=== PATIENT | female | born 1990 | race Caucasian/White ===

== ENCOUNTER 2017-01-05 11:04 | Inpatient (IN) | payer MEDICAID ==
[2017-01-05] VITALS (40 sets, daily range): BP systolic 100–134; BP diastolic 63–98
[~2017-01-05] VITALS: Ht 160 cm; Wt 86.4 kg
[~2017-01-05 11:04] MED LIST: CEPH500C PO; FOLI0.4T2 PO; METR500T; NITR-65 PO; PENI250T4 PO; PREN1TAB25 PO; PRM25T PO; SULF1TAB38 PO
[2017-01-05 11:36] LABS: BILIRUBIN,URINE NEGATIVE (NEGATIVE); KETONES,URINE NEGATIVE (NEGATIVE); LEUKOCYTE ESTERASE ,URINE NEGATIVE (NEGATIVE); NITRITE,URINE NEGATIVE (NEGATIVE); PH,URINE 5 (5-9); PROTEIN,URINE NEGATIVE (NEGATIVE); UROBILINOGEN,URINE NORMAL (NORMAL)
[2017-01-05 11:45] LABS: SQUAMOUS EPITHELIAL CELL,UR 0-2 /HPF
[2017-01-05 12:04] LABS: BASOPHILS # (AUTO) 0.1 10^3/uL (0.0-0.1); BASOPHILS % (AUTO) 0 % (0-10); EOSINOPHILS # (AUTO) 0.1 10^3/uL (0.0-0.3); EOSINOPHILS % (AUTO) 0 % (0-10); LYMPHOCYTES # (AUTO) 2.9 X 10^3 (1.0-4.0); LYMPHOCYTES % (AUTO) 21 % (12-44); MEAN CORPUSCULAR HEMOGLOBIN 27 PG (25-34); MEAN CORPUSCULAR HGB CONC 32 G/DL (32-36); MEAN CORPUSCULAR VOLUME 84 FL (80-99); MEAN PLATELET VOLUME 11.4 FL (7.4-10.4); MONOCYTES % (AUTO) 7 % (0-12); NEUTROPHILS # (AUTO) 10.2 X 10^3 (1.8-7.8); NEUTROPHILS % (AUTO) 72 % (42-75); PLATELET COUNT 290 10^3/uL (130-400); RED CELL DISTRIBUTION WIDTH 14.7 % (10.0-14.5); WHITE BLOOD COUNT 14.2 10^3/uL (4.3-11.0)
[2017-01-05] MEDS ORDERED: D5 LR IV SOLUTION 1,000 ML IV SCH (12:07)
[2017-01-05] MEDS ORDERED: AMPICILLIN INJECTION 2,000 MG in NS (IVPB) 50 ML IV SCH (12:07)
[2017-01-05] MEDS ORDERED: AMPICILLIN 2000 MG INJECTION (IM/IV) ONE (12:10)
[2017-01-05] MEDS ORDERED: NS (IVPB) 50 ML ONE (12:10)
[2017-01-05] MEDS ORDERED: MINERAL OIL CONCENTRATE 99.9% 15 ML UDC TOP PRN (12:15)
[2017-01-05 12:22] LABS: BAND NEUTROPHILS 0 %; BASOPHILS % (MANUAL) 0 %; EOSINOPHILS % (MANUAL) 1 %; LYMPHOCYTES % (MANUAL) 16 %; NEUTROPHILS % (MANUAL) 76 %; REACTIVE LYMPHOCYTES 3 %
[2017-01-05 12:29] LABS: ALANINE AMINOTRANSFERASE 126 U/L (0-55); ANION GAP 8 MMOL/L (5-14); ASPARTATE AMINO TRANSFERASE 100 U/L (5-34); BILIRUBIN,TOTAL 0.3 MG/DL (0.1-1.0); BLOOD UREA NITROGEN 10 MG/DL (7-18); BUN/CREATININE RATIO 15; CALCIUM 8.6 MG/DL (8.5-10.1); CARBON DIOXIDE 18 MMOL/L (21-32); CHLORIDE 106 MMOL/L (98-107); CREATININE SERUM 0.65 MG/DL (0.60-1.30); GFR ESTIMATED > 60; GLUCOSE 79 MG/DL (70-105); POTASSIUM 4.8 MMOL/L (3.6-5.0); SODIUM 132 MMOL/L (135-145); TOTAL PROTEIN 6.3 G/DL (6.4-8.2)
[2017-01-05] MEDS ORDERED: CATHETER FLUSH 10 ML SYR IV PRN (12:30)
--- NOTE | 2017-01-05 12:32 | Diagnostic Imaging Report ---
OB ultrasound. INDICATION: Vaginal bleeding. No prior comparison OB ultrasounds are available during this . FINDINGS: There is a single live intrauterine . The heart rate is 139 beats per minutes. The placenta is anterior. No placenta previa. Amniotic fluid index is 29 CM. The growth parameters are: Biparietal diameter: 39 weeks 5 days Head circumference: 40 weeks and 5 days Abdominal circumference: 41 weeks and 2 days Femur length: 38 weeks and one day These average at: 40 weeks and zero day. Estimated weight is 4.0 kg . No ventriculomegaly. The spine appear unremarkable. Three-vessel cord is seen. The stomach, urinary bladder, kidneys are unremarkable. The four-chamber view is not well evaluated with no gross abnormality evident. No ventriculomegaly. The position is cephalic. The cervix is obscured by the head. IMPRESSION: Polyhydramnios. The preliminary results were given to Dr. Stephens by the electronics engineering technologist performing the exam. Dictated by: Dictated on workstation # [id number]
--- NOTE | 2017-01-05 13:34 | History & Physical-OB/GYN ---
History of Present Illness History of Present Illness Reason for visit/HPI The patient is a 26 /Para 5 / 4,Gestational Age estimated at 40 weeks ( based on US done today) with no care, spontaneous labor, polyhydramnios , suspected macrosomia, GBS unknown, Presents with complaint of "it's my due date". Dating us was done and revealed EDC of approx 40 weeks with copious fluid (see report). She is marciano and has made cervical change, so admitted for labor. PN labs pending. History of "preeclampsia" with last delivery, though when I reviewed records, there was no elevated BP just elevated LFTs. These are pending today. GBS done and pending. Previous PNC with [facility] but none this . When asked, patient states "I didn't know I was ", Though she had a 3D sono a few weeks ago. Also states "I had my period every month". Date of Admission 01/05/17 I consulted on this patient on 01/05/17 13:34 Attending Physician Ashley Lawson DO Admitting Physician Elgin Mc MD Consult Allergies and Home Medications Allergies Coded Allergies: No Known Drug Allergies (Verified , 03/19/08) Home Medications Docusate Sodium 100 Mg Capsule, 100 MG PO BID, #60 Prescribed by: ASHLEY LAWSON on 01/07/17 0722 Ferrous Sulfate 325 Mg Tablet, 325 MG PO DAILY, #120 Prescribed by: ASHLEY LAWSON on 01/07/17 0722 Ibuprofen 600 Mg Tablet, 600 MG PO Q6H, #40 Prescribed by: ASHLEY LAWSON on 01/07/17 0722 Past Dygaucu-Cgryuc-Hdvxko Hx Patient Social History Marrital Status: single Number of Children: 4 Number of living children: 4 Employed/Student: unemployed Smoking Status: Current Everyday Smoker Type Used: Cigarettes Physical Abuse Screen: No Sexual Abuse: No Recent Foreign Travel: No Contact w/other who traveled: No Recent Infectious Disease Expo: No Immunizations Up To Date Tetanus Booster (TDap): Unknown Date of Influenza Vaccine: Aug 20, 2014 Surgeries HX Surgeries: Yes Surgeries: Gallbladder Respiratory Hx Respiratory Disorders: No Cardiovascular Hx Cardiovascular Disorders: No Neurological Hx Neurological Disorders: No Reproductive System : Yes Hx : 5 Hx Para: 4 Hx Reproductive Disorders: No Genitourinary Hx Genitourinary Disorders: No Gastrointestinal Hx Gastrointestinal Disorders: Yes Musculoskeletal Hx Musculoskeletal Disorders: No Endocrine Hx Endocrine Disorders: No HEENT HX ENT Disorders: No Psychosocial Hx Psychiatric Problems: No Blood Transfusions Hx Blood Disorders: No Constitutional: no symptoms reported Respiratory: no symptoms reported Cardiovascular: no symptoms reported Physical Exam Physical Exam Vital Signs Capillary Refill : Labs General Appearance: WD/WN Respiratory: Chest Non Tender, Lungs Clear Cardiovascular: Regular Rate, Rhythm, No Edema Abdominal: normal bowel sounds, non tender Cervix OS: open, other (4 cm) Assessment/Plan Assessment and Plan 1. Multigravid in labor - third trimester, but EDC unknown 2. No care 3. Polyhydramnios- ALIS of 29. Have to rule out undiagnosed diabetes, Also have to rule out anomaly 4. GBS unknown 5. Elevated lfts of unknown etiology Admit for labor, PNLabs drawn, GBS done and pending. Anticipate . Social work consult. UDS pending. Problems: ASHLEY LAWSON DO Jan 05, 2017 13:34
[2017-01-05] MEDS ORDERED: SUFENTA 0.6MCG/ML BUPIVA 0.125 100 ML ONE (14:22)
[2017-01-05] MEDS ORDERED: fentaNYL INJECTION 100 MCG/2 ML AMP ONE (14:40)
[2017-01-05] MEDS ORDERED: BUPIVACAINE 0.25% 30 ML (SENSORCAINE) VIAL ONE (14:40)
[2017-01-05] MEDS ORDERED: LACTATED RINGERS 1,000 ML IV ONE ×2 (15:01)
[2017-01-05] MEDS ORDERED: BUPIVACAINE 0.25% 30 ML (SENSORCAINE) VIAL INJ ONE (15:15)
[2017-01-05] MEDS ORDERED: fentaNYL INJECTION 100 MCG/2 ML AMP INJ ONE (15:15)
[2017-01-05] MEDS ORDERED: ONDANSETRON 4 MG/2 ML (SDV) Z0FRAN IV PRN (15:15)
[2017-01-05] MEDS ORDERED: NALOXONE 0.4 MG/ML 1 ML (NARCAN) VIAL IV PRN (15:15)
[2017-01-05] MEDS ORDERED: EPIDURAL (SUFENTA 0.6MCG/ML BUPIVA 0.125%) 100 ML BAG EPI PRN (15:15)
[2017-01-05] MEDS ORDERED: AMPICILLIN INJECTION 1,000 MG in NS (IVPB) 50 ML IV SCH (16:15)
[2017-01-05] MEDS ORDERED: OXYTOCIN/NORMAL SALINE 500 ML IV SCH ×2 (17:03→20:18)
[2017-01-05] MEDS ORDERED: LIDOCAINE/EPI 1%-1:200,000 (XYLOCAINE) 30 ML VIAL ONE (19:22)
[2017-01-05] MEDS ORDERED: MISOPROSTOL 200 MCG (CYTOTEC) TABLET ONE (20:12)
--- NOTE | 2017-01-05 20:23 | OB Labor & Delivery Record ---
Vag Delivery Note Vag Delivery Note Date of Delivery: 01/05/17 Preoperative Diagnosis: Vicki Delaney is a 26 /Para 5 / 4, Gestational Age estimated at 40 weeks with no care, spontaneous labor, polyhydramnios, suspected macrosomia, GBS unknown elevated LFTs, unknown reason Postoperative Diagnosis: Same Surgeon: PRAMOD LAWSON Help Desk Operator: Siri Montaño MS IV Anesthesia: Epidural Delivery Type: vaginal Findings: Viable male , apgars , weight 8#7oz Lacerations: Intact placenta with 3 vessel cord. No nuchal cord, body cord or shoulder dystocia Cytotec 800 mcg placed for hemorrhage prophylaxis Estimated Blood Loss: 250 ml Complications: None Condition: Stable Description of Procedure: The patient is a 26 /Para 5 / 4,Gestational Age estimated at 40 weeks ( based on US done today) with no care, spontaneous labor, polyhydramnios , suspected macrosomia, GBS unknown elevated LFTs, unknown reason. She was admitted and informed consent was obtained. She was noted to be 4 cm on admission and 5 cm dilated with irregular contractions. Her labor course was remarkable for Ampicillin for GBS prophylaxis ( unknown status), AROM at 7+ cm with copious fluid (2400 grams weighed on the chux), epidrual, then aumentation with pitocin. She progressed to complete dilatation and began to push. She was then set up for delivery. She was at 7 cm for quite awhile and then went quickly to complete and +3. The bed was left intact and she was allowed to deliver in the bed. The infant's head was delivered atraumatically in the OA position. The shoulders and remainder of the infant's body were then delivered without difficulty. Upon delivery, the head was held below the level of the perineum and the mouth and nares were bulb suctioned. The cord was doubly clamped and cut and the infant was handed off to the pediatric staff. An intact placenta with 3-vessel cord delivered via Carter and there was found to be minimal bleeding.~ Vigorous fundal massage was performed and the fundus was found to be firm. IV oxytocin was given. Examination of the vagina and perineum revealed no laceration. Following the delivery, sponge, instrument and needle counts were correct. Mom and baby were both in stable condition in the labor suite. Vitals - Labs Vital Signs - I&O Vital Signs Date Time Temp Pulse Resp B/P (MAP) Pulse Ox O2 Delivery O2 Flow Rate FiO2 01/05/17 18:45 1817 18:40 80 18 122/84 18/17 18:30 18/17 18:24 60 18 119/77 18/17 18:15 1817 18:10 57 18 118/75 18/17 18:00 18/17 17:55 62 18 127/69 97 18/17 17:45 18/17 17:40 59 18 114/67 97 18/17 17:30 18/17 17:25 97.6 67 18 112/69 97 18/17 17:15 1817 17:10 56 18 116/70 97 18/17 17:00 61 18 97 18/17 16:55 56 18 124/65 97 18/17 16:45 70 18 99 18/17 16:40 66 18 122/80 99 18/17 16:30 70 18 99 18/17 16:25 97.4 61 18 122/74 98 18/17 16:15 67 18 97 18/17 16:10 60 18 114/67 98 18/17 16:00 64 18 98 18/17 15:50 67 18 115/73 97 18/17 15:45 62 18 117/76 98 18/17 15:40 68 18 112/73 97 18/17 15:35 73 18 117/77 97 18/17 15:30 75 18 114/70 98 18/17 15:25 72 18 120/76 97 18/17 15:20 82 18 118/76 98 18/17 15:15 66 18 121/73 98 18/17 15:12 77 18 117/73 18/17 15:09 78 18 109/65 98 18/17 15:06 66 18 110/63 18/17 15:03 69 18 115/73 18/17 15:00 81 18 116/79 98 18/17 14:55 82 123/91 18/17 14:50 68 18 122/92 18/17 14:45 133/98 01/05/17 13:53 60 18 128/83 01/05/17 11:05 97.4 85 128/80 Labs Laboratory Tests 01/05/17 11:05: Urine Color YELLOW, Urine Clarity CLEAR, Urine pH 5, Urine Specific [place] 1.015L, Urine Protein NEGATIVE, Urine Glucose (UA) NEGATIVE, Urine Ketones NEGATIVE, Urine Nitrite NEGATIVE, Urine Bilirubin NEGATIVE, Urine Urobilinogen NORMAL, Urine Leukocyte Esterase NEGATIVE, Urine RBC (Auto) 3+H, Urine RBC NONE , Urine WBC NONE, Urine Squamous Epithelial Cells 0-2, Urine Crystals NONE, Urine Bacteria NEGATIVE, Urine Casts NONE, Urine Mucus NEGATIVE, Urine Culture Indicated NO, Urine Opiates Screen NEGATIVE, Urine Oxycodone Screen NEGATIVE, Urine Methadone Screen NEGATIVE, Urine Propoxyphene Screen NEGATIVE, Urine Barbiturates Screen NEGATIVE, Ur Tricyclic Antidepressants Screen NEGATIVE, Urine Phencyclidine Screen NEGATIVE, Urine Amphetamines Screen NEGATIVE, Urine Methamphetamines Screen NEGATIVE, Urine Benzodiazepines Screen NEGATIVE, Urine Cocaine Screen NEGATIVE, Urine Cannabinoids Screen NEGATIVE 01/05/17 11:48: White Blood Count 14.2H, Red Blood Count 3.90L, Hemoglobin 10.6L, Hematocrit 33L , Mean Corpuscular Volume 84, Mean Corpuscular Hemoglobin 27, Mean Corpuscular Hemoglobin Concent 32, Red Cell Distribution Width 14.7H, Platelet Count 290, Mean Platelet Volume 11.4H, Neutrophils (%) (Auto) 72, Lymphocytes (%) (Auto) 21 , Monocytes (%) (Auto) 7, Eosinophils (%) (Auto) 0, Basophils (%) (Auto) 0, Neutrophils # (Auto) 10.2H, Lymphocytes # (Auto) 2.9, Monocytes # (Auto) 1.0, Eosinophils # (Auto) 0.1, Basophils # (Auto) 0.1, Neutrophils % (Manual) 76, Lymphocytes % (Manual) 16, Monocytes % (Manual) 4, Eosinophils % (Manual) 1, Basophils % (Manual) 0, Band Neutrophils 0, Reactive Lymphocytes 3, Blood Morphology Comment NORMAL, Sodium Level 132L, Potassium Level 4.8, Chloride Level 106, Carbon Dioxide Level 18L, Anion Gap 8, Blood Urea Nitrogen 10, Creatinine 0.65, Estimat Glomerular Filtration Rate > 60, BUN/Creatinine Ratio 15, Glucose Level 79, Calcium Level 8.6, Total Bilirubin 0.3, Aspartate Amino Transf (AST/SGOT) 100H, Alanine Aminotransferase (ALT/SGPT) 126H, Alkaline Phosphatase 234H, Total Protein 6.3L, Albumin 3.0L PRAMOD LAWSON DO Jan 05, 2017 20:23
[2017-01-05] MEDS ORDERED: MEASLES,MUMPS,RUBELLA 1 EA INJ SQ ONE (20:30)
[2017-01-05] MEDS ORDERED: WITCH HAZEL(TUCKS) 40 EA JAR TOP PRN (20:30)
[2017-01-05] MEDS ORDERED: TETANUS,DIPTH,PERTUSS P/F (BOOSTRIX) 0.5 ML VIAL IM ONE (20:30)
[2017-01-05] MEDS ORDERED: MISOPROSTOL 200 MCG (CYTOTEC) TABLET PR ONE (20:30)
[2017-01-05] MEDS ORDERED: BENZOCAINE/MENTHOL (DERMOPLAST) 56 ML CAN TP PRN (20:30)
[2017-01-05] MEDS: IBUPROFEN 600 MG (MOTRIN) TAB PO SCH (21:54)
[2017-01-05] MEDS ORDERED: CATHETER FLUSH 10 ML SYR IV SCH (22:00)
[2017-01-06 03:00] VITALS: BP 107/63
[2017-01-06] MEDS: IBUPROFEN 600 MG (MOTRIN) TAB PO SCH ×3 (03:01→17:36)
[2017-01-06 06:15] LABS: BASOPHILS % (AUTO) 0 % (0-10); EOSINOPHILS # (AUTO) 0.2 10^3/uL (0.0-0.3); EOSINOPHILS % (AUTO) 1 % (0-10); LYMPHOCYTES # (AUTO) 3.2 X 10^3 (1.0-4.0); LYMPHOCYTES % (AUTO) 19 % (12-44); MEAN CORPUSCULAR HEMOGLOBIN 26 PG (25-34); MEAN CORPUSCULAR HGB CONC 31 G/DL (32-36); MEAN CORPUSCULAR VOLUME 84 FL (80-99); MEAN PLATELET VOLUME 11.8 FL (7.4-10.4); MONOCYTES # (AUTO) 1.1 X 10^3 (0.0-1.0); MONOCYTES % (AUTO) 6 % (0-12); NEUTROPHILS # (AUTO) 12.5 X 10^3 (1.8-7.8); NEUTROPHILS % (AUTO) 74 % (42-75); PLATELET COUNT 290 10^3/uL (130-400); RED BLOOD COUNT 3.68 10^6/uL (4.35-5.85); RED CELL DISTRIBUTION WIDTH 14.5 % (10.0-14.5)
[2017-01-06 07:50] LABS: HIV 1/2 INTERP See Footnote; HIV AG AB SCREEN Non-Reactive (Non-Reactive)
[2017-01-06 08:00] LABS: ALANINE AMINOTRANSFERASE 126 U/L (0-55); ALBUMIN 2.5 G/DL (3.2-4.5); ANION GAP 7 MMOL/L (5-14); ASPARTATE AMINO TRANSFERASE 113 U/L (5-34); BILIRUBIN,TOTAL 0.3 MG/DL (0.1-1.0); BLOOD UREA NITROGEN 7 MG/DL (7-18); BUN/CREATININE RATIO 12; CALCIUM 8.2 MG/DL (8.5-10.1); CARBON DIOXIDE 21 MMOL/L (21-32); CHLORIDE 105 MMOL/L (98-107); GFR ESTIMATED > 60; GLUCOSE 78 MG/DL (70-105); POTASSIUM 4.3 MMOL/L (3.6-5.0); SODIUM 133 MMOL/L (135-145); TOTAL PROTEIN 5.3 G/DL (6.4-8.2)
--- NOTE | 2017-01-06 08:27 | Postpartum Progress Note ---
Note Note Day # 1 Subjective: Unable to assess as pt has not been in her room the three times I attempted to see her this AM. Per RN, no complaints. Objective: VS - Last 72 Hours, by Label 01/05/17 01/05/17 01/05/17 17 11:05 13:53 14:45 14:50 Temp 97.4 Pulse 85 60 68 Resp 18 18 B/P (MAP) 128/80 128/83 133/98 122/92 18/17 18/17 4/18/17 418/17 14:55 15:00 15:03 15:06 Pulse 82 81 69 66 Resp 18 18 18 B/P (MAP) 123/91 116/79 115/73 110/63 Pulse Ox 98 01/05/17 18/17 /18/17 01/05/17 15:09 15:12 15:15 15:20 Pulse 78 77 66 82 Resp 18 18 18 18 B/P (MAP) 109/65 117/73 121/73 118/76 Pulse Ox 98 98 98 01/05/17 18/17 4/18/17 /18/17 15:25 15:30 15:35 15:40 Pulse 72 75 73 68 Resp 18 18 18 18 B/P (MAP) 120/76 114/70 117/77 112/73 Pulse Ox 97 98 97 97 18/17 /18/17 4/18/17 18/17 15:45 15:50 16:00 16:10 Pulse 62 67 64 60 Resp 18 18 18 18 B/P (MAP) 117/76 115/73 114/67 Pulse Ox 98 97 98 98 18/17 18/17 4/18/17 /18/17 16:15 16:25 16:30 16:40 Temp 97.4 Pulse 67 61 70 66 Resp 18 18 18 18 B/P (MAP) 122/74 122/80 Pulse Ox 97 98 99 99 18/17 /18/17 4/18/17 4/18/17 16:45 16:55 17:00 17:10 Pulse 70 56 61 56 Resp 18 18 18 18 B/P (MAP) 124/65 116/70 Pulse Ox 99 97 97 97 18/17 4/18/17 4/18/17 4/18/17 17:15 17:25 17:30 17:40 Temp 97.6 Pulse 67 59 Resp 18 18 B/P (MAP) 112/69 114/67 Pulse Ox 97 97 01/05/17 01/05/17 01/05/17 01/05/17 17:45 17:55 18:00 18:10 Pulse 62 57 Resp 18 18 B/P (MAP) 127/69 118/75 Pulse Ox 97 01/05/17 01/05/17 01/05/17 01/05/17 18:15 18:24 18:30 18:40 Pulse 60 80 Resp 18 18 B/P (MAP) 119/77 122/84 01/05/17 01/05/17 01/05/17 01/05/17 18:45 18:55 19:15 19:30 Temp 97.2 Pulse 72 68 78 Resp 18 18 B/P (MAP) 124/72 134/81 132/84 O2 Delivery Room Air Non Rebreather 01/05/17 01/05/17 01/05/17 01/05/17 19:43 19:55 20:10 20:25 Temp 97.8 98.0 97.3 Pulse 84 84 70 Resp 18 18 18 18 B/P (MAP) 125/70 132/83 119/74 O2 Delivery Non Rebreather Room Air Room Air Room Air 01/05/17 01/05/17 01/05/17 01/05/17 20:40 20:55 21:05 21:10 Temp 97.9 98.1 Pulse 75 60 77 72 Resp 18 18 18 18 B/P (MAP) 122/77 118/71 125/74 123/73 O2 Delivery Room Air Room Air Room Air Room Air 01/05/17 01/06/17 21:25 03:00 Temp 97.2 Pulse 77 53 Resp 18 18 B/P (MAP) 100/80 107/63 Pulse Ox 97 O2 Delivery Room Air Room Air Physical Exam: Unable to perform. Laboratory Tests Test 01/05/17 11:05 01/05/17 11:48 01/06/17 05:54 Range/Units Urine Color YELLOW Urine Clarity CLEAR Urine pH 5 5-9 Urine Specific [place] 1.015 L 1.016-1.022 Urine Protein NEGATIVE NEGATIVE Urine Glucose (UA) NEGATIVE NEGATIVE Urine Ketones NEGATIVE NEGATIVE Urine Nitrite NEGATIVE NEGATIVE Urine Bilirubin NEGATIVE NEGATIVE Urine Urobilinogen NORMAL NORMAL MG/DL Urine Leukocyte Esterase NEGATIVE NEGATIVE Urine RBC (Auto) 3+ H NEGATIVE Urine RBC NONE /HPF Urine WBC NONE /HPF Urine Squamous Epithelial Cells 0-2 /HPF Urine Crystals NONE /LPF Urine Bacteria NEGATIVE /HPF Urine Casts NONE /LPF Urine Mucus NEGATIVE /LPF Urine Culture Indicated NO Urine Opiates Screen NEGATIVE NEGATIVE Urine Oxycodone Screen NEGATIVE NEGATIVE Urine Methadone Screen NEGATIVE NEGATIVE Urine Propoxyphene Screen NEGATIVE NEGATIVE Urine Barbiturates Screen NEGATIVE NEGATIVE Ur Tricyclic Antidepressants Screen NEGATIVE NEGATIVE Urine Phencyclidine Screen NEGATIVE NEGATIVE Urine Amphetamines Screen NEGATIVE NEGATIVE Urine Methamphetamines Screen NEGATIVE NEGATIVE Urine Benzodiazepines Screen NEGATIVE NEGATIVE Urine Cocaine Screen NEGATIVE NEGATIVE Urine Cannabinoids Screen NEGATIVE NEGATIVE White Blood Count 14.2 H 17.0 H 4.3-11.0 10^3/uL Red Blood Count 3.90 L 3.68 L 4.35-5.85 10^6/uL Hemoglobin 10.6 L 9.7 L 11.5-16.0 G/DL Hematocrit 33 L 31 L 35-52 % Mean Corpuscular Volume 84 84 80-99 FL Mean Corpuscular Hemoglobin 27 26 25-34 PG Mean Corpuscular Hemoglobin Concent 32 31 L 32-36 G/DL Red Cell Distribution Width 14.7 H 14.5 10.0-14.5 % Platelet Count 290 290 130-400 10^3/uL Mean Platelet Volume 11.4 H 11.8 H 7.4-10.4 FL Neutrophils (%) (Auto) 72 74 42-75 % Lymphocytes (%) (Auto) 21 19 12-44 % Monocytes (%) (Auto) 7 6 0-12 % Eosinophils (%) (Auto) 0 1 0-10 % Basophils (%) (Auto) 0 0 0-10 % Neutrophils # (Auto) 10.2 H 12.5 H 1.8-7.8 X 10^3 Lymphocytes # (Auto) 2.9 3.2 1.0-4.0 X 10^3 Monocytes # (Auto) 1.0 1.1 H 0.0-1.0 X 10^3 Eosinophils # (Auto) 0.1 0.2 0.0-0.3 10^3/uL Basophils # (Auto) 0.1 0.0 0.0-0.1 10^3/uL Neutrophils % (Manual) 76 % Lymphocytes % (Manual) 16 % Monocytes % (Manual) 4 % Eosinophils % (Manual) 1 % Basophils % (Manual) 0 % Band Neutrophils 0 % Reactive Lymphocytes 3 % Blood Morphology Comment NORMAL Sodium Level 132 L 133 L 135-145 MMOL/L Potassium Level 4.8 4.3 3.6-5.0 MMOL/L Chloride Level 106 105 98-107 MMOL/L Carbon Dioxide Level 18 L 21 21-32 MMOL/L Anion Gap 8 7 5-14 MMOL/L Blood Urea Nitrogen 10 7 7-18 MG/DL Creatinine 0.65 0.60 0.60-1.30 MG/DL Estimat Glomerular Filtration Rate > 60 > 60 BUN/Creatinine Ratio 15 12 Glucose Level 79 78 70-105 MG/DL Calcium Level 8.6 8.2 L 8.5-10.1 MG/DL Total Bilirubin 0.3 0.3 0.1-1.0 MG/DL Aspartate Amino Transf (AST/SGOT) 100 H 113 H 5-34 U/L Alanine Aminotransferase (ALT/SGPT) 126 H 126 H 0-55 U/L Alkaline Phosphatase 234 H 187 H 40-136 U/L Total Protein 6.3 L 5.3 L 6.4-8.2 G/DL Albumin 3.0 L 2.5 L 3.2-4.5 G/DL Hepatitis A IgM Antibody Non-Reactive Non-Reactive Hepatitis B Surface Antigen Non-Reactive Non-Reactive Hepatitis B Core IgM Antibody Non-Reactive Non-Reactive Hepatitis C Antibody Non-Reactive Non-Reactive HIV (1&2) Antibody Non-Reactive Non-Reactive HIV (1&2) Antibody Interpretation See Footnote Assessment: 26 y/o post- day # 1, status post spontaneous vaginal delivery. Recovering well, hemodynamically stable Acute blood loss anemia Hgb 9.7 Transaminitis, stable, no elevated BPs or other si/sx pre-eclampsia Plan: Routine care. Encourage breast feeding. Encourage ambulation. Ferrous sulfate supplementation. Plan for discharge tomorrow. Hepatitis panel negative, will need f/u with PCP regarding transaminitis (chronic after reviewing last delivery admission). SS consult - no care Vitals - Labs Vital Signs - I&O Vital Signs Date Time Temp Pulse Resp B/P (MAP) Pulse Ox O2 Delivery O2 Flow Rate FiO2 01/06/17 03:00 97.2 53 18 107/63 97 Room Air 01/05/17 21:25 77 18 100/80 Room Air 01/05/17 21:10 72 18 123/73 Room Air 01/05/17 21:05 77 18 125/74 Room Air 01/05/17 20:55 98.1 60 18 118/71 Room Air 01/05/17 20:40 97.9 75 18 122/77 Room Air 01/05/17 20:25 97.3 70 18 119/74 Room Air 01/05/17 20:10 98.0 84 18 132/83 Room Air 01/05/17 19:55 97.8 84 18 125/70 Room Air 01/05/17 19:43 18 Non Rebreather 01/05/17 19:30 78 18 132/84 Non Rebreather 01/05/17 19:15 97.2 68 18 134/81 Room Air 01/05/17 18:55 72 124/72 17 18:45 1817 18:40 80 18 122/84 1817 18:30 1817 18:24 60 18 119/77 1817 18:15 1817 18:10 57 18 118/75 1817 18:00 18/17 17:55 62 18 127/69 97 18/17 17:45 18/17 17:40 59 18 114/67 97 18/17 17:30 18/17 17:25 97.6 67 18 112/69 97 1817 17:15 1817 17:10 56 18 116/70 97 18/17 17:00 61 18 97 18/17 16:55 56 18 124/65 97 18/17 16:45 70 18 99 18/17 16:40 66 18 122/80 99 18/17 16:30 70 18 99 18/17 16:25 97.4 61 18 122/74 98 18/17 16:15 67 18 97 18/17 16:10 60 18 114/67 98 18/17 16:00 64 18 98 18/17 15:50 67 18 115/73 97 18/17 15:45 62 18 117/76 98 4/18/17 15:40 68 18 112/73 97 01/05/17 15:35 73 18 117/77 97 01/05/17 15:30 75 18 114/70 98 01/05/17 15:25 72 18 120/76 97 01/05/17 15:20 82 18 118/76 98 01/05/17 15:15 66 18 121/73 98 01/05/17 15:12 77 18 117/73 01/05/17 15:09 78 18 109/65 98 01/05/17 15:06 66 18 110/63 01/05/17 15:03 69 18 115/73 01/05/17 15:00 81 18 116/79 98 01/05/17 14:55 82 123/91 01/05/17 14:50 68 18 122/92 01/05/17 14:45 133/98 01/05/17 13:53 60 18 128/83 01/05/17 11:05 97.4 85 128/80 I & O 01/06/17 07:00 Intake Total 1550 ml Balance 1550 ml Labs Laboratory Tests 01/05/17 11:05: Urine Color YELLOW, Urine Clarity CLEAR, Urine pH 5, Urine Specific [place] 1.015L, Urine Protein NEGATIVE, Urine Glucose (UA) NEGATIVE, Urine Ketones NEGATIVE, Urine Nitrite NEGATIVE, Urine Bilirubin NEGATIVE, Urine Urobilinogen NORMAL, Urine Leukocyte Esterase NEGATIVE, Urine RBC (Auto) 3+H, Urine RBC NONE , Urine WBC NONE, Urine Squamous Epithelial Cells 0-2, Urine Crystals NONE, Urine Bacteria NEGATIVE, Urine Casts NONE, Urine Mucus NEGATIVE, Urine Culture Indicated NO, Urine Opiates Screen NEGATIVE, Urine Oxycodone Screen NEGATIVE, Urine Methadone Screen NEGATIVE, Urine Propoxyphene Screen NEGATIVE, Urine Barbiturates Screen NEGATIVE, Ur Tricyclic Antidepressants Screen NEGATIVE, Urine Phencyclidine Screen NEGATIVE, Urine Amphetamines Screen NEGATIVE, Urine Methamphetamines Screen NEGATIVE, Urine Benzodiazepines Screen NEGATIVE, Urine Cocaine Screen NEGATIVE, Urine Cannabinoids Screen NEGATIVE 01/05/17 11:48: White Blood Count 14.2H, Red Blood Count 3.90L, Hemoglobin 10.6L, Hematocrit 33L , Mean Corpuscular Volume 84, Mean Corpuscular Hemoglobin 27, Mean Corpuscular Hemoglobin Concent 32, Red Cell Distribution Width 14.7H, Platelet Count 290, Mean Platelet Volume 11.4H, Neutrophils (%) (Auto) 72, Lymphocytes (%) (Auto) 21 , Monocytes (%) (Auto) 7, Eosinophils (%) (Auto) 0, Basophils (%) (Auto) 0, Neutrophils # (Auto) 10.2H, Lymphocytes # (Auto) 2.9, Monocytes # (Auto) 1.0, Eosinophils # (Auto) 0.1, Basophils # (Auto) 0.1, Neutrophils % (Manual) 76, Lymphocytes % (Manual) 16, Monocytes % (Manual) 4, Eosinophils % (Manual) 1, Basophils % (Manual) 0, Band Neutrophils 0, Reactive Lymphocytes 3, Blood Morphology Comment NORMAL, Sodium Level 132L, Potassium Level 4.8, Chloride Level 106, Carbon Dioxide Level 18L, Anion Gap 8, Blood Urea Nitrogen 10, Creatinine 0.65, Estimat Glomerular Filtration Rate > 60, BUN/Creatinine Ratio 15, Glucose Level 79, Calcium Level 8.6, Total Bilirubin 0.3, Aspartate Amino Transf (AST/SGOT) 100H, Alanine Aminotransferase (ALT/SGPT) 126H, Alkaline Phosphatase 234H, Total Protein 6.3L, Albumin 3.0L, Hepatitis A IgM Antibody Non -Reactive, Hepatitis B Surface Antigen Non-Reactive, Hepatitis B Core IgM Antibody Non-Reactive, Hepatitis C Antibody Non-Reactive, HIV (1&2) Antibody Non -Reactive, HIV (1&2) Antibody Interpretation See Footnote 01/06/17 05:54: White Blood Count 17.0H, Red Blood Count 3.68L, Hemoglobin 9.7L, Hematocrit 31L , Mean Corpuscular Volume 84, Mean Corpuscular Hemoglobin 26, Mean Corpuscular Hemoglobin Concent 31L, Red Cell Distribution Width 14.5, Platelet Count 290, Mean Platelet Volume 11.8H, Neutrophils (%) (Auto) 74, Lymphocytes (%) (Auto) 19 , Monocytes (%) (Auto) 6, Eosinophils (%) (Auto) 1, Basophils (%) (Auto) 0, Neutrophils # (Auto) 12.5H, Lymphocytes # (Auto) 3.2, Monocytes # (Auto) 1.1H, Eosinophils # (Auto) 0.2, Basophils # (Auto) 0.0, Sodium Level 133L, Potassium Level 4.3, Chloride Level 105, Carbon Dioxide Level 21, Anion Gap 7, Blood Urea Nitrogen 7, Creatinine 0.60, Estimat Glomerular Filtration Rate > 60, BUN/ Creatinine Ratio 12, Glucose Level 78, Calcium Level 8.2L, Total Bilirubin 0.3, Aspartate Amino Transf (AST/SGOT) 113H, Alanine Aminotransferase (ALT/SGPT) 126H , Alkaline Phosphatase 187H, Total Protein 5.3L, Albumin 2.5L HAROLDO CHANG MD Jan 06, 2017 08:27
[2017-01-06 09:20] VITALS: BP 117/72
--- NOTE | 2017-01-06 09:45 | Anesthesia-Regional Post-Op ---
Regional Patient Condition Mental Status: Alert, Oriented x3 Circulation: Same as Pre-Op Headache: Absent Sensation: Full Recovery Motor Block: Absent Post Op Complications Complications None Follow Up Care/Instructions Patient Instructions None needed. Anesthesia/Patient Condition Patient is doing well, no complaints, stable vital signs, no apparent adverse anesthesia problems. No complications reported per nursing. MIKE NOBLE CRNA Jan 06, 2017 09:45
[2017-01-06] MEDS: DOCUSATE SODIUM 100 MG (COLACE) CAP PO SCH ×2 (11:00→20:49)
[2017-01-06] MEDS: FERROUS SULF 325 MG (IRON) TAB PO SCH (11:00)
[2017-01-06] MEDS: PRENATAL VITAMIN 1 EA TAB PO SCH (11:02)
[2017-01-06 13:00] VITALS: BP 113/72
[2017-01-06 17:15] VITALS: BP 105/74
[2017-01-07] MEDS: IBUPROFEN 600 MG (MOTRIN) TAB PO SCH ×2 (00:07→07:06)
[2017-01-07] MEDS: PRENATAL VITAMIN 1 EA TAB PO SCH (07:06)
[2017-01-07] MEDS ORDERED: FERR-74 PO (07:22)
[2017-01-07] MEDS ORDERED: IBUP-1773 PO (07:22)
[2017-01-07] MEDS ORDERED: DOCU100C37 PO (07:22)
--- NOTE | 2017-01-07 07:23 | Discharge Inst-Women's Service ---
Discharge Inst-Women's Serv Depart Medication/Instructions New, Converted or Re-Newed RX: Transmitted to Pharmacy Final Diagnosis no care elevated LFTs vaginal delivery epidural Consults/Follow Up Additional Follow Up: Yes (2 weeks in [facility]'s office and 6 weeks) Activity Activity: Activity as Tolerated Driving Instructions: You May Drive NO SMOKING: NO SMOKING Nothing Inside Vagina: No Douching, No [place], No Tampons Diet Discharge Diet: No Restrictions Symptoms to Report to : Swelling Increased, Bleeding Excessive, Fever Over 101 Degrees F, Vaginal Bleeding Increase, Vaginal Discharge Foul For Any Problems or Questions: Contact Your Physician PRAMOD LAWSON DO Jan 07, 2017 07:23
[2017-01-07] MEDS: DOCUSATE SODIUM 100 MG (COLACE) CAP PO SCH (08:08)
[2017-01-07] MEDS: FERROUS SULF 325 MG (IRON) TAB PO SCH (08:08)
[2017-01-07 08:39] VITALS: BP 103/73
[2017-01-07] MEDS ORDERED: TETANUS,DIPTH,PERTUSS P/F (BOOSTRIX) 0.5 ML VIAL IM ONE (09:46)
--- NOTE | 2017-01-07 10:05 | Progress Note-Standard ---
Standard Progress Note Progress Notes/Assess & Plan Progress/Assessment & Plan Patient doing well. No concerns voiced. Ambulating and voiding freely. Plans on rooming in due to baby staying for a week. Vital Sign - Last 24 Hours 01/06/17 01/06/17 01/07/17 13:00 17:15 08:39 Temp 97.4 97.6 97.6 Pulse 69 72 56 Resp 14 18 14 B/P (MAP) 113/72 105/74 103/73 Pulse Ox 97 98 99 O2 Delivery Room Air Room Air Room Air Assessment: 26 y/o post- day # 2, status post spontaneous vaginal delivery. Recovering well, hemodynamically stable Acute blood loss anemia Hgb 9.7 Transaminitis, stable, no elevated BPs or other si/sx pre-eclampsia Plan: Routine care. Encourage breast feeding. Encourage ambulation. Ferrous sulfate supplementation. Plan for discharge today. Hepatitis panel negative, will need f/u with PCP regarding transaminitis (chronic after reviewing last delivery admission). SS consult - no care LEISA GARCIA DO Jan 07, 2017 10:05 am
[2017-01-07 15:54] LABS: RUBELLA ANTIBODY INTERP Negative (Negative)
== END 2017-01-07 11:05 | disposition home or self-care (01) | DRG 775 ==
LOC: WSo 11:04 → LDRP 11:05 → WSo 12:00 → LDRP 21:35
PROVIDERS: ADMIT Obstetrics & Gynecology; ATTEND Obstetrics & Gynecology
PROC: 10E0XZZ Delivery of Products of Conception, External Approach (ICD-10-PCS; principal; 2017-01-05)
DX: O40.3XX0 Polyhydramnios, third trimester, not applicable or unspecified (principal); O99.03 Anemia complicating the puerperium; D64.9 Anemia, unspecified; O99.333 Smoking (tobacco) complicating pregnancy, third trimester; F17.210 Nicotine dependence, cigarettes, uncomplicated; O28.0 Abnormal hematological finding on antenatal screening of mother; R79.89 Other specified abnormal findings of blood chemistry; O09.33 Supervision of pregnancy with insufficient antenatal care, third trimester; Z3A.40 40 weeks gestation of pregnancy; Z37.0 Single live birth; Z23 Encounter for immunization
CPT/HCPCS: 36415; 76805; 80053; 80074; 80306; 81000; 85007; 85025; 85027; 86703; 86762; 86850; 86900; 86901; 90715; 99212

== ENCOUNTER 2017-05-04 21:00 | Emergency (ER) | payer MEDICAID ==
[~2017-05-04] VITALS: Ht 160 cm; Wt 81.6 kg
[~2017-05-04 21:00] MED LIST changes: +DOCU100C37 PO; +FERR-74 PO; +IBUP-1773 PO
[2017-05-04] MEDS ORDERED: ORPHENADRINE 60 MG/2 ML (NORFLEX) AMP ONE (21:06)
[2017-05-04] MEDS ORDERED: methylPREDNISolone 125 MG (Solu-MEDROL) VIAL ONE (21:06)
[2017-05-04] MEDS ORDERED: diphenhydrAMINE 25 MG TAB (BENADRYL) PO ONE (21:06)
[2017-05-04] MEDS ORDERED: KETOROLAC 60 MG/2 ML VIAL IM ONE (21:30)
[2017-05-04] MEDS ORDERED: cefTRIAXone 1 GM (ROCEPHIN) VIAL IM ONE (21:30)
[2017-05-04] MEDS ORDERED: RX-NAPROXEN (NAPROSYN) 250 MG TAB PPK#4 PO STA (21:30)
[2017-05-04] MEDS ORDERED: RX-CLINDAMYCIN 150 MG (CLEOCIN) CAP PPK#4 PO STA (21:30)
[2017-05-04] MEDS ORDERED: LIDOCAINE 1% INJ 20 ML (XYLOCAINE) VIAL INJ ONE (21:30)
[2017-05-04] MEDS ORDERED: LIDOCAINE 2% VISCOUS 15 ML UDC MM ONE (21:30)
[2017-05-04] MEDS ORDERED: LIDO15SO2 MM (21:34)
[2017-05-04] MEDS ORDERED: NAPR500T3 PO (21:34)
[2017-05-04] MEDS ORDERED: CLIN300C11 PO (21:34)
--- NOTE | 2017-05-04 21:34 | ED EENT ---
History of Present Illness General Chief Complaint: Dental Problems/Pain Stated Complaint: DENTAL PAIN Nursing Triage Note: PT TO ED 5 W/ C/O LT UPPER JAW PAIN ONSET "AWHILE". STATES HER "NERVE IS SHOWING". NO OTHER C/O VOICED Source: patient History of Present Illness Time seen by provider: 21:25 Initial Comments C/O LEFT UPPER DENTAL/JAW PAIN OFF AND ON FOR 3-4 WEEKS, BAD FOR THE LAST 2-3 DAYS WAS SEEN AT [facility] 3 WEEKS AGO FOR THIS AND WAS REFERRED TO AN ORAL SURGEON, BUT PT DID NOT GO--STATES SHE CANNOT AFFORD IT. STATES SHE WAS GIVEN RX FOR PENICILLIN AND UNKNOWN PAIN MEDICATION. NO RELIEF HAS FOLLOW UP APPOINTMENT AT [facility] 05/26/17 FOR THIS PROBLEM. NO FEVER NO FACIAL SWELLING HISTORY OF CHRONIC DENTAL PROBLEMS--HX OF METH USE/SMOKED IT. CLAIMS SHE HAS NOT USED ANY DRUGS FOR 8 MONTHS. LMP 2 WEEKS AGO. NORMAL. NO CONTROL PCP: [facility] [place] D[place]IST: [facility] Allergies and Home Medications Allergies Coded Allergies: No Known Drug Allergies (Verified , 03/19/08) Home Medications Clindamycin HCl 300 Mg Capsule, 300 MG PO QID, #40 Prescribed by: AURY SANTANA on 05/04/174 Lidocaine HCl 15 Ml Solution, 1-2 ML MM Q 1-2 HOURS, #100 Prescribed by: AURY SANTANA on 05/04/174 Naproxen 500 Mg Tablet, 500 MG PO BID, #20 Prescribed by: AURY SANTANA on 05/04/174 Review of Systems Constitutional: no symptoms reported Eyes: No Symptoms Reported Ears: No Symptoms Reported Nose: no symptoms reported Mouth: see HPI Throat: no symptoms reported Respiratory: no symptoms reported Cardiovascular: no symptoms reported Skin: no symptoms reported Neurological: No Symptoms Reported Past Zwroulp-Ikxfxa-Dknnzt Hx Patient Social History Alcohol Use: Denies Use Recreational Drug Use: Yes (+ METH, THC--DENIES IV DRUG USE, STATES SHE SMOKED METH. ) Smoking Status: Current Everyday Smoker (1 PPD) Type Used: Cigarettes Recent Foreign Travel: No Contact w/Someone Who Travel: No Recent Infectious Disease Expo: No Recent Hopitalizations: Yes (06/25/07 biliary colic ) Immunizations Up To Date Tetanus Booster (TDap): Unknown PED Vaccines UTD: Yes Date of Influenza Vaccine: Aug 20, 2014 Seasonal Allergies Seasonal Allergies: No Surgeries HX Surgeries: Yes Surgeries: Gallbladder Respiratory Hx Respiratory Disorders: No Cardiovascular Hx Cardiac Disorders: No Neurological Hx Neurological Disorders: No Reproductive System : No Hx : 5 Hx Para: 5 (DELIVERED 12/2016 WITH NO CARE, POLYHYDRAMNIOS) Hx Total # of Abortions (Spona: 0 Hx Reproductive Disorders: No Female Reproductive Disorders: Denies Genitourinary Hx Genitourinary Disorders: No Gastrointestinal Hx Gastrointestinal Disorders: Yes (ELEVATED LFT'S ) Musculoskeletal Hx Musculoskeletal Disorders: No Endocrine Hx Endocrine Disorders: No HEENT HX ENT Disorders: Yes (EXTENSIVE DENTAL DECAY) Psychosocial Hx Psychiatric Problems: No Integumentary HX Skin/Integumentary Disorder: No Blood Transfusions Hx Blood Disorders: No Adverse Reaction to a Blood Tr: No Family Medical History Family Medial History: FH: spina bifida G8 BROTHER Physical Exam Vital Signs Vital Sign - Last 12Hours 05/04/17 21:05 Temp 96.6 Pulse 71 Resp 20 B/P (MAP) 139/102 Pulse Ox 99 O2 Delivery Room Air General Appearance: WD/WN, no apparent distress, other (DIRTY, MALODOROUS, LAYING PRONE AND TEXTING/PLAYING ON PHONE) Eyes: bilateral eye normal inspection, bilateral eye PERRL, bilateral eye EOMI Ears: bilateral ear auricle normal, bilateral ear canal normal, bilateral ear TM normal Nose: normal inspection Mouth/Throat: No mandibular swelling, No maxillary swelling, other (EXTENSIVE DENTAL DECAY WITH MANY TEETH DECAYED DOWN TO GUMS. LEFT UPPER MOLARS AND PREMOLARS ALL COMPLETELY DECAYED DOWN TO GUMS, WITH MODERATE GUM SWELLING, ERYTHEMA AND TENDERNESS. NO AREAS OF FLUCTUANCE OR PURULENT DRAINAGE. NO FACIAL SWELLING OR ERYTHEMA. NO TRISMUS. ) Neck: non-tender, full range of motion, supple, normal inspection, No lymphadenopathy (R), No lymphadenopathy (L) Cardiovascular: regular rate, rhythm, no murmur Respiratory: normal breath sounds, no respiratory distress, no accessory muscle use Neurologic/Psychiatric: freight weigher II-XII nml as tested, no motor/sensory deficits, alert, normal mood/affect, oriented x 3 Skin: normal color, warm/dry Progress/Results/Core Measures Results/Orders My Orders Orders - AURY SANTANA DO Methylprednisolone Sod Succ (Solu-Medrol (05/04/17 21:06) Diphenhydramine Tablet (Benadryl Tablet) (05/04/17 21:06) Orphenadrine Injection (Norflex Injectio (05/04/17 21:06) Ketorolac Injection (Toradol Injection) (05/04/17 21:30) Ceftriaxone Injection (Rocephin Injectio (05/04/17 21:30) Lidocaine 1% Injection (Xylocaine 1% Inj (05/04/17 21:30) Rx-Clindamycin Capsule (Rx-Cleocin Capsu (05/04/17 21:30) Rx-Naproxen (Rx-Naprosyn) (05/04/17 21:30) Lidocaine 2% Viscous 15 Ml (Xylocaine Vi (05/04/17 21:30) Medications Given in ED Current Medications Medications Dose Ordered Sig/Mason Route Start Time Stop Time Status Last Admin Dose Admin Ceftriaxone Sodium 1,000 mg ONCE ONCE IM 05/04/17 21:30 05/04/17 21:33 DC 05/04/17 22:07 1,000 MG Ketorolac Tromethamine 60 mg ONCE ONCE IM 05/04/17 21:30 05/04/17 21:33 DC 05/04/17 22:05 60 MG Lidocaine HCl 2.1 ml ONCE ONCE INJ 05/04/17 21:30 05/04/17 21:33 DC 05/04/17 22:07 2.1 ML Lidocaine HCl 5 ml ONCE ONCE MM 05/04/17 21:30 05/04/17 21:33 DC 05/04/17 22:13 5 ML Vital Signs/I&O Vital Sign - Last 12Hours 05/04/17 05/04/17 21:05 22:20 Temp 96.6 Pulse 71 0 Resp 20 0 B/P (MAP) 139/102 Pulse Ox 99 0 O2 Delivery Room Air Blood Pressure Mean: 114 Departure Impression Impression: Primary Impression: Dental caries Additional Impression: Dental abscess Disposition: 01 HOME, SELF-CARE Condition: Stable Departure-Patient Inst. Referrals: [facility] (PCP/Family) Primary Care Physician Patient Instructions: Dental Pain (DC), Tooth Decay, Adult (DC), Tooth Abscess (DC) Add. Discharge Instructions: SOFT FOODS FREQUENT SALT WATER SWISHES FOLLOW UP WITH DENTIST IN 2-3 DAYS IF NO BETTER, OTHERWISE KEEP YOUR APPOINTMENT IN All discharge instructions reviewed with patient and/or family. Voiced understanding. Scripts Lidocaine HCl (Lidocaine HCl Viscous) 15 Ml Solution 1-2 ML MM Q 1-2 HOURS for Pain, #100 EA Prov: AURY SANTANA DO 05/04/17 Naproxen (Naproxen) 500 Mg Tablet 500 MG PO BID, #20 TAB Prov: AURY SANTANA DO 05/04/17 Clindamycin HCl (Clindamycin HCl) 300 Mg Capsule 300 MG PO QID for FOR INFECTION, #40 CAP Prov: AURY SANTANA DO 05/04/17 AURY SANTANA DO May 04, 2017 21:34
[2017-05-04 22:20] VITALS: BP 0/0
== END 2017-05-04 22:20 | disposition home or self-care (01) ==
LOC: EDUNIT# 21:00 → ER 21:02
DX: K02.9 Dental caries, unspecified (principal); K04.7 Periapical abscess without sinus; F15.10 Other stimulant abuse, uncomplicated; F17.210 Nicotine dependence, cigarettes, uncomplicated
CPT/HCPCS: 96372; 99284

== ENCOUNTER 2017-06-07 19:36 | Emergency (ER) | payer MEDICAID ==
[~2017-06-07] VITALS: Ht 160 cm; Wt 81.9 kg
[~2017-06-07 19:36] MED LIST changes: +CLIN300C11 PO; +LIDO15SO2 MM; +NAPR500T3 PO
[2017-06-07] MEDS ORDERED: LACTATED RINGERS 1,000 ML IV ONE (19:46)
[2017-06-07 20:00] LABS: BASOPHILS % (AUTO) 0 % (0-10); EOSINOPHILS # (AUTO) 0.3 10^3/uL (0.0-0.3); EOSINOPHILS % (AUTO) 4 % (0-10); LYMPHOCYTES # (AUTO) 3.8 X 10^3 (1.0-4.0); LYMPHOCYTES % (AUTO) 43 % (12-44); MEAN CORPUSCULAR HEMOGLOBIN 26 PG (25-34); MEAN CORPUSCULAR HGB CONC 32 G/DL (32-36); MEAN CORPUSCULAR VOLUME 82 FL (80-99); MEAN PLATELET VOLUME 10.4 FL (7.4-10.4); MONOCYTES # (AUTO) 0.6 X 10^3 (0.0-1.0); MONOCYTES % (AUTO) 7 % (0-12); NEUTROPHILS # (AUTO) 4.1 X 10^3 (1.8-7.8); NEUTROPHILS % (AUTO) 46 % (42-75); PLATELET COUNT 334 10^3/uL (130-400); RED BLOOD COUNT 4.63 10^6/uL (4.35-5.85); WHITE BLOOD COUNT 8.8 10^3/uL (4.3-11.0)
[2017-06-07 20:09] LABS: PROTHROMBIN TIME PATIENT 13.2 SEC (12.2-14.7)
--- NOTE | 2017-06-07 20:11 | ED General ---
General Stated Complaint: HEAD/FOOT PAIN Source of Information: Patient, EMS History of Present Illness Time Seen by Provider: 19:37 Initial Comments PT ARRIVES VIA EMS FROM HOME--NO IMMOBILIZATION PT STATES SHE WAS MAKING COFFEE IN THE KITCHEN AND WAS WALKING FROM THE KITCHEN TO THE BEDROOM AND THAT IS THE LAST THING SHE REMEMBERS STATES SHE WAS FEELING DIZZY A FEW SECONDS PRIOR PT STATES HER BOYFRIEND WAS THERE, BUT DOES NOT ACCOMPANY HER TO ER IS UNKNOWN HOW LONG SHE WAS UNRESPONSIVE PT STATES THE NEXT THING SHE REMEMBERS WAS LAYING ON THE BED-DOES NOT KNOW HOW SHE GOT THERE PT HIT THE BACK OF HER HEAD ON HARDWOOD FLOOR C/O PAIN TO BACK OF HER HEAD C/O POSTERIOR NECK PAIN C/O PAIN TO LEFT FOOT AND ANKLE WAS SEEING SPOTS PRIOR TO ARRIVAL, IS BETTER NOW HAS BEEN FINE ALL DAY--ATE AT 1600 NO PRIOR HISTORY OF SIMILAR NO CHEST PAIN, SHORTNESS OF BREATH OR PALPATIONS NO NAUSEA/VOMITING NO PARESTHESIAS OR MOTOR DEFICITS NO REPORTED SEIZURE ACTIVITY OR POST-ICTAL SYMPTOMS NO INCONTINENCE PT IS AT NORMAL BASELINE NEUROLOGICALLY/MENTALLY PT DENIES TAKING ANY NEW MEDICATIONS, OR MORE THAN PRESCRIBED AMOUNT OF MEDICATION, OR MISSED DOSES OF MEDICATIONS--TAKES MEDICATIONS FOR SLEEP AND ANXIETY--HAS NOT TAKEN HER NIGHT TIME MEDICATIONS YET IT IS TOO EARLY. BOYFRIEND ARRIVES LATER AND REPORTS THAT SHE "WASN'T OUT FOR VERY LONG" --LESS THAN 1 MINUTE SHE WAS NOT CONFUSED AND WAS TALKING WHEN SHE "CAME TO" AND HE ASSISTED/CARRIED HER TO THE BED BECAUSE HER FOOT HURT. PCP: [facility] Allergies and Home Medications Allergies Coded Allergies: No Known Drug Allergies (Verified , 03/19/08) Home Medications Hydroxyzine HCl 25 Mg Tablet, (Reported) Naproxen 500 Mg Tablet, 500 MG PO BID, #20 Prescribed by: AURY SANTANA on 06/07/172118 Quetiapine Fumarate 100 Mg Tablet, (Reported) Constitutional: see HPI EENTM: see HPI Respiratory: no symptoms reported, No short of breath Cardiovascular: No chest pain, No palpitations, syncope, No vascular heart diseas Gastrointestinal: no symptoms reported Genitourinary: no symptoms reported : No LMP: May 21, 2017 (NO CONTROL) Musculoskeletal: see HPI, neck pain, other (RIGHT SHOULDER PAIN AND LEFT FOOT AND ANKLE PAIN ) Skin: no symptoms reported Psychiatric/Neurological: See HPI, Headache, Denies Seizure Hematologic/Lymphatic: No Symptoms Reported Immunological/Allergic: no symptoms reported Past Mzkvlgt-Bmtqki-Xegiow Hx Patient Social History Alcohol Use: Denies Use Recreational Drug Use: Yes (METH--DENIES IV USE, AND NOT USED FOR A COUPLE OF MONTHS, PER PT ON 06/07/17) Smoking Status: Current Everyday Smoker (1 PPD) Type Used: Cigarettes Recent Hopitalizations: No Immunizations Up To Date Tetanus Booster (TDap): Unknown PED Vaccines UTD: Yes Date of Influenza Vaccine: Aug 20, 2014 Seasonal Allergies Seasonal Allergies: No Surgeries History of Surgeries: Yes Surgeries: Gallbladder Respiratory History of Respiratory Disorde: No Cardiovascular History of Cardiac Disorders: No Neurological History of Neurological Disord: No Reproductive System Hx Reproductive Disorders: No Female Reproductive Disorders: Denies Genitourinary History of Genitourinary Disor: No Gastrointestinal History of Gastrointestinal Di: Yes (S/P [place]) Gastrointestinal Disorders: Gall Bladder Disease Musculoskeletal History of Musculoskeletal Dis: No Endocrine History of Endocrine Disorders: No HEENT History of HEENT Disorders: No Cancer History of Cancer: No Psychosocial History of Psychiatric Problem: Yes Behavioral Health Disorders: Sleep Difficulties, Anxiety Integumentary History of Skin or Integumenta: No Blood Transfusions History of Blood Disorders: No Adverse Reaction to a Blood Tr: No Family Medical History Family Medial History: FH: spina bifida G8 BROTHER Physical Exam Vital Signs Vital Sign - Last 12Hours 06/07/17 19:37 Temp 97.3 Pulse 83 Resp 16 B/P (MAP) 92/65 Pulse Ox 98 O2 Delivery Room Air Capillary Refill : General Appearance: No Apparent Distress, WD/WN HEENT: PERRL/EOMI, TMs Normal, Normal ENT Inspection, Pharynx Normal, Other ( TENDERNESS TO OCCIPUT) Neck: Supple, Tender Midline Respiratory: Chest Non Tender, Normal Breath Sounds, No Accessory Muscle Use, No Respiratory Distress Cardiovascular: Regular Rate, Rhythm, No Edema, No Gallop, No JVD, No Murmur, Normal Peripheral Pulses Gastrointestinal: Normal Bowel Sounds, No Organomegaly, No Pulsatile Mass, Non Tender, Soft Back: Normal Inspection, No CVA Tenderness, No Vertebral Tenderness Extremity: Other (TENDERNESS TO RIGHT SHOULDER. TENDERNESS TO LEFT FOOT AND ANKLE. NO SWELLING OR BRUISING OR EXTERNAL EVIDENCE OF TRAUMA) Neurologic/Psychiatric: Alert, Oriented x3, No Motor/Sensory Deficits, Normal Mood/Affect, aviation manager II-XII Norm as Tested Skin: Normal Color, Warm/Dry Splinting and Joint Reduction : Noah wrap: Yes Immobilizers: Step Light Walker s/m/lg Ordered: Crutches Progress/Results/Core Measures Results/Orders Lab Results Laboratory Tests Test 06/07/17 19:52 06/07/17 21:06 Range/Units White Blood Count 8.8 4.3-11.0 10^3/uL Red Blood Count 4.63 4.35-5.85 10^6/uL Hemoglobin 11.9 11.5-16.0 G/DL Hematocrit 38 35-52 % Mean Corpuscular Volume 82 80-99 FL Mean Corpuscular Hemoglobin 26 25-34 PG Mean Corpuscular Hemoglobin Concent 32 32-36 G/DL Red Cell Distribution Width 16.0 H 10.0-14.5 % Platelet Count 334 130-400 10^3/uL Mean Platelet Volume 10.4 7.4-10.4 FL Neutrophils (%) (Auto) 46 42-75 % Lymphocytes (%) (Auto) 43 12-44 % Monocytes (%) (Auto) 7 0-12 % Eosinophils (%) (Auto) 4 0-10 % Basophils (%) (Auto) 0 0-10 % Neutrophils # (Auto) 4.1 1.8-7.8 X 10^3 Lymphocytes # (Auto) 3.8 1.0-4.0 X 10^3 Monocytes # (Auto) 0.6 0.0-1.0 X 10^3 Eosinophils # (Auto) 0.3 0.0-0.3 10^3/uL Basophils # (Auto) 0.0 0.0-0.1 10^3/uL Prothrombin Time 13.2 12.2-14.7 SEC INR Comment 1.0 0.8-1.4 Activated Partial Thromboplast Time 29 24-35 SEC Sodium Level 141 135-145 MMOL/L Potassium Level 3.8 3.6-5.0 MMOL/L Chloride Level 106 98-107 MMOL/L Carbon Dioxide Level 25 21-32 MMOL/L Anion Gap 10 5-14 MMOL/L Blood Urea Nitrogen 13 7-18 MG/DL Creatinine 0.79 0.60-1.30 MG/DL Estimat Glomerular Filtration Rate > 60 BUN/Creatinine Ratio 16 Glucose Level 78 70-105 MG/DL Calcium Level 9.1 8.5-10.1 MG/DL Magnesium Level 2.1 1.8-2.4 MG/DL Total Bilirubin 0.3 0.1-1.0 MG/DL Aspartate Amino Transf (AST/SGOT) 14 5-34 U/L Alanine Aminotransferase (ALT/SGPT) 18 0-55 U/L Alkaline Phosphatase 62 40-136 U/L Total Creatine Kinase 79 29-168 U/L Creatine Kinase MB 0.3 <6.6 NG/ML Troponin I < 0.30 <0.30 NG/ML Total Protein 6.8 6.4-8.2 GM/DL Albumin 4.0 3.2-4.5 GM/DL Serum Test, Qualitative NEGATIVE NEGATIVE Serum Alcohol < 10 <10 MG/DL Urine Color YELLOW Urine Clarity SLIGHTLY CLOUDY Urine pH 6 5-9 Urine Specific [place] 1.015 L 1.016-1.022 Urine Protein NEGATIVE NEGATIVE Urine Glucose (UA) NEGATIVE NEGATIVE Urine Ketones NEGATIVE NEGATIVE Urine Nitrite NEGATIVE NEGATIVE Urine Bilirubin NEGATIVE NEGATIVE Urine Urobilinogen NORMAL NORMAL MG/DL Urine Leukocyte Esterase NEGATIVE NEGATIVE Urine RBC (Auto) NEGATIVE NEGATIVE Urine RBC NONE /HPF Urine WBC NONE /HPF Urine Crystals PRESENT H /LPF Urine Amorphous Sediment FEW ABEL URATES H /LPF Urine Bacteria TRACE /HPF Urine Casts NONE /LPF Urine Mucus NEGATIVE /LPF Urine Culture Indicated NO My Orders Orders - AURY SANTANA DO Saline Lock/Iv-Start (06/07/17 19:46) Ekg Tracing (06/07/17 19:46) Monitor-Rhythm Ecg Trace Only (06/07/17 19:46) Alcohol (06/07/17 19:46) Cbc With Automated Diff (06/07/17 19:46) Comprehensive Metabolic Panel (06/07/17 19:46) Creatine Kinase (06/07/17 19:46) Creatine Kinase Mb (06/07/17 19:46) Drug Screen Stat (Urine) (06/07/17 19:46) Hcg,Qualitative Serum (06/07/17 19:46) Magnesium (06/07/17 19:46) Protime With Inr (06/07/17 19:46) Partial Thromboplastin Time (06/07/17 19:46) Troponin I (06/07/17 19:46) Ua Culture If Indicated (06/07/17 19:46) Ct Head/Cervical Spine Wo (06/07/17 19:46) Chest 1 View, Ap/Pa Only (06/07/17 19:46) Shoulder, Right, 3 Views (06/07/17 19:46) Foot, Left, 3 Views (06/07/17 19:46) Ankle, Left, 3 Views (06/07/17 19:46) Saline Lock/Iv-Start (06/07/17 19:46) Lactated Ringers (Lr 1000 Ml Iv Solution (06/07/17 19:46) Noah Bandage (06/07/17 21:08) Crutches (06/07/17 21:08) Steplite (06/07/17 21:08) Acetaminophen Tablet (Tylenol Tablet) (06/07/17 21:15) Ibuprofen Tablet (Motrin Tablet) (06/07/17 21:15) Medications Given in ED Current Medications Medications Dose Ordered Sig/Mason Route Start Time Stop Time Status Last Admin Dose Admin Acetaminophen 1,000 mg ONCE ONCE PO 06/07/17 21:15 06/07/17 21:16 DC 06/07/17 21:22 1,000 MG Ibuprofen 800 mg ONCE ONCE PO 06/07/17 21:15 06/07/17 21:16 DC 06/07/17 21:22 800 MG Lactated Ringer's 1,000 ml @ 0 mls/hr Q0M ONCE IV 06/07/17 19:46 06/07/17 19:49 DC 06/07/17 20:07 999 MLS/HR Vital Signs/I&O Vital Sign - Last 12Hours 06/07/17 06/07/17 06/07/17 19:37 21:22 21:22 Temp 97.3 97.3 97.3 Pulse 83 Resp 16 B/P (MAP) 92/65 Pulse Ox 98 O2 Delivery Room Air Intake and Output 06/08/17 00:00 Intake Total 1000 ml Balance 1000 ml Diagnostic Imaging Comments CT HEAD/CERVICAL SPINE--NO ACUTE PROCESS PER RADIOLOGIST REPORTS @ 2044 Reviewed: Reviewed by Me Departure Communication (Admissions) Progress Notes 2109--SPOKE WITH DR. CARPIO--WILL SEE PT IN CLOSE FOLLOW UP THIS WEEK--CLINIC WILL CALL PT IN AM TO ARRANGE APPOINTMENT Impression Impression: Primary Impression: Episode of syncope Additional Impressions: Head contusion CERVICAL SPINE STRAIN Right shoulder pain LEFT FOOT AND ANKLE SPRAIN Disposition: 01 HOME, SELF-CARE Condition: Stable Departure-Patient Inst. Referrals: [facility] (PCP/Family) Primary Care Physician Patient Instructions: Ankle Sprain (DC), Cervical Muscle Strain (DC), Going Up and Down Curbs or Stairs With a Walker or Crutches, How to Use Crutches, Minor Head Injury (DC), Syncope (Fainting) (DC) Add. Discharge Instructions: ICE TO SORE AREAS AT 20 MINUTE INTERVALS NOAH WRAP, WALKING BOOT AND CRUTCHES NEEDED FOR COMFORT ELEVATE FOOT MUCH POSSIBLE FOLLOW UP WITH [facility] THIS WEEK FOR FURTHER CARE--CLINIC STAFF WILL CALL YOU IN THE MORNING TO ARRANGE FOLLOW UP APPOINTMENT Scripts Naproxen (Naproxen) 500 Mg Tablet 500 MG PO BID, #20 TAB Prov: AURY SANTANA DO 06/07/17 Images Full Body/Extremities Full Progress SEE ADDITIONAL PAPER DIAGRAMS FOR IMAGES AURY SANTANA DO Jun 07, 2017 20:11
[2017-06-07 20:20] LABS: ALANINE AMINOTRANSFERASE 18 U/L (0-55); ALCOHOL < 10 MG/DL (<10); ANION GAP 10 MMOL/L (5-14); ASPARTATE AMINO TRANSFERASE 14 U/L (5-34); BILIRUBIN,TOTAL 0.3 MG/DL (0.1-1.0); BLOOD UREA NITROGEN 13 MG/DL (7-18); BUN/CREATININE RATIO 16; CALCIUM 9.1 MG/DL (8.5-10.1); CARBON DIOXIDE 25 MMOL/L (21-32); CHLORIDE 106 MMOL/L (98-107); CREATINE KINASE 79 U/L (29-168); CREATININE SERUM 0.79 MG/DL (0.60-1.30); GFR ESTIMATED > 60; GLUCOSE 78 MG/DL (70-105); MAGNESIUM 2.1 MG/DL (1.8-2.4); POTASSIUM 3.8 MMOL/L (3.6-5.0); SODIUM 141 MMOL/L (135-145); TOTAL PROTEIN 6.8 GM/DL (6.4-8.2)
--- NOTE | 2017-06-07 20:31 | Diagnostic Imaging Report ---
PROCEDURE: CT head and CT cervical spine without contrast. TECHNIQUE: Multiple contiguous axial images were obtained through the brain and cervical spine without the use of intravenous contrast. Sagittal and coronal reformations through the cervical spine were then performed. INDICATION: Fall. COMPARISON: CT head 05/09/07 CT head: Ventricles are normal in size, shape and position. There is no midline shift or mass effect. There is no hemorrhage or evidence of acute ischemia. There is no skull fracture. The paranasal sinuses and mastoids are clear. IMPRESSION: Negative CT head. CT cervical spine: Alignment is normal. There is no subluxation or fracture. No osseous lesion seen. There is no degeneration. IMPRESSION: No traumatic malalignment or fracture. Dictated by: Dictated on workstation # [id number]
[2017-06-07 20:38] LABS: TROPONIN I < 0.30 NG/ML (<0.30)
[2017-06-07] MEDS ORDERED: QUET100T69 (20:50)
[2017-06-07] MEDS ORDERED: HYDR-700 (20:50)
--- NOTE | 2017-06-07 21:02 | Diagnostic Imaging Report ---
INDICATION: Shoulder injury, pain. COMPARISON: None. FINDINGS: 3 views of right shoulder demonstrate no fracture or dislocation. Articular surfaces are normal. IMPRESSION: Negative right shoulder. Dictated by: Dictated on workstation # [id number]
--- NOTE | 2017-06-07 21:02 | Diagnostic Imaging Report ---
INDICATION: Fall. COMPARISON: None. FINDINGS: Single view of the chest demonstrates clear lungs bilaterally. The heart is normal. No pneumothorax. Osseous structures normal. IMPRESSION: Negative chest. Dictated by: Dictated on workstation # [id number]
--- NOTE | 2017-06-07 21:03 | Diagnostic Imaging Report ---
INDICATION: Left ankle pain, fall. COMPARISON: None. FINDINGS: 3 views of left ankle demonstrate no fracture or dislocation. Articular surfaces are normal. IMPRESSION: Negative left ankle. Dictated by: Dictated on workstation # [id number]
--- NOTE | 2017-06-07 21:03 | Diagnostic Imaging Report ---
INDICATION: Left foot pain. COMPARISON: None. FINDINGS: Two views of the left foot demonstrate no fracture or dislocation. Articular surfaces are normal. No foreign body. IMPRESSION: Negative left foot. Dictated by: Dictated on workstation # [id number]
[2017-06-07] MEDS ORDERED: ACETAMINOPHEN 500 MG TAB (TYLENOL) PO ONE (21:15)
[2017-06-07] MEDS ORDERED: IBUPROFEN 800 MG (MOTRIN) TAB PO ONE (21:15)
[2017-06-07 21:19] LABS: BILIRUBIN,URINE NEGATIVE (NEGATIVE); KETONES,URINE NEGATIVE (NEGATIVE); LEUKOCYTE ESTERASE ,URINE NEGATIVE (NEGATIVE); NITRITE,URINE NEGATIVE (NEGATIVE); PH,URINE 6 (5-9); PROTEIN,URINE NEGATIVE (NEGATIVE); UROBILINOGEN,URINE NORMAL (NORMAL)
[2017-06-07] MEDS ORDERED: NAPR500T3 PO (21:19)
[2017-06-07 21:38] VITALS: BP 107/81
== END 2017-06-07 21:38 | disposition home or self-care (01) ==
LOC: EDUNIT# 19:36 → ER 19:37
DX: S00.93XA Contusion of unspecified part of head, initial encounter (principal); S16.1XXA Strain of muscle, fascia and tendon at neck level, initial encounter; S93.401A Sprain of unspecified ligament of right ankle, initial encounter; S93.601A Unspecified sprain of right foot, initial encounter; M25.511 Pain in right shoulder; R55 Syncope and collapse; G47.9 Sleep disorder, unspecified; F41.9 Anxiety disorder, unspecified; F17.210 Nicotine dependence, cigarettes, uncomplicated; Z90.49 Acquired absence of other specified parts of digestive tract; W01.198A Fall on same level from slipping, tripping and stumbling with subsequent striking against other object, initial encounter; Y92.008 Other place in unspecified non-institutional (private) residence as the place of occurrence of the external cause
CPT/HCPCS: 36415; 70450; 71010; 72125; 73030; 73610; 73630; 80053; 80306; 80320; 81000; 82550; 82553; 83735; 84484; 84703; 85025; 85610; 85730; 93005; 93041

== ENCOUNTER 2017-06-30 23:33 | Emergency (ER) | payer MEDICAID ==
[~2017-06-30] VITALS: Ht 160 cm; Wt 81.9 kg
[~2017-06-30 23:33] MED LIST changes: +HYDR-700; +QUET100T69
[2017-07-01] MEDS ORDERED: LIDOCAINE 1% INJ 20 ML (XYLOCAINE) VIAL INJ ONE
[2017-07-01] MEDS ORDERED: TRIM/SULFAMETH 160/800 (SEPTRA DS) TAB PO ONE
[2017-07-01] MEDS ORDERED: KETOROLAC 60 MG/2 ML VIAL IM ONE
[2017-07-01] MEDS ORDERED: HYDROcodone/APAP 5 MG/325 MG (LORTAB) TAB PO ONE (00:15)
[2017-07-01] MEDS ORDERED: HYDR-3812 PO (00:27)
--- NOTE | 2017-07-01 00:27 | ED General ---
General Chief Complaint: Skin/Wound Problems Stated Complaint: POSS SPIDER BITE ON RT BUTTOCKS,VOMITING,SHAKES Nursing Triage Note: PT AMBULATED TO ROOM. PT C/O OF AN ABCESS ON RIGHT BUTTOCK FOR APPROX. 1 WEEK. PT STATES SHE HAS BEEN VOMITING TODAY. Nursing Sepsis Screen: No Definite Risk Source of Information: Patient Exam Limitations: No Limitations History of Present Illness Time Seen by Provider: 23:39 Initial Comments This 27-year-old young lady presents to the emergency room with a "boil" on her right buttocks. The lesion has been there for about one week. She has had some chills without fever. She also vomited 2 related to the pain. It has not yet been draining. She hasn't had no prior episodes. She denies as she is on control and her last menstrual period was last month. Allergies and Home Medications Allergies Coded Allergies: No Known Drug Allergies (Verified , 03/19/08) Home Medications Hydrocodone/Acetaminophen 1 Each Tablet, 1 EACH PO Q6H PRN for PAIN, #10 Prescribed by: MARY PENA on 07/01/17 0027 Hydroxyzine HCl 25 Mg Tablet, (Reported) Naproxen 500 Mg Tablet, 500 MG PO BID, #20 Prescribed by: AURY SANTANA on 06/07/179 Quetiapine Fumarate 100 Mg Tablet, (Reported) Constitutional: see HPI, chills EENTM: no symptoms reported Respiratory: no symptoms reported Cardiovascular: no symptoms reported Gastrointestinal: no symptoms reported Genitourinary: no symptoms reported : No Musculoskeletal: no symptoms reported Skin: see HPI Psychiatric/Neurological: No Symptoms Reported Past Plbgyao-Xpiqza-Hpngcr Hx Patient Social History Alcohol Use: Denies Use Recreational Drug Use: No (PAST HISTORY USE) Drug of Choice: Methamphetamines Smoking Status: Current Everyday Smoker Type Used: Cigarettes 2nd Hand Smoke Exposure: Yes Recent Foreign Travel: No Contact w/Someone Who Travel: No Recent Infectious Disease Expo: No Recent Hopitalizations: No Physical Abuse: No Sexual Abuse: No Immunizations Up To Date Tetanus Booster (TDap): Unknown PED Vaccines UTD: No Date of Influenza Vaccine: Aug 20, 2014 Seasonal Allergies Seasonal Allergies: No Surgeries History of Surgeries: Yes Surgeries: Gallbladder Respiratory History of Respiratory Disorde: No Cardiovascular History of Cardiac Disorders: No Neurological History of Neurological Disord: No Reproductive System Hx Reproductive Disorders: No Female Reproductive Disorders: Denies Genitourinary History of Genitourinary Disor: No Gastrointestinal History of Gastrointestinal Di: Yes (S/P [place]) Gastrointestinal Disorders: Gall Bladder Disease Musculoskeletal History of Musculoskeletal Dis: No Endocrine History of Endocrine Disorders: No HEENT History of HEENT Disorders: No Cancer History of Cancer: No Psychosocial History of Psychiatric Problem: Yes Behavioral Health Disorders: Sleep Difficulties, Anxiety Suicide Risk Score: 0 Integumentary History of Skin or Integumenta: No Blood Transfusions History of Blood Disorders: No Adverse Reaction to a Blood Tr: No Family Medical History Family Medial History: FH: spina bifida G8 BROTHER Physical Exam Vital Signs Vital Sign - Last 12Hours 06/30/17 23:37 Temp 98.6 Pulse 94 Resp 20 B/P (MAP) 119/76 Pulse Ox 98 O2 Delivery Room Air Capillary Refill : Less Than 3 Seconds General Appearance: WD/WN, Mild Distress HEENT: PERRL/EOMI, Normal ENT Inspection Respiratory: Lungs Clear, Normal Breath Sounds, No Accessory Muscle Use, No Respiratory Distress Cardiovascular: Regular Rate, Rhythm, No Edema, No Murmur Extremity: Normal Inspection, No Pedal Edema Neurologic/Psychiatric: Alert, Oriented x3, No Motor/Sensory Deficits, Normal Mood/Affect, box maker paperboard II-XII Norm as Tested Skin: Normal Color, Other (ripe abscess on the right buttocks with surrounding cellulitis measuring about 6 cm in diameter) I&D : Blade Size: 11 Progress Patient was pretreated with a Toradol injection. Skin was cleaned with alcohol. Approximately 8 mL of lidocaine was injected locally. Skin was then cleaned with chlorhexidine wipes and a 1 cm incision was made over the center of the abscess. A significant amount of purulent drainage was expressed. Wound culture was collected. A hemostat was then used to break up loculations. The wound was then irrigated with 60 mL of normal saline through a catheter tip. Wound was then dressed by nursing staff. Progress/Results/Core Measures Results/Orders My Orders Orders - MARY PARK MD Sulfamethoxazole/Trimet Ds Tab (Bactrim (07/01/17 00:00) Ketorolac Injection (Toradol Injection) (07/01/17 00:00) Lidocaine 1% Injection (Xylocaine 1% Inj (07/01/17 00:00) Wound Culture (06/30/17 23:47) Hydrocodone/Apap 5/325 Tablet (Lortab 5 (07/01/17 00:15) Medications Given in ED Current Medications Medications Dose Ordered Sig/Mason Route Start Time Stop Time Status Last Admin Dose Admin Acetaminophen/ Hydrocodone Bitart 1 tab ONCE ONCE PO 07/01/17 00:15 07/01/17 00:17 DC 07/01/17 00:24 1 TAB Ketorolac Tromethamine 60 mg ONCE ONCE IM 07/01/17 00:00 07/01/17 00:01 DC 06/30/17 23:53 60 MG Lidocaine HCl 20 ml ONCE ONCE INJ 07/01/17 00:00 07/01/17 00:01 DC 06/30/17 23:57 4 ML Trimethoprim/ Sulfamethoxazole 1 ea ONCE ONCE PO 07/01/17 00:00 07/01/17 00:01 DC 06/30/17 23:53 1 EA Vital Signs/I&O Vital Sign - Last 12Hours 06/30/17 23:37 Temp 98.6 Pulse 94 Resp 20 B/P (MAP) 119/76 Pulse Ox 98 O2 Delivery Room Air Blood Pressure Mean: 90 Progress Note : Progress Note Patient was pretreated with Toradol and local injection of lidocaine. She was given a hydrocodone after the incision and drainage. Patient stated she was up- to-date on her tetanus immunization. Her first dose of Bactrim was administered in the ER. Departure Impression Impression: Primary Impression: Abscess of cellulitis of buttock Additional Impression: Encounter for incision and drainage procedure Disposition: HOME, SELF-CARE Condition: Improved Departure-Patient Inst. Decision time for Depature: 00:10 Referrals: [facility] (PCP/Family) Primary Care Physician Patient Instructions: Abscess Incision and Drainage (DC) Add. Discharge Instructions: Complete your antibiotics as prescribed. Keep the wound covered until drainage stops. Do warm sitz baths for 20-30 minutes 2 or 3 times a day until wound stops draining. Rinse the tub with antibacterial soap or bleach water after each bath. Return to the ER if symptoms worsen. You may take ibuprofen up to 600 mg every 6 hours as needed for pain. Add hydrocodone for pain not controlled by ibuprofen. All discharge instructions reviewed with patient and/or family. Voiced understanding. Scripts Sulfamethoxazole/Trimethoprim (Bactrim Ds Tablet) 1 Each Tablet 1 EACH PO BID, #20 TAB Prov: MARY PARK MD 07/01/17 Hydrocodone/Acetaminophen (Hydrocodon -Acetaminophen 5-325) 1 Each Tablet 1 EACH PO Q6H Y for PAIN, #10 TAB Prov: MARY PARK MD 07/01/17 MARY PARK MD Jul 01, 2017 00:27
[2017-07-01 00:38] VITALS: BP 119/76
[2017-07-01] MEDS ORDERED: SULF1TAB35 PO (00:40)
== END 2017-07-01 00:38 | disposition home or self-care (01) ==
LOC: EDUNIT# 23:33 → ER 23:36
DX: L02.31 Cutaneous abscess of buttock (principal); L03.317 Cellulitis of buttock; F41.9 Anxiety disorder, unspecified; F17.210 Nicotine dependence, cigarettes, uncomplicated; Z90.49 Acquired absence of other specified parts of digestive tract
CPT/HCPCS: 87070; 87077; 87205

== ENCOUNTER 2017-08-05 10:02 | Emergency (ER) | payer MEDICAID ==
[~2017-08-05 10:02] MED LIST changes: +HYDR-3812 PO; -NAPR500T3 PO; +NAPR500T4 PO; +SULF1TAB35 PO
== END 2017-08-05 10:26 | disposition left against medical advice (07) ==
LOC: EDUNIT# 10:02 → ER 10:03
DX: R11.2 Nausea with vomiting, unspecified (principal); M54.5 Low back pain

== ENCOUNTER 2017-08-22 11:27 | Emergency (ER) | payer MEDICAID ==
[~2017-08-22] VITALS: Ht 160 cm; Wt 86.2 kg
[2017-08-22] MEDS ORDERED: PENI500T PO (12:12)
[2017-08-22] MEDS ORDERED: HYDR-757 PO (12:12)
--- NOTE | 2017-08-22 12:12 | ED EENT ---
History of Present Illness General Chief Complaint: Dental Problems/Pain Stated Complaint: FEVER/DENTAL INFECTION Source: patient Exam Limitations: no limitations History of Present Illness Time seen by provider: 12:08 Initial Comments To ER with reports of fever and dental infection. Upper midline dental pain. Timing/Duration: abrupt Severity: moderate Location: dental Allergies and Home Medications Allergies Coded Allergies: No Known Drug Allergies (Verified , 03/19/08) Home Medications Hydrocodone/Acetaminophen 1 Each Tablet, 1 EACH PO Q6H PRN for PAIN, #10 Prescribed by: MARY PENA on 07/01/17 0027 Hydroxyzine HCl 25 Mg Tablet, (Reported) Naproxen 500 Mg Tablet, 500 MG PO BID, #20 Prescribed by: AURY SANTANA on 06/07/172118 Quetiapine Fumarate 100 Mg Tablet, (Reported) Sulfamethoxazole/Trimethoprim 1 Each Tablet, 1 EACH PO BID, #20 Prescribed by: MARY PENA on 07/01/17 0040 Review of Systems Constitutional: see HPI Eyes: No Symptoms Reported Ears: No Symptoms Reported Nose: no symptoms reported Mouth: see HPI Throat: no symptoms reported Respiratory: no symptoms reported Cardiovascular: no symptoms reported Musculoskeletal: no symptoms reported Past Mrfxmmc-Wktotc-Obyilt Hx Patient Social History Drug of Choice: Methamphetamines Type Used: Cigarettes 2nd Hand Smoke Exposure: Yes Recent Foreign Travel: No Contact w/Someone Who Travel: No Recent Hopitalizations: No Immunizations Up To Date Tetanus Booster (TDap): Unknown PED Vaccines UTD: No Date of Influenza Vaccine: Aug 20, 2014 Seasonal Allergies Seasonal Allergies: No Surgeries History of Surgeries: Yes Surgeries: Gallbladder Respiratory History of Respiratory Disorde: No Cardiovascular History of Cardiac Disorders: No Neurological History of Neurological Disord: No Reproductive System Hx Reproductive Disorders: No Female Reproductive Disorders: Denies Genitourinary History of Genitourinary Disor: No Gastrointestinal History of Gastrointestinal Di: Yes ([place]P [place]) Gastrointestinal Disorders: Gall Bladder Disease Musculoskeletal History of Musculoskeletal Dis: No Endocrine History of Endocrine Disorders: No HEENT History of HEENT Disorders: No Cancer History of Cancer: No Psychosocial History of Psychiatric Problem: Yes Behavioral Health Disorders: Sleep Difficulties, Anxiety Integumentary History of Skin or Integumenta: No Blood Transfusions History of Blood Disorders: No Adverse Reaction to a Blood Tr: No Family Medical History Family Medial History: FH: spina bifida G8 BROTHER Physical Exam General Appearance: WD/WN, no apparent distress Eyes: bilateral eye normal inspection, bilateral eye PERRL, bilateral eye EOMI Ears: bilateral ear auricle normal, bilateral ear canal normal, bilateral ear TM normal Mouth/Throat: other (fluctuance to the gingiva and buccal mucosa superior to tooth number 8.) Neck: non-tender, full range of motion Respiratory: no respiratory distress, no accessory muscle use Gastrointestinal: non tender, soft Neurologic/Psychiatric: alert, normal mood/affect, oriented x 3 Skin: normal color, warm/dry I&D : Blade Size: 11 Progress Supraperiosteal nerve block using 1 mL of lidocaine with epinephrine. Incision was made with 11 blade scalpel. Purulent material expressed. Departure Impression Impression: Primary Impression: Dental abscess Disposition: 01 HOME, SELF-CARE Condition: Stable Departure-Patient Inst. Decision time for Depature: 12:10 Referrals: [facility] (PCP/Family) Primary Care Physician Patient Instructions: Dental Pain (DC) Add. Discharge Instructions: 1. Antibiotics as directed 2. Return to ER for any concerns 3. See your dentist this week for recheck All discharge instructions reviewed with patient and/or family. Voiced understanding. Scripts Hydrocodone/Acetaminophen ([place] 5-325 Tablet) 1 Each Tablet 1 EACH PO Q4H Y for PAIN-MODERATE, #10 TAB Do not fill unless penicillin is also filled Prov: ELVER MOMIN APRN 08/22/17 Penicillin V Potassium (Penicillin V Potassium) 500 Mg Tablet 500 MG PO Q6H, #28 TAB Prov: ELVER MOMIN APRN 08/22/17 ELVER MOMIN APRN Aug 22, 2017 12:12
[2017-08-22] MEDS ORDERED: HYDROcodone/APAP 5 MG/325 MG (LORTAB) TAB PO ONE (12:15)
[2017-08-22] MEDS ORDERED: LIDOCAINE/EPI 2% 1:100,00 (XYLOCAINE) 20 ML VIAL INJ ONE (12:15)
[2017-08-22] MEDS ORDERED: LIDOCAINE/EPI 1%-1:100,000 (XYLOCAINE) 20ML INJ ONE (12:15)
[2017-08-22] MEDS ORDERED: CLINDAMYCIN 600 MG/4ML (CLEOCIN) VIAL IM ONE (12:15)
[2017-08-22 12:52] VITALS: BP 128/90
== END 2017-08-22 12:52 | disposition home or self-care (01) ==
LOC: EDUNIT# 11:27 → ER 11:28
DX: K04.7 Periapical abscess without sinus (principal); F41.9 Anxiety disorder, unspecified; Z87.19 Personal history of other diseases of the digestive system; Z90.49 Acquired absence of other specified parts of digestive tract; Z77.22 Contact with and (suspected) exposure to environmental tobacco smoke (acute) (chronic)
CPT/HCPCS: 99282

== ENCOUNTER 2017-08-24 14:14 | Emergency (ER) | payer MEDICAID ==
[~2017-08-24] VITALS: Ht 160 cm; Wt 86.4 kg
[~2017-08-24 14:14] MED LIST changes: +HYDR-757 PO; +PENI500T PO
[2017-08-24] MEDS ORDERED: KETOROLAC 60 MG/2 ML VIAL IM STA (14:51)
[2017-08-24] MEDS ORDERED: morphine INJ 10 MG/ML 1ML (SYR OR VIAL) IM STA (14:51)
[2017-08-24] MEDS ORDERED: ONDANSETRON 4 MG (ZOFRAN) ORAL DISSOLVE TAB SL STA (14:51)
--- NOTE | 2017-08-24 15:03 | ED EENT ---
History of Present Illness General Chief Complaint: Abdominal/GI Problems Stated Complaint: N/V,POSS DEHYDRATED,FEVER Nursing Triage Note: PT STATES SHE HAS BEEN SICK WITH NV SINCE HAVING HER DENTAL INFECTION DRAINED. ON ABX AT THIS TIME. Source: patient, family Exam Limitations: no limitations History of Present Illness Time seen by provider: 14:39 Initial Comments Here with report of nausea and vomiting since having an I&D yesterday. She is currently on clindamycin and penicillin VK. She states that when she takes her pain medicines she vomits. She does report some constipation for a few days. Has dental appointment for complete extraction of all teeth on August 27. She does have pain medicine and antibiotics at home but no nausea medicine. No fever currently. Timing/Duration: yesterday Severity: moderate Location: mouth Associated Symptoms: No fever, poor solids intake, No sore throat, tooth pain, No voice change Allergies and Home Medications Allergies Coded Allergies: No Known Drug Allergies (Verified , 03/19/08) Home Medications Hydrocodone/Acetaminophen 1 Each Tablet, 1 EACH PO Q6H PRN for PAIN, #10 Prescribed by: MARY PENA on 07/01/17 0027 Hydrocodone/Acetaminophen 1 Each Tablet, 1 EACH PO Q4H PRN for PAIN-MODERATE, # 10 Do not fill unless penicillin is also filled Prescribed by: ELVER MOMIN on 08/22/17 1212 Hydroxyzine HCl 25 Mg Tablet, (Reported) Naproxen 500 Mg Tablet, 500 MG PO BID, #20 Prescribed by: AURY SANTANA on 06/07/17 2119 Penicillin V Potassium 500 Mg Tablet, 500 MG PO Q6H, #28 Prescribed by: ELVER MOMIN on 08/22/17 1212 Quetiapine Fumarate 100 Mg Tablet, (Reported) Review of Systems Constitutional: see HPI, No chills, No fever Eyes: No Symptoms Reported Nose: no symptoms reported Mouth: see HPI, pain, other (multiple dental caries) Throat: no symptoms reported Respiratory: no symptoms reported Gastrointestinal: nausea, vomiting Neurological: No Symptoms Reported Past Yfmyztd-Fxmyfm-Yhdbki Hx Patient Social History Alcohol Use: Denies Use Recreational Drug Use: No Drug of Choice: Methamphetamines Smoking Status: Current Everyday Smoker Type Used: Cigarettes 2nd Hand Smoke Exposure: Yes Recent Foreign Travel: No Contact w/Someone Who Travel: No Recent Infectious Disease Expo: No Recent Hopitalizations: No Immunizations Up To Date Tetanus Booster (TDap): Unknown PED Vaccines UTD: No Date of Influenza Vaccine: Aug 20, 2014 Seasonal Allergies Seasonal Allergies: No Surgeries History of Surgeries: Yes Surgeries: Gallbladder Respiratory History of Respiratory Disorde: No Cardiovascular History of Cardiac Disorders: No Neurological History of Neurological Disord: No Reproductive System Last Menstrual Period: Aug 11, 2017 Hx Reproductive Disorders: No Female Reproductive Disorders: Denies Genitourinary History of Genitourinary Disor: No Gastrointestinal History of Gastrointestinal Di: Yes ([place]/P [place]) Gastrointestinal Disorders: Gall Bladder Disease Musculoskeletal History of Musculoskeletal Dis: No Endocrine History of Endocrine Disorders: No HEENT History of HEENT Disorders: No Cancer History of Cancer: No Psychosocial History of Psychiatric Problem: Yes Behavioral Health Disorders: Sleep Difficulties, Anxiety Integumentary History of Skin or Integumenta: No Blood Transfusions History of Blood Disorders: No Adverse Reaction to a Blood Tr: No Reviewed Nursing Assessment Reviewed/Agree w Nursing PMH: Yes Family Medical History Family Medial History: FH: spina bifida G8 BROTHER Physical Exam Vital Signs Vital Sign - Last 12Hours 08/24/17 14:49 Temp 98.4 Pulse 76 Resp 20 B/P (MAP) 112/69 (83) Pulse Ox 98 O2 Delivery Room Air General Appearance: WD/WN, no apparent distress Eyes: bilateral eye normal inspection, bilateral eye PERRL, bilateral eye EOMI Nose: normal inspection Mouth/Throat: other (multiple dental caries in various stages. I&D site along the upper frontal gumline looks like it's healing well without significant abscess currently. No other abscesses noted within the mouth. Patient does have significant gum disease.) Neck: full range of motion, supple Cardiovascular: regular rate, rhythm, no murmur Respiratory: lungs clear, normal breath sounds Gastrointestinal: non tender, soft Neurologic/Psychiatric: alert, oriented x 3 Skin: normal color, warm/dry Progress/Results/Core Measures Results/Orders My Orders Orders - LAZARO MONDRAGON MD Ondansetron Oral Dissolve Tab (Zofran (08/24/17 14:51) Ketorolac Injection (Toradol Injection) (08/24/17 14:51) Morphine Injection (Morphine Injection (08/24/17 14:51) Vital Signs/I&O Vital Sign - Last 12Hours 08/24/17 14:49 Temp 98.4 Pulse 76 Resp 20 B/P (MAP) 112/69 (83) Pulse Ox 98 O2 Delivery Room Air Blood Pressure Mean: 83 Progress Note : Progress Note Seen and evaluated. Exam and. Wound appears to be healing in the mouth. We will have the patient stop clindamycin and continue penicillin VK. Zofran 4 mg sublingual given. Morphine 6 mg IM as well as Toradol 60 mg IM given. Discharged home with return precautions. Patient verbalize understanding instructions and agreement with plan. Departure Impression Impression: Primary Impression: Dental caries Additional Impression: Gingivitis Disposition: HOME, SELF-CARE Condition: Stable Departure-Patient Inst. Decision time for Depature: 15:11 Referrals: [facility] (PCP/Family) Primary Care Physician Patient Instructions: Nausea and Vomiting, Adult (DC), Peritonsillar Abscess, Adult (DC) Add. Discharge Instructions: All discharge instructions reviewed with patient and/or family. Voiced understanding. Take medications as directed. Follow-up with your dentist on Wednesday as scheduled. Return for worse pain, fever, vomiting, weakness, breathing problems or other concerns as needed. Drink plenty of fluids by taking small amounts frequently. Eat a light diet. Scripts Ondansetron (Ondansetron Odt) 4 Mg Tab.rapdis 4 MG PO Q6H Y for NAUSEA/VOMITING, #10 TAB 0 Refills Prov: LAZARO MONDRAGON MD 08/24/17 LAZARO MONDRAGON MD Aug 24, 2017 15:03
[2017-08-24] MEDS ORDERED: ONDA4TAB11 PO (15:14)
[2017-08-24 15:22] VITALS: BP 112/69
== END 2017-08-24 15:22 | disposition home or self-care (01) ==
LOC: EDUNIT# 14:14 → ER 14:16
DX: K05.10 Chronic gingivitis, plaque induced (principal); K02.9 Dental caries, unspecified; F41.9 Anxiety disorder, unspecified; G47.9 Sleep disorder, unspecified; F17.210 Nicotine dependence, cigarettes, uncomplicated; Z90.49 Acquired absence of other specified parts of digestive tract
CPT/HCPCS: 99284

== ENCOUNTER 2017-08-31 19:36 | Emergency (ER) | payer MEDICAID ==
[~2017-08-31] VITALS: Ht 160 cm; Wt 86.4 kg
[~2017-08-31 19:36] MED LIST changes: +ONDA4TAB11 PO
[2017-08-31] MEDS ORDERED: AMOX500C2 (19:49)
[2017-08-31] MEDS ORDERED: CODE118S2 PO (19:51)
--- NOTE | 2017-08-31 19:52 | ED Cough/URI ---
General Chief Complaint: Cough/Cold/Flu Symptoms Stated Complaint: COUGH,CONGESTION Source: patient Exam Limitations: no limitations History of Present Illness Time seen by provider: 19:49 Initial Comments To ER with a productive cough for 3 days. She also has a sore throat. No fevers or chills. She had all of her teeth pulled on 08/27. She is not on pain medication but she is on penicillin. Timing/Duration: constant Severity/Quality: moderate Associated Symptoms: cough, sore throat Allergies and Home Medications Allergies Coded Allergies: No Known Drug Allergies (Verified , 03/19/08) Home Medications Amoxicillin 500 Mg Capsule, (Reported) Constitutional: see HPI, No chills, No fever EENTM: see HPI, throat pain Respiratory: see HPI, cough Cardiovascular: no symptoms reported Genitourinary: no symptoms reported Musculoskeletal: no symptoms reported Skin: no symptoms reported Psychiatric/Neurological: No Symptoms Reported Past Ogihvkt-Ikmzqq-Oknhip Hx Patient Social History Drug of Choice: Methamphetamines Type Used: Cigarettes 2nd Hand Smoke Exposure: Yes Recent Foreign Travel: No Contact w/Someone Who Travel: No Recent Hopitalizations: No Immunizations Up To Date Tetanus Booster (TDap): Unknown PED Vaccines UTD: No Date of Influenza Vaccine: Aug 20, 2014 Seasonal Allergies Seasonal Allergies: No Surgeries History of Surgeries: Yes Surgeries: Gallbladder Respiratory History of Respiratory Disorde: No Cardiovascular History of Cardiac Disorders: No Neurological History of Neurological Disord: No Reproductive System Hx Reproductive Disorders: No Female Reproductive Disorders: Denies Genitourinary History of Genitourinary Disor: No Gastrointestinal History of Gastrointestinal Di: Yes ([place]P [place] Gastrointestinal Disorders: Gall Bladder Disease Musculoskeletal History of Musculoskeletal Dis: No Endocrine History of Endocrine Disorders: No HEENT History of HEENT Disorders: No Cancer History of Cancer: No Psychosocial History of Psychiatric Problem: Yes Behavioral Health Disorders: Sleep Difficulties, Anxiety Integumentary History of Skin or Integumenta: No Blood Transfusions History of Blood Disorders: No Adverse Reaction to a Blood Tr: No Family Medical History Family Medial History: FH: spina bifida G8 BROTHER Physical Exam Vital Signs Capillary Refill : General Appearance: WD/WN, no apparent distress Eyes: Bilateral Eye Normal Inspection, Bilateral Eye PERRL, Bilateral Eye EOMI HEENT: PERRL/EOMI, TMs normal, pharynx normal Neck: non-tender, full range of motion Respiratory: lungs clear, normal breath sounds, no respiratory distress, no accessory muscle use, No decreased breath sounds, No accessory muscle use, No crackles, No rales Cardiovascular: regular rate, rhythm, no murmur Gastrointestinal: normal bowel sounds, non tender, soft Neurologic/Psychiatric: alert, normal mood/affect, oriented x 3 Skin: normal color, warm/dry Progress/Results/Core Measures Suspected Sepsis SIRS Temperature: Pulse: Respiratory Rate: Blood Pressure / Mean: Results/Orders My Orders Orders - ELVER MOMIN APRN Dexamethasone Injection (Decadron Inject (08/31/17 20:00) Promethazine/ Codeine Syrup (Phenergan W (08/31/17 20:00) Vital Signs/I&O Capillary Refill : Departure Impression Impression: Primary Impression: Viral upper respiratory illness Disposition: 01 HOME, SELF-CARE Condition: Stable Departure-Patient Inst. Decision time for Depature: 19:50 Referrals: [facility] (PCP/Family) Primary Care Physician Patient Instructions: Viral Upper Respiratory Infection, Adult (DC) Add. Discharge Instructions: 1. Tylenol and Motrin as needed for fevers 2. Cough medication as directed 3. Follow-up with your doctor next week All discharge instructions reviewed with patient and/or family. Voiced understanding. Scripts Promethazine HCl/Codeine (Promethazine-Codeine Syrup) 118 Ml Syrup 5 ML PO Q4H Y for COUGH, #120 ML Prov: ELVER MOMIN APRN 08/31/17 ELVER MOMIN APRN Aug 31, 2017 19:52
[2017-08-31 19:58] VITALS: BP 129/92
[2017-08-31] MEDS ORDERED: DEXAMETHASONE 10 MG/ML (DECADRON) 1 ML VIAL IM ONE (20:00)
[2017-08-31] MEDS ORDERED: PROMETHAZINE/ CODEINE SYRUP 5 ML UDC PO ONE (20:00)
== END 2017-08-31 19:58 | disposition home or self-care (01) ==
LOC: EDUNIT# 19:36 → ER 19:38
DX: J06.9 Acute upper respiratory infection, unspecified (principal); F41.9 Anxiety disorder, unspecified; Z90.49 Acquired absence of other specified parts of digestive tract; Z77.22 Contact with and (suspected) exposure to environmental tobacco smoke (acute) (chronic)
CPT/HCPCS: 99284

== ENCOUNTER 2017-09-15 17:47 | Emergency (ER) | payer MEDICAID ==
[~2017-09-15] VITALS: Ht 160 cm; Wt 81.2 kg
[~2017-09-15 17:47] MED LIST changes: +ACHD5005 PO; +AMOX500C2; +CODE118S2 PO; -HYDR-3812 PO
--- OUTSIDE RECORDS SUMMARY | 2017-09-15 17:54 | XMS REPORT | Continuity of Care Document ---
Author Author [facility] Address Unknown Phone Unavailable Allergies Active Description Code Type Severity Reaction Onset Reported/Identified Relationship to Patient Clinical Status Yes No Known Drug Allergies [id number] Drug Allergy Unknown N/A 03/19/2008 Medications There is no data. Problems Date Dx Coded Attending Type Code Diagnosis Diagnosed By 03/28/2008 LAURYN DICK MD V22.0 Pc Normal First 04/05/2008 ALURYN DICK MD 558.9 GASTROENTERITIS NONINFECTIOUS 04/05/2008 LAURYN DICK MD 787.02 NAUSEA ALONE 05/07/2008 LAURYN DICK MD V20.2 Well Child, Routine 05/15/2008 LAURYN DICK MD 380.10 OTITIS EXTERNA UNSPECIFIED 05/30/2008 LAURYN DICK MD 650 Normal Delivery 05/30/2008 LUARYN DICK MD V27.0 Mother With Single Liveborn 07/02/2008 LAURYN DICK MD V25.49 SURVEILLANCE OF OTHER CONTRACEPTIVE METHOD 09/11/2008 LAURYN DICK MD 079.99 INFECTIOUS ARTHRITIS VIRAL 09/27/2008 LAURYN DICK MD 780.60 FEVER, UNSPECIFIED 09/27/2008 LAURYN DICK MD 787.01 nausea with vomiting 09/27/2008 LAURYN DICK MD 787.91 diarrhea 09/27/2008 LAURYN DICK MD 789.00 ABDOMINAL PAIN UNSPECIFIED SITE 10/27/2008 LAURYN DICK MD 296.90 UNSPECIFIED EPISODIC MOOD DISORDER 06/11/2010 LAURYN DICK MD V22.2 Incidental 08/21/2010 LAURYN DICK MD 304.30 CANNABIS DEPENDENCE UNSPECIFIED USE 2011 LAURYN DICK MD V25.09 CONTRACEPTIVE COUNSELING 2011 LAURYN DICK MD V72.41 TEST NEGATIVE RESULT 04/22/2011 LAURYN DICK MD 599.0 URINARY TRACT INFECTION 04/22/2011 LAURYN DICK MD 788.1 DYSURIA 10/24/2011 Ot 034.0 STREP SORE THROAT 10/24/2011 Ot 558.9 NONINF GASTROENTERIT NEC 02/25/2012 KAPIL EGAN, LAURYN V25.9 CONTRACEPTION MANAGEMENT 03/05/2013 REYNA EGAN, RYAN Noland Ot 644.03 THRT JU LABOR-ANTEPART 08/30/2014 HANNA DENNIS MD Ot 644.03 THRT JU LABOR-ANTEPART 08/30/2014 SONNY EGAN, HANNA Borges Ot 789.09 ABDOMINAL PAIN, OTHER SPECIFIED SITE 03/18/2015 JONN EGAN, TIMOTEO Razo Ot 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 03/18/2015 JONN EGAN, TIMOTEO Razo Ot 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 03/18/2015 JONN EGAN, TIMOTEO Razo Ot 648.41 MENTAL DISORDER-DELIVER 03/18/2015 JONN EGAN, TIMOTEO Razo Ot V27.0 DELIVER-SINGLE LIVEBORN 01/07/2017 PRAMOD LAWSON DO Ot D64.9 ANEMIA, UNSPECIFIED 01/07/2017 PRAMOD LAWSON DO Ot F17.210 NICOTINE DEPENDENCE, CIGARETTES, UNCOMPL 01/07/2017 PRAMOD LAWSON DO Ot O09.33 SUPRVSN OF PREG W INSUFFICIENT ANTENAT C 01/07/2017 PRAMOD LAWSON DO Ot O28.0 ABNORMAL HEMATOLOG FINDING ON 01/07/2017 PRAMOD LAWSON DO Ot O40.3XX0 POLYHYDRAMNIOS, THIRD TRIMESTER, NOT BETSY 01/07/2017 PRAMOD LAWSON DO Ot O99.03 ANEMIA COMPLICATING THE PUERPERIUM 01/07/2017 PRAMOD LAWSON DO Ot O99.333 SMOKING (TOBACCO) COMPLICATING 01/07/2017 PRAMOD LAWSON DO Ot R79.89 OTHER SPECIFIED ABNORMAL FINDINGS OF BLO 01/07/2017 PRAMOD LAWSON DO Ot Z23 ENCOUNTER FOR IMMUNIZATION 01/07/2017 PRAMOD LAWSON DO Ot Z37.0 SINGLE LIVE 01/07/2017 PRAMOD LAWSON DO Ot Z3A.40 40 WEEKS GESTATION OF 05/04/2017 AURY SANTANA DO Ot F15.10 OTHER STIMULANT ABUSE, UNCOMPLICATED 05/04/2017 AURY SANTANA DO Ot F17.210 NICOTINE DEPENDENCE, CIGARETTES, UNCOMPL 05/04/2017 MAX AURY BOWMAN Ot K02.9 DENTAL CARIES, UNSPECIFIED 05/04/2017 MAX AURY BOWMAN Ot K04.7 PERIAPICAL ABSCESS WITHOUT SINUS 05/04/2017 MAX AURY BOWMAN Ot K08.89 OTHER SPECIFIED DISORDERS OF TEETH AND S 06/07/2017 MAX AURY BOWMAN Ot F17.210 NICOTINE DEPENDENCE, CIGARETTES, UNCOMPL 06/07/2017 MAX AURY BOWMAN Ot F41.9 ANXIETY DISORDER, UNSPECIFIED 06/07/2017 MAX AURY BOWMAN Ot G47.9 SLEEP DISORDER, UNSPECIFIED 06/07/2017 MAX AURY BOWMAN Ot M25.511 PAIN IN RIGHT SHOULDER 06/07/2017 MAX AURY BOWMAN Ot M79.672 PAIN IN LEFT FOOT 06/07/2017 MAX AURY BOWMAN Ot R55 SYNCOPE AND COLLAPSE 06/07/2017 AURY SANTANA DO Ot S00.93XA CONTUSION OF UNSPECIFIED PART OF HEAD, I 06/07/2017 MAX AURY BOWMAN Ot S16.1XXA STRAIN OF MUSCLE, FASCIA AND TENDON AT N 06/07/2017 AURY SANTANA DO Ot S93.401A SPRAIN OF UNSPECIFIED LIGAMENT OF RIGHT 06/07/2017 AURY SANTANA DO Ot S93.601A UNSPECIFIED SPRAIN OF RIGHT FOOT, INITIA 06/07/2017 AURY SANTANA DO Ot W01.198A FALL SAME LEV FROM SLIP/TRIP W STRIKE AG 06/07/2017 AURY SANTANA DO Ot Y92.[address] [facility] (PRIVATE) 06/07/2017 AURY SANTANA DO Ot Z90.49 ACQUIRED ABSENCE OF OTHER SPECIFIED PART 06/09/2017 ARUY SANTANA DO Ot F17.210 NICOTINE DEPENDENCE, CIGARETTES, UNCOMPL 06/09/2017 AURY SANTANA DO Ot F41.9 ANXIETY DISORDER, UNSPECIFIED 06/09/2017 AURY SANTANA DO Ot G47.9 SLEEP DISORDER, UNSPECIFIED 06/09/2017 MAX AURY BOWMAN Ot M25.511 PAIN IN RIGHT SHOULDER 06/09/2017 MAX AURY BOWMAN Ot M79.672 PAIN IN LEFT FOOT 06/09/2017 MAX AURY BOWMAN Ot R55 SYNCOPE AND COLLAPSE 06/09/2017 MAX AURY Ot S00.93XA CONTUSION OF UNSPECIFIED PART OF HEAD, I 06/09/2017 MAX DOAURY Ot S16.1XXA STRAIN OF MUSCLE, FASCIA AND TENDON AT N 06/09/2017 [facility] AURY Katerina Ot S93.401A SPRAIN OF UNSPECIFIED LIGAMENT OF RIGHT 06/09/2017 [facility] S93.601A UNSPECIFIED SPRAIN OF RIGHT FOOT, INITIA 06/09/2017 MAX AURY K Ot W01.198A FALL SAME LEV FROM SLIP/TRIP W STRIKE AG 06/09/2017 MAX AURY Katerina Ot Y92.[address] IN [facility] ([facility]) 06/09/2017 MAX AURY Ot Z90.49 ACQUIRED ABSENCE OF OTHER SPECIFIED PART 06/11/2017 MAX AURY BOWMAN Ot F17.210 NICOTINE DEPENDENCE, CIGARETTES, UNCOMPL 06/11/2017 MAX DOAURY Ot F41.9 ANXIETY DISORDER, UNSPECIFIED 06/11/2017 [facility] G[facility].9 SLEEP DISORDER, UNSPECIFIED 06/11/2017 [facility] M25.511 PAIN IN RIGHT SHOULDER 06/11/2017 MAX AURY Ot M79.672 PAIN IN LEFT FOOT 06/11/2017 MAX AURY BOWMAN Ot R55 SYNCOPE AND COLLAPSE 06/11/2017 MAX AURY BOWMAN Ot S00.93XA CONTUSION OF UNSPECIFIED PART OF HEAD, I 06/11/2017 MAX AURY BOWMAN Ot S16.1XXA STRAIN OF MUSCLE, FASCIA AND TENDON AT N 06/11/2017 MAX AURY Katerina Ot S93.401A SPRAIN OF UNSPECIFIED LIGAMENT OF RIGHT 06/11/2017 MAX AURY BOWMAN Ot S93.601A UNSPECIFIED SPRAIN OF RIGHT FOOT, INITIA 06/11/2017 MAX AURY K Ot W01.198A FALL SAME LEV FROM SLIP/TRIP W STRIKE AG 06/11/2017 MAX AURY Ot Y92.[address] IN [facility] (PRIVATE) 06/11/2017 AURY SANTANA DO Ot Z90.49 ACQUIRED ABSENCE OF OTHER SPECIFIED PART 07/01/2017 MARY PARK MD Ot F17.210 NICOTINE DEPENDENCE, CIGARETTES, UNCOMPL 07/01/2017 MARY PARK MD Ot F41.9 ANXIETY DISORDER, UNSPECIFIED 07/01/2017 MARY PARK MD Ot L02.31 CUTANEOUS ABSCESS OF BUTTOCK 07/01/2017 MARY PARK MD Ot L03.317 CELLULITIS OF BUTTOCK 07/01/2017 MARY PARK MD Ot Z90.49 ACQUIRED ABSENCE OF OTHER SPECIFIED PART 08/24/2017 LAZARO MONDRAGON MD, Ot F17.210 NICOTINE DEPENDENCE, CIGARETTES, UNCOMPL 08/24/2017 LAZARO MONDRAGON MD, Ot F41.9 ANXIETY DISORDER, UNSPECIFIED 08/24/2017 LAZARO MONDRAGON MD Ot G47.9 SLEEP DISORDER, UNSPECIFIED 08/24/2017 LAZARO MONDRAGON MD Ot K02.9 DENTAL CARIES, UNSPECIFIED 08/24/2017 LAZARO MONDRAGON MD Ot K05.10 CHRONIC GINGIVITIS, PLAQUE INDUCED 08/24/2017 LAZARO MONDRAGON MD Ot R11.2 NAUSEA WITH VOMITING, UNSPECIFIED 08/24/2017 LAZARO MONDRAGON MD Ot Z90.49 ACQUIRED ABSENCE OF OTHER SPECIFIED PART 08/26/2017 LAZARO MONDRAGON MD Ot F17.210 NICOTINE DEPENDENCE, CIGARETTES, UNCOMPL 08/26/2017 LAZARO MONDRAGON MD Ot F41.9 ANXIETY DISORDER, UNSPECIFIED 08/26/2017 LAZARO MONDRAGON MD Ot G47.9 SLEEP DISORDER, UNSPECIFIED 08/26/2017 LAZARO MONDRAGON MD Ot K02.9 DENTAL CARIES, UNSPECIFIED 08/26/2017 LAZARO MONDRAGON MD Ot K05.10 CHRONIC GINGIVITIS, PLAQUE INDUCED 08/26/2017 LAZARO MONDRAGON MD Ot R11.2 NAUSEA WITH VOMITING, UNSPECIFIED 08/26/2017 LAZARO MONDRAGON MD Ot Z90.49 ACQUIRED ABSENCE OF OTHER SPECIFIED PART Procedures Code Description Performed By Performed On 73.01 INDUCT LABOR-RUPT MEMB 03/17/2015 73.59 MANUAL ASSIST DELIV NEC 03/17/2015 [id number] DELIVERY OF PRODUCTS OF CONCEPTION, EXTE 01/05/2017 Results Test Result Range Complete urinalysis with reflex to culture - 01/05/17 11:05 Urine color determination YELLOW NRG Urine clarity determination CLEAR NRG Urine pH measurement by test strip 5 5-9 Specific gravity of urine by test strip 1.015 1.016- 1.022 Urine protein assay by test strip, semi-quantitative NEGATIVE NEGATIVE Urine glucose detection by automated test strip NEGATIVE NEGATIVE Erythrocytes detection in urine sediment by light microscopy 3+ NEGATIVE Urine ketones detection by automated test strip NEGATIVE NEGATIVE Urine nitrite detection by test strip NEGATIVE NEGATIVE Urine total bilirubin detection by test strip NEGATIVE NEGATIVE Urine urobilinogen measurement by automated test strip (mass/volume) NORMAL NORMAL Urine leukocyte esterase detection by dipstick NEGATIVE NEGATIVE Automated urine sediment erythrocyte count by microscopy (number/high power field) NONE NRG Automated urine sediment leukocyte count by microscopy (number/high power field ) NONE NRG Bacteria detection in urine sediment by light microscopy NEGATIVE NRG Squamous epithelial cells detection in urine sediment by light microscopy 0-2 NRG Crystals detection in urine sediment by light microscopy NONE NRG Casts detection in urine sediment by light microscopy NONE NRG Mucus detection in urine sediment by light microscopy NEGATIVE NRG Complete urinalysis with reflex to culture NO NRG Urine drug screening test - 01/05/17 11:05 Urine phencyclidine detection by screening method NEGATIVE NEGATIVE Urine benzodiazepines detection by screening method NEGATIVE NEGATIVE Urine cocaine detection NEGATIVE NEGATIVE Urine amphetamines detection by screening method NEGATIVE NEGATIVE Urine methamphetamine detection by screening method NEGATIVE NEGATIVE Urine cannabinoids detection by screening method NEGATIVE NEGATIVE Urine opiates detection by screening method NEGATIVE NEGATIVE Urine barbiturates detection NEGATIVE NEGATIVE Screening urine tricyclic antidepressants detection NEGATIVE NEGATIVE Urine methadone detection by screening method NEGATIVE NEGATIVE Urine oxycodone detection NEGATIVE NEGATIVE Urine propoxyphene detection NEGATIVE NEGATIVE Complete blood count (CBC) with automated white blood cell (WBC) differential - 01/05/17 11:48 Blood leukocytes automated count (number/volume) 14.2 10*3/uL 4.3-11.0 Blood erythrocytes automated count (number/volume) 3.90 10*6/uL 4.35-5.85 Venous blood hemoglobin measurement (mass/volume) 10.6 g/dL 11.5-16.0 Blood hematocrit (volume fraction) 33 % 35-52 Automated erythrocyte mean corpuscular volume 84 [foz_us] 80-99 Automated erythrocyte mean corpuscular hemoglobin (mass per erythrocyte) 27 pg 25-34 Automated erythrocyte mean corpuscular hemoglobin concentration measurement ( mass/volume) 32 g/dL 32-36 Automated erythrocyte distribution width ratio 14.7 % 10.0-14.5 Automated blood platelet count (count/volume) 290 10*3/uL 130-400 Automated blood platelet mean volume measurement 11.4 [foz_us] 7.4-10.4 Automated blood neutrophils/100 leukocytes 72 % 42-75 Automated blood lymphocytes/100 leukocytes 21 % 12-44 Blood monocytes/100 leukocytes 7 % 0-12 Automated blood eosinophils/100 leukocytes 0 % 0-10 Automated blood basophils/100 leukocytes 0 % 0-10 Blood neutrophils automated count (number/volume) 10.2 10*3 1.8-7.8 Blood lymphocytes automated count (number/volume) 2.9 10*3 1.0-4.0 Blood monocytes automated count (number/volume) 1.0 10*3 0.0-1.0 Automated eosinophil count 0.1 10*3/uL 0.0-0.3 Automated blood basophil count (count/volume) 0.1 10*3/uL 0.0-0.1 Blood manual differential performed detection - 01/05/17 11:48 Blood monocytes/100 leukocytes 4 % NRG Manual blood segmented neutrophils/100 leukocytes 76 % NRG Blood band neutrophils/100 leukocytes 0 % NRG Manual blood lymphocytes/100 leukocytes 16 % NRG Manual eosinophils/100 leukocytes in nose 1 % NRG Manual blood basophils/100 leukocytes 0 % NRG Blood lymphocytes variant/100 leukocytes 3 % NRG Blood erythrocyte morphology finding identification NORMAL [facility] Comprehensive metabolic panel - 01/05/17 11:48 Serum or plasma sodium measurement (moles/volume) 132 mmol/L 135-145 Serum or plasma potassium measurement (moles/volume) 4.8 mmol/L 3.6-5.0 Serum or plasma chloride measurement (moles/volume) 106 mmol/L 98-107 Carbon dioxide 18 mmol/L 21-32 Serum or plasma anion gap determination (moles/volume) 8 mmol/L 5-14 Serum or plasma urea nitrogen measurement (mass/volume) 10 mg/dL 7-18 Serum or plasma creatinine measurement (mass/volume) 0.65 mg/dL 0.60-1.30 Serum or plasma urea nitrogen/creatinine mass ratio 15 NRG Serum or plasma creatinine measurement with calculation of estimated glomerular filtration rate > NR Serum or plasma glucose measurement (mass/volume) 79 mg/dL 70-105 Serum or plasma calcium measurement (mass/volume) 8.6 mg/dL 8.5-10.1 Serum or plasma total bilirubin measurement (mass/volume) 0.3 mg/dL 0.1-1.0 Serum or plasma alkaline phosphatase measurement (enzymatic activity/volume) 234 U/L 40-136 Serum or plasma aspartate aminotransferase measurement (enzymatic activity/ volume) 100 U/L 5-34 Serum or plasma alanine aminotransferase measurement (enzymatic activity/volume ) 126 U/L 0-55 Serum or plasma protein measurement (mass/volume) 6.3 g/dL 6.4-8.2 Serum or plasma albumin measurement (mass/volume) 3.0 g/dL 3.2-4.5 Blood type T Indirect antibody screen panel - 01/05/17 11:48 ABO+Rh group AP [facility] Transfusion band number [id number] [facility] Blood group antibody screen NEGATIVE [facility] Human immunodeficiency virus (HIV) type 1 and 2 antibody detection - 01/05/17 11:48 Serum HIV 1+2 antibody detection by immunoblot Non-Reactive Non-Reactive Interpretation of HIV-1 and HIV-2 antibody assay See Footnote [facility] Acute hepatitis panel - 01/05/17 11:48 Confirmatory quantitative serum or plasma hepatitis B virus surface antigen measurement Non-Reactive Non-Reactive Hepatitis A virus IgM antibody assay Non-Reactive Non- Reactive Hepatitis B virus core IgM antibody assay Non-Reactive Non-Reactive Serum hepatitis C virus antibody detection Non-Reactive Non-Reactive RUBELLA ANTIBODY - 01/05/17 11:48 RUBELLA ANTIBOD 0.80 % 0.00-0.89 Interpretation of serum rubella virus IgG antibody test Negative Negative Complete blood count (CBC) with automated white blood cell (WBC) differential - 01/06/17 05:54 Blood leukocytes automated count (number/volume) 17.0 10*3/uL 4.3-11.0 Blood erythrocytes automated count (number/volume) 3.68 10*6/uL 4.35-5.85 Venous blood hemoglobin measurement (mass/volume) 9.7 g/dL 11.5-16.0 Blood hematocrit (volume fraction) 31 % 35-52 Automated erythrocyte mean corpuscular volume 84 [foz_us] 80-99 Automated erythrocyte mean corpuscular hemoglobin (mass per erythrocyte) 26 pg 25-34 Automated erythrocyte mean corpuscular hemoglobin concentration measurement ( mass/volume) 31 g/dL 32-36 Automated erythrocyte distribution width ratio 14.5 % 10.0-14.5 Automated blood platelet count (count/volume) 290 10*3/uL 130-400 Automated blood platelet mean volume measurement 11.8 [foz_us] 7.4-10.4 Automated blood neutrophils/100 leukocytes 74 % 42-75 Automated blood lymphocytes/100 leukocytes 19 % 12-44 Blood monocytes/100 leukocytes 6 % 0-12 Automated blood eosinophils/100 leukocytes 1 % 0-10 Automated blood basophils/100 leukocytes 0 % 0-10 Blood neutrophils automated count (number/volume) 12.5 10*3 1.8-7.8 Blood lymphocytes automated count (number/volume) 3.2 10*3 1.0-4.0 Blood monocytes automated count (number/volume) 1.1 10*3 0.0-1.0 Automated eosinophil count 0.2 10*3/uL 0.0-0.3 Automated blood basophil count (count/volume) 0.0 10*3/uL 0.0-0.1 Comprehensive metabolic panel - 01/06/17 05:54 Serum or plasma sodium measurement (moles/volume) 133 mmol/L 135-145 Serum or plasma potassium measurement (moles/volume) 4.3 mmol/L 3.6-5.0 Serum or plasma chloride measurement (moles/volume) 105 mmol/L 98-107 Carbon dioxide 21 mmol/L 21-32 Serum or plasma anion gap determination (moles/volume) 7 mmol/L 5-14 Serum or plasma urea nitrogen measurement (mass/volume) 7 mg/dL 7-18 Serum or plasma creatinine measurement (mass/volume) 0.60 mg/dL 0.60-1.30 Serum or plasma urea nitrogen/creatinine mass ratio 12 NRG Serum or plasma creatinine measurement with calculation of estimated glomerular filtration rate > NRG Serum or plasma glucose measurement (mass/volume) 78 mg/dL 70-105 Serum or plasma calcium measurement (mass/volume) 8.2 mg/dL 8.5-10.1 Serum or plasma total bilirubin measurement (mass/volume) 0.3 mg/dL 0.1-1.0 Serum or plasma alkaline phosphatase measurement (enzymatic activity/volume) 187 U/L 40-136 Serum or plasma aspartate aminotransferase measurement (enzymatic activity/ volume) 113 U/L 5-34 Serum or plasma alanine aminotransferase measurement (enzymatic activity/volume ) 126 U/L 0-55 Serum or plasma protein measurement (mass/volume) 5.3 g/dL 6.4-8.2 Serum or plasma albumin measurement (mass/volume) 2.5 g/dL 3.2-4.5 Complete blood count (CBC) with automated white blood cell (WBC) differential - 06/07/17 19:52 Blood leukocytes automated count (number/volume) 8.8 10*3/uL 4.3-11.0 Blood erythrocytes automated count (number/volume) 4.63 10*6/uL 4.35-5.85 Venous blood hemoglobin measurement (mass/volume) 11.9 g/dL 11.5-16.0 Blood hematocrit (volume fraction) 38 % 35-52 Automated erythrocyte mean corpuscular volume 82 [foz_us] 80-99 Automated erythrocyte mean corpuscular hemoglobin (mass per erythrocyte) 26 pg 25-34 Automated erythrocyte mean corpuscular hemoglobin concentration measurement ( mass/volume) 32 g/dL 32-36 Automated erythrocyte distribution width ratio 16.0 % 10.0-14.5 Automated blood platelet count (count/volume) 334 10*3/uL 130-400 Automated blood platelet mean volume measurement 10.4 [foz_us] 7.4-10.4 Automated blood neutrophils/100 leukocytes 46 % 42-75 Automated blood lymphocytes/100 leukocytes 43 % 12-44 Blood monocytes/100 leukocytes 7 % 0-12 Automated blood eosinophils/100 leukocytes 4 % 0-10 Automated blood basophils/100 leukocytes 0 % 0-10 Blood neutrophils automated count (number/volume) 4.1 10*3 1.8-7.8 Blood lymphocytes automated count (number/volume) 3.8 10*3 1.0-4.0 Blood monocytes automated count (number/volume) 0.6 10*3 0.0-1.0 Automated eosinophil count 0.3 10*3/uL 0.0-0.3 Automated blood basophil count (count/volume) 0.0 10*3/uL 0.0-0.1 Serum or plasma choriogonadotropin ( test) detection - 06/07/17 19:52 Serum or plasma choriogonadotropin ( test) detection NEGATIVE NEGATIVE PT panel in platelet poor plasma by coagulation assay - 06/07/17 19:52 Prothrombin time (PT) in platelet poor plasma by coagulation assay 13.2 s 12.2-14.7 INR in platelet poor plasma or blood by coagulation assay 1.0 0.8-1.4 Activated partial thromboplastin time (aPTT) in platelet poor plasma bycoagulation assay - 06/07/17 19:52 Activated partial thromboplastin time (aPTT) in platelet poor plasma bycoagulation assay 29 s 24-35 Comprehensive metabolic panel - 06/07/17 19:52 Serum or plasma sodium measurement (moles/volume) 141 mmol/L 135-145 Serum or plasma potassium measurement (moles/volume) 3.8 mmol/L 3.6-5.0 Serum or plasma chloride measurement (moles/volume) 106 mmol/L 98-107 Carbon dioxide 25 mmol/L 21-32 Serum or plasma anion gap determination (moles/volume) 10 mmol/L 5-14 Serum or plasma urea nitrogen measurement (mass/volume) 13 mg/dL 7-18 Serum or plasma creatinine measurement (mass/volume) 0.79 mg/dL 0.60-1.30 Serum or plasma urea nitrogen/creatinine mass ratio 16 NRG Serum or plasma creatinine measurement with calculation of estimated glomerular filtration rate > NRG Serum or plasma glucose measurement (mass/volume) 78 mg/dL 70-105 Serum or plasma calcium measurement (mass/volume) 9.1 mg/dL 8.5-10.1 Serum or plasma total bilirubin measurement (mass/volume) 0.3 mg/dL 0.1-1.0 Serum or plasma alkaline phosphatase measurement (enzymatic activity/volume) 62 U/L 40-136 Serum or plasma aspartate aminotransferase measurement (enzymatic activity/ volume) 14 U/L 5-34 Serum or plasma alanine aminotransferase measurement (enzymatic activity/volume ) 18 U/L 0-55 Serum or plasma protein measurement (mass/volume) 6.8 g/dL 6.4-8.2 Serum or plasma albumin measurement (mass/volume) 4.0 g/dL 3.2-4.5 Magnesium - 06/07/17 19:52 Magnesium 2.1 mg/dL 1.8-2.4 Serum or plasma creatine kinase measurement (enzymatic activity/volume) - 06/07 19:52 Serum or plasma creatine kinase measurement (enzymatic activity/volume) 79 U/L 29-168 Serum or plasma creatine kinase MB measurement (enzymatic activity/volume) - 19:52 Serum or plasma creatine kinase MB measurement (enzymatic activity/volume) 0.3 ng/mL <6.6 Serum or plasma troponin i.cardiac measurement (mass/volume) - 06/07/17 19:52 Serum or plasma troponin i.cardiac measurement (mass/volume) < ng/ mL <0.30 Serum or plasma ethanol measurement (mass/volume) - 06/07/17 19:52 Serum or plasma ethanol measurement (mass/volume) < mg/dL <10 Complete urinalysis with reflex to culture - 06/07/17 21:06 Urine color determination YELLOW NRG Urine clarity determination SLIGHTLY CLOUDY NRG Urine pH measurement by test strip 6 5-9 Specific gravity of urine by test strip 1.015 1.016- 1.022 Urine protein assay by test strip, semi-quantitative NEGATIVE NEGATIVE Urine glucose detection by automated test strip NEGATIVE NEGATIVE Erythrocytes detection in urine sediment by light microscopy NEGATIVE NEGATIVE Urine ketones detection by automated test strip NEGATIVE NEGATIVE Urine nitrite detection by test strip NEGATIVE NEGATIVE Urine total bilirubin detection by test strip NEGATIVE NEGATIVE Urine urobilinogen measurement by automated test strip (mass/volume) NORMAL NORMAL Urine leukocyte esterase detection by dipstick NEGATIVE NEGATIVE Automated urine sediment erythrocyte count by microscopy (number/high power field) NONE NRG Automated urine sediment leukocyte count by microscopy (number/high power field ) NONE NRG Bacteria detection in urine sediment by light microscopy TRACE NRG Crystals detection in urine sediment by light microscopy PRESENT NRG Casts detection in urine sediment by light microscopy NONE NRG Mucus detection in urine sediment by light microscopy NEGATIVE NRG Complete urinalysis with reflex to culture NO NRG Amorphous sediment detection in urine sediment by light microscopy FEW ABEL URATES NRG Urine drug screening test - 06/07/17 21:06 Urine phencyclidine detection by screening method NEGATIVE NEGATIVE Urine benzodiazepines detection by screening method NEGATIVE NEGATIVE Urine cocaine detection NEGATIVE NEGATIVE Urine amphetamines detection by screening method NEGATIVE NEGATIVE Urine methamphetamine detection by screening method NEGATIVE NEGATIVE Urine cannabinoids detection by screening method NEGATIVE NEGATIVE Urine opiates detection by screening method NEGATIVE NEGATIVE Urine barbiturates detection NEGATIVE NEGATIVE Screening urine tricyclic antidepressants detection POSITIVE NEGATIVE Urine methadone detection by screening method NEGATIVE NEGATIVE Urine oxycodone detection NEGATIVE NEGATIVE Urine propoxyphene detection NEGATIVE NEGATIVE Gram stain microscopy - 07/01/17 00:05 GRAM STAIN RESULT RARE GRAM NEGATIVE RAYMOND NRG Bacteria identification in wound by culture - 07/01/17 00:05 Bacteria identification in wound by culture [id number] NRG FREE TEXT EXTERNAL SENSITIVITY REPORTED AT 1053, 07-03-17 NRG QUANTITY OF GROWTH Scant Growth NRG Bacterial susceptibility panel - 07/01/17 00:05 Gentamicin susceptibility test by minimum inhibitory concentration S NRG Erythromycin susceptibility test by minimum inhibitory concentration >= NRG Vancomycin susceptibility test by minimum inhibitory concentration < = NRG Ampicillin susceptibility test by minimum inhibitory concentration < = NRG Linezolid susceptibility test by minimum inhibitory concentration 2 NRG Encounters ACCT No. Visit Date/Time Discharge Status Pt. Type Provider Facility Loc./Unit Complaint [id number] 02/25/2012 11:59:00 02/25/2012 23:59:59 CLS Outpatient KAPIL EGAN, LAURYN [id number] 08/31/2017 19:38:00 08/31/2017 19:58:00 DIS Emergency ELVER MOMIN APRN [facility] COUGH,CONGESTION [id number] 08/24/2017 14:16:00 08/24/2017 15:22:00 DIS Outpatient LAZARO MONDRAGON MD [facility] N/V,POSS DEHYDRATED, FEVER [id number] 08/22/2017 11:28:00 08/22/2017 12:52:00 DIS Emergency ELVER MOMIN APRN [facility] ER FEVER/DENTAL INFECTION [id number] 08/05/2017 10:03:00 08/05/2017 10:26:00 DIS Emergency LAZARO MONDRAGON MD [facility] ER N/V/LOWER BACK PAIN [id number] 06/30/2017 23:36:00 07/01/2017 00:38:00 DIS Emergency MARY PARK MD [facility] ER POSS SPIDER BITE ON RT BUTTOCKS,VOMITING,SHAKES [id number] 06/07/2017 19:37:00 06/07/2017 21:38:00 DIS Emergency AURY SANTANA DO [facility] ER HEAD/FOOT PAIN [id number] 05/04/2017 21:02:00 05/04/2017 22:20:00 DIS Emergency AURY SANTANA DO [facility] ER DENTAL PAIN [id number] 01/05/2017 12:00:00 01/07/2017 11:05:00 DIS Inpatient PRAMOD LAWSON DO [facility] LDRP WATER MAY HAVE BROKE; LABOR [id number] 03/17/2015 11:07:00 03/18/2015 18:55:00 DIS Inpatient JONN EGAN, TIMOTEO Razo [facility] LDRP PRESSURE [id number] 08/30/2014 11:48:00 08/30/2014 14:08:00 DIS Emergency SONNY EGAN, HANNA Borges [facility] ER 8WKS AND CRAMPING [id number] 03/05/2013 15:28:00 03/05/2013 16:00:00 DIS Outpatient REYNA EGAN, RYAN Noland [facility] WSo CONTRACTIONS [id number] 10/23/2011 20:00:00 Document Registration
--- NOTE | 2017-09-15 18:32 | ED GU-Female ---
General Chief Complaint: -Female Stated Complaint: ABD CRAMPING,APPROX 8 WKS PREG Source: patient Exam Limitations: no limitations History of Present Illness Time seen by provider: 18:28 Initial Comments Suprapubic abdominal cramping for the past 4 days. No vaginal discharge or bleeding. Last menstrual period was the first week of July. She has had several positive tests at home. She is [id number] Timing/Duration: just prior to arrival Severity/Quality: moderate Radiation: suprapubic Activities at Onset: none Prior Genitourinary Problems: none Allergies and Home Medications Allergies Coded Allergies: No Known Drug Allergies (Verified , 09/15/17) Home Medications Cephalexin 500 Mg Capsule, 500 MG PO TID, #9 Prescribed by: ELVER MOMIN on 09/15/17 5204 Pnv No.122/Iron/Folic Acid 1 Each Tablet, Unknown Dose PO, (Reported) Constitutional: see HPI EENTM: see HPI Respiratory: no symptoms reported Cardiovascular: no symptoms reported Genitourinary: no symptoms reported Musculoskeletal: no symptoms reported Skin: no symptoms reported Psychiatric/Neurological: No Symptoms Reported Endocrine: No Symptoms Reported Hematologic/Lymphatic: No Symptoms Reported Past Pedtjfh-Jhwelk-Qrvqkd Hx Patient Social History Drug of Choice: Methamphetamines Type Used: Cigarettes 2nd Hand Smoke Exposure: Yes Recent Foreign Travel: No Contact w/Someone Who Travel: No Recent Hopitalizations: No Immunizations Up To Date Tetanus Booster (TDap): Unknown PED Vaccines UTD: No Date of Influenza Vaccine: Aug 20, 2014 Seasonal Allergies Seasonal Allergies: No Surgeries History of Surgeries: Yes Surgeries: Gallbladder Respiratory History of Respiratory Disorde: No Cardiovascular History of Cardiac Disorders: No Neurological History of Neurological Disord: No Reproductive System Hx Reproductive Disorders: No Female Reproductive Disorders: Denies Genitourinary History of Genitourinary Disor: No Gastrointestinal History of Gastrointestinal Di: Yes (S/P [place]) Gastrointestinal Disorders: Gall Bladder Disease Musculoskeletal History of Musculoskeletal Dis: No Endocrine History of Endocrine Disorders: No HEENT History of HEENT Disorders: No Cancer History of Cancer: No Psychosocial History of Psychiatric Problem: Yes Behavioral Health Disorders: Sleep Difficulties, Anxiety Integumentary History of Skin or Integumenta: No Blood Transfusions History of Blood Disorders: No Adverse Reaction to a Blood Tr: No Family Medical History Family Medial History: FH: spina bifida G8 BROTHER Physical Exam Vital Signs Vital Sign - Last 12Hours 09/15/17 18:15 Temp 98.9 Pulse 83 Resp 20 B/P (MAP) 129/85 (100) Pulse Ox 100 O2 Delivery Room Air Capillary Refill : General Appearance: WD/WN, no apparent distress HEENT: PERRL/EOMI, normal ENT inspection Neck: non-tender, full range of motion Respiratory: normal breath sounds, no respiratory distress, no accessory muscle use Gastrointestinal: normal bowel sounds, non tender, soft Extremities: normal range of motion, non-tender Neurologic/Psychiatric: alert, normal mood/affect, oriented x 3 Skin: normal color, warm/dry Progress/Results/Core Measures Suspected Sepsis SIRS Temperature: Pulse: Respiratory Rate: Laboratory Tests 09/15/17 18:35: White Blood Count 12.2H Blood Pressure / Mean: Laboratory Tests 09/15/17 18:35: Platelet Count 346 Results/Orders Lab Results Laboratory Tests Test 09/15/17 18:24 09/15/17 18:35 Range/Units Urine Color YELLOW Urine Clarity CLEAR Urine pH 6.5 5-9 Urine Specific Ross 1.015 L 1.016-1.022 Urine Protein NEGATIVE NEGATIVE Urine Glucose (UA) NEGATIVE NEGATIVE Urine Ketones NEGATIVE NEGATIVE Urine Nitrite NEGATIVE NEGATIVE Urine Bilirubin NEGATIVE NEGATIVE Urine Urobilinogen NORMAL NORMAL MG/DL Urine Leukocyte Esterase 1+ H NEGATIVE Urine RBC (Auto) NEGATIVE NEGATIVE Urine RBC NONE /HPF Urine WBC 2-5 /HPF Urine Squamous Epithelial Cells 5-10 /HPF Urine Crystals NONE /LPF Urine Bacteria FEW H /HPF Urine Casts NONE /LPF Urine Mucus NEGATIVE /LPF Urine Yeast FEW H /HPF Urine Culture Indicated NO White Blood Count 12.2 H 4.3-11.0 10^3/uL Red Blood Count 4.55 4.35-5.85 10^6/uL Hemoglobin 12.1 11.5-16.0 G/DL Hematocrit 38 35-52 % Mean Corpuscular Volume 82 80-99 FL Mean Corpuscular Hemoglobin 27 25-34 PG Mean Corpuscular Hemoglobin Concent 32 32-36 G/DL Red Cell Distribution Width 13.6 10.0-14.5 % Platelet Count 346 130-400 10^3/uL Mean Platelet Volume 10.4 7.4-10.4 FL Neutrophils (%) (Auto) 66 42-75 % Lymphocytes (%) (Auto) 27 12-44 % Monocytes (%) (Auto) 5 0-12 % Eosinophils (%) (Auto) 2 0-10 % Basophils (%) (Auto) 0 0-10 % Neutrophils # (Auto) 8.0 H 1.8-7.8 X 10^3 Lymphocytes # (Auto) 3.3 1.0-4.0 X 10^3 Monocytes # (Auto) 0.7 0.0-1.0 X 10^3 Eosinophils # (Auto) 0.2 0.0-0.3 10^3/uL Basophils # (Auto) 0.1 0.0-0.1 10^3/uL Human Chorionic Gonadotropin, Quant 4223 H <5 MIU/ML Smear Scan YES My Orders Orders - ELVER MOMIN APRN Cbc With Automated Diff (09/15/17 18:09) Ua Culture If Indicated (09/15/17 18:09) Hcg,Quantitative (09/15/17 18:10) Urine Bedside (09/15/17 18:10) Us Ob<14 Wks Sngle W/Transvag (09/15/17 18:18) Vital Signs/I&O Vital Sign - Last 12Hours 09/15/17 18:15 Temp 98.9 Pulse 83 Resp 20 B/P (MAP) 129/85 (100) Pulse Ox 100 O2 Delivery Room Air Capillary Refill : Diagnostic Imaging Diagonstic Imaging: Ultrasound Comments NAME: MIKE NUNEZ [facility] REC#: [id number] PT STATUS: REG ER : 1990 PHYSICIAN: ELVER MOMIN APRN ADMIT DATE: 09/15/17/ER Draft Date of Exam:09/15/17 US OB<14 WKS SNGLE W/TRANSVAG INDICATION: Early cramping. COMPARISON: None. FINDINGS: There is a tiny gestational sac seen within the uterus with a yolk sac and decidual reaction. There is a 3 cm subchorionic hemorrhage. No pole is identified at this time. The left ovary contains a simple cyst likely corpus luteum. The right ovary is nonvisualized. There is no sonographic evidence of torsion. There is no adnexal mass or free fluid. IMPRESSION: 1. Gestational sac containing a small yolk sac within the uterus. No pole is identified and may be too early. Followup recommended. 2. 3 x 0.6 cm subchorionic hemorrhage. Dictated on workstation # [id number] Dict: 09/15/171899 Trans: 09/15/171916 [id number] Interpreted by: TIMOTEO ESPINOSA Electronically signed by: Departure Impression Impression: Primary Impression: Threatened miscarriage in early Additional Impression: Asymptomatic bacteriuria Disposition: 01 HOME, SELF-CARE Condition: Stable Departure-Patient Inst. Decision time for Depature: 18:57 Referrals: [facility] (PCP/Family) Primary Care Physician Patient Instructions: Threatened Miscarriage Add. Discharge Instructions: 1. Follow-up with your doctor next week 2. Return to ER for any concerns 3. All discharge instructions reviewed with patient and/or family. Voiced understanding. Scripts Cephalexin (Keflex) 500 Mg Capsule 500 MG PO TID, #9 CAP Prov: ELVER MOMIN APRN 09/15/17 Copy Copies To 1: PRAMOD LAWSON PETER J APRN Sep 15, 2017 18:31
[2017-09-15] MEDS ORDERED: PNV1TABL81 PO (18:40)
[2017-09-15 18:46] LABS: BILIRUBIN,URINE NEGATIVE (NEGATIVE); KETONES,URINE NEGATIVE (NEGATIVE); LEUKOCYTE ESTERASE ,URINE 1+ (NEGATIVE); NITRITE,URINE NEGATIVE (NEGATIVE); PH,URINE 6.5 (5-9); PROTEIN,URINE NEGATIVE (NEGATIVE); UROBILINOGEN,URINE NORMAL (NORMAL)
[2017-09-15 18:47] LABS: BASOPHILS # (AUTO) 0.1 10^3/uL (0.0-0.1); BASOPHILS % (AUTO) 0 % (0-10); EOSINOPHILS # (AUTO) 0.2 10^3/uL (0.0-0.3); EOSINOPHILS % (AUTO) 2 % (0-10); LYMPHOCYTES # (AUTO) 3.3 X 10^3 (1.0-4.0); LYMPHOCYTES % (AUTO) 27 % (12-44); MEAN CORPUSCULAR HEMOGLOBIN 27 PG (25-34); MEAN CORPUSCULAR HGB CONC 32 G/DL (32-36); MEAN CORPUSCULAR VOLUME 82 FL (80-99); MEAN PLATELET VOLUME 10.4 FL (7.4-10.4); MONOCYTES # (AUTO) 0.7 X 10^3 (0.0-1.0); MONOCYTES % (AUTO) 5 % (0-12); NEUTROPHILS % (AUTO) 66 % (42-75); PLATELET COUNT 346 10^3/uL (130-400); RED BLOOD COUNT 4.55 10^6/uL (4.35-5.85); RED CELL DISTRIBUTION WIDTH 13.6 % (10.0-14.5); WHITE BLOOD COUNT 12.2 10^3/uL (4.3-11.0)
[2017-09-15 18:52] LABS: YEAST,URINE FEW /HPF
[2017-09-15] MEDS ORDERED: CEPH-507 PO (18:58)
--- NOTE | 2017-09-15 19:17 | Diagnostic Imaging Report ---
INDICATION: Early cramping. COMPARISON: None. FINDINGS: There is a tiny gestational sac seen within the uterus with a yolk sac and decidual reaction. There is a 3 cm subchorionic hemorrhage. No pole is identified at this time. The left ovary contains a simple cyst likely corpus luteum. The right ovary is nonvisualized. There is no sonographic evidence of torsion. There is no adnexal mass or free fluid. IMPRESSION: 1. Gestational sac containing a small yolk sac within the uterus. No pole is identified and may be too early. Followup recommended. 2. 3 x 0.6 cm subchorionic hemorrhage. Dictated by: Dictated on workstation # [id number]
[2017-09-15 19:28] VITALS: BP 120/80
== END 2017-09-15 19:28 | disposition home or self-care (01) ==
LOC: EDUNIT# 17:47 → ER 17:50
DX: O20.0 Threatened abortion (principal); O99.89 Other specified diseases and conditions complicating pregnancy, childbirth and the puerperium; R82.71 Bacteriuria; O99.341 Other mental disorders complicating pregnancy, first trimester; F41.9 Anxiety disorder, unspecified; Z3A.08 8 weeks gestation of pregnancy; Z87.59 Personal history of other complications of pregnancy, childbirth and the puerperium; Z77.22 Contact with and (suspected) exposure to environmental tobacco smoke (acute) (chronic); Z87.19 Personal history of other diseases of the digestive system; Z90.49 Acquired absence of other specified parts of digestive tract
CPT/HCPCS: 36415; 76801; 76817; 81000; 84702; 84703; 85025; 99282

== ENCOUNTER 2017-12-20 15:35 | Emergency (ER) | payer MEDICAID ==
[~2017-12-20] VITALS: Ht 160 cm; Wt 81.4 kg
[~2017-12-20 15:35] MED LIST changes: -AMOX875T2 PO
--- NOTE | 2017-12-20 17:14 | ED Cough/URI ---
General Chief Complaint: Cough/Cold/Flu Symptoms Stated Complaint: COUGH/THROAT PAIN/HEADACHE Nursing Triage Note: C/O SORE THROAT, COUGH, H/A FOR TWO DAYS. NOT TAKING MEDS D/T Source: patient Exam Limitations: no limitations History of Present Illness Date Seen by Provider: Dec 20, 2017 Time Seen by Provider: 16:50 Initial Comments PT ARRIVES VIA POV FROM HOME C/O SORE THROAT C/O COUGH AND CONGESTION AND NASAL DRAINAGE SYMPTOMS BEGAN YESTERDAY NO FEVER CHEST HURTS TO COUGH, BUT NO SHORTNESS OF BREATH OR PERSISTENT CHEST PAIN NO SWELLING IN LEGS/ FEET OR PAIN IN CALVES HAS CHILD WITH COUGH AND FEVER PT IS 20 WEEKS --PT IS AB1--PRE-ECLMAPSIA WITH THE LAST 3 PREGNANCIES BEFORE THIS ONE PCP: PETEY OB: DR. LAWSON Allergies and Home Medications Allergies Coded Allergies: No Known Drug Allergies (Verified , 09/15/17) Patient Home Medication List Home Medication List Reviewed: Yes Constitutional: no symptoms reported, No fever EENTM: see HPI, nose congestion, throat pain Respiratory: see HPI, cough, No short of breath, No wheezing Cardiovascular: see HPI, chest pain Gastrointestinal: no symptoms reported : Yes Musculoskeletal: no symptoms reported Skin: no symptoms reported Psychiatric/Neurological: No Symptoms Reported Hematologic/Lymphatic: No Symptoms Reported Immunological/Allergic: no symptoms reported Past Mmgxbsh-Uilvfc-Gaaggo Hx Patient Social History Alcohol Use: Denies Use Recreational Drug Use: No Drug of Choice: Methamphetamines Smoking Status: Current Everyday Smoker Type Used: Cigarettes 2nd Hand Smoke Exposure: Yes Recent Foreign Travel: No Contact w/Someone Who Travel: No Recent Infectious Disease Expo: No Recent Hopitalizations: No Immunizations Up To Date Tetanus Booster (TDap): Unknown PED Vaccines UTD: No Date of Influenza Vaccine: Aug 20, 2014 Seasonal Allergies Seasonal Allergies: No Surgeries History of Surgeries: Yes (ALL TEETH REMOVED) Surgeries: Gallbladder Respiratory History of Respiratory Disorde: No Cardiovascular History of Cardiac Disorders: No Neurological History of Neurological Disord: No Reproductive System : Yes Hx : 7 Hx Para: 5 Hx Total # of Abortions (Spona: 1 Hx Reproductive Disorders: No Female Reproductive Disorders: Denies Genitourinary History of Genitourinary Disor: No Gastrointestinal History of Gastrointestinal Di: Yes (S/P [place]) Gastrointestinal Disorders: Gall Bladder Disease Musculoskeletal History of Musculoskeletal Dis: No Endocrine History of Endocrine Disorders: No HEENT History of HEENT Disorders: No Cancer History of Cancer: No Psychosocial History of Psychiatric Problem: Yes Behavioral Health Disorders: Sleep Difficulties, Anxiety Integumentary History of Skin or Integumenta: No Blood Transfusions History of Blood Disorders: No Adverse Reaction to a Blood Tr: No Family Medical History Family Medial History: FH: spina bifida G8 BROTHER Physical Exam Vital Signs Vital Signs - First Documented 12/20/17 16:10 Temp 97.7 Pulse 107 Resp 20 B/P (MAP) 93/62 (72) Pulse Ox 96 O2 Delivery Room Air Capillary Refill : Less Than 3 Seconds General Appearance: WD/WN, no apparent distress HEENT: PERRL/EOMI, TMs normal, pharyngeal erythema (MILD), No tonsillar exudate , other (EDENTULOUS) Neck: non-tender, full range of motion, supple, normal inspection, No lymphadenopathy (R), No lymphadenopathy (L) Respiratory: normal breath sounds, no respiratory distress, no accessory muscle use, other Cardiovascular: normal peripheral pulses, regular rate, rhythm, no edema, no murmur Gastrointestinal: normal bowel sounds, non tender, soft, other (GRAVID UTERUS) Extremities: normal range of motion, non-tender, normal inspection, no pedal edema, no calf tenderness, normal capillary refill Neurologic/Psychiatric: illuminator II-XII nml as tested, no motor/sensory deficits, alert, normal mood/affect, oriented x 3 Skin: normal color, warm/dry, No rash Progress/Results/Core Measures Suspected Sepsis Recent Fever Within 48 Hours: No Infection Criteria Present: None New/Unexplained Altered Menta: No Sepsis Screen: No Definite Risk Sepsis Diagnosis: SIRS Temperature:97.7 Pulse: 107 Respiratory Rate: 20 Blood Pressure 93 /62 Mean: 72 Results/Orders Lab Results Laboratory Tests Test 12/20/17 17:23 Range/Units Group A Streptococcus Screen NEGATIVE NEGATIVE Micro Results Microbiology 12/20/17 Influenza Types A,B Antigen (RYAN) - Final, Complete My Orders Orders - AURY SANTANA DO Rapid Strep A Screen (12/20/17 16:59) Influenza A And B Antigens (12/20/17 16:59) Heart Tones (12/20/17 16:59) Vital Signs/I&O Vital Sign - Last 12Hours 12/20/17 12/20/17 16:10 16:55 Temp 97.7 Pulse 107 Resp 20 B/P (MAP) 93/62 (72) Pulse Ox 96 O2 Delivery Room Air Room Air Capillary Refill : Less Than 3 Seconds Blood Pressure Mean: 72 Departure Impression Impression: Primary Impression: Upper respiratory infection Additional Impressions: Pharyngitis 20 weeks gestation of Disposition: 01 HOME, SELF-CARE Condition: Stable Departure-Patient Inst. Referrals: [facility] (PCP/Family) Primary Care Physician Patient Instructions: Bacterial Upper Respiratory Infection, Adult (DC), Sore Throat, Adult (DC) Add. Discharge Instructions: LOTS OF CLEAR LIQUIDS TYLENOL NEEDED FOR PAIN OR FEVER OVER THE COUNTER FLONASE OR NASACORT FOR NASAL CONGESTION FOLLOW UP WITH [facility] IN 3-4 DAYS IF NO BETTER All discharge instructions reviewed with patient and/or family. Voiced understanding. Scripts Amoxicillin (Amoxicillin) 875 Mg Tablet 875 MG PO BID for INFECTION, #20 TAB Prov: AURY SANTANA DO 12/20/17 AURY SANTANA DO Dec 20, 2017 17:14
[2017-12-20] MEDS ORDERED: AMOX875T2 PO (18:03)
[2017-12-20 18:10] VITALS: BP 113/68
== END 2017-12-20 18:10 | disposition home or self-care (01) ==
LOC: EDUNIT# 15:35 → ER 15:37
DX: O99.512 Diseases of the respiratory system complicating pregnancy, second trimester (principal); J02.9 Acute pharyngitis, unspecified; O99.342 Other mental disorders complicating pregnancy, second trimester; F41.9 Anxiety disorder, unspecified; O99.332 Smoking (tobacco) complicating pregnancy, second trimester; F17.210 Nicotine dependence, cigarettes, uncomplicated; O99.322 Drug use complicating pregnancy, second trimester; F15.10 Other stimulant abuse, uncomplicated; Z90.49 Acquired absence of other specified parts of digestive tract; Z87.19 Personal history of other diseases of the digestive system; Z3A.20 20 weeks gestation of pregnancy
CPT/HCPCS: 87430; 87804; 99283

== ENCOUNTER 2017-12-20 22:16 | Emergency (ER) | payer MEDICAID ==
[~2017-12-20] VITALS: Ht 160 cm; Wt 77.1 kg
[~2017-12-20 22:16] MED LIST changes: +AMOX875T2 PO
--- OUTSIDE RECORDS SUMMARY | 2017-12-20 22:24 | XMS REPORT | Continuity of Care Document ---
Author Author [facility] Address Unknown Phone Unavailable Allergies Active Description Code Type Severity Reaction Onset Reported/Identified Relationship to Patient Clinical Status Yes No Known Drug Allergies [id number] Miscellaneous Allergy Moderate N/A Yes NO KNOWN DRUG ALLERGIES UNKNOWN NO KNOWN DRUG ALLERG Yes No Known Drug Allergies [id number] Drug Allergy Unknown N/A 09/15/2017 Medications Medication Packaging Start Date Stop Date Route Dosage Sig KETOROLAC VIAL INJ 30 MG/CC (TORADOL VIAL) MG 03/06/2017 03/06/2017 ONCE&1650 ONDANSETRON VIAL INJ 4 MG/2CC (ZOFRAN 2CC VIAL) MG 03/06/2017 03/06/2017 PRN ONCE AMOXICILLIN CAP 500 MG (AMOXIL) MG 08/09/2017 08/09/2017 ONCE&0129 IBUPROFEN TAB 600 MG (MOTRIN) MG 08/09/2017 PRN ONCE NORMAL SALINE 1000CC IV BAG INJ 0.9 % (NS 1000CC IV BAG) ml 11/04/2017 11/19/2017 CONTINUOUSEVERY 0 Hour POTASSIUM CHLORIDE TAB 20 MEQ (K-DUR) MEQ 11/04/2017 11/04/2017 ONCE&0942 NORMAL SALINE 500CC IV BAG INJ 0.9 % (NS 500CC IV BAG) ml 11/08/2017 11/23/2017 CONTINUOUSEVERY 0 Hour NORMAL SALINE 500CC IV BAG INJ 0.9 % (NS 500CC IV BAG) ml 11/08/2017 11/08/2017 ONCE&1945 PROMETHAZINE VIAL INJ 25 MG/CC (PHENERGAN VIAL) MG 11/08/2017 11/08/2017 ONCE&2053 Problems Date Dx Coded Attending Type Code Diagnosis Diagnosed By 03/28/2008 LAURYN DICK MD V22.0 Pc Normal First 04/05/2008 LAURYN DICK MD 558.9 GASTROENTERITIS NONINFECTIOUS 04/05/2008 LAURYN DICK MD 787.02 NAUSEA ALONE 05/07/2008 LAURYN DICK MD V20.2 Well Child, Routine 05/15/2008 LAURYN DICK MD 380.10 OTITIS EXTERNA UNSPECIFIED 05/30/2008 LAURYN DICK MD 650 Normal Delivery 05/30/2008 LAURYN DICK MD V27.0 Mother With Single Liveborn [...] 10/24/2011 Ot 558.9 NONINF GASTROENTERIT NEC 02/25/2012 LAURYN DICK MD V25.9 CONTRACEPTION MANAGEMENT 03/05/2013 REYNA EGAN, RYAN Noland Ot 644.03 THRT JU LABOR-ANTEPART 08/30/2014 HANNA DENNIS MD Ot 644.03 THRT JU LABOR-ANTEPART 08/30/2014 HANNA DENNIS MD Ot 789.09 ABDOMINAL PAIN, OTHER SPECIFIED SITE 03/18/2015 TIMOTEO LUNSFORD MD Ot 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 03/18/2015 TIMOTEO LUNSFORD MD Ot 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 03/18/2015 TIMOTEO LUNSFORD MD Ot 648.41 MENTAL DISORDER-DELIVER 03/18/2015 TIMOTEO LUNSFORD MD, Ot V27.0 DELIVER-SINGLE LIVEBORN 01/07/2017 PRAMOD LAWSON DO C Ot D64.9 ANEMIA, UNSPECIFIED 01/07/2017 LAWSONRosalva BOWMAN PRAMOD C Ot F17.210 NICOTINE DEPENDENCE, CIGARETTES, UNCOMPL 01/07/2017 PRAMOD LAWSON DO Ot O09.33 SUPRVSN OF PREG W INSUFFICIENT ANTENAT C 01/07/2017 LAWSONRosalva BOWMAN PRAMOD C Ot O28.0 ABNORMAL HEMATOLOG FINDING ON 01/07/2017 PRAMOD LAWSON DO Ot O40.3XX0 POLYHYDRAMNIOS, THIRD TRIMESTER, NOT BETSY 01/07/2017 LAWSONPRAMOD Blackwell DO Ot O99.03 ANEMIA COMPLICATING THE PUERPERIUM 01/07/2017 PRAMOD LAWSON DO Ot O99.333 SMOKING (TOBACCO) COMPLICATING 01/07/2017 PRAMOD LAWSON DO Ot R79.89 OTHER SPECIFIED ABNORMAL FINDINGS OF BLO 01/07/2017 PRAMOD LAWSON DO Ot Z23 ENCOUNTER FOR IMMUNIZATION 01/07/2017 PRAMOD LAWSON DO Ot Z37.0 SINGLE LIVE 01/07/2017 PRAMOD LAWSON DO Ot Z3A.40 40 WEEKS GESTATION OF 03/06/2017 Brokob, Heather A 786.5 CHEST PAIN 03/06/2017 Brokob, Heather A R07.89 OTHER CHEST PAIN 05/04/2017 AURY SANTANA DO Ot F15.10 OTHER STIMULANT ABUSE, UNCOMPLICATED 05/04/2017 AURY SANTANA DO Ot F17.210 NICOTINE DEPENDENCE, CIGARETTES, UNCOMPL 05/04/2017 AURY SANTANA DO Ot K02.9 DENTAL CARIES, UNSPECIFIED 05/04/2017 AURY SANTANA DO Ot K04.7 PERIAPICAL ABSCESS WITHOUT SINUS 05/04/2017 AURY SANTANA DO Ot K08.89 OTHER SPECIFIED DISORDERS OF TEETH AND S 06/07/2017 AURY SANTANA DO Ot F17.210 NICOTINE DEPENDENCE, CIGARETTES, UNCOMPL 06/07/2017 AURY SANTANA DO Ot F41.9 ANXIETY DISORDER, UNSPECIFIED 06/07/2017 AURY SANTANA DO Ot G47.9 SLEEP DISORDER, UNSPECIFIED 06/07/2017 AURY ASNTANA DO Ot M25.511 PAIN IN RIGHT SHOULDER 06/07/2017 AURY SANTANA DO Ot M79.672 PAIN IN LEFT FOOT 06/07/2017 MAX AURY BOWMAN Ot R55 SYNCOPE AND COLLAPSE 06/07/2017 MAX AURY BOWMAN Ot S00.93XA CONTUSION OF UNSPECIFIED PART OF HEAD, I 06/07/2017 [facility] Ot S16.1XXA STRAIN OF MUSCLE, FASCIA AND TENDON AT N 06/07/2017 MAX DOAURY Ot S93.401A SPRAIN OF UNSPECIFIED LIGAMENT OF RIGHT 06/07/2017 [facility] Ot S93.601A UNSPECIFIED SPRAIN OF RIGHT FOOT, INITIA 06/07/2017 MAX AURY BOWMAN Ot W01.198A FALL SAME LEV FROM SLIP/TRIP W STRIKE AG 06/07/2017 AURY SANTANA DO Ot Y92.[address] IN [facility] NON-[facility] (PRIVATE) 06/07/2017 AURY SANTANA DO Ot Z90.49 ACQUIRED ABSENCE OF OTHER SPECIFIED PART 06/09/2017 AURY SANTANA DO Ot F17.210 NICOTINE DEPENDENCE, CIGARETTES, UNCOMPL 06/09/2017 MAX AURY BOWMAN Ot F41.9 ANXIETY DISORDER, UNSPECIFIED 06/09/2017 [facility] Ot G47.9 SLEEP DISORDER, UNSPECIFIED 06/09/2017 MAX DOAURY Ot M25.511 PAIN IN RIGHT SHOULDER 06/09/2017 MAX DOAURY Ot M79.672 PAIN IN LEFT FOOT 06/09/2017 MAX AURY BOWMAN Ot R55 SYNCOPE AND COLLAPSE 06/09/2017 MAX AURY BOWMAN Ot S00.93XA CONTUSION OF UNSPECIFIED PART OF HEAD, I 06/09/2017 MAX AURY BOWMAN Ot S16.1XXA STRAIN OF MUSCLE, FASCIA AND TENDON AT N 06/09/2017 MAX AURY BOWMAN Ot S93.401A SPRAIN OF UNSPECIFIED LIGAMENT OF RIGHT 06/09/2017 MAX AURY BOWMAN Ot S93.601A UNSPECIFIED SPRAIN OF RIGHT FOOT, INITIA 06/09/2017 MAX AURY BOWMAN Ot W01.198A FALL SAME LEV FROM SLIP/TRIP W STRIKE AG 06/09/2017 MAX AURY BOWMAN Ot Y92.[address] IN [facility] NON[facility] 06/09/2017 MAX BOWMAN AURY Borges Ot Z90.49 ACQUIRED ABSENCE OF OTHER SPECIFIED PART 06/11/2017 MAX AURY Borges Ot F17.210 NICOTINE DEPENDENCE, CIGARETTES, UNCOMPL 06/11/2017 MAX AURY Katerina Ot F41.9 ANXIETY DISORDER, UNSPECIFIED 06/11/2017 [facility] Katerina Ot G47.9 SLEEP DISORDER, UNSPECIFIED 06/11/2017 [facility] Katerina Ot M25.511 PAIN IN RIGHT SHOULDER 06/11/2017 [facility] A[facility] K Ot M79.672 PAIN IN LEFT FOOT 06/11/2017 [facility] A[facility] Ot R55 SYNCOPE AND COLLAPSE 06/11/2017 MAX AURY Ot S00.93XA CONTUSION OF UNSPECIFIED PART OF HEAD, I 06/11/2017 MAX AUYR Katerina Ot S16.1XXA STRAIN OF MUSCLE, FASCIA AND TENDON AT N 06/11/2017 MAX AURY Katerina Ot S93.401A SPRAIN OF UNSPECIFIED LIGAMENT OF RIGHT 06/11/2017 [facility] A[facility] Katerina Ot S93.601A UNSPECIFIED SPRAIN OF RIGHT FOOT, INITIA 06/11/2017 MAX AURY K Ot W01.198A FALL SAME LEV FROM SLIP/TRIP W STRIKE AG 06/11/2017 MAX AURY Borges Ot Y92.[address] IN [facility] NON-[facility] ([facility]) 06/11/2017 MAX AURY Borges Ot Z90.49 ACQUIRED ABSENCE OF OTHER SPECIFIED PART 07/01/2017 MARY PARK MD Ot F17.210 NICOTINE DEPENDENCE, CIGARETTES, UNCOMPL 07/01/2017 MARY PARK MD Ot F41.9 ANXIETY DISORDER, UNSPECIFIED 07/01/2017 MARY PARK MD Ot L02.31 CUTANEOUS ABSCESS OF BUTTOCK 07/01/2017 MARY PARK MD Ot L03.317 CELLULITIS OF BUTTOCK 07/01/2017 MARY PARK MD Ot Z90.49 ACQUIRED ABSENCE OF OTHER SPECIFIED PART 08/09/2017 LEE NGUYEN 525.8 OTHER SPECIFIED DISORDERS OF THE TEETH AND SUPPORTING STRUCTURES 08/09/2017 LEE NGUYEN K08.89 OTHER SPECIFIED DISORDERS OF TEETH AND SUPPORTING STRUCTURES 08/22/2017 ELVER MOMIN RADIO BOARD OPERATOR Ot F41.9 ANXIETY DISORDER, UNSPECIFIED 08/22/2017 ELVER MOMIN RADIO BOARD OPERATOR Ot K04.7 PERIAPICAL ABSCESS WITHOUT SINUS 08/22/2017 ELVER MOMIN RADIO BOARD OPERATOR Ot R50.9 FEVER, UNSPECIFIED 08/22/2017 ELVER MOMIN RADIO BOARD OPERATOR Ot Z77.22 CNTCT W AND EXPSR TO ENVIRON TOBACCO SMO 08/22/2017 ELVER MOMIN RADIO BOARD OPERATOR Ot Z87.19 PERSONAL HISTORY OF OTHER DISEASES OF TH 08/22/2017 ELVER MOMIN RADIO BOARD OPERATOR Ot Z90.49 ACQUIRED ABSENCE OF OTHER SPECIFIED PART 08/24/2017 LAZARO MONDRAGON MD Ot F17.210 NICOTINE DEPENDENCE, CIGARETTES, UNCOMPL 08/24/2017 LAZARO MONDRAGON MD Ot F41.9 ANXIETY DISORDER, UNSPECIFIED 08/24/2017 LAZARO MONDRAGON MD Ot G47.9 SLEEP DISORDER, UNSPECIFIED 08/24/2017 LAZARO MONDRAGON MD Ot K02.9 DENTAL CARIES, UNSPECIFIED 08/24/2017 LAZARO MONDRAGON MD Ot K05.10 CHRONIC GINGIVITIS, PLAQUE INDUCED 08/24/2017 LAZARO MONDRAGON MD Ot R11.2 NAUSEA WITH VOMITING, UNSPECIFIED 08/24/2017 LAZARO MONDRAGON MD Ot Z90.49 ACQUIRED ABSENCE OF OTHER SPECIFIED PART 08/26/2017 ALZARO MONDRAGON MD Ot F17.210 NICOTINE DEPENDENCE, CIGARETTES, [...] Z90.49 ACQUIRED ABSENCE OF OTHER SPECIFIED PART 08/31/2017 ELVER MOMIN APRN Ot F41.9 ANXIETY DISORDER, UNSPECIFIED 08/31/2017 ELVER MOMIN APRN Ot J06.9 ACUTE UPPER RESPIRATORY INFECTION, UNSPE 08/31/2017 ELVER MOMIN APRN Ot R05 COUGH 08/31/2017 ELVER MOMIN APRN Ot Z77.22 CNTCT W AND EXPSR TO ENVIRON TOBACCO SMO 08/31/2017 ELVER MOMIN RADIO BOARD OPERATOR Ot Z90.49 ACQUIRED ABSENCE OF OTHER SPECIFIED PART 09/15/2017 ELVER MOMIN APRN Ot F41.9 ANXIETY DISORDER, UNSPECIFIED 09/15/2017 ELVER MOMIN APRN Ot O20.0 THREATENED 09/15/2017 ELVER MOMIN APRN Ot O99.341 OTH MENTAL DISORDERS COMPLICATING PREGNA 09/15/2017 ELVER MOMIN APRN Ot O99.89 OTH DISEASES AND CONDITIONS COMPL PREG/C 09/15/2017 ELVER MOMIN APRN Ot R82.71 BACTERIURIA 09/15/2017 ELVER MOMIN RADIO BOARD OPERATOR Ot Z3A.08 8 WEEKS GESTATION OF 09/15/2017 ELVER MOMIN APRN Ot Z77.22 CNTCT W AND EXPSR TO ENVIRON TOBACCO SMO 09/15/2017 ELVER MOMIN APRN Ot Z87.19 PERSONAL HISTORY OF OTHER DISEASES OF TH 09/15/2017 ELVER MOMIN APRN Ot Z87.59 PERSONAL HISTORY OF COMP OF PREG, CHLDBR 09/15/2017 ELVER MOMIN APRN Ot Z90.49 ACQUIRED ABSENCE OF OTHER SPECIFIED PART 10/23/2017 VERNON LAM S F1210 Cannabis abuse, uncomplicated 10/23/2017 VERNON LAM S 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, uncomplicated 10/23/2017 VERNON LAM S Q85509 Nicotine dependence, unspecified, uncomplicated 10/23/2017 VERNON LAM S B67722 Drug use complicating , first trimester 10/23/2017 VERNON LAM P O9989 Other specified diseases and conditions complicating , childbirth and the puerperium 10/23/2017 VERNON LAM S R109 Unspecified abdominal pain 10/23/2017 GENARO VERNON Ninfa Kay Z3A11 11 weeks gestation of 11/08/2017 Tristan Ritchie 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, UNSPECIFIED USE 11/08/2017 Tristan Ritchie 465.8 ACUTE UPPER RESPIRATORY INFECTIONS OF OTHER MULTIPLE SITES 11/08/2017 Tristan Ritchie 558.9 OTHER AND UNSPECIFIED NONINFECTIOUS GASTROENTERITIS AND COLITIS 11/08/2017 Tristan Ritchie 643.0 MILD HYPEREMESIS GRAVIDARUM 11/08/2017 Tristan Ritchie 648.31 DRUG DEPENDENCE COMPLICATING , CHILDBIRTH, OR THE PUERPERIUM, DELIVERED , WITH OR WITHOUT MENTION OF ANTEPARTUM CONDITION 11/08/2017 Tristan Ritchie 648.91 11/08/2017 Tristan Ritchie 649.01 11/08/2017 Tristan Ritchie F15.10 OTHER STIMULANT ABUSE, UNCOMPLICATED 11/08/2017 Tristan Ritchie J06.9 ACUTE UPPER RESPIRATORY INFECTION, UNSPECIFIED 11/08/2017 Tristan Ritchie K52.9 NONINFECTIVE GASTROENTERITIS AND COLITIS, UNSPECIFIED 11/08/2017 Tristan Ritchie O21.0 MILD HYPEREMESIS GRAVIDARUM 11/08/2017 Tristan Ritchie O99.321 DRUG USE COMPLICATING , FIRST TRIMESTER 11/08/2017 Tristan Ritchie O99.331 SMOKING (TOBACCO) COMPLICATING , FIRST TRIMESTER 11/08/2017 Tristan Ritchie O99.611 DISEASES OF THE DGSTV SYS COMP , FIRST TRIMESTER 11/08/2017 Tristan Ritchie Z3A.14 14 WEEKS GESTATION OF Procedures Code Description Performed By Performed On 73.01 INDUCT LABOR-RUPT MEMB 03/17/2015 73.59 MANUAL ASSIST DELIV NEC 03/17/2015 [id number] DELIVERY OF PRODUCTS OF CONCEPTION, EXTE 01/05/2017 [...] NRG Blood erythrocyte morphology finding identification NORMAL NR Comprehensive metabolic panel - 01/05/17 11:48 Serum [...] NRG Serum or plasma glucose measurement (mass/volume) 79 [...] panel - 01/05/17 11:48 ABO+Rh group AP NRG Transfusion band number [id number] NR Blood group antibody screen NEGATIVE NR Human immunodeficiency virus (HIV) type 1 and 2 antibody detection - 01/05/17 11:48 Serum HIV 1+2 antibody detection by immunoblot Non-Reactive Non-Reactive Interpretation of HIV-1 and HIV-2 antibody assay See Footnote [facility] Acute hepatitis panel - 01/05/17 11:48 Confirmatory [...] plasma albumin measurement (mass/volume) 2.5 g/dL 3.2-4.5 Thyroid Stimulating Hormone - 03/06/17 16:50 TSH 1.34 mIU/mL 0.32-5.00 Mycoplasma - 03/06/17 16:50 Mycoplasma Negative Negative Urinalysis - 03/06/17 17:08 Icotest Negative Negative Urine Volume Urine Volume Sufficient (10mL) Urine Yeast No Yeast present Urine-Appearance Cloudy Clear Urine-Bacteria Trace Urine-Bilirubin 1+ Negative Urine-Blood Negative Negative Urine-Color Yellow Colorless-Lt. Yellow Urine-Epithelial Cells 10-20/HPF Urine-Glucose Negative Negative Urine-Ketones Negative Negative Urine-Leukocytes Trace Negative Urine-Mucus 1+ Urine-Nitrite Negative Negative Urine-Other Urine Saved if Culture Needed (48hrs from time of collection) Urine-pH 5.5 5-8.5 Urine-Protein Trace Negative Urine-RBC Negative Urine-Specific Elk 1.025 1.000-1.030 Urine-WBC 0-2/HPF Urobilinogen 0.2 E.U./dL 0.2-1.0 CBC With Differential/Platelet - 06/03/17 16:17 WBC 7.3 x10E3/uL 3.4-10.8 RBC 4.88 x10E6/uL 3.77-5.28 Hemoglobin 12.3 g/dL 11.1-15.9 Hematocrit 38.6 % 34.0-46.6 MCV 79 fL 79-97 MCH 25.2 pg 26.6-33.0 MCHC 31.9 g/dL 31.5-35.7 RDW 16.6 % 12.3-15.4 Platelets 347 x10E3/uL 150-379 Neutrophils 48 % Lymphs 42 % Monocytes 6 % Eos 3 % Basos 1 % Neutrophils (Absolute) 3.5 x10E3/uL 1.4-7.0 Lymphs (Absolute) 3.1 x10E3/uL 0.7-3.1 Monocytes(Absolute) 0.4 x10E3/uL 0.1-0.9 Eos (Absolute) 0.2 x10E3/uL 0.0-0.4 Baso (Absolute) 0.0 x10E3/uL 0.0-0.2 Immature Granulocytes 0 % Immature Grans (Abs) 0.0 x10E3/uL 0.0-0.1 Comp. Metabolic Panel (14) - 06/03/17 16:17 Glucose, Serum 83 mg/dL 65-99 BUN 13 mg/dL 6-20 Creatinine, Serum 0.72 mg/dL 0.57-1.00 eGFR If NonAfricn Am 116 mL/min/1.73 >59 eGFR If Africn Am 134 mL/min/1.73 >59 BUN/Creatinine Ratio 18 9-23 Sodium, Serum 141 mmol/L 134-144 Potassium, Serum 4.5 mmol/L 3.5-5.2 Chloride, Serum 103 mmol/L 96-106 Carbon Dioxide, Total 26 mmol/L 18-29 Calcium, Serum 9.3 mg/dL 8.7-10.2 Protein, Total, Serum 7.2 g/dL 6.0-8.5 Albumin, Serum 4.5 g/dL 3.5-5.5 Globulin, Total 2.7 g/dL 1.5-4.5 A/G Ratio 1.7 1.2-2.2 Bilirubin, Total 0.2 mg/dL 0.0-1.2 Alkaline Phosphatase, S 69 IU/L 39-117 AST (SGOT) 19 IU/L 0-40 ALT (SGPT) 27 IU/L 0-32 Lipid Panel - 06/03/17 16:17 Cholesterol, Total 177 mg/dL 100-199 Triglycerides 143 mg/dL 0-149 HDL Cholesterol 44 mg/dL >39 VLDL Cholesterol Isaiah 29 mg/dL 5-40 LDL Cholesterol Calc 104 mg/dL 0-99 TSH - 06/03/17 16:17 TSH 1.590 uIU/mL 0.450-4.500 Complete blood count (CBC) with automated white [...] 00:05 Bacteria identification in wound by culture [id number] [facility] FREE TEXT EXTERNAL SENSITIVITY REPORTED AT 1053, 07-03-17 NRG QUANTITY OF GROWTH Scant Growth NR Bacterial susceptibility panel - 07/01/17 00:05 Gentamicin susceptibility test by minimum inhibitory concentration S NRG Erythromycin susceptibility test by minimum inhibitory concentration >= NRG Vancomycin susceptibility test by minimum inhibitory concentration < = NRG Ampicillin susceptibility test by minimum inhibitory concentration < = NRG Linezolid susceptibility test by minimum inhibitory concentration 2 NRG Complete urinalysis with reflex to culture - 09/15/17 18:24 Urine color determination YELLOW NRG Urine clarity determination CLEAR NRG Urine pH measurement by test strip 6.5 5-9 Specific gravity of urine by test [...] NORMAL Urine leukocyte esterase detection by dipstick 1+ NEGATIVE Automated urine sediment erythrocyte count by microscopy (number/high power field) NONE NRG Automated urine sediment leukocyte count by microscopy (number/high power field ) [HPF] NRG Bacteria detection in urine sediment by light microscopy FEW NRG Squamous epithelial cells detection in urine sediment by light microscopy 5-10 NRG Crystals detection in urine sediment by light microscopy NONE NRG Casts detection in urine sediment by light microscopy NONE NRG Mucus detection in urine sediment by light microscopy NEGATIVE NRG Complete urinalysis with reflex to culture NO NRG Yeast detection in urine sediment by light microscopy FEW NRG Complete blood count (CBC) with automated white blood cell (WBC) differential - 09/15/17 18:35 Blood leukocytes automated count (number/volume) 12.2 10*3/uL 4.3-11.0 Blood erythrocytes automated count (number/volume) 4.55 10*6/uL 4.35-5.85 Venous blood hemoglobin measurement (mass/volume) 12.1 g/dL 11.5-16.0 Blood hematocrit (volume fraction) 38 % 35-52 Automated erythrocyte mean corpuscular volume 82 [foz_us] 80-99 Automated erythrocyte mean corpuscular hemoglobin (mass per erythrocyte) 27 pg 25-34 Automated erythrocyte mean corpuscular hemoglobin concentration measurement ( mass/volume) 32 g/dL 32-36 Automated erythrocyte distribution width ratio 13.6 % 10.0-14.5 Automated blood platelet count (count/volume) 346 10*3/uL 130-400 Automated blood platelet mean volume measurement 10.4 [foz_us] 7.4-10.4 Automated blood neutrophils/100 leukocytes 66 % 42-75 Automated blood lymphocytes/100 leukocytes 27 % 12-44 Blood monocytes/100 leukocytes 5 % 0-12 Automated blood eosinophils/100 leukocytes 2 % 0-10 Automated blood basophils/100 leukocytes 0 % 0-10 Blood neutrophils automated count (number/volume) 8.0 10*3 1.8-7.8 Blood lymphocytes automated count (number/volume) 3.3 10*3 1.0-4.0 Blood monocytes automated count (number/volume) 0.7 10*3 0.0-1.0 Automated eosinophil count 0.2 10*3/uL 0.0-0.3 Automated blood basophil count (count/volume) 0.1 10*3/uL 0.0-0.1 Blood blood smear finding identification by light microscopy YES NRG Serum or plasma choriogonadotropin measurement (units/volume) - 09/15/17 18:35 Serum or plasma choriogonadotropin measurement (units/volume) 4223 m [iU]/mL <5 UA WITH MICROSCOPY/CULTURE IF INDICATED - 10/22/17 20:55 URINE SAMPLE RANDOM U COLOR Light yel NORMAL: STRAW-YELLOW U TURBIDITY Clear NORMAL: CLEAR U SP GRAVITY 1.010 NORMAL: 1.005-1.030 U NITRITE Negative NORMAL: NEGATIVE U pH 6.5 NORMAL: 5.0-8.0 U PROTEIN Negative NORMAL: NEGATIVE U GLUCOSE Negative NORMAL: NEGATIVE U KETONES Negative NORMAL: NEGATIVE U UROBILINOGEN 0.2 NORMAL: 0.2 mg/dl U BILIRUBIN Negative NORMAL: NEGATIVE U BLOOD Negative NORMAL: NEG - TRACE U LEUKO DC Negative NORMAL: NEGATIVE U MICROSCOPIC Not Indicated U CULTURE SET NO Sample of Urine: 10 ML UAWITHMICROSCOPYCULTUREIFINDICATED DRUG SCR UR TRIAGE - 10/22/17 20:55 DRUGSCRURTRIAGE AMPHETAMINE NEGATIVE NORMAL: NEGATIVE BENZODIAZEPINES NEGATIVE NORMAL: NEGATIVE COCAINE NEGATIVE NORMAL: NEGATIVE MARIJUANA POSITIVE NORMAL: NEGATIVE METHADONE NEGATIVE NORMAL: NEGATIVE METHAMPHETAMINE POSITIVE NORMAL: NEGATIVE OPIATES NEGATIVE NORMAL: NEGATIVE OXYCODONE NEGATIVE NORMAL: NEGATIVE PHENCYCLIDINE NEGATIVE NORMAL: NEGATIVE PROPOXYPHENE NEGATIVE NORMAL: NEGATIVE TRICYCLIC NEGATIVE NORMAL: NEGATIVE BARBITURATES NEGATIVE NORMAL: NEGATIVE BUPRENORPHINE NEGATIVE NORMAL: NEGATIVE ANY POSITIVE? YES HCG QUAL (SERUM PREG) - 10/22/17 21:11 SERUM PREG POSITIVE HCG QUANT - 10/22/17 21:11 BHCG 88012.3 mIU/mL Beta HCG - 11/04/17 08:57 Beta HCG 34831 mIU/mL 5-25 Urine Culture - 11/04/17 11:11 PRELIM CULTURE RESULTS No Growth 24 hours FINAL CULTURE RESULTS 20,000 - 50,000 col/ml Mixed Gram Positive organisms;[id number] Normal sarah and/or contaminant. MEDIA PLATED Setup at 13:00 on 11/04/2017 CULTURE SOURCE void Urinalysis - 11/04/17 11:11 Icotest N/A Negative Urine Volume Urine Volume Insufficient (<10mL) May Affect Microscopic Exam Urine Yeast No Yeast present Urine-Appearance Cloudy Clear Urine-Bacteria 3+ Urine-Bilirubin 1+ Negative Urine-Blood Negative Negative Urine-Color Yellow Colorless-Lt. Yellow Urine-Epithelial Cells TNTC Urine-Glucose Negative Negative Urine-Ketones 2+ Negative Urine-Leukocytes Trace Negative Urine-Mucus 1+ Urine-Nitrite Positive Negative Urine-Other Culture to follow Urine-pH 6.0 5-8.5 Urine-Protein 1+ Negative Urine-RBC Rare/HPF Urine-Specific Elk 1.020 1.000-1.030 Urine-WBC 5-10/HPF Urobilinogen 1.0 E.U./dL 0.2-1.0 Urinalysis - 11/08/17 19:01 Icotest N/A Negative Urine Volume Urine Volume Sufficient (10mL) Urine Yeast No Yeast present Urine-Appearance Clear Clear Urine-Bacteria 1+ Urine-Bilirubin Negative Negative Urine-Blood Negative Negative Urine-Color Yellow Colorless-Lt. Yellow Urine-Epithelial Cells 5-10/HPF Urine-Glucose Negative Negative Urine-Ketones Trace Negative Urine-Leukocytes Negative Negative Urine-Mucus 2+ Urine-Nitrite Negative Negative Urine-Other Urine Saved if Culture Needed (48hrs from time of collection) Urine-pH 6.5 5-8.5 Urine-Protein Trace Negative Urine-RBC 0-2/HPF Urine-Specific Elk 1.025 1.000-1.030 Urine-WBC 0-2/HPF Urobilinogen 0.2 0.2-1.0 BMP - 11/08/17 19:01 Anion Gap 14 6-14 BUN 7 mg/dL 5-25 Calcium 8.8 mg/dL 8.3-10.4 Chloride 107 mmol/L 95-114 CO2 22 mEq/L 22-33 Creat 0.72 mg/dL 0.50-1.50 eGFR 97 mL/min/1.73m2 >59 Glucose 82 mg/dL 70-110 Osmo 284 280-295 Potassium 3.6 mmol/L 3.5-5.3 Sodium 139 mmol/L 134-148 Encounters ACCT No. Visit Date/Time Discharge Status Pt. Type Provider Facility Loc./Unit Complaint [id number] 02/25/2012 11:59:00 02/25/2012 23:59:59 CLS Outpatient LAURYN DICK MD [id number] 11/24/2017 13:45:00 11/24/2017 23:59:59 CLS Outpatient ALEJANDRA REY LAC [facility] [id number] 06/04/2017 08:07:00 Document Registration [id number] 10/22/2017 20:06:00 10/23/2017 01:45:00 DIS Emergency VERNON LAM [facility] 042 KSWebIZ 03/16/2015 04:40:32 ACT Document Registration [id number] 03/06/2017 16:46:00 Document Registration [id number] 09/15/2017 17:50:00 09/15/2017 19:28:00 DIS Emergency ELVER MOMIN APRN [facility] ER ABD CRAMPING,APPROX 8 WKS PREG [id number] 08/31/2017 19:38:00 08/31/2017 19:58:00 DIS Emergency ELVER MOMIN APRN [facility] ER COUGH,CONGESTION [id number] 08/24/2017 14:16:00 08/24/2017 15:22:00 DIS Emergency LAZARO MONDRAGON MD [facility] ER N/V,POSS DEHYDRATED, FEVER [id number] 08/22/2017 11:28:00 08/22/2017 12:52:00 DIS Emergency ELVER MOMIN APRN [facility] ER FEVER/DENTAL INFECTION [id number] 08/05/2017 10:03:00 08/05/2017 10:26:00 DIS Emergency LAZARO MONDRAGON MD [facility] ER N/V/LOWER BACK PAIN [id number] 06/30/2017 23:36:00 07/01/2017 00:38:00 DIS Emergency MARY PARK MD [facility] ER POSS SPIDER BITE ON RT BUTTOCKS,VOMITING,SHAKES [id number] 06/07/2017 19:37:00 06/07/2017 21:38:00 DIS Emergency AURY SANTANA DO [facility] ER HEAD/FOOT PAIN [id number] 05/04/2017 21:02:00 05/04/2017 22:20:00 DIS Emergency AURY SANTANA DO [facility] ER DENTAL PAIN [id number] 01/05/2017 12:00:00 01/07/2017 11:05:00 DIS Inpatient LAWSON , PRAMOD Haynes [facility] LDRP WATER MAY HAVE BROKE; LABOR [id number] 03/17/2015 11:07:00 03/18/2015 18:55:00 DIS Inpatient JONN EGAN, TIMOTEO Razo [facility] LDRP PRESSURE [id number] 08/30/2014 11:48:00 08/30/2014 14:08:00 DIS Emergency SONNY EGAN, HANNA Borges [facility] ER 8WKS AND CRAMPING [id number] 03/05/2013 15:28:00 03/05/2013 16:00:00 DIS Outpatient REYNA EGAN, RYAN Noland [facility] WSo CONTRACTIONS [id number] 09/15/2017 18:52:00 Document Registration [id number] 09/15/2017 18:52:00 Document Registration [id number] 09/15/2017 18:52:00 Document Registration [id number] 10/23/2011 20:00:00 Document Registration [id number] 11/04/2017 08:55:00 Document Registration [id number] 11/08/2017 18:30:00 11/08/2017 20:50:00 DIS Outpatient Tristan Ritchie [id number] 11/04/2017 08:55:00 11/04/2017 11:30:00 [id number] 08/09/2017 01:17:00 08/09/2017 01:50:00 DIS Outpatient WEND[facility] ER [id number] 03/06/2017 16:46:00 03/06/2017 17:35:00 [id number] 03/06/2017 16:50:21 Document Registration
--- NOTE | 2017-12-20 22:51 | ED Cough/URI ---
General Chief Complaint: Cough/Cold/Flu Symptoms Stated Complaint: SOB/COLD/FLU SYMPTOMS Nursing Triage Note: PT PRESENTS TO ER WITH COMPLAINT OF COUGH, SOB. PT WAS SEEN EARLIER IN THE EVENING AND PRESCRIBED AMOXICILLIN. PT STATES SHE IS NOT ANY BETTER SINCE DISCHARGE. STATES SHE CALLED HER OB SINCE COUGHING WAS CAUSING CONTRACTIONS, AND INSTRUCTED HER TO COME IN. Source: patient, family (mom) Exam Limitations: no limitations ( mom) History of Present Illness Date Seen by Provider: Dec 20, 2017 Time Seen by Provider: 22:30 Initial Comments Patient present to ER by private conveyance with her mother and a chief complaint that a few hours ago she was here for her upper respiratory symptoms of runny nose, cough, sore throat. At that time she had a negative influenza and strep screen. She was put on amoxicillin and sent home. She did grape picker the amoxicillin and took her first dose of it however she says she still coughing a lot and has caused her to start going into contractions. She says she is not marciano presently just whenever she has coughing fits. Her OB is Dr. Stephens. She is a 20 week aborta 1 with preeclampsia with the last 3 pregnancies. She is not experiencing pain but she also has some nausea when she has a cough. Mom states that she had a history of asthma as a child within never treated it and it just went away. She has a history of allergies but she is not anything for that either. She has tried ezjx-ssu-acfvqdd cough lozenges the not a humidifier or vapor rubs. Allergies and Home Medications Allergies Coded Allergies: No Known Drug Allergies (Verified , 09/15/17) Home Medications Amoxicillin 875 Mg Tablet, 875 MG PO BID Prescribed by: AURY SANTANA on 12/20/17 2533 Patient Home Medication List Home Medication List Reviewed: Yes Constitutional: No chills, No diaphoresis EENTM: No ear pain, No eye pain Respiratory: cough, No phlegm, short of breath, No wheezing Gastrointestinal: No abdominal pain, No constipation, No diarrhea, other Genitourinary: No discharge, No dysuria : Yes Past Mlanabz-Movjlr-Niclkd Hx Patient Social History Alcohol Use: Denies Use Recreational Drug Use: No Drug of Choice: Methamphetamines Smoking Status: Former Smoker Type Used: Cigarettes 2nd Hand Smoke Exposure: Yes Recent Foreign Travel: No Contact w/Someone Who Travel: No Recent Infectious Disease Expo: No Recent Hopitalizations: No Immunizations Up To Date Tetanus Booster (TDap): Unknown PED Vaccines UTD: No Date of Influenza Vaccine: Aug 20, 2014 Seasonal Allergies Seasonal Allergies: No Surgeries History of Surgeries: Yes (ALL TEETH REMOVED) Surgeries: Gallbladder Respiratory History of Respiratory Disorde: No Cardiovascular History of Cardiac Disorders: No Neurological History of Neurological Disord: No Reproductive System Hx Reproductive Disorders: No Female Reproductive Disorders: Denies Genitourinary History of Genitourinary Disor: No Gastrointestinal History of Gastrointestinal Di: Yes (S/P [place]) Gastrointestinal Disorders: Gall Bladder Disease Musculoskeletal History of Musculoskeletal Dis: No Endocrine History of Endocrine Disorders: No HEENT History of HEENT Disorders: No Cancer History of Cancer: No Psychosocial History of Psychiatric Problem: Yes Behavioral Health Disorders: Sleep Difficulties, Anxiety Integumentary History of Skin or Integumenta: No Blood Transfusions History of Blood Disorders: No Adverse Reaction to a Blood Tr: No Family Medical History Family Medial History: FH: spina bifida G8 BROTHER Physical Exam Vital Signs Vital Signs - First Documented 12/20/17 22:30 Temp 98.0 Pulse 102 Resp 20 B/P (MAP) 137/69 (91) Pulse Ox 98 O2 Delivery Room Air Capillary Refill : Less Than 3 Seconds General Appearance: WD/WN, no apparent distress Eyes: Bilateral Eye Normal Inspection, Bilateral Eye PERRL, Bilateral Eye EOMI HEENT: PERRL/EOMI, normal ENT inspection, TMs normal, pharyngeal erythema, No tonsillar exudate Neck: non-tender, full range of motion, supple, normal inspection Respiratory: chest non-tender, lungs clear, normal breath sounds, no respiratory distress, no accessory muscle use Cardiovascular: normal peripheral pulses, regular rate, rhythm, no edema Gastrointestinal: normal bowel sounds, non tender, soft Neurologic/Psychiatric: alert, normal mood/affect, oriented x 3 Skin: normal color, warm/dry Progress/Results/Core Measures Suspected Sepsis Recent Fever Within 48 Hours: No Infection Criteria Present: None New/Unexplained Altered Menta: No Sepsis Screen: No Definite Risk Sepsis Diagnosis: SIRS Temperature:98.0 Pulse: 102 Respiratory Rate: 20 Blood Pressure 137 /69 Mean: 91 Results/Orders Vital Signs/I&O Vital Sign - Last 12Hours 12/20/17 22:30 Temp 98.0 Pulse 102 Resp 20 B/P (MAP) 137/69 (91) Pulse Ox 98 O2 Delivery Room Air Capillary Refill : Less Than 3 Seconds Blood Pressure Mean: 91 Progress Note : Time: 22:48 Progress Note Discussed using Benadryl for her allergic symptoms as well as a may help some with the cough. We have offered her to use vapor rubs and humidifiers. In addition we'll give her some Zofran for her nausea. Because of her complaint of contractions which she insists is her chief concern according to her and her mother we will let her go up to be evaluated on the OB floor. We have called the on-call OB Dr. GARCIA and discussed the case. He will alert the floor that she is coming. Departure Impression Impression: Primary Impression: Upper respiratory infection Qualified Codes: J06.9 - Acute upper respiratory infection, unspecified Additional Impressions: Cough Nausea Uterine contractions Disposition: HOME, SELF-CARE Condition: Stable Departure-Patient Inst. Decision time for Depature: 22:50 Referrals: [facility] [place]) Primary Care Physician Patient Instructions: Cough, Runny Nose, and the Common Cold (DC) Add. Discharge Instructions: Use humidifiers, vapor rubs, drink plenty of fluids. Throat lozenges such as falls as well as Tylenol 1000 g every 8 hours. If you have nausea you can take one tablet of Zofran every 8 hours. All discharge instructions reviewed with patient and/or family. Voiced understanding. Copy Copies To 1: EMERSON PEÑA DOPRAMOD DEGROOT DO ROBER NOLAN Dec 20, 2017 22:51
[2017-12-20] MEDS ORDERED: RX-ONDANSETRON 4 MG ODT (ZOFRAN) PPK #4 PO STA (22:52)
[2017-12-20 23:11] VITALS: BP 137/69
== END 2017-12-20 23:11 | disposition home or self-care (01) ==
LOC: EDUNIT# 22:16 → ER 22:17
DX: O99.512 Diseases of the respiratory system complicating pregnancy, second trimester (principal); J06.9 Acute upper respiratory infection, unspecified; O62.9 Abnormality of forces of labor, unspecified; O99.89 Other specified diseases and conditions complicating pregnancy, childbirth and the puerperium; R11.0 Nausea; O99.341 Other mental disorders complicating pregnancy, first trimester; F41.9 Anxiety disorder, unspecified; O99.352 Diseases of the nervous system complicating pregnancy, second trimester; G47.9 Sleep disorder, unspecified; Z90.49 Acquired absence of other specified parts of digestive tract; Z87.19 Personal history of other diseases of the digestive system; Z87.891 Personal history of nicotine dependence; Z3A.20 20 weeks gestation of pregnancy
CPT/HCPCS: 99283

== ENCOUNTER 2017-12-20 23:17 | Outpatient (CLI) | payer MEDICAID ==
[~2017-12-20] VITALS: Ht 160 cm; Wt 93.4 kg
[2017-12-20 23:20] VITALS: BP 128/74
--- NOTE | 2017-12-21 18:18 | Physician Query-Final Dx ---
REMINGTON LIN 12/21/17 1818: Clinic Account Progress/Dx Physician Query: Please give diagnosis Date of Service Dec 20, 2017 at 23:17 LEISA GARCIA DO 12/22/17 0744: Clinic Account Progress/Dx DIAGNOSIS: Diagnosis Cramping 18 week REMINGTON LIN Dec 21, 2017 18:18 LEISA GARCIA DO Dec 22, 2017 07:44
== END 2017-12-20 23:59 | disposition home or self-care (01) ==
LOC: WSo 23:17 → LDRP 23:21 → WSo 23:59
PROVIDERS: ATTEND Obstetrics & Gynecology
DX: R10.9 Unspecified abdominal pain (principal); Z3A.18 18 weeks gestation of pregnancy
CPT/HCPCS: 99212

== ENCOUNTER → 2017-12-20 | Outpatient (CLI) | payer MEDICAID ==
[~2017-12-20] MED LIST changes: +AMOX875T2 PO; +CEPH-507 PO; -FERR-74 PO; +FERR325T18 PO; +NAPR-915 PO; -NAPR500T4 PO; +PNV1TABL81 PO
--- NOTE | 2017-12-20 14:53 | Diagnostic Imaging Report ---
INDICATION: Size and dates. TECHNIQUE: Multiple Real-time grayscale images were obtained over the gravid uterus. COMPARISON: 09/15/2017. FINDINGS: There is a single living intrauterine is cephalic presentation. There is a normal volume of amniotic fluid. The placenta is anterior with no previa. The heart rate is 152 BPM and regular. There is a questionable right choroid plexus cyst. The spine and four-chamber heart were not well visualized due to lie. The remainder of the anatomical survey is unremarkable. The biometry correlates with a gestational age of 19 weeks 4 days. IMPRESSION: Single living intrauterine with a sonographically estimated gestational age of 19 weeks 4 days with an estimated date of confinement of May 12, 2018. The spine and four-chamber heart were not well visualized due to lie. Questionable right choroid plexus cyst. Biometrical measurements are as follows: Biparietal 4.46 cm, age 19 weeks 4 days. Head circumference 16.59 cm, age 19 weeks 3 days. Abdominal circumference 13.85 cm, age 19 weeks 2 days. Femur length 3.11 cm, age 19 weeks 5 days. Sonographic estimate age: 19 weeks 4 days. Sonographic estimated date of delivery: 05-12-18. Estimated Weight: 292 gm (+/- 43 gm). LMP percentile: 10%. heart rate: 152 beats per minute. number: 1 of 1. Dictated by: Dictated on workstation # [id number]
== END ==
LOC: RAD 11:51
PROVIDERS: ATTEND Obstetrics & Gynecology
DX: Z34.92 Encounter for supervision of normal pregnancy, unspecified, second trimester (principal); Z3A.19 19 weeks gestation of pregnancy
CPT/HCPCS: 76805

== ENCOUNTER 2018-02-09 14:24 | Outpatient (CLI) | payer MEDICAID ==
[~2018-02-09] VITALS: Ht 160 cm; Wt 107.0 kg
[2018-02-09 14:50] VITALS: BP 133/58
[2018-02-09] MEDS ORDERED: FERR-84 PO (15:16)
[2018-02-09 15:22] LABS: BILIRUBIN,URINE NEGATIVE (NEGATIVE); CLARITY,URINE CLEAR; COLOR,URINE YELLOW; GLUCOSE, URINE (UA) NEGATIVE (NEGATIVE); KETONES,URINE NEGATIVE (NEGATIVE); LEUKOCYTE ESTERASE ,URINE NEGATIVE (NEGATIVE); NITRITE,URINE NEGATIVE (NEGATIVE); PH,URINE 6.5 (5-9); PROTEIN,URINE 2+ (NEGATIVE); UROBILINOGEN,URINE NORMAL (NORMAL)
[2018-02-09 15:33] LABS: AMORPHOUS SEDIMENT,UR FEW AMOR URATES /LPF; BACTERIA,URINE FEW /HPF
[2018-02-09] MEDS ORDERED: D5 LR IV SOLUTION 1,000 ML IV ONE ×2 (15:45→15:48)
[2018-02-09 16:34] LABS: BASOPHILS % (AUTO) 0 % (0-10); EOSINOPHILS # (AUTO) 0.1 10^3/uL (0.0-0.3); EOSINOPHILS % (AUTO) 1 % (0-10); HEMATOCRIT 31 % (35-52); LYMPHOCYTES # (AUTO) 2.7 X 10^3 (1.0-4.0); LYMPHOCYTES % (AUTO) 17 % (12-44); MEAN CORPUSCULAR HEMOGLOBIN 28 PG (25-34); MEAN CORPUSCULAR HGB CONC 33 G/DL (32-36); MEAN CORPUSCULAR VOLUME 86 FL (80-99); MEAN PLATELET VOLUME 10.3 FL (7.4-10.4); MONOCYTES % (AUTO) 6 % (0-12); NEUTROPHILS # (AUTO) 12.3 X 10^3 (1.8-7.8); NEUTROPHILS % (AUTO) 76 % (42-75); PLATELET COUNT 325 10^3/uL (130-400); RED BLOOD COUNT 3.53 10^6/uL (4.35-5.85); RED CELL DISTRIBUTION WIDTH 13.9 % (10.0-14.5); WHITE BLOOD COUNT 16.2 10^3/uL (4.3-11.0)
[2018-02-09 16:51] LABS: BAND NEUTROPHILS 7 %; BASOPHILS % (MANUAL) 0 %; EOSINOPHILS % (MANUAL) 1 %; LYMPHOCYTES % (MANUAL) 13 %; METAMYELOCYTES % 1 %; MONOCYTES % (MANUAL) 6 %; NEUTROPHILS % (MANUAL) 72 %; RBC MORPH NORMAL
[2018-02-09 16:53] LABS: ALANINE AMINOTRANSFERASE 20 U/L (0-55); ALBUMIN 3.3 GM/DL (3.2-4.5); ALKALINE PHOSPHATASE 78 U/L (40-136); BILIRUBIN,TOTAL 0.1 MG/DL (0.1-1.0); BUN/CREATININE RATIO 7; CALCIUM 8.6 MG/DL (8.5-10.1); CARBON DIOXIDE 21 MMOL/L (21-32); CHLORIDE 108 MMOL/L (98-107); CREATININE SERUM 0.55 MG/DL (0.60-1.30); GFR ESTIMATED > 60; GLUCOSE 91 MG/DL (70-105); SODIUM 137 MMOL/L (135-145); TOTAL PROTEIN 6.4 GM/DL (6.4-8.2); URIC ACID 2.9 MG/DL (2.6-7.2)
[2018-02-09] MEDS ORDERED: NITR-65 PO (17:17)
[2018-02-09 17:30] VITALS: BP 133/58
--- NOTE | 2018-02-10 13:21 | Physician Query-Final Dx ---
VARGAS CERVANTES 02/10/18 1321: Clinic Account Progress/Dx Physician Query: Please give diagnosis Date of Service February 09, 2018 at 14:24 RYAN ORELLANA MD 02/11/18 0743: Clinic Account Progress/Dx DIAGNOSIS: Diagnosis false labor VARGAS CERVANTES February 10, 2018 13:21 RYAN ORELLANA MD February 11, 2018 07:43
== END 2018-02-09 17:30 | disposition home or self-care (01) ==
LOC: WSo 14:24 → LDRP 14:24 → WSo 17:30
PROVIDERS: ATTEND Obstetrics & Gynecology
DX: O47.02 False labor before 37 completed weeks of gestation, second trimester (principal); Z3A.26 26 weeks gestation of pregnancy
CPT/HCPCS: 36415; 80053; 81000; 82570; 83615; 84156; 84550; 85007; 85027; 96360; 99214

== ENCOUNTER 2018-03-23 21:44 | Observation (INO) | payer MEDICAID ==
[~2018-03-23] VITALS: Ht 160 cm; Wt 111.1 kg
[~2018-03-23 21:44] MED LIST changes: -CODE118S2 PO; +CODE118S4 PO; +FERR-84 PO
[2018-03-23 21:58] VITALS: BP 113/61
[2018-03-23 22:25] LABS: BILIRUBIN,URINE NEGATIVE (NEGATIVE); CLARITY,URINE SLIGHTLY CLOUDY; COLOR,URINE YELLOW; GLUCOSE, URINE (UA) NEGATIVE (NEGATIVE); KETONES,URINE NEGATIVE (NEGATIVE); LEUKOCYTE ESTERASE ,URINE 1+ (NEGATIVE); NITRITE,URINE NEGATIVE (NEGATIVE); PH,URINE 6.5 (5-9); PROTEIN,URINE 2+ (NEGATIVE); UROBILINOGEN,URINE 1 MG/DL (NORMAL)
[2018-03-23 22:31] LABS: RBC,URINE RARE /HPF; WBC,URINE 0-2 /HPF
[2018-03-23 22:34] LABS: BASOPHILS # (AUTO) 0.1 10^3/uL (0.0-0.1); BASOPHILS % (AUTO) 0 % (0-10); EOSINOPHILS # (AUTO) 0.1 10^3/uL (0.0-0.3); EOSINOPHILS % (AUTO) 1 % (0-10); HEMATOCRIT 30 % (35-52); HEMOGLOBIN 9.9 G/DL (11.5-16.0); LYMPHOCYTES # (AUTO) 3.4 X 10^3 (1.0-4.0); LYMPHOCYTES % (AUTO) 17 % (12-44); MEAN CORPUSCULAR HEMOGLOBIN 28 PG (25-34); MEAN CORPUSCULAR HGB CONC 33 G/DL (32-36); MEAN CORPUSCULAR VOLUME 84 FL (80-99); MEAN PLATELET VOLUME 10.2 FL (7.4-10.4); MONOCYTES # (AUTO) 1.7 X 10^3 (0.0-1.0); MONOCYTES % (AUTO) 9 % (0-12); NEUTROPHILS # (AUTO) 14.5 X 10^3 (1.8-7.8); NEUTROPHILS % (AUTO) 73 % (42-75); PLATELET COUNT 392 10^3/uL (130-400); RED BLOOD COUNT 3.54 10^6/uL (4.35-5.85); RED CELL DISTRIBUTION WIDTH 14.6 % (10.0-14.5); WHITE BLOOD COUNT 19.8 10^3/uL (4.3-11.0)
[2018-03-23] MEDS ORDERED: oxyCODONE/APAP 5/325MG (PERCOCET 5) TABLET PO PRN (22:45)
[2018-03-23 22:51] LABS: BAND NEUTROPHILS 1 %; BASOPHILS % (MANUAL) 3 %; EOSINOPHILS % (MANUAL) 1 %; LYMPHOCYTES % (MANUAL) 21 %; MONOCYTES % (MANUAL) 8 %; NEUTROPHILS % (MANUAL) 66 %
[2018-03-23 22:52] LABS: RBC MORPH NORMAL
[2018-03-23] MEDS: ceFAZolin 2 GM IV Premixed 50 ML IV SCH (23:32)
[2018-03-23] MEDS: D5 LR IV SOLUTION 1,000 ML IV SCH (23:32)
[2018-03-24] MEDS: D5 LR IV SOLUTION 1,000 ML IV SCH (04:23)
[2018-03-24] MEDS: ceFAZolin 2 GM IV Premixed 50 ML IV SCH (05:30)
[2018-03-24 06:19] LABS: BASOPHILS % (AUTO) 0 % (0-10); EOSINOPHILS # (AUTO) 0.3 10^3/uL (0.0-0.3); EOSINOPHILS % (AUTO) 2 % (0-10); HEMATOCRIT 29 % (35-52); HEMOGLOBIN 9.3 G/DL (11.5-16.0); LYMPHOCYTES # (AUTO) 3.7 X 10^3 (1.0-4.0); LYMPHOCYTES % (AUTO) 23 % (12-44); MEAN CORPUSCULAR HEMOGLOBIN 27 PG (25-34); MEAN CORPUSCULAR HGB CONC 32 G/DL (32-36); MEAN CORPUSCULAR VOLUME 85 FL (80-99); MEAN PLATELET VOLUME 10.2 FL (7.4-10.4); MONOCYTES # (AUTO) 1.4 X 10^3 (0.0-1.0); MONOCYTES % (AUTO) 9 % (0-12); NEUTROPHILS # (AUTO) 10.9 X 10^3 (1.8-7.8); NEUTROPHILS % (AUTO) 67 % (42-75); PLATELET COUNT 392 10^3/uL (130-400); RED BLOOD COUNT 3.44 10^6/uL (4.35-5.85); RED CELL DISTRIBUTION WIDTH 14.9 % (10.0-14.5); WHITE BLOOD COUNT 16.3 10^3/uL (4.3-11.0)
[2018-03-24] MEDS ORDERED: CEPH-507 PO (07:34)
--- NOTE | 2018-03-24 07:35 | Discharge Instructions ---
Discharge Instructions Discharge Medications New, Converted or Re-Newed RX: RX on Chart Patient Instructions Patient Instructions: As directed Return to The Hospital For: As directed Activity & Diet Discharge Diet: No Restrictions Activity as Tolerated: Yes Orders-Post D/C & Referrals Follow-up in clinic as scheduled RYAN ORELLANA MD Mar 24, 2018 7:35 am
--- NOTE | 2018-03-24 07:39 | History & Physical ---
History and Physical Date Seen by Provider: Mar 24, 2018 Time Seen by Provider: 07:36 This patient is a 27-year-old multigravida white female patient of Dr. Stephens. She presented with complaint of back pain and severe and persistent for over 24 hours. Clinical evaluation was inconclusive for specific etiology for her pain however her white blood cell count was elevated at 19,000. She was started empirically on Ancef IV. She rested through the night and received IV fluids through the night. Her pain now is improved. Her white blood cell count is decreased to 16,000. She denies rupture membranes or bleeding. Allergies are none Medications are vitamins Medical social and surgical histories are per the antepartum record per Dr. Stephens HEENT exam is normal except for poor dentition Neck is supple no lymphadenopathy no thyromegaly Abdomen is gravid soft nontender nondistended Extremities show clubbing or cyanosis. There is no Homans sign. There is some pretibial pitting edema that is normal Pelvic exam is deferred Laboratory Tests Test 03/23/18 22:15 03/23/18 22:20 03/24/18 05:58 Range/Units Urine Color YELLOW Urine Clarity SLIGHTLY CLOUDY Urine pH 6.5 5-9 Urine Specific [place] 1.015 L 1.016-1.022 Urine Protein 2+ H NEGATIVE Urine Glucose (UA) NEGATIVE NEGATIVE Urine Ketones NEGATIVE NEGATIVE Urine Nitrite NEGATIVE NEGATIVE Urine Bilirubin NEGATIVE NEGATIVE Urine Urobilinogen 1 NORMAL MG/DL Urine Leukocyte Esterase 1+ H NEGATIVE Urine RBC (Auto) NEGATIVE NEGATIVE Urine RBC RARE /HPF Urine WBC 0-2 /HPF Urine Squamous Epithelial Cells 10-25 H /HPF Urine Crystals NONE /LPF Urine Bacteria NONE /HPF Urine Casts NONE /LPF Urine Mucus NEGATIVE /LPF Urine Culture Indicated NO White Blood Count 19.8 H 16.3 H 4.3-11.0 10^3/uL Red Blood Count 3.54 L 3.44 L 4.35-5.85 10^6/uL Hemoglobin 9.9 L 9.3 L 11.5-16.0 G/DL Hematocrit 30 L 29 L 35-52 % Mean Corpuscular Volume 84 85 80-99 FL Mean Corpuscular Hemoglobin 28 27 25-34 PG Mean Corpuscular Hemoglobin Concent 33 32 32-36 G/DL Red Cell Distribution Width 14.6 H 14.9 H 10.0-14.5 % Platelet Count 392 392 130-400 10^3/uL Mean Platelet Volume 10.2 10.2 7.4-10.4 FL Neutrophils (%) (Auto) 73 67 42-75 % Lymphocytes (%) (Auto) 17 23 12-44 % Monocytes (%) (Auto) 9 9 0-12 % Eosinophils (%) (Auto) 1 2 0-10 % Basophils (%) (Auto) 0 0 0-10 % Neutrophils # (Auto) 14.5 H 10.9 H 1.8-7.8 X 10^3 Lymphocytes # (Auto) 3.4 3.7 1.0-4.0 X 10^3 Monocytes # (Auto) 1.7 H 1.4 H 0.0-1.0 X 10^3 Eosinophils # (Auto) 0.1 0.3 0.0-0.3 10^3/uL Basophils # (Auto) 0.1 0.0 0.0-0.1 10^3/uL Neutrophils % (Manual) 66 % Lymphocytes % (Manual) 21 % Monocytes % (Manual) 8 % Eosinophils % (Manual) 1 % Basophils % (Manual) 3 % Band Neutrophils 1 % Blood Morphology Comment NORMAL Lab work is as noted. Assessment and plan back pain possibly referable to a gastroenteritis versus the patient's gravid status. There was concern for infectious etiology with her white count being at 19,000. Patient is symptomatically improved this morning we will continue the antibiotics empirically. Plan is for discharge home with follow-up with her PCP Back pain Allergies and Home Medications Allergies Coded Allergies: No Known Drug Allergies (Verified , 12/20/17) Home Medications Cephalexin 500 Mg Capsule, 500 MG PO QID Prescribed by: RYAN KIM on 03/24/18 0734 Ferrous Sulfate 325 Mg Tablet, 325 MG PO DAILY, (Reported) Patient Home Medication List Home Medication List Reviewed: Yes RYAN ORELLANA MD Mar 24, 2018 7:39 am
[2018-03-24 07:53] VITALS: BP 93/48
--- OUTSIDE RECORDS SUMMARY | 2018-03-25 12:38 | XMS REPORT ---
Author Author MARTINEZMITCHELL Arreola Organization [facility] Address [address] [place] [address] Care Team Providers Care Senior Manager [employer] Name Role Phone MITCHELL MARTINEZ Unavailable PROBLEMS Type Condition ICD9-CM Code [id number] Code Onset Dates Condition Status SNOMED Code Problem Schizophrenia, unspecified type F20.9 Active 17774033 Problem Cannabis use disorder, moderate, dependence F12.20 Active 83139553 Problem Unspecified mood [affective] disorder F39 Active 59206960 Problem Anxiety state, unspecified F41.1 Active 969060704 Problem Methamphetamine use disorder, 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 ; Cannabis use disorder, moderate, dependence F12.20 and Schizophrenia, unspecified type F20.9 [facility] [address] [place] [address] Jul, Methamphetamine use disorder, severe, 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 and Marijuana abuse F12.10 [facility] [address] [place] [id number] Jul, Methamphetamine use disorder, severe, 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 and Marijuana abuse F12.10 [facility] [address] [place], [place] [address] Jun, Methamphetamine use disorder, severe, 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 and Marijuana abuse F12.10 [place] [address] [place] [address] Jun, Methamphetamine use disorder, 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 ; Cannabis use disorder, moderate, dependence F12.20 and Schizophrenia, unspecified type F20.9 [facility] [address] [place] [address] Jun, Methamphetamine use disorder, severe, 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 and Marijuana abuse F12.10 [place] [address] [address] Jun, [address] [address] 19 May, 2017 Left foot pain M79.672 ; Other acute back pain M54.9 ; Syncope and collapse R55 and High ankle sprain of left lower extremity, initial encounter S93.432A [address] [address] 18 May, [address] [address] 14 May, 2017 Schizophrenia, unspecified type F20.9 ; Cannabis use disorder, moderate, dependence F12.20 and Methamphetamine use disorder, 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 [facility] [address] [place] [address] 14 May, 2017 Methamphetamine use disorder, severe, 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 and Marijuana abuse F12.10 [facility] [address] [place] [address] Apr, Methamphetamine use disorder, severe, 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 and Marijuana abuse F12.10 [place] [address] [address] Apr, Unspecified mood [affective] disorder F39 ; Anxiety state, unspecified F41.1 ; 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 ; Methamphetamine use disorder, severe, 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 and Marijuana abuse F12.10 [facility] [address] [place] [address] Apr, Methamphetamine use disorder, severe, 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 and Marijuana abuse F12.10 [facility] [address] [place] [address] Apr, Methamphetamine use disorder, severe, 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 and Marijuana abuse F12.10 [facility] [address] [place] [address] Apr, [facility] [address] [address] Apr, [facility] [address] [id number] Apr, Dental examination Z01.20 [facility] [address] [id number] Mar, Dental examination Z01.20 [place] [address] [place] [id number] [place] [address] Mar, Acute pharyngitis 462 and Vomiting and diarrhea 787.03 [place] [address] [place] [id number] [place] [address] 03 Feb, 2015 , normal subsequent V22.1 [place] [id number] [place] [address] January, , normal subsequent V22.1 and UTI in 646.60 [place] [address] [place] [id number] [place] [address] Aug, [facility] [address] [address] Aug, [place] [address] [address] Mar, [facility] [address] [address] 07 Feb, 2012 [facility] [address] [facility] [id number] [address] Mar, [facility] [address] [facility] [id number] [address] Aug, [facility] [address] [facility] [id number] [address] January, [facility] [address] [facility] [id number] [address] Nov, [facility] [address] [facility] [id number] [address] Jun, IMMUNIZATIONS No Known Immunizations SOCIAL HISTORY Never Assessed REASON FOR VISIT Pain (acute)---DBennettRN, fell yesterday, dizziness since starting hydroxyzine , seen at ER, was told sprained back, left foot fracture, c/o increased pain , ibuprofen not working, left msg for records PLAN OF CARE Activity Details Follow Up 4 Weeks Reason:est care VITAL SIGNS Height 5'7" in 2017-06-08 Weight 190 lbs 2017-06-08 Temperature 97.8 degrees Fahrenheit 2017-06-08 Heart Rate 80 bpm 2017-06-08 Respiratory Rate 20 2017-06-08 BMI 29.75 kg/m2 2017-06-08 Blood pressure systolic 120 mmHg 2017-06-08 Blood pressure diastolic 70 mmHg 2017-06-08 MEDICATIONS Medication Instructions Dosage Frequency Start Date End Date Duration Status HydrOXYzine HCl 25 MG Orally three times a day as needed for anxiety 1 tablet May, 30 day(s) Active Seroquel 100 MG Orally Once a day 1 tablet at bedtime 24h May, 30 day(s) Active RESULTS Name Result Date Reference Range Xray : Ankle, Left, 3 views (IN HOUSE) 2017-06-08 PROCEDURES Procedure Date Ordered Result Body Site X-RAY EXAM OF ANKLE Jun 08, 2017 INSTRUCTIONS MEDICATIONS ADMINISTERED No Known Medications MEDICAL (GENERAL) HISTORY Type Description Date Medical History bi-polar Medical History Schizophrenia Medical History anxiety Surgical History Gallbladder removal 2007 Hospitalization History pre-eclampsia, with first son at age 18 2007
--- OUTSIDE RECORDS SUMMARY | 2018-03-25 12:38 | XMS REPORT ---
Author Author ALEJANDRA REY [facility] Address [address] [place] [address] Care Team Providers Care At Home Independent Call Center Agent Name Role Phone ALEJANDRA REY Unavailable PROBLEMS Type Condition ICD9-CM Code [id number] Code Onset Dates Condition Status SNOMED Code Problem Schizophrenia, unspecified type F20.9 Active 19159415 Problem Cannabis use disorder, moderate, dependence F12.20 Active 49233405 Problem Unspecified mood [affective] disorder F39 Active 82869744 Problem Anxiety state, unspecified F41.1 Active 924229230 Problem Methamphetamine use disorder, 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 267991239 Problem 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 159206870 ALLERGIES No Information ENCOUNTERS Encounter Location Date Diagnosis [facility] [address] [address] January, [facility] [address] [place] [address] Nov, Methamphetamine use disorder, 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 and Cannabis use disorder, moderate , dependence F12.20 [facility] [address] [place] [id number] [place] [address] Nov, [facility] [address] [place] [id number] [place] [address] Nov, [facility] [address] [place] [address] Sep, Methamphetamine use disorder, 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 and Cannabis use disorder, moderate , dependence F12.20 [facility] [address] [address] Sep, Methamphetamine use disorder, 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 ; Cannabis use disorder, moderate, dependence F12.20 and Schizophrenia, unspecified type F20.9 [facility] [address] [place] [address] Jul, Methamphetamine use disorder, severe, 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 and Marijuana abuse F12.10 [facility] [address] [place], [place] [id number] Jul, Methamphetamine use disorder, severe, 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 and Marijuana abuse F12.10 [facility] [address] [place] [id number] Jun, Methamphetamine use disorder, severe, 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 and Marijuana abuse F12.[address] [address] Jun, Methamphetamine use disorder, 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 ; Cannabis use disorder, moderate, dependence F12.20 and Schizophrenia, unspecified type F20.9 [facility] [address] [place] [id number] Jun, Methamphetamine use disorder, severe, 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 and Marijuana abuse F12.[address] 682 Jun, [address] 298 May, Left foot pain M79.672 ; Other acute back pain M54.9 ; Syncope and collapse R55 and High ankle sprain of left lower extremity, initial encounter S93.432A [address] [address] May, [address] 802 14 May, 2017 Schizophrenia, unspecified type F20.9 ; Cannabis use disorder, moderate, dependence F12.20 and Methamphetamine use disorder, 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 [facility] [address] [place] [id number] 14 May, 2017 Methamphetamine use disorder, severe, 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 and Marijuana abuse F12.10 [facility] [address] [place] [address] Apr, Methamphetamine use disorder, severe, 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 and Marijuana abuse F12.[address] [place] [address] Apr, Unspecified mood [affective] disorder F39 ; Anxiety state, unspecified F41.1 ; 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 ; Methamphetamine use disorder, severe, 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 and Marijuana abuse F12.10 [facility] [address] [place] [address] Apr, Methamphetamine use disorder, severe, 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 and Marijuana abuse F12.10 [facility] [address] [place] [address] Apr, Methamphetamine use disorder, severe, 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 and Marijuana abuse F12.10 [facility] [address] [place] [address] Apr, [place] [address] [address] Apr, [facility] [address] [id number] Apr, Dental examination Z01.20 [facility] [address] [id number] Mar, Dental examination Z01.20 [place] [address] [address] Mar, Acute pharyngitis 462 and Vomiting and diarrhea 787.03 [place] [id number] [place] [address] Feb, , normal subsequent V22.1 [place] [address] [address] January, , normal subsequent V22.1 and UTI in 646.60 [place] [address] [address] Aug, [place] [address] [place] [id number] [place] [address] Aug, [place] [address] [address] Mar, [facility] [address] [place] [id number] [address] Feb, [facility] [address] [address] Mar, [facility] [address] [place] [id number] [address] Aug, [facility] [address] [address] January, [facility] [address] [address] Nov, [facility] [address] [place] [id number] [address] Jun, IMMUNIZATIONS No Known Immunizations SOCIAL HISTORY Never Assessed REASON FOR VISIT SUBAB F/U PLAN OF CARE Activity Details Follow Up 1 Week Reason:subabfu VITAL SIGNS MEDICATIONS Unknown Medications RESULTS No Results PROCEDURES Procedure Date Ordered Result Body Site Alcohol and/or drug services Jul 15, 2017 INSTRUCTIONS MEDICATIONS ADMINISTERED No Known Medications MEDICAL (GENERAL) HISTORY Type Description Date Medical History bi-polar Medical History Schizophrenia Medical History anxiety Surgical History Gallbladder removal 2007 Hospitalization History pre-eclampsia, with first son at age 18 2007
--- OUTSIDE RECORDS SUMMARY | 2018-03-25 12:38 | XMS REPORT ---
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 138296899 Problem 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 528693267 ALLERGIES No Known Allergies ENCOUNTERS Encounter Location Date Diagnosis [facility] [address] [place] [address] Nov, Methamphetamine use disorder, 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 and Cannabis use disorder, moderate , dependence F12.20 [facility] [address] [address] Nov, [facility] [address] [address] Nov, [facility] [address] [place] [address] Sep, Methamphetamine use disorder, 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 and Cannabis use disorder, moderate , dependence F12.20 [facility] [address] [address] Sep, Methamphetamine use disorder, 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 ; Cannabis use disorder, moderate, dependence F12.20 and Schizophrenia, unspecified type F20.9 [facility] [address] [place] [address] Jul, Methamphetamine use disorder, severe, 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 and Marijuana abuse F12.10 [facility] [address] [place] [id number] Jul, Methamphetamine use disorder, severe, 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 and Marijuana abuse F12.10 [facility] [address] [place], [place] [address] Jun, Methamphetamine use disorder, severe, 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 and Marijuana abuse F12.10 [place] [address] [place] [address] Jun, Methamphetamine use disorder, 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 ; Cannabis use disorder, moderate, dependence F12.20 and Schizophrenia, unspecified type F20.9 [facility] [address] [place] [id number] Jun, Methamphetamine use disorder, severe, 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 and Marijuana abuse F12.10 [place] [address] [address] Jun, [place] [address]3897[address] 19 May, 2017 Left foot pain M79.672 ; Other acute back pain M54.9 ; Syncope and collapse R55 and High ankle sprain of left lower extremity, initial encounter S93.432A [address] [address]76[address]- [address] 18 May, [address] [address] 14 May, 2017 Schizophrenia, unspecified type F20.9 ; Cannabis use disorder, moderate, dependence F12.20 and Methamphetamine use disorder, 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 [facility] [address] [place] [address] 14 May, 2017 Methamphetamine use disorder, severe, 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 and Marijuana abuse F12.10 [facility] [address] [place] [address] Apr, Methamphetamine use disorder, severe, 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 and Marijuana abuse F12.10 [facility] [address] [place] [address] Apr, [facility] [address] [place] [address] [id number] [place] [address] Apr, [facility] [id number] [place] [id number] Apr, Dental examination Z01.20 [facility] [address] [id number] Mar, Dental examination Z01.20 [facility] [address] [place] [id number] [place] [address] Mar, Acute pharyngitis 462 and Vomiting and diarrhea 787.03 [facility] [address] [place] [address] [id number] [place] [address] 03 Feb, 2015 , normal subsequent V22.1 [facility] [address] [place] [id number] [place] [address] January, , normal subsequent V22.1 and UTI in 646.60 [facility] [id number] [place] [address] Aug, [facility] [address] [id number] [place] [address] Aug, [facility] [id number] [place] [address] Mar, [facility] [address] [id number] [place] [address] Feb, [facility] [address] [facility] [id number] [address] Mar, [facility] [address] [facility] [id number], [place] [address] Aug, [facility] [address] [facility] [id number], [place] [address] January, [facility] [address] [facility] [id number], [place] [address] Nov, [facility] [address] [facility] [id number], [place] [address] Jun, IMMUNIZATIONS No Known Immunizations SOCIAL HISTORY Never Assessed REASON FOR VISIT BH intake Adnrew PLAN OF CARE Activity Details Follow Up 4 Weeks Reason: VITAL SIGNS Height 5'7" in 2017-06-03 Weight 181.5 lbs 2017-06-03 Heart Rate 76 bpm 2017-06-03 Respiratory Rate 18 2017-06-03 BMI 28.42 kg/m2 2017-06-03 Blood pressure systolic 104 mmHg 2017-06-03 Blood pressure diastolic 72 mmHg 2017-06-03 MEDICATIONS Medication Instructions Dosage Frequency Start Date End Date Duration Status HydrOXYzine HCl 25 MG Orally three times a day as needed for anxiety 1 tablet May, 30 day(s) Active Seroquel 100 MG Orally Once a day 1 tablet at bedtime 24h May, 30 day(s) Active RESULTS No Results PROCEDURES Procedure Date Ordered Result Body Site VENIPUNCT, ROUTINE* Jun 03, 2017 INSTRUCTIONS MEDICATIONS ADMINISTERED No Known Medications MEDICAL (GENERAL) HISTORY Type Description Date Medical History bi-polar Medical History Schizophrenia Medical History anxiety Surgical History Gallbladder removal 2007 Hospitalization History pre-eclampsia, with first son at age 18 2007
--- OUTSIDE RECORDS SUMMARY | 2018-03-25 12:38 | XMS REPORT ---
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 069601869 Problem 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 757490505 ALLERGIES No Information ENCOUNTERS Encounter Location Date Diagnosis [facility] [address] [address] January, [facility] [address] [place] [address] Nov, Methamphetamine use disorder, 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 and Cannabis use disorder, moderate , dependence F12.20 [facility] [address] [place] [id number] [place] [address] Nov, [facility] [address] [place] [address] [id number] [place] [address] Nov, [facility] [address] [place] [address] Sep, Methamphetamine use disorder, 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 and Cannabis use disorder, moderate , dependence F12.20 [facility] [address] [address] Sep, Methamphetamine use disorder, 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 ; Cannabis use disorder, moderate, dependence F12.20 and Schizophrenia, unspecified type F20.9 [facility] [address] [place] [address] Jul, Methamphetamine use disorder, severe, 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 and Marijuana abuse F12.10 [facility] [address] [place] [id number] Jul, Methamphetamine use disorder, severe, 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 and Marijuana abuse F12.10 [facility] [address] [place], [place] [id number] Jun, Methamphetamine use disorder, severe, 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 and Marijuana abuse F12.[address] 274 Jun, Methamphetamine use disorder, 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 ; Cannabis use disorder, moderate, dependence F12.20 and Schizophrenia, unspecified type F20.9 [facility] [address] [place], [place] [id number] Jun, Methamphetamine use disorder, severe, 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 and Marijuana abuse F12.[address] 883 Jun, [address] 292 May, Left foot pain M79.672 ; Other acute back pain M54.9 ; Syncope and collapse R55 and High ankle sprain of left lower extremity, initial encounter S93.432A [address] 089 18 May, [address] 237 14 May, 2017 Schizophrenia, unspecified type F20.9 ; Cannabis use disorder, moderate, dependence F12.20 and Methamphetamine use disorder, 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 [facility] [address] [place], [place] [id number] 14 May, 2017 Methamphetamine use disorder, severe, 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 and Marijuana abuse F12.10 [facility] [address] [place] [address] Apr, Methamphetamine use disorder, severe, 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 and Marijuana abuse F12.[address] [place] [address] Apr, Unspecified mood [affective] disorder F39 ; Anxiety state, unspecified F41.1 ; 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 ; Methamphetamine use disorder, severe, 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 and Marijuana abuse F12.10 [facility] [address] [place] [address] Apr, Methamphetamine use disorder, severe, 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 and Marijuana abuse F12.10 [facility] [address] [place] [address] Apr, Methamphetamine use disorder, severe, 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 and Marijuana abuse F12.10 [facility] [address] [place] [address] Apr, [place] [address] [address] Apr, [facility] [address] [id number] Apr, Dental examination Z01.20 [facility] [address] [id number] Mar, Dental examination Z01.20 [place] [address] [address] Mar, Acute pharyngitis 462 and Vomiting and diarrhea 787.03 [place] [id number] [place] [address] Feb, , normal subsequent V22.1 [place] [address] [address] January, , normal subsequent V22.1 and UTI in 646.60 [place] [address] [address] Aug, [place] [address] [place] [id number] [place] [address] Aug, [place] [address] [address] Mar, [facility] [address] [id number], [place] [address] Feb, [facility] [address] [address] Mar, [facility] [address] [id number] [address] Aug, [facility] [address] [place] [address] January, [facility] [address] [address] Nov, [facility] [address] [id number], [place] [address] Jun, IMMUNIZATIONS No Known Immunizations SOCIAL HISTORY Never Assessed REASON FOR VISIT SUBAB F/U PLAN OF CARE Activity Details Follow Up 1 Week Reason:subabfu VITAL SIGNS MEDICATIONS Unknown Medications RESULTS No Results PROCEDURES Procedure Date Ordered Result Body Site Alcohol and/or drug services Jul 22, 2017 INSTRUCTIONS MEDICATIONS ADMINISTERED No Known Medications MEDICAL (GENERAL) HISTORY Type Description Date Medical History bi-polar Medical History Schizophrenia Medical History anxiety Surgical History Gallbladder removal 2007 Hospitalization History pre-eclampsia, with first son at age 18 2007
--- OUTSIDE RECORDS SUMMARY | 2018-03-25 12:39 | XMS REPORT ---
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 816379061 Problem 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 908612986 ALLERGIES No Information ENCOUNTERS Encounter Location Date Diagnosis [facility] [address] [place] [address] Nov, Methamphetamine use disorder, 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 and Cannabis use disorder, moderate , dependence F12.20 [facility] [address] [place] [address] Nov, [facility] [address] [address] Nov, [facility] [address] [place] [address] Sep, Methamphetamine use disorder, 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 and Cannabis use disorder, moderate , dependence F12.20 [facility] [address] [address] Sep, Methamphetamine use disorder, 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 ; Cannabis use disorder, moderate, dependence F12.20 and Schizophrenia, unspecified type F20.9 [facility] [address] [place] [address] Jul, Methamphetamine use disorder, severe, 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 and Marijuana abuse F12.10 [facility] [address] [place] [id number] Jul, Methamphetamine use disorder, severe, 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 and Marijuana abuse F12.10 [facility] [address] [place] [address] Jun, Methamphetamine use disorder, severe, 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 and Marijuana abuse F12.10 [place] [address] [address] Jun, Methamphetamine use disorder, 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 ; Cannabis use disorder, moderate, dependence F12.20 and Schizophrenia, unspecified type F20.9 [facility] [address] [place] [address] Jun, Methamphetamine use disorder, severe, 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 and Marijuana abuse F12.10 [place] [address] [address]69[address] 2629 Jun, [address] [address]6629[address] 19 May, 2017 Left foot pain M79.672 ; Other acute back pain M54.9 ; Syncope and collapse R55 and High ankle sprain of left lower extremity, initial encounter S93.432A [address] 522820- [address] 18 May, [address] [address] 14 May, 2017 Schizophrenia, unspecified type F20.9 ; Cannabis use disorder, moderate, dependence F12.20 and Methamphetamine use disorder, 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 [facility] [address] [place] [address] 14 May, 2017 Methamphetamine use disorder, severe, 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 and Marijuana abuse F12.10 [facility] [address] [place], [place] [address] Apr, Methamphetamine use disorder, severe, 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 and Marijuana abuse F12.10 [place] [address] [address] Apr, Unspecified mood [affective] disorder F39 ; Anxiety state, unspecified F41.1 ; 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 ; Methamphetamine use disorder, severe, 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 and Marijuana abuse F12.10 [facility] [address] [place] [address] Apr, Methamphetamine use disorder, severe, 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 and Marijuana abuse F12.10 [facility] [address] [place] [address] Apr, Methamphetamine use disorder, severe, 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 and Marijuana abuse F12.10 [facility] [address] [place] [address] Apr, [facility] [address] [place] [id number] [place] [address] Apr, [facility] [address] [id number] Apr, Dental examination Z01.20 [facility] [address] [id number] Mar, Dental examination Z01.20 [facility] [address] [place] [id number] [place] [address] Mar, Acute pharyngitis 462 and Vomiting and diarrhea 787.03 [facility] [address] [id number] [place] [address]- [address] 03 Feb, 2015 , normal subsequent V22.1 [place] [address] [id number] [place] [address] January, , normal subsequent V22.1 and UTI in 646.60 [facility] [id number] [place] [address] Aug, [facility] [address] [address] Aug, [facility] [address] [id number] [place] [address] Mar, [facility] [address] [address] Feb, [facility] [address] [place] [id number], [place] [address] Mar, [facility] [address], [place] [address] Aug, [facility] [address] [place] [address] [id number], [place] [address] January, [facility] [address] [place] [id number], [place] [address] Nov, [facility] [address] [id number], [place] [address] Jun, IMMUNIZATIONS No Known Immunizations SOCIAL HISTORY Never Assessed REASON FOR VISIT ER Notification/Follow up PLAN OF CARE VITAL SIGNS MEDICATIONS Unknown Medications RESULTS No Results PROCEDURES No Known procedures INSTRUCTIONS MEDICATIONS ADMINISTERED No Known Medications MEDICAL (GENERAL) HISTORY Type Description Date Medical History bi-polar Medical History Schizophrenia Medical History anxiety Surgical History Gallbladder removal 2008 Hospitalization History pre-eclampsia, with first son at age 18 2007
--- OUTSIDE RECORDS SUMMARY | 2018-03-25 12:39 | XMS REPORT ---
Author Author ALEJANDRA REY Organization [facility] Address [address] [place] [address] Care Team Providers Care Assisted Sales Representative Name Role Phone ALEJANDRA REY Unavailable PROBLEMS Type Condition ICD9-CM Code [id number] Code Onset Dates Condition Status SNOMED Code Problem Schizophrenia, unspecified type F20.9 Active 00825263 Problem Cannabis use disorder, moderate, dependence F12.20 Active 47912126 Problem Unspecified mood [affective] disorder F39 Active 62128616 Problem Anxiety state, unspecified F41.1 Active 361262543 Problem Methamphetamine use disorder, 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 541674082 Problem 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 191156855 ALLERGIES No Information ENCOUNTERS Encounter Location Date Diagnosis [facility] [address] [place] [address] Nov, Methamphetamine use disorder, 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 and Cannabis use disorder, moderate , dependence F12.20 [facility] [address] [address] Nov, [facility] [address] [address] Nov, [facility] [address] [place] [address] Sep, Methamphetamine use disorder, 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 and Cannabis use disorder, moderate , dependence F12.20 [facility] [address] [address] Sep, Methamphetamine use disorder, 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 ; Cannabis use disorder, moderate, dependence F12.20 and Schizophrenia, unspecified type F20.9 [facility] [address] [place] [address] Jul, Methamphetamine use disorder, severe, 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 and Marijuana abuse F12.10 [facility] [address] [place] [address] Jul, Methamphetamine use disorder, severe, 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 and Marijuana abuse F12.10 [facility] [address] [place] [id number] Jun, Methamphetamine use disorder, severe, 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 and Marijuana abuse F12.10 [place] [address] [place] [address] Jun, Methamphetamine use disorder, 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 ; Cannabis use disorder, moderate, dependence F12.20 and Schizophrenia, unspecified type F20.9 [facility] [address] [place] [address] Jun, Methamphetamine use disorder, severe, 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 and Marijuana abuse F12.10 [place] [address] [place] [address]338[address] Jun, [address] [address] May, Left foot pain M79.672 ; Other acute back pain M54.9 ; Syncope and collapse R55 and High ankle sprain of left lower extremity, initial encounter S93.432A [address] [address]79[address] 18 May, [address] [address] 14 May, 2017 Schizophrenia, unspecified type F20.9 ; Cannabis use disorder, moderate, dependence F12.20 and Methamphetamine use disorder, 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 [facility] [address] [place] [address] 14 May, 2017 Methamphetamine use disorder, severe, 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 and Marijuana abuse F12.10 [facility] [address] [place] [address] Apr, Methamphetamine use disorder, severe, 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 and Marijuana abuse F12.10 [place] [id number] Apr, Unspecified mood [affective] disorder F39 ; Anxiety state, unspecified F41.1 ; 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 ; Methamphetamine use disorder, severe, 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 and Marijuana abuse F12.10 [facility] [address] [place] [address] Apr, Methamphetamine use disorder, severe, 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 and Marijuana abuse F12.10 [facility] [address] [place] [address] Apr, Methamphetamine use disorder, severe, 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 and Marijuana abuse F12.10 [facility] [address] [place] [address] Apr, [facility] [address] [place] [id number] [place] [address] Apr, [facility] [address] [id number] Apr, Dental examination Z01.20 [facility] [address] [id number] [place] [id number] Mar, Dental examination Z01.20 [place] [address] [place] [address] [id number] [place] [address] Mar, Acute pharyngitis 462 and Vomiting and diarrhea 787.03 [place] [address] [place] [address] [id number] [place] [address] Feb, , normal subsequent V22.1 [place] [address] [place] [address] [id number] [place] [address] January, , normal subsequent V22.1 and UTI in 646.60 [place] [address] [place] [address] [id number] [place] [address] Aug, [facility] [address] [address] Aug, [facility] [address] [place] [address] [id number] [place] [address] Mar, [facility] [address] [address] Feb, [facility] [address] [facility] [id number] [address] Mar, [facility] [address] [address] Aug, [facility] [address] [place] [address] [id number] [address] January, [facility] [address] [address] Nov, [facility] [address] [place] [id number] [address] Jun, IMMUNIZATIONS No Known Immunizations SOCIAL HISTORY Never Assessed REASON FOR VISIT SUBAB-F/U PLAN OF CARE Activity Details Follow Up 1 Week Reason:subabfu VITAL SIGNS MEDICATIONS Unknown Medications RESULTS No Results PROCEDURES Procedure Date Ordered Result Body Site Alcohol and/or drug services Jun 03, 2017 INSTRUCTIONS MEDICATIONS ADMINISTERED No Known Medications MEDICAL (GENERAL) HISTORY Type Description Date Medical History bi-polar Medical History Schizophrenia Medical History anxiety Surgical History Gallbladder removal 2007 Hospitalization History pre-eclampsia, with first son at age 18 2007
--- OUTSIDE RECORDS SUMMARY | 2018-03-25 12:39 | XMS REPORT ---
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 698227402 Problem 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 596022314 ALLERGIES No Information ENCOUNTERS Encounter Location Date Diagnosis [facility] [address] [place] [address] Nov, Methamphetamine use disorder, 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 and Cannabis use disorder, moderate , dependence F12.20 [facility] [address] [address] Nov, [facility] [address] [address] Nov, [facility] [address] [place] [address] Sep, Methamphetamine use disorder, 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 and Cannabis use disorder, moderate , dependence F12.20 [facility] [address] [address] Sep, Methamphetamine use disorder, 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 ; Cannabis use disorder, moderate, dependence F12.20 and Schizophrenia, unspecified type F20.9 [facility] [address] [place] [address] Jul, Methamphetamine use disorder, severe, 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 and Marijuana abuse F12.10 [facility] [address] [place] [address] Jul, Methamphetamine use disorder, severe, 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 and Marijuana abuse F12.10 [facility] [address] [place] [address] Jun, Methamphetamine use disorder, severe, 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 and Marijuana abuse F12.10 [place] [address] [place] [address]117[address] Jun, Methamphetamine use disorder, 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 ; Cannabis use disorder, moderate, dependence F12.20 and Schizophrenia, unspecified type F20.9 [facility] [address] [place] [address] Jun, Methamphetamine use disorder, severe, 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 and Marijuana abuse F12.10 [place] [address] [place] [id number] Jun, [address] 477 May, Left foot pain M79.672 ; Other acute back pain M54.9 ; Syncope and collapse R55 and High ankle sprain of left lower extremity, initial encounter S93.432A [address] 860276- [address] 18 May, [address] [address] 14 May, 2017 Schizophrenia, unspecified type F20.9 ; Cannabis use disorder, moderate, dependence F12.20 and Methamphetamine use disorder, 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 [facility] [address] [place] [address] May, Methamphetamine use disorder, severe, 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 and Marijuana abuse F12.10 [facility] [address] [place] [address] Apr, Methamphetamine use disorder, severe, 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 and Marijuana abuse F12.10 [place] [address] [address] Apr, Unspecified mood [affective] disorder F39 ; Anxiety state, unspecified F41.1 ; 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 ; Methamphetamine use disorder, severe, 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 and Marijuana abuse F12.10 [facility] [address] [place] [address] Apr, Methamphetamine use disorder, severe, 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 and Marijuana abuse F12.10 [facility] [address] [place] [address] Apr, Methamphetamine use disorder, severe, 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 and Marijuana abuse F12.10 [facility] [address] [place] [address] Apr, [facility] [address] [address] Apr, [facility] [address] [id number] Apr, Dental examination Z01.20 [facility] [address] [id number] Mar, Dental examination Z01.20 [place] [address] [place] [id number] [place] [address] Mar, Acute pharyngitis 462 and Vomiting and diarrhea 787.03 [place] [address] [place] [address] [id number] [place] [address] 03 Feb, 2015 , normal subsequent V22.1 [place] [address] [place] [address] [id number] [place] [address] January, , normal subsequent V22.1 and UTI in 646.60 [place] [address] [place] [address] [id number] [place] [address] Aug, [place] [address] [address] Aug, [place] [address] [address] Mar, [place] [address] [address] Feb, [facility] [address] [facility] [id number] [place] [address] Mar, [facility] [address] [id number] [address] Aug, [facility] [address] [place] [id number], [place] [address] January, [facility] [address] [place] [id number], [place] [address] Nov, [facility] [address] [facility] [id number] [address] Jun, IMMUNIZATIONS No Known Immunizations SOCIAL HISTORY Never Assessed REASON FOR VISIT SUBAB-F/U PLAN OF CARE Activity Details Follow Up 1 Week Reason: VITAL SIGNS MEDICATIONS Unknown Medications RESULTS Name Result Date Reference Range URINE DRUG SCREEN (IN HOUSE) 2017-05-17 Lot # [id number] Exp date Oct 2018 Control + COCAINE Negative AMPH Negative MTD Negative THC Negative OPIATE Negative BENZO Negative PCP Negative BAR Negative OXY Negative MAMP Negative TCA N/A BUP Negative MDMA Negative PROCEDURES Procedure Date Ordered Result Body Site Alcohol and/or drug services May 17, 2017 LAB NOT BILLED BY [facility] May 17, 2017 INSTRUCTIONS MEDICATIONS ADMINISTERED No Known Medications MEDICAL (GENERAL) HISTORY Type Description Date Medical History bi-polar Medical History Schizophrenia Medical History anxiety Surgical History Gallbladder removal 2007 Hospitalization History pre-eclampsia, with first son at age 18 2007
--- OUTSIDE RECORDS SUMMARY | 2018-03-25 12:39 | XMS REPORT ---
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20 [facility] [address] [address] Sep, Methamphetamine use disorder, 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 ; Cannabis use disorder, moderate, dependence F12.20 and Schizophrenia, unspecified type F20.9 [facility] [address] [place] [address] Jul, Methamphetamine use disorder, severe, 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 and Marijuana abuse F12.10 [facility] [address] [place] [address] Jul, Methamphetamine use disorder, severe, 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 and Marijuana abuse F12.10 [facility] [address] [place] [address] Jun, Methamphetamine use disorder, severe, 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 and Marijuana abuse F12.10 [facility] [address] [place] [id number] [place] [address] Jun, Methamphetamine use disorder, 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 ; Cannabis use disorder, moderate, dependence F12.20 and Schizophrenia, unspecified type F20.9 [facility] [address] Jun, Methamphetamine use disorder, severe, 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 and Marijuana abuse F12.10 [place] [address] [place] [address] Jun, [address] [address] May, Left foot pain M79.672 ; Other acute back pain M54.9 ; Syncope and collapse R55 and High ankle sprain of left lower extremity, initial encounter S93.432A [address] [address] 18 May, 2017 [place] [address] [address] 14 May, 2017 Schizophrenia, unspecified type F20.9 ; Cannabis use disorder, moderate, dependence F12.20 and Methamphetamine use disorder, 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 [facility] [address] [place] [address] May, Methamphetamine use disorder, severe, 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 and Marijuana abuse F12.10 [facility] [address] [place] [address] Apr, Methamphetamine use disorder, severe, 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 and Marijuana abuse F12.10 [place] [address] [place] [id number] [place] [id number] Apr, Unspecified mood [affective] disorder F39 ; Anxiety state, unspecified F41.1 ; 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 ; Methamphetamine use disorder, severe, 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 and Marijuana abuse F12.10 [facility] [address] [place] [address] Apr, Methamphetamine use disorder, severe, 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 and Marijuana abuse F12.10 [facility] [address] [place] [address] Apr, Methamphetamine use disorder, severe, 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 and Marijuana abuse F12.10 [facility] [address] [place] [address] Apr, [facility] [address] [place] [id number] [place] [address] Apr, [facility] [address] [id number] Apr, Dental examination Z01.20 [facility] [address] [id number] Mar, Dental examination Z01.20 [facility] [address] [place] [id number] [place] [address] Mar, Acute pharyngitis 462 and Vomiting and diarrhea 787.03 [place] [id number] [place] [address] Feb, , normal subsequent V22.1 [place] [id number] [place] [address]- [address] January, , normal subsequent V22.1 and UTI in 646.60 [facility] [address] [place] [id number] [place] [address] Aug, [facility] [address] [address] Aug, [facility] [address] [place] [id number] [place] [address] Mar, [facility] [address] [place] [id number] [place] [address] Feb, [facility] [address] [facility] [id number] [address] Mar, [facility] [address] [place] [id number] [address] Aug, [facility] [address] [facility] [id number], [place] [address] January, [facility] [address] [facility] [id number] [address] Nov, [facility] [address] [facility] [id number] [address] Jun, IMMUNIZATIONS No Known Immunizations SOCIAL HISTORY Never Assessed REASON FOR VISIT russell PLAN OF CARE Activity Details Follow Up 1 Week Reason:TE 9,10,11 1hour 15min VITAL SIGNS Blood pressure systolic 115 mmHg 2017-04-09 Blood pressure diastolic 73 mmHg 2017-04-09 MEDICATIONS Medication Instructions Dosage Frequency Start Date End Date Duration Status Eugene 5-325 MG Orally every 6 hrs 1 tablet as needed 6h 4 days Active Amoxicillin 500 MG Orally 3 times a day 1 capsule 8h 7 days Active RESULTS No Results PROCEDURES Procedure Date Ordered Result Body Site LTD ORAL EVALUATION - PROBLEM FOCUS April 09, 2017 INTRAORL-PERIAPICAL 1 FILM 11400 April 09, 2017 INTRAORL-PERIAPICAL EA ADD FILM April 09, 2017 INSTRUCTIONS MEDICATIONS ADMINISTERED No Known Medications MEDICAL (GENERAL) HISTORY Type Description Date Medical History bi-polar Medical History Schizophrenia Medical History anxiety Surgical History Gallbladder removal 2007 Hospitalization History pre-eclampsia, with first son at age 18 2007
--- OUTSIDE RECORDS SUMMARY | 2018-03-25 12:40 | XMS REPORT ---
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 682437392 Problem 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 340032573 ALLERGIES No Information ENCOUNTERS Encounter Location Date Diagnosis [facility] [address] [place] [address] Nov, Methamphetamine use disorder, 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 and Cannabis use disorder, moderate , dependence F12.20 [facility] [address] [address] Nov, [facility] [address] [address] Nov, [facility] [address] [place] [address] Sep, Methamphetamine use disorder, 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 and Cannabis use disorder, moderate , dependence F12.20 [facility] [address] [address] Sep, Methamphetamine use disorder, 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 ; Cannabis use disorder, moderate, dependence F12.20 and Schizophrenia, unspecified type F20.9 [facility] [address] [place] [address] Jul, Methamphetamine use disorder, severe, 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 and Marijuana abuse F12.10 [facility] [address] [place] [id number] Jul, Methamphetamine use disorder, severe, 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 and Marijuana abuse F12.10 [facility] [address] [place], [place] [address] Jun, Methamphetamine use disorder, severe, 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 and Marijuana abuse F12.10 [facility] [address] [place] [address] Jun, Methamphetamine use disorder, 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 ; Cannabis use disorder, moderate, dependence F12.20 and Schizophrenia, unspecified type F20.9 [facility] [address] [place] [address] Jun, Methamphetamine use disorder, severe, 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 and Marijuana abuse F12.10 [place] [address] [place] [address] Jun, [place] [address] May, Left foot pain M79.672 ; Other acute back pain M54.9 ; Syncope and collapse R55 and High ankle sprain of left lower extremity, initial encounter S93.432A [address] [address] 18 May, [address] [address] 14 May, 2017 Schizophrenia, unspecified type F20.9 ; Cannabis use disorder, moderate, dependence F12.20 and Methamphetamine use disorder, 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 [facility] [address] [place] [address] May, Methamphetamine use disorder, severe, 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 and Marijuana abuse F12.10 [facility] [address] [place], [place] [address] Apr, Methamphetamine use disorder, severe, 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 and Marijuana abuse F12.[address] [address] Apr, Unspecified mood [affective] disorder F39 ; Anxiety state, unspecified F41.1 ; 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20 [facility] [address] [id number] Mar, Dental examination Z01.20 [place] [address] [place] [id number] [place] [address] Mar, Acute pharyngitis 462 and Vomiting and diarrhea 787.03 [place] [address] [place] [id number] [place] [address] 03 Feb, 2015 , normal subsequent V22.1 [place] [address] [place] [id number] [place] [address] January, , normal subsequent V22.1 and UTI in 646.60 [place] [address] [place] [id number] [place] [address] Aug, [place] [address] [address] Aug, [place] [address] [place] [id number] [place] [address] Mar, [place] [address] [address] Feb, [facility] [address] [facility] [id number] [address] Mar, [facility] [address] [address] Aug, [facility] [address] [place] [id number] [address] January, [facility] [address] [address] Nov, [facility] [address] [place] [id number] [address] Jun, IMMUNIZATIONS No Known Immunizations SOCIAL HISTORY Never Assessed REASON FOR VISIT Referred by [facility] for Behavioral Health evaluation. PLAN OF CARE Activity Details Follow Up prn Reason: VITAL SIGNS MEDICATIONS Unknown Medications RESULTS No Results PROCEDURES Procedure Date Ordered Result Body Site Psych diagnostic evaluation, established patient May 19, 2017 INSTRUCTIONS MEDICATIONS ADMINISTERED No Known Medications MEDICAL (GENERAL) HISTORY Type Description Date Medical History bi-polar Medical History Schizophrenia Medical History anxiety Surgical History Gallbladder removal 2007 Hospitalization History pre-eclampsia, with first son at age 18 2007
--- NOTE | 2018-04-08 12:51 | Physician Query-Final Dx ---
TASHIA MCFARLAND 04/08/18 1251: Final Diagnosis Give Final Diagnosis Please give Final Diagnosis RYAN ORELLANA MD 04/08/18 1300: Final Diagnosis Give Final Diagnosis UTI in TASHIA MCFARLAND Apr 08, 2018 12:51 RYAN ORELLANA MD Apr 08, 2018 13:00
== END 2018-03-24 08:50 | disposition home or self-care (01) ==
LOC: WSo 21:44 → LDRP 21:44 → UNDOADMOB 22:00 → WSo 22:00 → LDRP 22:00 → UNDODISOB 03-24 08:50 → EDSTATUS 03-25 12:31
PROVIDERS: ADMIT Obstetrics & Gynecology; ATTEND Obstetrics & Gynecology
DX: O99.89 Other specified diseases and conditions complicating pregnancy, childbirth and the puerperium (principal); M54.9 Dorsalgia, unspecified; Z3A.32 32 weeks gestation of pregnancy
CPT/HCPCS: 36415; 81000; 85007; 85025; 85027; 87088; 96361; 96374; 96376; 99211; G0378

== ENCOUNTER → 2018-03-28 | Outpatient (CLI) | payer MEDICAID ==
[~2018-03-28] MED LIST changes: +IBUP-844 PO; +METR500T21 PO; +OXYC10TA7 PO
--- NOTE | 2018-03-28 13:07 | Diagnostic Imaging Report ---
INDICATION: Followup heart, spine and possible choroid plexus cyst. TECHNIQUE: Multiple real-time grayscale images were obtained over the gravid uterus. COMPARISON: 12/20/2017. FINDINGS: There is a single live fetus in a cephalic presentation. heart rate was recorded at 144 beats per minute. Placenta is anterior. Amniotic fluid volume is normal. There is a four-chamber heart. Spine is unremarkable. The intracranial contents could not be well visualized due to position. Therefore, possible choroid plexus cyst could not be evaluated. Biometrical measurements are as follows: Biparietal 8.8 cm, age 35 weeks 4 days. Head circumference 32.34 cm, age 36 weeks 4 days. Abdominal circumference 31.37 cm, age 35 weeks 3 days. Femur length 6.84 cm, age 35 weeks 1 days. Sonographic estimate age: 35 weeks 5 days. Sonographic estimated date of delivery: 04/27/18. Estimated Weight: 2673 gm (+/- 390 gm). LMP percentile: 77%. heart rate: 144 beats per minute. number: 1 of 1. IMPRESSION: Single live IUP 35-36 weeks gestational age. There is a four-chamber heart and normal-appearing spine. Intracranial contents could not be evaluated on today's study. Dictated by: Dictated on workstation # [id number]
== END ==
LOC: RAD 11:20
PROVIDERS: ATTEND Obstetrics & Gynecology
DX: Z34.93 Encounter for supervision of normal pregnancy, unspecified, third trimester (principal); Z3A.36 36 weeks gestation of pregnancy
CPT/HCPCS: 76816

== ENCOUNTER 2018-04-18 11:59 | Inpatient (IN) | payer MEDICAID ==
[2018-04-18] VITALS (8 sets, daily range): BP systolic 108–131; BP diastolic 57–72
[~2018-04-18] VITALS: Ht 160 cm; Wt 112.7 kg
[~2018-04-18 11:59] MED LIST changes: -IBUP-844 PO; -METR500T21 PO; -OXYC10TA7 PO
[2018-04-18 16:00] LABS: BILIRUBIN,URINE NEGATIVE (NEGATIVE); CLARITY,URINE CLEAR; COLOR,URINE YELLOW; GLUCOSE, URINE (UA) NEGATIVE (NEGATIVE); KETONES,URINE NEGATIVE (NEGATIVE); LEUKOCYTE ESTERASE ,URINE NEGATIVE (NEGATIVE); NITRITE,URINE NEGATIVE (NEGATIVE); PH,URINE 7 (5-9); PROTEIN,URINE 2+ (NEGATIVE); UROBILINOGEN,URINE NORMAL (NORMAL)
[2018-04-18 16:12] LABS: BACTERIA,URINE NEGATIVE /HPF
[2018-04-18 16:56] LABS: BASOPHILS # (AUTO) 0.1 10^3/uL (0.0-0.1); BASOPHILS % (AUTO) 0 % (0-10); EOSINOPHILS # (AUTO) 0.1 10^3/uL (0.0-0.3); EOSINOPHILS % (AUTO) 1 % (0-10); HEMATOCRIT 32 % (35-52); HEMOGLOBIN 10.4 G/DL (11.5-16.0); LYMPHOCYTES # (AUTO) 3.4 X 10^3 (1.0-4.0); LYMPHOCYTES % (AUTO) 18 % (12-44); MEAN CORPUSCULAR HEMOGLOBIN 27 PG (25-34); MEAN CORPUSCULAR HGB CONC 33 G/DL (32-36); MEAN CORPUSCULAR VOLUME 83 FL (80-99); MEAN PLATELET VOLUME 10.9 FL (7.4-10.4); MONOCYTES # (AUTO) 1.5 X 10^3 (0.0-1.0); MONOCYTES % (AUTO) 8 % (0-12); NEUTROPHILS # (AUTO) 13.7 X 10^3 (1.8-7.8); NEUTROPHILS % (AUTO) 73 % (42-75); PLATELET COUNT 405 10^3/uL (130-400); RED BLOOD COUNT 3.81 10^6/uL (4.35-5.85); RED CELL DISTRIBUTION WIDTH 15.1 % (10.0-14.5); WHITE BLOOD COUNT 18.8 10^3/uL (4.3-11.0)
[2018-04-18 17:16] LABS: ALANINE AMINOTRANSFERASE 278 U/L (0-55); ALBUMIN 3.3 GM/DL (3.2-4.5); ALKALINE PHOSPHATASE 149 U/L (40-136); BILIRUBIN,TOTAL 0.2 MG/DL (0.1-1.0); BUN/CREATININE RATIO 8; CALCIUM 9.1 MG/DL (8.5-10.1); CARBON DIOXIDE 21 MMOL/L (21-32); CHLORIDE 106 MMOL/L (98-107); CREATININE SERUM 0.59 MG/DL (0.60-1.30); GFR ESTIMATED > 60; GLUCOSE 78 MG/DL (70-105); POTASSIUM 4.2 MMOL/L (3.6-5.0); SODIUM 135 MMOL/L (135-145); TOTAL PROTEIN 6.7 GM/DL (6.4-8.2)
--- NOTE | 2018-04-18 17:31 | History & Physical-OB/GYN ---
History of Present Illness History of Present Illness Reason for visit/HPI leakage of fluid Date of Admission 04/18/18 Time Seen by Provider: 17:30 I consulted on this patient on 04/18/18 17:31 Attending Physician Brandon Escudero MD Admitting Physician [facility] Consult Patient is a 28 year old at 35 5/7 weeks. she presents to women's services with complaint of leakage of fluid. Exam was done and was not ruptured but she had + clue cells and findings consistent with bacterial vaginosis. However, UA consistent with proteinuria. P/Cr ration 0.57. He did CMP and CBC. She has normal blood pressures and no complains except the ROM/leakage of fluid. No headache, no edema, no blurred vision, no abdominal pain, good FM. LFTs are elevated so she is admitted for observation and 24 urine. Has had proteinuria for several weeks and workup has been negative. Also WBC 18,000 for unknown reason, platelets 405,000. She is afebrile. Plan is to monitor blood pressures, start betamethasone and 24 hour urine. Treat accordingly. Monitor intermittently unless distress or contractions. AST 177 ALT 287 Alk phos 149 I delivered last as no local/no PNC. 38 (suspected, but US done on admission) week IUP. 3800 grams, polyhydramnios, Elevated LFTs, but no elevated BP. 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 Had cut back to 09/21 ppd) Type Used: Cigarettes 2nd Hand Smoke Exposure: Yes Physical Abuse Screen: No Sexual Abuse: No Recent Foreign Travel: No Contact w/other who traveled: No Recent Hopitalizations: No Recent Infectious Disease Expo: No Immunizations Up To Date Tetanus Booster (TDap): Unknown Pediatric: No Date of Influenza Vaccine: Aug 20, 2014 Seasonal Allergies Seasonal Allergies: No Surgeries Yes (ALL TEETH REMOVED) Gallbladder Respiratory No Cardiovascular No Neurological No Reproductive System Expected Date of Delivery: May 18, 2018 Hx : 7 Hx Para: 5 Hx Total # of Abortions (Spona: 1 Hx Reproductive Disorders: No Female Reproductive Disorders: Denies Genitourinary No Gastrointestinal Yes (S/P [place]) Gall Bladder Disease Musculoskeletal No Endocrine History of Endocrine Disorders: No HEENT History of HEENT Disorders: No Cancer No Psychosocial History of Psychiatric Problem: Yes Behavioral Health Disorders: Sleep Difficulties, Anxiety Integumentary History of Skin or Integumenta: No Blood Transfusions History of Blood Disorders: No Adverse Reaction to a Blood Tr: No Family Medical History Significant Family History: Cancer Family Hx: FH: spina bifida G8 BROTHER Constitutional: no symptoms reported EENTM: no symptoms reported Respiratory: no symptoms reported Cardiovascular: no symptoms reported Gastrointestinal: no symptoms reported Genitourinary: other (leakage) Expected Date of Delivery: May 18, 2018 LMP: Aug 11, 2017 Control/STD Prophylaxis: None Musculoskeletal: back pain Skin: no symptoms reported Psychiatric/Neurological: No Symptoms Reported, Anxiety All Other Systems Reviewed Negative Unless Noted: Yes Physical Exam Physical Exam Vital Signs Vital Signs Date Time Temp Pulse Resp B/P (MAP) Pulse Ox O2 Delivery O2 Flow Rate FiO2 04/20/18 15:35 85 18 115/68 (84) Room Air 04/20/18 15:30 Room Air 04/20/18 15:20 65 18 108/57 (74) Room Air 04/20/18 15:15 Room Air 04/20/18 15:05 66 18 113/60 (77) Room Air 04/20/18 15:00 Room Air 04/20/18 14:50 98.3 04/20/18 14:50 76 18 121/63 (82) Room Air 04/20/18 14:45 Room Air 04/20/18 14:35 71 18 107/55 (72) Room Air 04/20/18 14:30 Room Air 04/20/18 14:20 64 18 102/55 (71) Room Air 04/20/18 14:15 Room Air 04/20/18 14:05 76 18 102/59 (73) Room Air 04/20/18 14:00 Room Air 04/20/18 13:50 72 18 110/57 (74) Room Air 04/20/18 13:45 Room Air 04/20/18 13:35 78 18 107/55 (72) Room Air 04/20/18 13:30 Room Air 04/20/18 13:20 64 18 104/57 (73) Room Air 04/20/18 13:15 Room Air 04/20/18 13:05 67 18 102/56 (71) Room Air 04/20/18 13:00 Room Air 04/20/18 12:50 62 18 104/53 (70) Room Air 04/20/18 12:45 Room Air 04/20/18 12:35 62 18 106/56 (73) Room Air 04/20/18 12:30 Room Air 04/20/18 12:20 65 18 112/54 (73) Room Air 04/20/18 12:15 Room Air 04/20/18 12:05 97.0 76 18 110/54 (72) Room Air 04/20/18 12:00 Room Air 04/20/18 11:50 63 104/53 (70) 04/20/18 11:45 Room Air 04/20/18 11:35 62 103/59 (74) 04/20/18 11:30 Room Air 04/20/18 11:20 56 111/55 (73) 04/20/18 11:15 Room Air 04/20/18 11:05 70 102/61 (75) 98 04/20/18 11:00 64 18 97 Room Air 04/20/18 10:50 67 101/57 (72) 98 04/20/18 10:45 60 18 98 Room Air 04/20/18 10:35 60 105/56 (72) 98 04/20/18 10:30 60 18 98 Room Air 04/20/18 10:20 61 105/55 (72) 97 04/20/18 10:15 66 97 Room Air 04/20/18 10:05 63 107/57 (74) 99 04/20/18 10:00 63 99 Room Air 04/20/18 09:50 96.4 65 108/58 (75) 97 04/20/18 09:45 65 97 Room Air 04/20/18 09:30 74 18 117/57 (77) 97 Room Air 04/20/18 09:15 75 112/59 (76) 98 Room Air 04/20/18 09:10 74 105/59 (74) 97 Room Air 04/20/18 09:05 80 107/56 (73) 04/20/18 09:00 78 18 110/57 (74) 96 Room Air 04/20/18 08:57 81 108/53 (71) 04/20/18 08:54 81 122/61 (81) 97 Room Air 04/20/18 08:52 81 117/59 (78) 97 Room Air 04/20/18 08:49 75 116/63 (80) 97 Room Air 04/20/18 08:45 75 18 117/71 (86) 97 Room Air 04/20/18 08:43 70 113/70 (84) 98 Room Air 04/20/18 08:40 78 117/71 (86) 98 Room Air 04/20/18 08:35 76 120/72 (88) 98 Room Air 04/20/18 08:30 69 18 119/68 (85) 99 Room Air 04/20/18 08:15 64 114/60 (78) Room Air 04/20/18 08:10 62 112/57 (75) Room Air 04/20/18 08:00 67 184/100 (128) 98 Room Air 04/20/18 07:45 97.2 64 18 112/63 (79) 98 Room Air 04/20/18 07:30 60 103/57 (72) Room Air 04/20/18 07:15 60 143/71 (95) Room Air 04/20/18 07:00 58 18 04/20/18 07:00 96.5 58 18 112/65 (81) Room Air 04/20/18 06:45 96.2 55 18 103/59 (74) Room Air 04/20/18 06:30 96.7 66 18 110/71 (84) Room Air 04/20/18 06:30 66 18 04/20/18 06:15 62 18 108/66 (80) 98 Room Air 04/20/18 06:06 70 18 04/20/18 06:00 70 18 108/63 (78) 98 Room Air 04/20/18 06:00 76 18 04/20/18 05:45 63 18 112/61 (78) 98 Room Air 04/20/18 05:30 56 18 117/60 (79) 99 Room Air 04/20/18 05:30 76 18 04/20/18 05:15 63 18 04/20/18 05:15 73 18 104/50 (68) 98 Room Air 04/20/18 05:00 66 18 04/20/18 05:00 97.1 66 18 160/94 (116) 96 Room Air 04/20/18 04:45 62 18 04/20/18 04:45 61 18 115/59 (77) 96 Room Air 04/20/18 04:30 97.7 68 18 123/63 (83) 97 Room Air 04/20/18 04:30 68 18 04/20/18 04:15 63 18 130/76 (94) Room Air 04/20/18 04:00 62 18 147/62 (90) Room Air 04/20/18 03:41 189/93 (125) 04/20/18 03:40 168/74 (105) 04/20/18 03:30 60 18 233/128 (163) Room Air 04/20/18 03:00 97.2 74 18 138/85 (102) 97 Room Air 04/20/18 02:30 67 18 106/55 (72) 97 Room Air 04/20/18 02:00 54 18 124/72 (89) 97 Room Air 04/20/18 01:30 56 18 119/63 (81) 96 Room Air 04/20/18 01:00 56 18 134/74 (94) 97 Room Air 04/20/18 00:30 57 18 119/56 (77) 96 Room Air 04/20/18 00:00 64 18 110/57 (74) 95 Room Air 04/19/18 23:30 70 18 123/65 (84) 97 Room Air 04/19/18 23:00 96.6 67 20 120/65 (83) Room Air 04/19/18 22:30 67 20 108/55 (72) Room Air 04/19/18 22:00 68 20 117/67 (84) Room Air 04/19/18 21:30 73 20 129/78 (95) Room Air 04/19/18 21:00 78 20 118/66 (83) Room Air 04/19/18 20:30 75 20 97/56 (70) Room Air 04/19/18 20:00 72 20 96/53 (67) Room Air 04/19/18 19:30 97.1 66 20 115/65 (82) Room Air 04/19/18 18:50 73 20 113/57 (75) Room Air 04/19/18 18:40 74 20 119/68 (85) Room Air 04/19/18 18:25 73 20 117/59 (78) Room Air 04/19/18 17:15 97.9 76 20 117/68 (84) Room Air I & O 04/20/18 07:00 Intake Total 4665 ml Output Total 4950 ml Balance -285 ml Capillary Refill : Labs Laboratory Tests 04/19/18 17:10: White Blood Count 24.0H, Red Blood Count 3.50L, Hemoglobin 9.2L, Hematocrit 29L , Mean Corpuscular Volume 83, Mean Corpuscular Hemoglobin 26, Mean Corpuscular Hemoglobin Concent 32, Red Cell Distribution Width 15.3H, Platelet Count 411H, Mean Platelet Volume 10.7H, Neutrophils (%) (Auto) 79H, Lymphocytes (%) (Auto) 12, Monocytes (%) (Auto) 9, Eosinophils (%) (Auto) 0, Basophils (%) (Auto) 0, Neutrophils # (Auto) 19.0H, Lymphocytes # (Auto) 2.9, Monocytes # (Auto) 2.1H, Eosinophils # (Auto) 0.0, Basophils # (Auto) 0.0, Sodium Level 134L, Potassium Level 3.8, Chloride Level 104, Carbon Dioxide Level 20L, Anion Gap 10, Blood Urea Nitrogen 7, Creatinine 0.63, Estimat Glomerular Filtration Rate > 60, BUN/ Creatinine Ratio 11, Glucose Level 134H, Uric Acid 3.3, Calcium Level 9.1, Total Bilirubin 0.2, Aspartate Amino Transf (AST/SGOT) 327H, Alanine Aminotransferase (ALT/SGPT) 408H, Alkaline Phosphatase 162H, Lactate Dehydrogenase 331H, Total Protein 6.4, Albumin 3.2 04/20/18 05:30: White Blood Count 22.3H, Red Blood Count 3.87L, Hemoglobin 10.3L, Hematocrit 32L , Mean Corpuscular Volume 84, Mean Corpuscular Hemoglobin 27, Mean Corpuscular Hemoglobin Concent 32, Red Cell Distribution Width 15.2H, Platelet Count 404H, Mean Platelet Volume 10.7H, Neutrophils (%) (Auto) 82H, Lymphocytes (%) (Auto) 12, Monocytes (%) (Auto) 6, Eosinophils (%) (Auto) 0, Basophils (%) (Auto) 0, Neutrophils # (Auto) 18.3H, Lymphocytes # (Auto) 2.6, Monocytes # (Auto) 1.3H, Eosinophils # (Auto) 0.0, Basophils # (Auto) 0.0, Sodium Level 135, Potassium Level 4.2, Chloride Level 104, Carbon Dioxide Level 19L, Anion Gap 12, Blood Urea Nitrogen 7, Creatinine 0.59L, Estimat Glomerular Filtration Rate > 60, BUN/ Creatinine Ratio 12, Glucose Level 109H, Uric Acid 3.5, Calcium Level 9.0, Total Bilirubin 0.4, Aspartate Amino Transf (AST/SGOT) 408H, Alanine Aminotransferase (ALT/SGPT) 524#H, Alkaline Phosphatase 160H, Lactate Dehydrogenase 331H, Total Protein 7.0, Albumin 3.5 Microbiology 04/18/18 Wet Prep - Final, Complete Laboratory Tests Test 04/18/18 15:45 04/18/18 16:42 04/19/18 05:10 04/19/18 05:15 Range/Units Urine Color YELLOW Urine Clarity CLEAR Urine pH 7 5-9 Urine Specific [place] 1.010 L 1.016-1.022 Urine Protein 30 H 6-12 MG/DL Urine Glucose (UA) NEGATIVE NEGATIVE Urine Ketones NEGATIVE NEGATIVE Urine Nitrite NEGATIVE NEGATIVE Urine Bilirubin NEGATIVE NEGATIVE Urine Urobilinogen NORMAL NORMAL MG/DL Urine Leukocyte Esterase NEGATIVE NEGATIVE Urine RBC (Auto) NEGATIVE NEGATIVE Urine RBC NONE /HPF Urine WBC NONE /HPF Urine Squamous Epithelial Cells 5-10 /HPF Urine Crystals NONE /LPF Urine Bacteria NEGATIVE /HPF Urine Casts NONE /LPF Urine Mucus NEGATIVE /LPF Urine Culture Indicated NO Urine Creatinine 53 30-125 MG/DL Urine Protein/Creatinine Ratio 0.57 White Blood Count 18.8 H 22.5 H 4.3-11.0 10^3/uL Red Blood Count 3.81 L 3.83 L 4.35-5.85 10^6/uL Hemoglobin 10.4 L 10.0 L 11.5-16.0 G/DL Hematocrit 32 L 32 L 35-52 % Mean Corpuscular Volume 83 85 80-99 FL Mean Corpuscular Hemoglobin 27 26 25-34 PG Mean Corpuscular Hemoglobin Concent 33 31 L 32-36 G/DL Red Cell Distribution Width 15.1 H 15.3 H 10.0-14.5 % Platelet Count 405 H 419 H 130-400 10^3/uL Mean Platelet Volume 10.9 H 11.0 H 7.4-10.4 FL Neutrophils (%) (Auto) 73 85 H 42-75 % Lymphocytes (%) (Auto) 18 11 L 12-44 % Monocytes (%) (Auto) 8 5 0-12 % Eosinophils (%) (Auto) 1 0 0-10 % Basophils (%) (Auto) 0 0 0-10 % Neutrophils # (Auto) 13.7 H 19.0 H 1.8-7.8 X 10^3 Lymphocytes # (Auto) 3.4 2.4 1.0-4.0 X 10^3 Monocytes # (Auto) 1.5 H 1.1 H 0.0-1.0 X 10^3 Eosinophils # (Auto) 0.1 0.0 0.0-0.3 10^3/uL Basophils # (Auto) 0.1 0.0 0.0-0.1 10^3/uL Neutrophils % (Manual) 59 % Lymphocytes % (Manual) 24 % Monocytes % (Manual) 9 % Eosinophils % (Manual) 1 % Basophils % (Manual) 0 % Band Neutrophils 7 % Blood Morphology Comment NORMAL Sodium Level 135 132 L 135-145 MMOL/L Potassium Level 4.2 4.6 3.6-5.0 MMOL/L Chloride Level 106 105 98-107 MMOL/L Carbon Dioxide Level 21 17 L 21-32 MMOL/L Anion Gap 8 10 5-14 MMOL/L Blood Urea Nitrogen 5 L 7 7-18 MG/DL Creatinine 0.59 L 0.59 L 0.60-1.30 MG/DL Estimat Glomerular Filtration Rate > 60 > 60 BUN/Creatinine Ratio 8 12 Glucose Level 78 132 H 70-105 MG/DL Uric Acid 3.0 2.6-7.2 MG/DL Calcium Level 9.1 9.4 8.5-10.1 MG/DL Total Bilirubin 0.2 0.3 0.1-1.0 MG/DL Aspartate Amino Transf (AST/SGOT) 177 H 237 H 5-34 U/L Alanine Aminotransferase (ALT/SGPT) 278 H 318 H 0-55 U/L Alkaline Phosphatase 149 H 166 H 40-136 U/L Lactate Dehydrogenase 220 333 H 125-220 U/L Total Protein 6.7 6.6 6.4-8.2 GM/DL Albumin 3.3 3.2 3.2-4.5 GM/DL Hepatitis A IgM Antibody Non-Reactive Non-Reactive Hepatitis B Surface Antigen Non-Reactive Non-Reactive Hepatitis B Core IgM Antibody Non-Reactive Non-Reactive Hepatitis C Antibody Non-Reactive Non-Reactive Test 04/19/18 07:50 04/19/18 17:10 04/20/18 05:30 Range/Units Urine Collection Time 12 HRS Urine Total Volume 1050 ML Urine Creatinine 81 30-125 MG/DL Urine Creatinine 24 Hour 495 753-0627 MG/24H Patient Height Inches (Creat Clear) 63 INCHES Patient Weight Pounds (Creat Clear) 248.5 LBS Body Surface Area (Creat Clear) 2.12 Creatinine Clearance 163 H 80-110 ML/MIN Urine Total Protein mg/dL 47 H 6-12 MG/DL Urine Total Protein 24 Hour 493 H 0-149 MG/24H Creatinine 0.59 L 0.63 0.59 L 0.60-1.30 MG/DL White Blood Count 24.0 H 22.3 H 4.3-11.0 10^3/uL Red Blood Count 3.50 L 3.87 L 4.35-5.85 10^6/uL Hemoglobin 9.2 L 10.3 L 11.5-16.0 G/DL Hematocrit 29 L 32 L 35-52 % Mean Corpuscular Volume 83 84 80-99 FL Mean Corpuscular Hemoglobin 26 27 25-34 PG Mean Corpuscular Hemoglobin Concent 32 32 32-36 G/DL Red Cell Distribution Width 15.3 H 15.2 H 10.0-14.5 % Platelet Count 411 H 404 H 130-400 10^3/uL Mean Platelet Volume 10.7 H 10.7 H 7.4-10.4 FL Neutrophils (%) (Auto) 79 H 82 H 42-75 % Lymphocytes (%) (Auto) 12 12 12-44 % Monocytes (%) (Auto) 9 6 0-12 % Eosinophils (%) (Auto) 0 0 0-10 % Basophils (%) (Auto) 0 0 0-10 % Neutrophils # (Auto) 19.0 H 18.3 H 1.8-7.8 X 10^3 Lymphocytes # (Auto) 2.9 2.6 1.0-4.0 X 10^3 Monocytes # (Auto) 2.1 H 1.3 H 0.0-1.0 X 10^3 Eosinophils # (Auto) 0.0 0.0 0.0-0.3 10^3/uL Basophils # (Auto) 0.0 0.0 0.0-0.1 10^3/uL Sodium Level 134 L 135 135-145 MMOL/L Potassium Level 3.8 4.2 3.6-5.0 MMOL/L Chloride Level 104 104 98-107 MMOL/L Carbon Dioxide Level 20 L 19 L 21-32 MMOL/L Anion Gap 10 12 5-14 MMOL/L Blood Urea Nitrogen 7 7 7-18 MG/DL Estimat Glomerular Filtration Rate > 60 > 60 BUN/Creatinine Ratio 11 12 Glucose Level 134 H 109 H 70-105 MG/DL Uric Acid 3.3 3.5 2.6-7.2 MG/DL Calcium Level 9.1 9.0 8.5-10.1 MG/DL Total Bilirubin 0.2 0.4 0.1-1.0 MG/DL Aspartate Amino Transf (AST/SGOT) 327 H 408 H 5-34 U/L Alanine Aminotransferase (ALT/SGPT) 408 H 524 #H 0-55 U/L Alkaline Phosphatase 162 H 160 H 40-136 U/L Lactate Dehydrogenase 331 H 331 H 125-220 U/L Total Protein 6.4 7.0 6.4-8.2 GM/DL Albumin 3.2 3.5 3.2-4.5 GM/DL General Appearance: No Apparent Distress Respiratory: Lungs Clear, Normal Breath Sounds Cardiovascular: Regular Rate, Rhythm, No Edema Abdominal: normal bowel sounds, non tender Gynecology/General: Other (fould smelling discharge, no blood, cervix 1/thick/- 4) Extremity: No Pedal Edema Assessment/Plan Assessment and Plan 1. proteinuria 2. LFTs 3. bacterial vaginosis 4. 35 week IUP (GBS -) Admit for observaiton. Start betamethasone. Atypical presentation of preeclampsia. Suspect LFTs may not be due to preeclampsia. Start 24 urine. Plan obs for 24-49 hours. Admission Diagnosis Admission Status: Observation PRAMOD LAWSON DO Apr 18, 2018 17:31
[2018-04-18 17:46] LABS: BAND NEUTROPHILS 7 %; BASOPHILS % (MANUAL) 0 %; EOSINOPHILS % (MANUAL) 1 %; LYMPHOCYTES % (MANUAL) 24 %; MONOCYTES % (MANUAL) 9 %; NEUTROPHILS % (MANUAL) 59 %; RBC MORPH NORMAL
[2018-04-18] MEDS: BETAMETHASONE ACE/NA PHOS 6 MG/ML (CELESTONE SOLUSPAN) IM SCH (17:56)
[2018-04-18] MEDS ORDERED: CYCLOBENZAPRINE 10 MG (FLEXERIL) TAB PO PRN ×2 (20:30→20:45)
[2018-04-18] MEDS: metroNIDAZOLE 500 MG (FLAGYL) TAB PO SCH (21:10)
[2018-04-18] MEDS ORDERED: morphine INJ 10 MG/ML 1ML (SYR OR VIAL) IJ ONE (23:15)
[2018-04-19] VITALS (23 sets, daily range): BP systolic 96–130; BP diastolic 50–81
[2018-04-19 05:39] LABS: ALANINE AMINOTRANSFERASE 318 U/L (0-55); ALBUMIN 3.2 GM/DL (3.2-4.5); ALKALINE PHOSPHATASE 166 U/L (40-136); BILIRUBIN,TOTAL 0.3 MG/DL (0.1-1.0); BUN/CREATININE RATIO 12; CALCIUM 9.4 MG/DL (8.5-10.1); CARBON DIOXIDE 17 MMOL/L (21-32); CHLORIDE 105 MMOL/L (98-107); CREATININE SERUM 0.59 MG/DL (0.60-1.30); GFR ESTIMATED > 60; GLUCOSE 132 MG/DL (70-105); POTASSIUM 4.6 MMOL/L (3.6-5.0); SODIUM 132 MMOL/L (135-145); TOTAL PROTEIN 6.6 GM/DL (6.4-8.2)
[2018-04-19 06:36] LABS: BASOPHILS % (AUTO) 0 % (0-10); EOSINOPHILS % (AUTO) 0 % (0-10); HEMATOCRIT 32 % (35-52); LYMPHOCYTES # (AUTO) 2.4 X 10^3 (1.0-4.0); LYMPHOCYTES % (AUTO) 11 % (12-44); MEAN CORPUSCULAR HEMOGLOBIN 26 PG (25-34); MEAN CORPUSCULAR HGB CONC 31 G/DL (32-36); MEAN CORPUSCULAR VOLUME 85 FL (80-99); MONOCYTES # (AUTO) 1.1 X 10^3 (0.0-1.0); MONOCYTES % (AUTO) 5 % (0-12); NEUTROPHILS % (AUTO) 85 % (42-75); PLATELET COUNT 419 10^3/uL (130-400); RED BLOOD COUNT 3.83 10^6/uL (4.35-5.85); RED CELL DISTRIBUTION WIDTH 15.3 % (10.0-14.5); WHITE BLOOD COUNT 22.5 10^3/uL (4.3-11.0)
[2018-04-19 08:17] LABS: PROTEIN URINE MG/DL 47 MG/DL (6-12); URINE CREAT 77 MG/DL (30-125)
[2018-04-19 08:25] LABS: CREATININE 24 HOUR,URINE 808 MG/24H (800-1700); PROTEIN 24 HOUR URINE 493 MG/24H (0-149); TOTAL VOLUME,URINE 1050 ML
[2018-04-19] MEDS: metroNIDAZOLE 500 MG (FLAGYL) TAB PO SCH ×3 (08:41→22:48)
--- NOTE | 2018-04-19 10:05 | Diagnostic Imaging Report ---
INDICATION: Possible preeclampsia. Assess well-being. Proteinuria. TECHNIQUE: Multiple real-time grayscale images were obtained over the gravid uterus. COMPARISON: 03/28/2018 FINDINGS: Single live intrauterine in cephalic presentation. Placenta is anteriorly located and there is no evidence of previa. The ALIS is normal at 10.3 cm. Biophysical Profile Score: Movement: 2 Breathin Tone: 2 Fluid: 2 Total: 04/27 Biometrical measurements are as follows: Biparietal 9.4 cm, age 38 weeks 3 days. Head circumference 34.9 cm, age 10 weeks 4 days. Abdominal circumference 36.6 cm, age 40 weeks 4 days. Femur length 7.4 cm, age 37 weeks 6 days. Sonographic estimate age: 39 weeks 3 days. Sonographic estimated date of delivery: 04/23/18. Estimated Weight: 3862 gm (+/- 564 gm). LMP percentile: 98%. heart rate: 143 beats per minute. number: 1 of 1. IMPRESSION: 1. Single live intrauterine with a normal biophysical profile. 2. The fetus is in the 98th percentile for weight based on LMP. Dictated by: Dictated on workstation # [id number]
--- NOTE | 2018-04-19 10:10 | Diagnostic Imaging Report ---
PROCEDURE: US abdomen complete. TECHNIQUE: Multiple real-time grayscale images were obtained over the abdomen in various projections. INDICATION: Elevated liver contrast during . COMPARISON: None available. FINDINGS: The liver is increased in size measuring 22 cm in length. There is no focal hepatic mass. No perihepatic or intrahepatic fluid collection. The main portal vein is patent with antegrade flow. Status post cholecystectomy. The common bile duct is obscured by overlying bowel gas. Pancreas is obscured by overlying bowel gas and not visualized. The kidneys are normal in size. No hydronephrosis, shadowing calculi, or suspicious mass lesion. The spleen is normal in size measuring 11 cm and without focal lesion. IVC is normal where visualized. Aorta is obscured by overlying bowel gas. IMPRESSION: 1. No features of liver infarct or subcapsular hematoma. 2. The liver is enlarged measuring 22 cm in length, which could be due to . 3. No splenomegaly. Dictated by: Dictated on workstation # [id number]
[2018-04-19 10:17] LABS: BODY SURFACE AREA 2.12; PATIENT WEIGHT,URINE 248.5 LBS
[2018-04-19 10:18] LABS: CREATININE CRCL 0.59 MG/DL (0.60-1.30)
--- NOTE | 2018-04-19 13:54 | Physician Progress Note ---
Progress Note Assessment/Plan Date Seen by Provider: Apr 20, 2018 Time Seen by Provider: 07:45 Events since last exam LFT increasing. No headache, no blurred vision, no abdominal pain. Has had some back pain and requested tylenol but not given due to elevated LFTs. 12 hour protein 450 grams WBC increasing, platelets increasing. US 3862 grams BPP 8/8 ALIS 10.3. 98%ile. growth continue betamethasone. Will plan IOL tonight for delivery at 36 weeks (after 2nd dose of betamethasone) continue flagyl for BV. Lungs clear Heart RRR FWB reassruring Assessment/Plan See above Vitals Last set of Vitals Signs Vital Signs Date Time Temp Pulse Resp B/P (MAP) Pulse Ox O2 Delivery O2 Flow Rate FiO2 04/19/18 05:52 62 20 110/67 (81) 04/19/18 03:52 97.4 Labs Laboratory Tests 04/18/18 15:45: Urine Color YELLOW, Urine Clarity CLEAR, Urine pH 7, Urine Specific [place] 1.010L, Urine Protein 30H, Urine Glucose (UA) NEGATIVE, Urine Ketones NEGATIVE, Urine Nitrite NEGATIVE, Urine Bilirubin NEGATIVE, Urine Urobilinogen NORMAL, Urine Leukocyte Esterase NEGATIVE, Urine RBC (Auto) NEGATIVE, Urine RBC NONE, Urine WBC NONE, Urine Squamous Epithelial Cells 5-10, Urine Crystals NONE, Urine Bacteria NEGATIVE, Urine Casts NONE, Urine Mucus NEGATIVE, Urine Culture Indicated NO, Urine Creatinine 53, Urine Protein/Creatinine Ratio 0.57 04/18/18 16:42: White Blood Count 18.8H, Red Blood Count 3.81L, Hemoglobin 10.4L, Hematocrit 32L , Mean Corpuscular Volume 83, Mean Corpuscular Hemoglobin 27, Mean Corpuscular Hemoglobin Concent 33, Red Cell Distribution Width 15.1H, Platelet Count 405H, Mean Platelet Volume 10.9H, Neutrophils (%) (Auto) 73, Lymphocytes (%) (Auto) 18 , Monocytes (%) (Auto) 8, Eosinophils (%) (Auto) 1, Basophils (%) (Auto) 0, Neutrophils # (Auto) 13.7H, Lymphocytes # (Auto) 3.4, Monocytes # (Auto) 1.5H, Eosinophils # (Auto) 0.1, Basophils # (Auto) 0.1, Neutrophils % (Manual) 59, Lymphocytes % (Manual) 24, Monocytes % (Manual) 9, Eosinophils % (Manual) 1, Basophils % (Manual) 0, Band Neutrophils 7, Blood Morphology Comment NORMAL, Sodium Level 135, Potassium Level 4.2, Chloride Level 106, Carbon Dioxide Level 21, Anion Gap 8, Blood Urea Nitrogen 5L, Creatinine 0.59L, Estimat Glomerular Filtration Rate > 60, BUN/Creatinine Ratio 8, Glucose Level 78, Uric Acid 3.0, Calcium Level 9.1, Total Bilirubin 0.2, Aspartate Amino Transf (AST/SGOT) 177H, Alanine Aminotransferase (ALT/SGPT) 278H, Alkaline Phosphatase 149H, Lactate Dehydrogenase 220, Total Protein 6.7, Albumin 3.3 04/19/18 05:10: Sodium Level 132L, Potassium Level 4.6, Chloride Level 105, Carbon Dioxide Level 17L, Anion Gap 10, Blood Urea Nitrogen 7, Creatinine 0.59L, Estimat Glomerular Filtration Rate > 60, BUN/Creatinine Ratio 12, Glucose Level 132H, Calcium Level 9.4, Total Bilirubin 0.3, Aspartate Amino Transf (AST/SGOT) 237H, Alanine Aminotransferase (ALT/SGPT) 318H, Alkaline Phosphatase 166H, Lactate Dehydrogenase 333H, Total Protein 6.6, Albumin 3.2 04/19/18 05:15: White Blood Count 22.5H, Red Blood Count 3.83L, Hemoglobin 10.0L, Hematocrit 32L , Mean Corpuscular Volume 85, Mean Corpuscular Hemoglobin 26, Mean Corpuscular Hemoglobin Concent 31L, Red Cell Distribution Width 15.3H, Platelet Count 419H, Mean Platelet Volume 11.0H, Neutrophils (%) (Auto) 85H, Lymphocytes (%) (Auto) 11L, Monocytes (%) (Auto) 5, Eosinophils (%) (Auto) 0, Basophils (%) (Auto) 0, Neutrophils # (Auto) 19.0H, Lymphocytes # (Auto) 2.4, Monocytes # (Auto) 1.1H, Eosinophils # (Auto) 0.0, Basophils # (Auto) 0.0 04/19/18 07:50: Urine Collection Time 12, Urine Total Volume 1050, Urine Creatinine 81, Urine Creatinine 24 Hour 850, Patient Height Inches (Creat Clear) 63, Patient Weight Pounds (Creat Clear) 248.5, Body Surface Area (Creat Clear) 2.12, Creatinine Clearance 163H, Urine Total Protein mg/dL 47H, Urine Total Protein 24 Hour 493H , Creatinine 0.59L Microbiology 04/18/18 Wet Prep - Final, Complete Diagnosis/Problems Diagnosis/Problems (1) Bacterial vaginosis Status: Acute (2) 35 weeks gestation of Status: Chronic (3) Elevated LFTs Status: Acute (4) Proteinuria affecting in third trimester Status: Acute Assessment & Plan: continue Betamethason. Induce after second dose Clinical Quality Measures DVT/VTE Risk/Contraindication: Risk Factor Score Per Nursin RFS Level Per Nursing on Admit: 2=Moderate PRAMOD LAWSON DO Apr 19, 2018 13:54
[2018-04-19] MEDS ORDERED: TERBUTALINE INJ 1 MG/ML (BRETHINE) AMP SC PRN (14:00)
[2018-04-19] MEDS ORDERED: MISOPROSTOL 100 MCG (CYTOTEC) TAB PO NR (17:00)
[2018-04-19] MEDS: LACTATED RINGERS 1,000 ML IV SCH ×2 (17:05→18:38)
[2018-04-19 17:17] LABS: BASOPHILS % (AUTO) 0 % (0-10); EOSINOPHILS % (AUTO) 0 % (0-10); HEMATOCRIT 29 % (35-52); HEMOGLOBIN 9.2 G/DL (11.5-16.0); LYMPHOCYTES # (AUTO) 2.9 X 10^3 (1.0-4.0); LYMPHOCYTES % (AUTO) 12 % (12-44); MEAN CORPUSCULAR HEMOGLOBIN 26 PG (25-34); MEAN CORPUSCULAR HGB CONC 32 G/DL (32-36); MEAN CORPUSCULAR VOLUME 83 FL (80-99); MEAN PLATELET VOLUME 10.7 FL (7.4-10.4); MONOCYTES # (AUTO) 2.1 X 10^3 (0.0-1.0); MONOCYTES % (AUTO) 9 % (0-12); NEUTROPHILS % (AUTO) 79 % (42-75); PLATELET COUNT 411 10^3/uL (130-400); RED CELL DISTRIBUTION WIDTH 15.3 % (10.0-14.5)
[2018-04-19] MEDS ORDERED: D5 LR IV SOLUTION 1,000 ML IV SCH (17:30)
[2018-04-19 17:46] LABS: ALANINE AMINOTRANSFERASE 408 U/L (0-55); ALBUMIN 3.2 GM/DL (3.2-4.5); ALKALINE PHOSPHATASE 162 U/L (40-136); BILIRUBIN,TOTAL 0.2 MG/DL (0.1-1.0); BUN/CREATININE RATIO 11; CALCIUM 9.1 MG/DL (8.5-10.1); CARBON DIOXIDE 20 MMOL/L (21-32); CHLORIDE 104 MMOL/L (98-107); CREATININE SERUM 0.63 MG/DL (0.60-1.30); GFR ESTIMATED > 60; GLUCOSE 134 MG/DL (70-105); POTASSIUM 3.8 MMOL/L (3.6-5.0); SODIUM 134 MMOL/L (135-145); TOTAL PROTEIN 6.4 GM/DL (6.4-8.2); URIC ACID 3.3 MG/DL (2.6-7.2)
[2018-04-19] MEDS: BETAMETHASONE ACE/NA PHOS 6 MG/ML (CELESTONE SOLUSPAN) IM SCH (18:13)
[2018-04-19] MEDS: MISOPROSTOL 100 MCG (CYTOTEC) TAB PO SCH (22:49)
[2018-04-19] MEDS ORDERED: morphine INJ 10 MG/ML 1ML (SYR OR VIAL) IJ PRN (23:00)
[2018-04-20] VITALS (78 sets, daily range): BP systolic 88–233; BP diastolic 45–128
[2018-04-20] MEDS: LACTATED RINGERS 1,000 ML IV SCH ×4 (02:11→23:47)
[2018-04-20] MEDS: MISOPROSTOL 100 MCG (CYTOTEC) TAB PO SCH (02:58)
[2018-04-20] MEDS ORDERED: MAGNESIUM 4 GM/100 ML IVPB 100 ML IV ONE (04:00)
[2018-04-20] MEDS: MAGNESIUM SULFATE DRIP 500 ML IV SCH ×2 (04:48→14:05)
[2018-04-20 05:40] LABS: BASOPHILS % (AUTO) 0 % (0-10); EOSINOPHILS % (AUTO) 0 % (0-10); HEMATOCRIT 32 % (35-52); HEMOGLOBIN 10.3 G/DL (11.5-16.0); LYMPHOCYTES # (AUTO) 2.6 X 10^3 (1.0-4.0); LYMPHOCYTES % (AUTO) 12 % (12-44); MEAN CORPUSCULAR HEMOGLOBIN 27 PG (25-34); MEAN CORPUSCULAR HGB CONC 32 G/DL (32-36); MEAN CORPUSCULAR VOLUME 84 FL (80-99); MEAN PLATELET VOLUME 10.7 FL (7.4-10.4); MONOCYTES # (AUTO) 1.3 X 10^3 (0.0-1.0); MONOCYTES % (AUTO) 6 % (0-12); NEUTROPHILS # (AUTO) 18.3 X 10^3 (1.8-7.8); NEUTROPHILS % (AUTO) 82 % (42-75); PLATELET COUNT 404 10^3/uL (130-400); RED BLOOD COUNT 3.87 10^6/uL (4.35-5.85); RED CELL DISTRIBUTION WIDTH 15.2 % (10.0-14.5); WHITE BLOOD COUNT 22.3 10^3/uL (4.3-11.0)
[2018-04-20] MEDS ORDERED: OXYTOCIN/NORMAL SALINE 500 ML IV SCH ×2 (05:44→18:14)
--- NOTE | 2018-04-20 05:44 | Physician Progress Note ---
Progress Note Assessment/Plan Date Seen by Provider: Apr 20, 2018 Time Seen by Provider: 05:45 Events since last exam Elevations in blood pressures. Magnesium started at 0415. Misoprostol x 3 doses. Will start pitocin. Still not able to ROM. Assessment/Plan Preeclampsia proteinuria Elevated LFTS 36 week IUP Bacterial vaginosis LGA continue induction. Continue magnesium. FWB reassuring. Anticipate . [place] aware of induction Vitals Last set of Vitals Signs Vital Signs Date Time Temp Pulse Resp B/P (MAP) Pulse Ox O2 Delivery O2 Flow Rate FiO2 04/20/18 05:30 76 18 04/20/18 03:00 97.2 138/85 (102) 97 Room Air I&O I&O Intake and Output 04/20/18 00:00 Intake Total 3165 ml Output Total 2200 ml Balance 965 ml Intake Oral 2100 ml IV Total 1065 ml Output Urine Total 2200 ml # Voids 6 Daily Weight Change No Labs Laboratory Tests 04/19/18 07:50: Urine Collection Time 12, Urine Total Volume 1050, Urine Creatinine 81, Urine Creatinine 24 Hour 850, Patient Height Inches (Creat Clear) 63, Patient Weight Pounds (Creat Clear) 248.5, Body Surface Area (Creat Clear) 2.12, Creatinine Clearance 163H, Urine Total Protein mg/dL 47H, Urine Total Protein 24 Hour 493H , Creatinine 0.59L 04/19/18 17:10: Creatinine 0.63, White Blood Count 24.0H, Red Blood Count 3.50L, Hemoglobin 9.2L , Hematocrit 29L, Mean Corpuscular Volume 83, Mean Corpuscular Hemoglobin 26, Mean Corpuscular Hemoglobin Concent 32, Red Cell Distribution Width 15.3H, Platelet Count 411H, Mean Platelet Volume 10.7H, Neutrophils (%) (Auto) 79H, Lymphocytes (%) (Auto) 12, Monocytes (%) (Auto) 9, Eosinophils (%) (Auto) 0, Basophils (%) (Auto) 0, Neutrophils # (Auto) 19.0H, Lymphocytes # (Auto) 2.9, Monocytes # (Auto) 2.1H, Eosinophils # (Auto) 0.0, Basophils # (Auto) 0.0, Sodium Level 134L, Potassium Level 3.8, Chloride Level 104, Carbon Dioxide Level 20L, Anion Gap 10, Blood Urea Nitrogen 7, Estimat Glomerular Filtration Rate > 60, BUN/Creatinine Ratio 11, Glucose Level 134H, Uric Acid 3.3, Calcium Level 9.1, Total Bilirubin 0.2, Aspartate Amino Transf (AST/SGOT) 327H, Alanine Aminotransferase (ALT/SGPT) 408H, Alkaline Phosphatase 162H, Lactate Dehydrogenase 331H, Total Protein 6.4, Albumin 3.2 04/20/18 05:30: White Blood Count 22.3H, Red Blood Count 3.87L, Hemoglobin 10.3L, Hematocrit 32L , Mean Corpuscular Volume 84, Mean Corpuscular Hemoglobin 27, Mean Corpuscular Hemoglobin Concent 32, Red Cell Distribution Width 15.2H, Platelet Count 404H, Mean Platelet Volume 10.7H, Neutrophils (%) (Auto) 82H, Lymphocytes (%) (Auto) 12, Monocytes (%) (Auto) 6, Eosinophils (%) (Auto) 0, Basophils (%) (Auto) 0, Neutrophils # (Auto) 18.3H, Lymphocytes # (Auto) 2.6, Monocytes # (Auto) 1.3H, Eosinophils # (Auto) 0.0, Basophils # (Auto) 0.0 Microbiology 04/18/18 Wet Prep - Final, Complete Clinical Quality Measures DVT/VTE Risk/Contraindication: Risk Factor Score Per Nursin RFS Level Per Nursing on Admit: 2=Moderate PRAMOD LAWSON DO Apr 20, 2018 05:44
[2018-04-20 06:00] LABS: ALANINE AMINOTRANSFERASE 524 U/L (0-55); ALBUMIN 3.5 GM/DL (3.2-4.5); ALKALINE PHOSPHATASE 160 U/L (40-136); BILIRUBIN,TOTAL 0.4 MG/DL (0.1-1.0); BUN/CREATININE RATIO 12; CARBON DIOXIDE 19 MMOL/L (21-32); CHLORIDE 104 MMOL/L (98-107); CREATININE SERUM 0.59 MG/DL (0.60-1.30); GFR ESTIMATED > 60; GLUCOSE 109 MG/DL (70-105); POTASSIUM 4.2 MMOL/L (3.6-5.0); SODIUM 135 MMOL/L (135-145); URIC ACID 3.5 MG/DL (2.6-7.2)
[2018-04-20 06:56] LABS: HEPATITIS C ANTIBODY C Non-Reactive (Non-Reactive)
[2018-04-20] MEDS ORDERED: SUFENTA 0.6MCG/ML BUPIVA 0.125 100 ML ONE (07:44)
[2018-04-20] MEDS ORDERED: fentaNYL INJECTION 100 MCG/2 ML AMP ONE ×2 (08:54→17:21)
[2018-04-20] MEDS ORDERED: LACTATED RINGERS 1,000 ML IV ONE (09:10)
[2018-04-20] MEDS ORDERED: diphenhydrAMINE 50 MG/ML INJ (BENADRYL) IV PRN (09:15)
[2018-04-20] MEDS ORDERED: EPIDURAL (SUFENTA 0.6MCG/ML BUPIVA 0.125%) 100 ML BAG EPI PRN (09:15)
[2018-04-20] MEDS ORDERED: METOCLOPRAMIDE INJ 10 MG/2 ML (REGLAN) IV PRN (09:15)
[2018-04-20] MEDS ORDERED: NALOXONE 0.4 MG/ML 1 ML (NARCAN) VIAL IV PRN ×2 (09:15)
[2018-04-20] MEDS ORDERED: ONDANSETRON 4 MG/2 ML (SDV) Z0FRAN IV PRN (09:15)
[2018-04-20] MEDS: metroNIDAZOLE 500 MG (FLAGYL) TAB PO SCH ×3 (10:55→19:55)
[2018-04-20] MEDS ORDERED: LACTATED RINGERS 1,000 ML IV PRN (16:40)
[2018-04-20] MEDS ORDERED: CITRIC ACID/SOB CIT (BICITRA) 30 ML UDC PO ONE (16:45)
[2018-04-20] MEDS ORDERED: METOCLOPRAMIDE INJ 10 MG/2 ML (REGLAN) IV ONE (16:45)
[2018-04-20] MEDS ORDERED: raNItidine INJECTION 50 MG in NS (IVPB) 50 ML IV ONE (16:45)
[2018-04-20] MEDS ORDERED: raNItidine 50 MG/2 ML INJ (ZANTAC) ONE (16:47)
[2018-04-20] MEDS ORDERED: NS (IVPB) 50 ML ONE (16:47)
[2018-04-20] MEDS ORDERED: CITRIC ACID/SOB CIT (BICITRA) 30 ML UDC ONE (16:47)
[2018-04-20] MEDS ORDERED: ceFAZolin 2 GM IV Premixed 50 ML IV ONE (16:50)
[2018-04-20] MEDS ORDERED: AZITHROMYCIN INJECTION 500 MG in NS (IVPB) 250 ML IV ONE (16:50)
[2018-04-20] MEDS ORDERED: ceFAZolin 2 GM IV Premixed 50 ML ONE (16:58)
--- NOTE | 2018-04-20 17:17 | Physician Progress Note ---
Progress Note Assessment/Plan Date Seen by Provider: Apr 20, 2018 Time Seen by Provider: 09:15 Events since last exam ROM clear fluid 915 am Pitocin begun Epidural placed Continue Magnesium sulfate Assessment/Plan Preeclampsia proteinuria Elevated LFTS 36 week IUP Bacterial vaginosis LGA continue induction. Continue magnesium. FWB reassuring. Anticipate . [place] aware of induction Vitals Last set of Vitals Signs Vital Signs Date Time Temp Pulse Resp B/P (MAP) Pulse Ox O2 Delivery O2 Flow Rate FiO2 04/20/18 15:35 85 18 115/68 (84) Room Air 04/20/18 14:50 98.3 04/20/18 11:05 98 I&O I&O Intake and Output 04/20/18 00:00 Intake Total 3165 ml Output Total 2200 ml Balance 965 ml Intake Oral 2100 ml IV Total 1065 ml Output Urine Total 2200 ml # Voids 6 Daily Weight Change No Labs Laboratory Tests 04/20/18 05:30: White Blood Count 22.3H, Red Blood Count 3.87L, Hemoglobin 10.3L, Hematocrit 32L , Mean Corpuscular Volume 84, Mean Corpuscular Hemoglobin 27, Mean Corpuscular Hemoglobin Concent 32, Red Cell Distribution Width 15.2H, Platelet Count 404H, Mean Platelet Volume 10.7H, Neutrophils (%) (Auto) 82H, Lymphocytes (%) (Auto) 12, Monocytes (%) (Auto) 6, Eosinophils (%) (Auto) 0, Basophils (%) (Auto) 0, Neutrophils # (Auto) 18.3H, Lymphocytes # (Auto) 2.6, Monocytes # (Auto) 1.3H, Eosinophils # (Auto) 0.0, Basophils # (Auto) 0.0, Sodium Level 135, Potassium Level 4.2, Chloride Level 104, Carbon Dioxide Level 19L, Anion Gap 12, Blood Urea Nitrogen 7, Creatinine 0.59L, Estimat Glomerular Filtration Rate > 60, BUN/ Creatinine Ratio 12, Glucose Level 109H, Uric Acid 3.5, Calcium Level 9.0, Total Bilirubin 0.4, Aspartate Amino Transf (AST/SGOT) 408H, Alanine Aminotransferase (ALT/SGPT) 524#H, Alkaline Phosphatase 160H, Lactate Dehydrogenase 331H, Total Protein 7.0, Albumin 3.5 Microbiology 04/18/18 Wet Prep - Final, Complete Diagnosis/Problems Diagnosis/Problems (1) Bacterial vaginosis Status: Acute (2) 35 weeks gestation of Status: Chronic (3) Elevated LFTs Status: Acute (4) Proteinuria affecting in third trimester Status: Acute Assessment & Plan: continue Betamethason. Induce after second dose Clinical Quality Measures Admission Status Admission Dx 1. proteinuria 2. LFTs 3. bacterial vaginosis 4. 35 week IUP (GBS -) Admit for observaiton. Start betamethasone. Atypical presentation of preeclampsia. Suspect LFTs may not be due to preeclampsia. Start 24 urine. Plan obs for 24-49 hours. DVT/VTE Risk/Contraindication: Risk Factor Score Per Nursin RFS Level Per Nursing on Admit: 2=Moderate PRAMOD LAWSON DO Apr 20, 2018 17:17
[2018-04-20] MEDS ORDERED: ONDANSETRON 4 MG/2 ML (SDV) Z0FRAN ONE (17:21)
[2018-04-20] MEDS ORDERED: OXYTOCIN/NORMAL SALINE 1,000 ML IV ONE (17:21)
[2018-04-20] MEDS ORDERED: DEXAMETHASONE 10 MG/ML (DECADRON) 1 ML VIAL ONE (17:21)
[2018-04-20] MEDS ORDERED: BUPIVACAINE 0.5% 30 ML (SENSORCAINE) VIAL ONE (17:22)
[2018-04-20] MEDS ORDERED: LIDOCAINE PF 2% 5 ML (XYLOCAINE) VIAL ONE ×2 (17:22→17:45)
--- NOTE | 2018-04-20 17:22 | Physician Progress Note ---
Progress Note Assessment/Plan Date Seen by Provider: Apr 20, 2018 Time Seen by Provider: 16:30 Events since last exam Pitocin to 26 units. 4 cm/70 but no progress for several hours. Head is asynclitic and not descending into pelvis, in fact is higher than last exam but applied to cervix. Suspect macrosomia and CPD in addition to failure to progress. Patient is "giving up". Will plan primary section at 36 weeks. Continue magnesium. UO has been excellent. Repeat labs are pending. Risk bleeding, infection , injury to bowel, bladder and ureter, delivery with possible nicu transfer/respiratory distress. Baby likely macrosomic. Has been screen for diabetes more than once this . no polyhydramnios. Ancef 2 grams and Azithromycin (due to ROM) given. Consents signed. [place] will be at delivery. continue Mag 12-24 hours. Repeat Labs are pending. Assessment/Plan Preeclampsia proteinuria Elevated LFTS 36 week IUP Bacterial vaginosis LGA continue induction. Continue magnesium. FWB reassuring. Anticipate . [place] aware of induction Vitals Last set of Vitals Signs Vital Signs Date Time Temp Pulse Resp B/P (MAP) Pulse Ox O2 Delivery O2 Flow Rate FiO2 04/20/18 15:35 85 18 115/68 (84) Room Air 04/20/18 14:50 98.3 04/20/18 11:05 98 I&O I&O Intake and Output 04/20/18 00:00 Intake Total 3165 ml Output Total 2200 ml Balance 965 ml Intake Oral 2100 ml IV Total 1065 ml Output Urine Total 2200 ml # Voids 6 Daily Weight Change No Labs Laboratory Tests 04/20/18 05:30: White Blood Count 22.3H, Red Blood Count 3.87L, Hemoglobin 10.3L, Hematocrit 32L , Mean Corpuscular Volume 84, Mean Corpuscular Hemoglobin 27, Mean Corpuscular Hemoglobin Concent 32, Red Cell Distribution Width 15.2H, Platelet Count 404H, Mean Platelet Volume 10.7H, Neutrophils (%) (Auto) 82H, Lymphocytes (%) (Auto) 12, Monocytes (%) (Auto) 6, Eosinophils (%) (Auto) 0, Basophils (%) (Auto) 0, Neutrophils # (Auto) 18.3H, Lymphocytes # (Auto) 2.6, Monocytes # (Auto) 1.3H, Eosinophils # (Auto) 0.0, Basophils # (Auto) 0.0, Sodium Level 135, Potassium Level 4.2, Chloride Level 104, Carbon Dioxide Level 19L, Anion Gap 12, Blood Urea Nitrogen 7, Creatinine 0.59L, Estimat Glomerular Filtration Rate > 60, BUN/ Creatinine Ratio 12, Glucose Level 109H, Uric Acid 3.5, Calcium Level 9.0, Total Bilirubin 0.4, Aspartate Amino Transf (AST/SGOT) 408H, Alanine Aminotransferase (ALT/SGPT) 524#H, Alkaline Phosphatase 160H, Lactate Dehydrogenase 331H, Total Protein 7.0, Albumin 3.5 Microbiology 04/18/18 Wet Prep - Final, Complete Diagnosis/Problems Diagnosis/Problems (1) Bacterial vaginosis Status: Acute (2) 35 weeks gestation of Status: Chronic (3) Elevated LFTs Status: Acute (4) Proteinuria affecting in third trimester Status: Acute Assessment & Plan: continue Betamethason. Induce after second dose Clinical Quality Measures Admission Status Admission Dx 1. proteinuria 2. LFTs 3. bacterial vaginosis 4. 35 week IUP (GBS -) Admit for observaiton. Start betamethasone. Atypical presentation of preeclampsia. Suspect LFTs may not be due to preeclampsia. Start 24 urine. Plan obs for 24-49 hours. DVT/VTE Risk/Contraindication: Risk Factor Score Per Nursin RFS Level Per Nursing on Admit: 2=Moderate PRAMOD LAWSON DO Apr 20, 2018 17:22
[2018-04-20] MEDS ORDERED: MEASLES,MUMPS,RUBELLA 1 EA INJ SC SCH (18:15)
[2018-04-20] MEDS ORDERED: HYDROmorphone 1 MG/ML (DILAUDID) 1 ML SYRINGE IV PRN (18:15)
[2018-04-20] MEDS ORDERED: TETANUS,DIPTH,PERTUSS P/F (BOOSTRIX) 0.5 ML VIAL IM SCH (18:15)
[2018-04-20 18:18] LABS: ALANINE AMINOTRANSFERASE 591 U/L (0-55); ALBUMIN 3.2 GM/DL (3.2-4.5); ALKALINE PHOSPHATASE 145 U/L (40-136); BILIRUBIN,TOTAL 0.3 MG/DL (0.1-1.0); BUN/CREATININE RATIO 10; CALCIUM 7.5 MG/DL (8.5-10.1); CARBON DIOXIDE 23 MMOL/L (21-32); CHLORIDE 103 MMOL/L (98-107); CREATININE SERUM 0.62 MG/DL (0.60-1.30); GFR ESTIMATED > 60; GLUCOSE 110 MG/DL (70-105); POTASSIUM 3.7 MMOL/L (3.6-5.0); SODIUM 136 MMOL/L (135-145); TOTAL PROTEIN 6.5 GM/DL (6.4-8.2)
--- NOTE | 2018-04-20 18:28 | Cesarean Section Operative ---
Procedure Procedure Note Pre-operative Diagnosis: Vicki Delaney is a 28 /Para 7 / 5, Gestational Age 36 weeks, preeclampsia, failure to progress Post-operative Diagnosis: same OP Presentation Procedure: Primary low transverse section Physician: PRAMOD LAWSON Estimated blood loss: 900 mL Disposition: stable Findings: Viable female infant, Apgars 9/9, weight 6#12oz, intact placenta, 3vc, normal appearing uterus, tubes, and ovaries. Indications:Vicki Delaney is a 28 /Para 7 / 5,Gestational Age 36 weeks, preeclampsia, failure to progress Procedure Details: The patient was seen in pre-op and the procedure was discussed with the patient in full, including the risks, benefits, and alternatives. All questions were answered. The patient was taken to the operating room and a time out was performed, verifying patient and procedure. After spinal anesthesia was placed by our anesthesia colleagues, the patient was placed in the dorsal supine with leftward tilt for uterine displacement.~ Her abdomen was then prepped and draped in the typical sterile fashion. A Pfannenstiel skin incision was made using a scalpel and carried down through the underlying fascia. The fascia was incised in the midline and tented up using Kj clamps. On both the inferior and superior fascia side the rectus muscle was dissected off bluntly and sharply using Carrasco scissors. The peritoneum was identified and entered bluntly in the midline. This was then stretched laterally using manual strength. After entering the abdominal cavity and confirming lack of intraperitoneal adhesions, an extra large Andrey retractor was placed and the lower uterine segment was visualized. A scalpel was utilized to make a low transverse uterine incision. Amniotomy was performed with an Allis clamp with return of clear fluid. The infant's head was grasped and brought to the level of the incision. Head was asynclitic with Caput and OP presentation. Fundal pressure was applied and infant was delivered without difficulty. Mouth and nares were suctioned with bulb suction. After the umbilical cord was clamped and cut, the infant was handed off to the pediatric staff. A sample of cord blood was then obtained. Cord gases sent (7.26). The placenta was delivered intact via uterine massage. The uterus was exteriorized and cleared of all clots and debris. The uterine incision was closed using 0 Vicryl in a running locked fashion. A second imbricated layer was placed using 0 Vicryl in a running fashion as well. The gutters were inspected and cleared of all clots and debris. Again the hysterotomy site was examined and hemostasis was observed. The bilateral tubes and ovaries appeared normal. The uterus was placed back into the abdominal cavity and abdominal gutters were cleared of all clots and debris. A final check of the uterine incision showed it to be hemostatic. Intercede was placed. The peritoneum was closed using 3-0 Vicryl in a running fashion. The fascia was closed with 0 Vicryl in a running fashion. The subcutaneous space was hemostatic, and irrigated. The subcutaneous space was closed with 3-0 Vicryl in several single interrupted stitches. The skin was then closed using 4-0 Monocryl in a running subcuticular fashion. The skin edges were reapproximated together and were hemostatic. A pressure dressing was applied. All sponge, lap and needle counts were correct at the end of the procedure per nursing. Vitals - Labs Vital Signs - I&O Vital Signs Date Time Temp Pulse Resp B/P (MAP) Pulse Ox O2 Delivery O2 Flow Rate FiO2 04/20/18 15:35 85 18 115/68 (84) Room Air 04/20/18 15:30 Room Air 04/20/18 15:20 65 18 108/57 (74) Room Air 04/20/18 15:15 Room Air 04/20/18 15:05 66 18 113/60 (77) Room Air 04/20/18 15:00 Room Air 04/20/18 14:50 98.3 04/20/18 14:50 76 18 121/63 (82) Room Air 04/20/18 14:45 Room Air 04/20/18 14:35 71 18 107/55 (72) Room Air 04/20/18 14:30 Room Air 04/20/18 14:20 64 18 102/55 (71) Room Air 04/20/18 14:15 Room Air 04/20/18 14:05 76 18 102/59 (73) Room Air 04/20/18 14:00 Room Air 04/20/18 13:50 72 18 110/57 (74) Room Air 04/20/18 13:45 Room Air 04/20/18 13:35 78 18 107/55 (72) Room Air 04/20/18 13:30 Room Air 8/1/18 13:20 64 18 104/57 (73) Room Air 04/20/18 13:15 Room Air 04/20/18 13:05 67 18 102/56 (71) Room Air 04/20/18 13:00 Room Air 04/20/18 12:50 62 18 104/53 (70) Room Air 04/20/18 12:45 Room Air 04/20/18 12:35 62 18 106/56 (73) Room Air 04/20/18 12:30 Room Air 04/20/18 12:20 65 18 112/54 (73) Room Air 04/20/18 12:15 Room Air 04/20/18 12:05 97.0 76 18 110/54 (72) Room Air 04/20/18 12:00 Room Air 04/20/18 11:50 63 104/53 (70) 04/20/18 11:45 Room Air 04/20/18 11:35 62 103/59 (74) 04/20/18 11:30 Room Air 04/20/18 11:20 56 111/55 (73) 04/20/18 11:15 Room Air 04/20/18 11:05 70 102/61 (75) 98 04/20/18 11:00 64 18 97 Room Air 04/20/18 10:50 67 101/57 (72) 98 04/20/18 10:45 60 18 98 Room Air 04/20/18 10:35 60 105/56 (72) 98 04/20/18 10:30 60 18 98 Room Air 04/20/18 10:20 61 105/55 (72) 97 04/20/18 10:15 66 97 Room Air 04/20/18 10:05 63 107/57 (74) 99 04/20/18 10:00 63 99 Room Air 04/20/18 09:50 96.4 65 108/58 (75) 97 04/20/18 09:45 65 97 Room Air 04/20/18 09:30 74 18 117/57 (77) 97 Room Air 04/20/18 09:15 75 112/59 (76) 98 Room Air 04/20/18 09:10 74 105/59 (74) 97 Room Air 04/20/18 09:05 80 107/56 (73) 04/20/18 09:00 78 18 110/57 (74) 96 Room Air 04/20/18 08:57 81 108/53 (71) 04/20/18 08:54 81 122/61 (81) 97 Room Air 04/20/18 08:52 81 117/59 (78) 97 Room Air 04/20/18 08:49 75 116/63 (80) 97 Room Air 04/20/18 08:45 75 18 117/71 (86) 97 Room Air 04/20/18 08:43 70 113/70 (84) 98 Room Air 04/20/18 08:40 78 117/71 (86) 98 Room Air 04/20/18 08:35 76 120/72 (88) 98 Room Air 04/20/18 08:30 69 18 119/68 (85) 99 Room Air 04/20/18 08:15 64 114/60 (78) Room Air 04/20/18 08:10 62 112/57 (75) Room Air 04/20/18 08:00 67 184/100 (128) 98 Room Air 04/20/18 07:45 97.2 64 18 112/63 (79) 98 Room Air 04/20/18 07:30 60 103/57 (72) Room Air 04/20/18 07:15 60 143/71 (95) Room Air 04/20/18 07:00 58 18 04/20/18 07:00 96.5 58 18 112/65 (81) Room Air 04/20/18 06:45 96.2 55 18 103/59 (74) Room Air 04/20/18 06:30 96.7 66 18 110/71 (84) Room Air 04/20/18 06:30 66 18 04/20/18 06:15 62 18 108/66 (80) 98 Room Air 04/20/18 06:06 70 18 04/20/18 06:00 70 18 108/63 (78) 98 Room Air 04/20/18 06:00 76 18 04/20/18 05:45 63 18 112/61 (78) 98 Room Air 04/20/18 05:30 56 18 117/60 (79) 99 Room Air 04/20/18 05:30 76 18 04/20/18 05:15 63 18 04/20/18 05:15 73 18 104/50 (68) 98 Room Air 04/20/18 05:00 66 18 04/20/18 05:00 97.1 66 18 160/94 (116) 96 Room Air 04/20/18 04:45 62 18 04/20/18 04:45 61 18 115/59 (77) 96 Room Air 04/20/18 04:30 97.7 68 18 123/63 (83) 97 Room Air 04/20/18 04:30 68 18 04/20/18 04:15 63 18 130/76 (94) Room Air 04/20/18 04:00 62 18 147/62 (90) Room Air 04/20/18 03:41 189/93 (125) 04/20/18 03:40 168/74 (105) 04/20/18 03:30 60 18 233/128 (163) Room Air 04/20/18 03:00 97.2 74 18 138/85 (102) 97 Room Air 04/20/18 02:30 67 18 106/55 (72) 97 Room Air 04/20/18 02:00 54 18 124/72 (89) 97 Room Air 04/20/18 01:30 56 18 119/63 (81) 96 Room Air 04/20/18 01:00 56 18 134/74 (94) 97 Room Air 04/20/18 00:30 57 18 119/56 (77) 96 Room Air 04/20/18 00:00 64 18 110/57 (74) 95 Room Air 04/19/18 23:30 70 18 123/65 (84) 97 Room Air 04/19/18 23:00 96.6 67 20 120/65 (83) Room Air 04/19/18 22:30 67 20 108/55 (72) Room Air 04/19/18 22:00 68 20 117/67 (84) Room Air 04/19/18 21:30 73 20 129/78 (95) Room Air 04/19/18 21:00 78 20 118/66 (83) Room Air 04/19/18 20:30 75 20 97/56 (70) Room Air 04/19/18 20:00 72 20 96/53 (67) Room Air 04/19/18 19:30 97.1 66 20 115/65 (82) Room Air 04/19/18 18:50 73 20 113/57 (75) Room Air 04/19/18 18:40 74 20 119/68 (85) Room Air 04/19/18 18:25 73 20 117/59 (78) Room Air I & O 04/20/18 07:00 Intake Total 4665 ml Output Total 4950 ml Balance -285 ml Labs Laboratory Tests 04/20/18 05:30: White Blood Count 22.3H, Red Blood Count 3.87L, Hemoglobin 10.3L, Hematocrit 32L , Mean Corpuscular Volume 84, Mean Corpuscular Hemoglobin 27, Mean Corpuscular Hemoglobin Concent 32, Red Cell Distribution Width 15.2H, Platelet Count 404H, Mean Platelet Volume 10.7H, Neutrophils (%) (Auto) 82H, Lymphocytes (%) (Auto) 12, Monocytes (%) (Auto) 6, Eosinophils (%) (Auto) 0, Basophils (%) (Auto) 0, Neutrophils # (Auto) 18.3H, Lymphocytes # (Auto) 2.6, Monocytes # (Auto) 1.3H, Eosinophils # (Auto) 0.0, Basophils # (Auto) 0.0, Sodium Level 135, Potassium Level 4.2, Chloride Level 104, Carbon Dioxide Level 19L, Anion Gap 12, Blood Urea Nitrogen 7, Creatinine 0.59L, Estimat Glomerular Filtration Rate > 60, BUN/ Creatinine Ratio 12, Glucose Level 109H, Uric Acid 3.5, Calcium Level 9.0, Total Bilirubin 0.4, Aspartate Amino Transf (AST/SGOT) 408H, Alanine Aminotransferase (ALT/SGPT) 524#H, Alkaline Phosphatase 160H, Lactate Dehydrogenase 331H, Total Protein 7.0, Albumin 3.5 04/20/18 17:49: Sodium Level 136, Potassium Level 3.7, Chloride Level 103, Carbon Dioxide Level 23, Anion Gap 10, Blood Urea Nitrogen 6L, Creatinine 0.62, Estimat Glomerular Filtration Rate > 60, BUN/Creatinine Ratio 10, Glucose Level 110H, Calcium Level 7.5L, Total Bilirubin 0.3, Aspartate Amino Transf (AST/SGOT) 464H, Alanine Aminotransferase (ALT/SGPT) 591#H, Alkaline Phosphatase 145H, Lactate Dehydrogenase 478H, Total Protein 6.5, Albumin 3.2 Microbiology 04/18/18 Wet Prep - Final, Complete PRAMOD LAWSON DO Apr 20, 2018 18:28
[2018-04-20] MEDS: DOCUSATE SODIUM 100 MG (COLACE) CAP PO SCH (19:55)
[2018-04-20] MEDS: KETOROLAC 30 MG/ML VIAL IVP SCH (20:01)
[2018-04-20] MEDS: CATHETER FLUSH 10 ML SYR IV SCH (22:00)
[2018-04-20] MEDS: HYDROcodone/APAP 5 MG/325 MG (LORTAB) TAB PO PRN (22:07)
[2018-04-21] VITALS (8 sets, daily range): BP systolic 87–115; BP diastolic 45–59
[2018-04-21] MEDS: MAGNESIUM SULFATE DRIP 500 ML IV SCH (00:46)
[2018-04-21] MEDS: KETOROLAC 30 MG/ML VIAL IVP SCH ×3 (01:56→14:34)
[2018-04-21 06:04] LABS: BASOPHILS % (AUTO) 0 % (0-10); EOSINOPHILS % (AUTO) 0 % (0-10); HEMATOCRIT 23 % (35-52); HEMOGLOBIN 7.3 G/DL (11.5-16.0); LYMPHOCYTES # (AUTO) 3.1 X 10^3 (1.0-4.0); LYMPHOCYTES % (AUTO) 15 % (12-44); MEAN CORPUSCULAR HEMOGLOBIN 26 PG (25-34); MEAN CORPUSCULAR HGB CONC 31 G/DL (32-36); MEAN CORPUSCULAR VOLUME 84 FL (80-99); MEAN PLATELET VOLUME 10.6 FL (7.4-10.4); MONOCYTES # (AUTO) 1.8 X 10^3 (0.0-1.0); MONOCYTES % (AUTO) 9 % (0-12); NEUTROPHILS # (AUTO) 15.4 X 10^3 (1.8-7.8); NEUTROPHILS % (AUTO) 76 % (42-75); PLATELET COUNT 394 10^3/uL (130-400); RED BLOOD COUNT 2.79 10^6/uL (4.35-5.85); RED CELL DISTRIBUTION WIDTH 15.2 % (10.0-14.5); WHITE BLOOD COUNT 20.4 10^3/uL (4.3-11.0)
[2018-04-21 06:29] LABS: ALANINE AMINOTRANSFERASE 474 U/L (0-55); ALBUMIN 2.7 GM/DL (3.2-4.5); ALKALINE PHOSPHATASE 115 U/L (40-136); BILIRUBIN,TOTAL 0.2 MG/DL (0.1-1.0); BUN/CREATININE RATIO 16; CALCIUM 6.8 MG/DL (8.5-10.1); CARBON DIOXIDE 21 MMOL/L (21-32); CHLORIDE 107 MMOL/L (98-107); CREATININE SERUM 0.58 MG/DL (0.60-1.30); GFR ESTIMATED > 60; GLUCOSE 105 MG/DL (70-105); POTASSIUM 4.1 MMOL/L (3.6-5.0); SODIUM 135 MMOL/L (135-145); TOTAL PROTEIN 5.2 GM/DL (6.4-8.2)
[2018-04-21] MEDS: DOCUSATE SODIUM 100 MG (COLACE) CAP PO SCH ×2 (08:16→20:15)
[2018-04-21] MEDS: FERROUS SULF 325 MG (IRON) TAB PO SCH (08:16)
[2018-04-21] MEDS: HYDROcodone/APAP 5 MG/325 MG (LORTAB) TAB PO PRN ×2 (08:16→12:52)
[2018-04-21] MEDS: metroNIDAZOLE 500 MG (FLAGYL) TAB PO SCH ×3 (08:17→20:15)
--- NOTE | 2018-04-21 13:48 | Anesthesia-Regional Post-Op ---
Regional Patient Condition Mental Status: Alert, Oriented x3 Circulation: Same as Pre-Op Headache: Absent Sensation: Full Recovery Motor Block: Absent Post Op Complications Complications None Follow Up Care/Instructions Patient Instructions None needed. Anesthesia/Patient Condition Patient is doing well, no complaints, stable vital signs, no apparent adverse anesthesia problems. MITCH ERNANDEZ DO Apr 21, 2018 13:48
--- NOTE | 2018-04-21 16:30 | Postpartum Progress Note ---
Post Op Post-operative Day #1 s/p PLTCS Severe preeclampsia/Elevated LFTs/proteinuria Subjective: Patient is without complaints. Ambulating, voiding after pozo removed. Tolerating a regular diet without nausea or vomiting. Normal lochia. Pain is well controlled with oral pain medications. Passing flatus. Magnesium contiued post op after delivery until 0600. Great UO. Objective: Laboratory Tests Test 04/20/18 17:49 04/21/18 05:51 Range/Units Sodium Level 136 135 135-145 MMOL/L Potassium Level 3.7 4.1 3.6-5.0 MMOL/L Chloride Level 103 107 98-107 MMOL/L Carbon Dioxide Level 23 21 21-32 MMOL/L Anion Gap 10 7 5-14 MMOL/L Blood Urea Nitrogen 6 L 9 7-18 MG/DL Creatinine 0.62 0.58 L 0.60-1.30 MG/DL Estimat Glomerular Filtration Rate > 60 > 60 BUN/Creatinine Ratio 10 16 Glucose Level 110 H 105 70-105 MG/DL Calcium Level 7.5 L 6.8 L 8.5-10.1 MG/DL Total Bilirubin 0.3 0.2 0.1-1.0 MG/DL Aspartate Amino Transf (AST/SGOT) 464 H 315 H 5-34 U/L Alanine Aminotransferase (ALT/SGPT) 591 #H 474 H 0-55 U/L Alkaline Phosphatase 145 H 115 40-136 U/L Lactate Dehydrogenase 478 H 445 H 125-220 U/L Total Protein 6.5 5.2 L 6.4-8.2 GM/DL Albumin 3.2 2.7 L 3.2-4.5 GM/DL White Blood Count 20.4 H 4.3-11.0 10^3/uL Red Blood Count 2.79 L 4.35-5.85 10^6/uL Hemoglobin 7.3 #L 11.5-16.0 G/DL Hematocrit 23 L 35-52 % Mean Corpuscular Volume 84 80-99 FL Mean Corpuscular Hemoglobin 26 25-34 PG Mean Corpuscular Hemoglobin Concent 31 L 32-36 G/DL Red Cell Distribution Width 15.2 H 10.0-14.5 % Platelet Count 394 130-400 10^3/uL Mean Platelet Volume 10.6 H 7.4-10.4 FL Neutrophils (%) (Auto) 76 H 42-75 % Lymphocytes (%) (Auto) 15 12-44 % Monocytes (%) (Auto) 9 0-12 % Eosinophils (%) (Auto) 0 0-10 % Basophils (%) (Auto) 0 0-10 % Neutrophils # (Auto) 15.4 H 1.8-7.8 X 10^3 Lymphocytes # (Auto) 3.1 1.0-4.0 X 10^3 Monocytes # (Auto) 1.8 H 0.0-1.0 X 10^3 Eosinophils # (Auto) 0.0 0.0-0.3 10^3/uL Basophils # (Auto) 0.0 0.0-0.1 10^3/uL Physical Exam: General - Alert and oriented, no apparent distress Abdomen - Soft, appropriately tender to palpation, non-distended, fundus firm at umbilicus Incision - clean, dry and intact; no erythema or induration, no drainage Extremities - 1+ edema, negative Palomo's bilaterally Assessment: 1. post-operative day # 1, status post PLTCS. Recovering well, hemodynamically stable 2. Severe preeclampsia 3. Acute blood loss anemia/ hemolysis ? On iron Plan: Routine post-operative care. Encourage breast feeding. Encourage ambulation. VTE prophylaxis: SCDs. Ferrous sulfate supplementation. Plan for discharge Wednesday or Wednesday. BP controlled, Labs improving slowly. Vitals - Labs Vital Signs - I&O Vital Signs Date Time Temp Pulse Resp B/P (MAP) Pulse Ox O2 Delivery O2 Flow Rate FiO2 04/21/18 12:50 98.2 20 20 101/47 (65) 98 Room Air 04/21/18 08:15 97.6 80 18 111/56 (74) 98 Room Air 04/21/18 06:10 64 16 04/21/18 05:00 63 16 04/21/18 03:00 49 18 04/21/18 02:00 51 15 04/21/18 00:45 54 18 04/21/18 00:05 65 19 04/20/18 23:01 68 17 04/20/18 22:13 70 18 04/20/18 21:40 Room Air 04/20/18 21:00 98.2 60 16 102/48 (66) 98 Room Air 04/20/18 21:00 60 16 04/20/18 19:55 98.3 56 18 88/51 (63) 100 Room Air 04/20/18 19:55 56 18 04/20/18 17:15 Room Air 04/20/18 17:05 63 18 113/64 (80) Room Air 04/20/18 17:00 Room Air 04/20/18 16:50 71 18 116/65 (82) Room Air 04/20/18 16:45 Room Air 04/20/18 16:35 75 18 113/60 (77) Room Air 04/20/18 16:30 Room Air I & O 04/21/18 07:00 Intake Total 5150 ml Output Total 3650 ml Balance 1500 ml Labs Laboratory Tests 04/20/18 17:49: Sodium Level 136, Potassium Level 3.7, Chloride Level 103, Carbon Dioxide Level 23, Anion Gap 10, Blood Urea Nitrogen 6L, Creatinine 0.62, Estimat Glomerular Filtration Rate > 60, BUN/Creatinine Ratio 10, Glucose Level 110H, Calcium Level 7.5L, Total Bilirubin 0.3, Aspartate Amino Transf (AST/SGOT) 464H, Alanine Aminotransferase (ALT/SGPT) 591#H, Alkaline Phosphatase 145H, Lactate Dehydrogenase 478H, Total Protein 6.5, Albumin 3.2 04/21/18 05:51: Sodium Level 135, Potassium Level 4.1, Chloride Level 107, Carbon Dioxide Level 21, Anion Gap 7, Blood Urea Nitrogen 9, Creatinine 0.58L, Estimat Glomerular Filtration Rate > 60, BUN/Creatinine Ratio 16, Glucose Level 105, Calcium Level 6.8L, Total Bilirubin 0.2, Aspartate Amino Transf (AST/SGOT) 315H, Alanine Aminotransferase (ALT/SGPT) 474H, Alkaline Phosphatase 115, Lactate Dehydrogenase 445H, Total Protein 5.2L, Albumin 2.7L, White Blood Count 20.4H, Red Blood Count 2.79L, Hemoglobin 7.3#L, Hematocrit 23L, Mean Corpuscular Volume 84, Mean Corpuscular Hemoglobin 26, Mean Corpuscular Hemoglobin Concent 31L, Red Cell Distribution Width 15.2H, Platelet Count 394, Mean Platelet Volume 10.6H, Neutrophils (%) (Auto) 76H, Lymphocytes (%) (Auto) 15, Monocytes ( %) (Auto) 9, Eosinophils (%) (Auto) 0, Basophils (%) (Auto) 0, Neutrophils # ( Auto) 15.4H, Lymphocytes # (Auto) 3.1, Monocytes # (Auto) 1.8H, Eosinophils # ( Auto) 0.0, Basophils # (Auto) 0.0 Microbiology 04/18/18 Wet Prep - Final, Complete PRAMOD LAWSON DO Apr 21, 2018 16:30
[2018-04-21] MEDS ORDERED: IBUPROFEN 600 MG (MOTRIN) TAB PO ONE (20:07)
[2018-04-21] MEDS: IBUPROFEN 600 MG (MOTRIN) TAB PO SCH (20:15)
[2018-04-22] VITALS: BP 106/62
[2018-04-22] MEDS: CATHETER FLUSH 10 ML SYR IV SCH ×3 (00:39→10:31)
[2018-04-22] MEDS ORDERED: IBUPROFEN 600 MG (MOTRIN) TAB PO ONE (04:42)
[2018-04-22] MEDS: IBUPROFEN 600 MG (MOTRIN) TAB PO SCH (04:51)
[2018-04-22] MEDS: FERROUS SULF 325 MG (IRON) TAB PO SCH (06:20)
[2018-04-22 06:26] LABS: BASOPHILS % (AUTO) 0 % (0-10); EOSINOPHILS % (AUTO) 0 % (0-10); HEMATOCRIT 25 % (35-52); HEMOGLOBIN 7.9 G/DL (11.5-16.0); LYMPHOCYTES # (AUTO) 3.3 X 10^3 (1.0-4.0); LYMPHOCYTES % (AUTO) 20 % (12-44); MEAN CORPUSCULAR HEMOGLOBIN 27 PG (25-34); MEAN CORPUSCULAR HGB CONC 32 G/DL (32-36); MEAN CORPUSCULAR VOLUME 85 FL (80-99); MEAN PLATELET VOLUME 10.9 FL (7.4-10.4); MONOCYTES # (AUTO) 1.8 X 10^3 (0.0-1.0); MONOCYTES % (AUTO) 11 % (0-12); NEUTROPHILS # (AUTO) 11.5 X 10^3 (1.8-7.8); NEUTROPHILS % (AUTO) 69 % (42-75); PLATELET COUNT 386 10^3/uL (130-400); RED BLOOD COUNT 2.91 10^6/uL (4.35-5.85); RED CELL DISTRIBUTION WIDTH 15.1 % (10.0-14.5); WHITE BLOOD COUNT 16.7 10^3/uL (4.3-11.0)
[2018-04-22 06:43] LABS: ALANINE AMINOTRANSFERASE 380 U/L (0-55); ALBUMIN 2.9 GM/DL (3.2-4.5); ALKALINE PHOSPHATASE 98 U/L (40-136); BILIRUBIN,TOTAL 0.2 MG/DL (0.1-1.0); BUN/CREATININE RATIO 14; CALCIUM 8.3 MG/DL (8.5-10.1); CARBON DIOXIDE 22 MMOL/L (21-32); CHLORIDE 108 MMOL/L (98-107); CREATININE SERUM 0.56 MG/DL (0.60-1.30); GFR ESTIMATED > 60; GLUCOSE 77 MG/DL (70-105); POTASSIUM 4.2 MMOL/L (3.6-5.0); SODIUM 137 MMOL/L (135-145); TOTAL PROTEIN 5.5 GM/DL (6.4-8.2)
--- NOTE | 2018-04-22 07:44 | Postpartum Progress Note ---
Post Op Post-operative Day #2 s/p PLTCS, severe preeclampsia Subjective: Patient is without complaints. Ambulating, voiding after pozo removed. Tolerating a regular diet without nausea or vomiting. Normal lochia. Pain is well controlled with oral pain medications. Passing flatus. really wanting to go home, no complaints. Objective: 04/22/18 00:00 Temp 97.6 Pulse 72 Resp 18 B/P (MAP) 106/62 (77) Pulse Ox 98 O2 Delivery Room Air 04/22/18 00:00 Intake Total 2300 ml Output Total 1400 ml Balance 900 ml Laboratory Tests Test 04/22/18 06:02 Range/Units White Blood Count 16.7 H 4.3-11.0 10^3/uL Red Blood Count 2.91 L 4.35-5.85 10^6/uL Hemoglobin 7.9 L 11.5-16.0 G/DL Hematocrit 25 L 35-52 % Mean Corpuscular Volume 85 80-99 FL Mean Corpuscular Hemoglobin 27 25-34 PG Mean Corpuscular Hemoglobin Concent 32 32-36 G/DL Red Cell Distribution Width 15.1 H 10.0-14.5 % Platelet Count 386 130-400 10^3/uL Mean Platelet Volume 10.9 H 7.4-10.4 FL Neutrophils (%) (Auto) 69 42-75 % Lymphocytes (%) (Auto) 20 12-44 % Monocytes (%) (Auto) 11 0-12 % Eosinophils (%) (Auto) 0 0-10 % Basophils (%) (Auto) 0 0-10 % Neutrophils # (Auto) 11.5 H 1.8-7.8 X 10^3 Lymphocytes # (Auto) 3.3 1.0-4.0 X 10^3 Monocytes # (Auto) 1.8 H 0.0-1.0 X 10^3 Eosinophils # (Auto) 0.0 0.0-0.3 10^3/uL Basophils # (Auto) 0.0 0.0-0.1 10^3/uL Sodium Level 137 135-145 MMOL/L Potassium Level 4.2 3.6-5.0 MMOL/L Chloride Level 108 H 98-107 MMOL/L Carbon Dioxide Level 22 21-32 MMOL/L Anion Gap 7 5-14 MMOL/L Blood Urea Nitrogen 8 7-18 MG/DL Creatinine 0.56 L 0.60-1.30 MG/DL Estimat Glomerular Filtration Rate > 60 BUN/Creatinine Ratio 14 Glucose Level 77 70-105 MG/DL Calcium Level 8.3 L 8.5-10.1 MG/DL Total Bilirubin 0.2 0.1-1.0 MG/DL Aspartate Amino Transf (AST/SGOT) 186 H 5-34 U/L Alanine Aminotransferase (ALT/SGPT) 380 H 0-55 U/L Alkaline Phosphatase 98 40-136 U/L Lactate Dehydrogenase 248 H 125-220 U/L Total Protein 5.5 L 6.4-8.2 GM/DL Albumin 2.9 L 3.2-4.5 GM/DL LAbs are improving Physical Exam: General - Alert and oriented, no apparent distress Abdomen - Soft, appropriately tender to palpation, non-distended, fundus firm at umbilicus Incision - clean, dry and intact; no erythema or induration, no drainage Extremities - no edema, negative Palomo's bilaterally Assessment: 1 post-operative day # 2, status post RLTCS. Recovering well, hemodynamically stable 2. Severe preeclampsia, s/p Mg x 12 hours after delivery excellent diuresis, LFTS improving 3. Acute blood loss anemia/ hemolysis - stable, on iron 4. BV continue flagyl Plan: Routine post-operative care. Encourage breast feeding. Encourage ambulation. VTE prophylaxis: SCDs. Ferrous sulfate supplementation. Plan for discharge later today or tomorrow Vitals - Labs Vital Signs - I&O Vital Signs Date Time Temp Pulse Resp B/P (MAP) Pulse Ox O2 Delivery O2 Flow Rate FiO2 04/22/18 00:00 97.6 72 18 106/62 (77) 98 Room Air 04/21/18 12:50 98.2 20 20 101/47 (65) 98 Room Air 04/21/18 08:15 97.6 80 18 111/56 (74) 98 Room Air I & O 04/22/18 07:00 Intake Total 2800 ml Output Total 1400 ml Balance 1400 ml Labs Laboratory Tests 04/22/18 06:02: White Blood Count 16.7H, Red Blood Count 2.91L, Hemoglobin 7.9L, Hematocrit 25L , Mean Corpuscular Volume 85, Mean Corpuscular Hemoglobin 27, Mean Corpuscular Hemoglobin Concent 32, Red Cell Distribution Width 15.1H, Platelet Count 386, Mean Platelet Volume 10.9H, Neutrophils (%) (Auto) 69, Lymphocytes (%) (Auto) 20 , Monocytes (%) (Auto) 11, Eosinophils (%) (Auto) 0, Basophils (%) (Auto) 0, Neutrophils # (Auto) 11.5H, Lymphocytes # (Auto) 3.3, Monocytes # (Auto) 1.8H, Eosinophils # (Auto) 0.0, Basophils # (Auto) 0.0, Sodium Level 137, Potassium Level 4.2, Chloride Level 108H, Carbon Dioxide Level 22, Anion Gap 7, Blood Urea Nitrogen 8, Creatinine 0.56L, Estimat Glomerular Filtration Rate > 60, BUN/ Creatinine Ratio 14, Glucose Level 77, Calcium Level 8.3L, Total Bilirubin 0.2, Aspartate Amino Transf (AST/SGOT) 186H, Alanine Aminotransferase (ALT/SGPT) 380H , Alkaline Phosphatase 98, Lactate Dehydrogenase 248H, Total Protein 5.5L, Albumin 2.9L Microbiology 04/18/18 Wet Prep - Final, Complete PRAMOD LAWSON DO Apr 22, 2018 07:44
[2018-04-22] MEDS ORDERED: METR500T21 PO (07:48)
[2018-04-22] MEDS ORDERED: OXYC10TA7 PO (07:48)
[2018-04-22] MEDS ORDERED: IBUP-844 PO (07:48)
[2018-04-22] MEDS ORDERED: FERR325T18 PO (07:48)
--- NOTE | 2018-04-22 07:51 | Discharge Inst-Women's Service ---
Discharge Inst-Women's Serv Depart Medication/Instructions New, Converted or Re-Newed RX: RX on Chart Final Diagnosis severe preeclampsia acute blood loss anemia elevated LFTs proteinuria failure to progress bacterial vaginosis Primary low transverse section Consults/Follow Up Additional Follow Up: Yes (1 week with Luzma for incision check and labs (CMP, CBC, LDH), 6 weeks for post follow up with Angelo) Activity Activity: Activity as Tolerated (no lifting over 25 lbs) Driving Instructions: No Driving for 1 Week NO SMOKING: NO SMOKING Nothing Inside Vagina: No Douching, No Arthur, No Tampons Diet Discharge Diet: No Restrictions Symptoms to Report to : Bleeding Excessive, Pain Increased, Urine Color Change, Fever Over 101 Degrees F, Vaginal Bleeding Increase, Cramps in Feet or Legs, Vaginal Discharge Foul For Any Problems or Questions: Contact Your Physician Skin/Wound Care Infection Signs and Symptoms: Increased Redness, Foul Odor of Wound, Increased Drainage, Skin Itchy or Has a Rash, Increased Swelling, Temperature Above 101 F Operative Area Clean and Dry: Keep Incision Clean/Dry Stitches/Santo/Dermabond: Dermabond Bathing Instructions: PRAMOD Shane DO Apr 22, 2018 07:50
[2018-04-22 08:00] VITALS: BP 142/95
[2018-04-22] MEDS: metroNIDAZOLE 500 MG (FLAGYL) TAB PO SCH ×3 (08:39→10:31)
[2018-04-22] MEDS: DOCUSATE SODIUM 100 MG (COLACE) CAP PO SCH (08:39)
[2018-04-22] MEDS: LACTATED RINGERS 1,000 ML IV SCH ×3 (10:10→10:31)
[2018-04-22 11:31] VITALS: BP 142/95
== END 2018-04-22 11:35 | disposition home or self-care (01) | DRG 765 ==
LOC: EDSTATUS 11:59 → LDRP 14:45 → WSo 14:45 → LDRP 17:57 → OBSVTOIN 04-19 10:15 → LDRP 04-19 10:15 → UNDOADMIN 04-19 10:15 → WSo 04-19 10:15 → LDRP 04-19 10:15 → UNDODISIN 04-22 11:35
PROVIDERS: ADMIT Obstetrics & Gynecology; ATTEND Obstetrics & Gynecology
PROC: 3E033VJ Introduction of Other Hormone into Peripheral Vein, Percutaneous Approach (ICD-10-PCS; 2018-04-20)
PROC: 10D00Z1 Extraction of Products of Conception, Low, Open Approach (ICD-10-PCS; principal; 2018-04-20 17:23)
DX: O12.13 Gestational proteinuria, third trimester (principal); O14.13 Severe pre-eclampsia, third trimester; O23.593 Infection of other part of genital tract in pregnancy, third trimester; O99.03 Anemia complicating the puerperium; D62 Acute posthemorrhagic anemia; O64.0XX0 Obstructed labor due to incomplete rotation of fetal head, not applicable or unspecified; R74.8 Abnormal levels of other serum enzymes; R74.0 Nonspecific elevation of levels of transaminase and lactic acid dehydrogenase [LDH]; O99.343 Other mental disorders complicating pregnancy, third trimester; F41.9 Anxiety disorder, unspecified; O99.333 Smoking (tobacco) complicating pregnancy, third trimester; F17.210 Nicotine dependence, cigarettes, uncomplicated; Z3A.36 36 weeks gestation of pregnancy; Z37.0 Single live birth; Z23 Encounter for immunization
CPT/HCPCS: 36415; 76700; 76805; 76819; 80053; 80074; 81000; 82570; 82575; 83615; 84156; 84550; 85007; 85025; 85027; 86850; 86900; 86901; 87210; 90707; 94664; 99212; G0378

== ENCOUNTER 2018-06-30 14:11 | Emergency (ER) | payer MEDICAID ==
[~2018-06-30] VITALS: Ht 160 cm; Wt 84.1 kg
[~2018-06-30 14:11] MED LIST changes: +HYDR-4226 PO; -HYDR-757 PO; +IBUP-844 PO; +METR500T21 PO; +OXYC10TA7 PO
--- NOTE | 2018-06-30 15:14 | ED Upper Extremity ---
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 DENIES ANY OTHER PAIN, NO LOC. Nursing Sepsis Screen: No Definite Risk Source: patient Exam Limitations: no limitations History of Present Illness Date Seen by Provider: Jun 30, 2018 Time Seen by Provider: 15:13 Initial Comments To ER with right arm pain from the shoulder to the fingers after a fall at home landing on the right shoulder. Did not hit her head and denies any other injury. Onset: just prior to arrival Severity: moderate Pain/Injury Location: right shoulder Method of Injury: fell Modifying Factors: Worse With Movement Allergies and Home Medications Allergies Coded Allergies: No Known Drug Allergies (Verified , 12/20/17) Home Medications Ferrous Sulfate 325 Mg Tablet, 325 MG PO DAILY, (Reported) Ferrous Sulfate 325 Mg Tablet, 325 MG PO BID with vitamin C or orange juice Prescribed by: PRAMOD LAWSON on 04/22/1848 Ibuprofen 600 Mg Tablet, 600 MG PO Q6H Prescribed by: PRAMOD LAWSON on 04/22/18 0748 Metronidazole 500 Mg Tablet, 500 MG PO TID Prescribed by: PRAMOD LAWSON on 04/22/1848 Oxycodone HCl 10 Mg Tablet, 10 MG PO TID PRN for pain Prescribed by: PRAMOD LAWSON on 04/22/1848 Patient Home Medication List Home Medication List Reviewed: Yes Review of Systems Constitutional: see HPI EENTM: see HPI Respiratory: no symptoms reported Cardiovascular: no symptoms reported Genitourinary: see HPI Musculoskeletal: see HPI Skin: no symptoms reported Psychiatric/Neurological: No Symptoms Reported Past Rdwqwhj-Ietmup-Dvsien Hx Patient Social History Alcohol Use: Denies Use Recreational Drug Use: No Drug of Choice: Methamphetamines Type Used: Cigarettes Former Smoker, Quit: Feb 18, 2018 2nd Hand Smoke Exposure: Yes Recent Foreign Travel: No Contact w/Someone Who Travel: No Recent Infectious Disease Expo: No Recent Hopitalizations: No Immunizations Up To Date Tetanus Booster (TDap): Unknown PED Vaccines UTD: No Date of Influenza Vaccine: Aug 20, 2014 Seasonal Allergies Seasonal Allergies: No Past Medical History Surgeries: Yes (ALL TEETH REMOVED) Section, Gallbladder Respiratory: No Cardiac: No Neurological: No Reproductive Disorders: No Female Reproductive Disorders: Denies Genitourinary: No Gastrointestinal: Yes (S/P [place]) Gall Bladder Disease Musculoskeletal: No Endocrine: No HEENT: No Cancer: No Psychosocial: Yes Sleep Difficulties, Anxiety Integumentary: No Blood Disorders: No Adverse Reaction/Blood Tranf: No Family Medical History FH: spina bifida G8 BROTHER Cancer Physical Exam Vital Signs Vital Signs - First Documented 06/30/18 14:51 Temp 98.2 Pulse 96 Resp 20 B/P (MAP) 120/85 (97) Pulse Ox 99 O2 Delivery Room Air Capillary Refill : Less Than 3 Seconds Height, Weight, BMI Height: 5'3.00" Weight: 185lbs. 8.0oz. 84.070732tw; 44.0 BMI Method:Stated General Appearance: WD/WN, no apparent distress HEENT: PERRL/EOMI, normal ENT inspection Neck: non-tender, full range of motion Gastrointestinal: non tender, soft Shoulder: normal inspection, limited ROM, pain Elbow/Forearm: Right, limited ROM, pain Wrist: Yes normal inspection, Yes pain, Yes soft tissue tenderness Hand: normal inspection Neurologic/Psychiatric: alert, normal mood/affect, oriented x 3 Skin: normal color, warm/dry (.) Progress/Results/Core Measures Results/Orders My Orders Orders - ELVER MOMIN APRN Shoulder, Right, 3 Views (06/30/18 15:08) Humerus, Right, 2 Views (06/30/18 15:08) Forearm, Right, 2 Views (06/30/18 15:08) Vital Signs/I&O 06/30/18 14:51 Temp 98.2 Pulse 96 Resp 20 B/P (MAP) 120/85 (97) Pulse Ox 99 O2 Delivery Room Air Blood Pressure Mean: 97 Departure Impression Primary Impression: Contusion of right arm Disposition: 01 HOME, SELF-CARE Condition: Stable Departure-Patient Inst. Decision time for Depature: 15:49 Referrals: [facility] (PCP/Family) Primary Care Physician Patient Instructions: Contusion (DC) Add. Discharge Instructions: 1. Wear the sling as needed for comfort 2. Tylenol and ibuprofen as needed for pain control. 3. If pain persists into next week follow-up with your regular doctor to discuss an MRI of the shoulder. All discharge instructions reviewed with patient and/or family. Voiced understanding. Work/School Note: Work Release Form Date Seen in the Emergency Department: Jun 30, 2018 Return to Work: Jul 01, 2018 ELVER MOMIN APRN Jun 30, 2018 15:14
--- NOTE | 2018-06-30 15:45 | Diagnostic Imaging Report ---
INDICATION: Fall with right forearm pain. AP and lateral views of the right forearm are obtained. No fracture or acute bony abnormality is seen. IMPRESSION: Negative right forearm. Dictated by: Dictated on workstation # [id number]
--- NOTE | 2018-06-30 15:46 | Diagnostic Imaging Report ---
INDICATION: Right shoulder pain post fall. AP, oblique, and transscapular views of the right shoulder are obtained. No fracture or dislocation is seen. There is no acute bony abnormality. Glenohumeral joint and AC joint appear unremarkable. IMPRESSION: Negative right shoulder. Dictated by: Dictated on workstation # [id number]
--- NOTE | 2018-06-30 15:49 | Diagnostic Imaging Report ---
INDICATION: Fall with right arm pain. AP and lateral views of the right humerus are obtained. No fracture or acute bony abnormality is seen. IMPRESSION: Negative right humerus. Dictated by: Dictated on workstation # [id number]
[2018-06-30 15:55] VITALS: BP 120/85
== END 2018-06-30 15:55 | disposition home or self-care (01) ==
LOC: EDUNIT# 14:11 → ER 14:12
DX: S40.021A Contusion of right upper arm, initial encounter (principal); F41.9 Anxiety disorder, unspecified; Z87.891 Personal history of nicotine dependence; Z98.890 Other specified postprocedural states; Z87.448 Personal history of other diseases of urinary system; Z90.49 Acquired absence of other specified parts of digestive tract; W19.XXXA Unspecified fall, initial encounter; Y92.009 Unspecified place in unspecified non-institutional (private) residence as the place of occurrence of the external cause
CPT/HCPCS: 73030; 73060; 73090

== ENCOUNTER 2020-07-30 13:38 | Outpatient (CLI) | payer MEDICAID ==
[~2020-07-30] VITALS: Ht 162.6 cm; Wt 99.6 kg
[~2020-07-30 13:38] MED LIST changes: -LIDO15SO2 MM; +LIDO20SO23 MM; +METR-145 PO; -METR500T21 PO; +QUET100T33; -QUET100T69
--- NOTE | 2020-07-30 13:43 | NUR ---
MIKE NUNEZ presented to unit via w/c from ED, accompanied by s.o, with c/o buttock pain and pressure. MIKE NUNEZ weighed, gowned, voided, and to bed. EFHM and TOCO applied, VS taken. MIKE NUNEZ oriented to bed controls, call light, TV, heat, and A/C controls.
[2020-07-30 13:54] VITALS: BP 129/74
[2020-07-30 14:30] VITALS: BP 129/74
[2020-07-30 14:33] LABS: BILIRUBIN,URINE 1+ (NEGATIVE); CLARITY,URINE CLEAR; COLOR,URINE BROWN; GLUCOSE, URINE (UA) NEGATIVE (NEGATIVE); KETONES,URINE TRACE (NEGATIVE); LEUKOCYTE ESTERASE ,URINE NEGATIVE (NEGATIVE); NITRITE,URINE NEGATIVE (NEGATIVE); PH,URINE 6.5 (5-9); PROTEIN,URINE 2+ (NEGATIVE)
[2020-07-30 14:46] LABS: AMORPHOUS SEDIMENT,UR LARGE AMOR URATES /LPF; BACTERIA,URINE FEW /HPF
[2020-07-30 14:56] VITALS: BP 129/74
[2020-07-30 14:56] LABS: AMPHETAMINE SCREEN, URINE POSITIVE (NEGATIVE); BARBITURATE SCREEN URINE NEGATIVE (NEGATIVE); BENZODIAZEPINES SCREEN URINE NEGATIVE (NEGATIVE); CANNABINOID SCREEN, URINE POSITIVE (NEGATIVE); COCAINE SCREEN URINE NEGATIVE (NEGATIVE); METHADONE STAT NEGATIVE (NEGATIVE); METHAMPHETAMINE SCREEN URINE S POSITIVE (NEGATIVE); OPIATE SCREEN URINE NEGATIVE (NEGATIVE); OXYCODONE STAT NEGATIVE (NEGATIVE); PROPOXYPHENE STAT NEGATIVE (NEGATIVE); TRICYCLIC ANTIDEPRESSANTS SCRE NEGATIVE (NEGATIVE)
--- NOTE | 2020-07-30 15:10 | NUR ---
DR. GARCIA NOTIFIED OF PT'S ARRIVAL, COMPLAINT, UA RESULTS, DRUG SCREEN RESULTS, REACTIVE NST,OCC CTX, AND ATTEMPT TO CONTACT DR. LAWSON. ORDER RECEIVED TO DISCHARGE.
--- NOTE | 2020-07-30 15:23 | NUR ---
DR. LAWSON RETURNED CALL. HAD BEEN IN AN APPOINTMENT. UPDATED ON PT. STATES HAS NOT SEEN THIS PT THIS . CONFIRMED WITH PT.
[2020-07-30 15:37] VITALS: BP 129/74
--- NOTE | 2020-07-30 15:37 | NUR ---
DISCHARGE INSTRUCTIONS REVIEWED WITH COPY TO PT. STATES UNDERSTANDING OF ALL INSTRUCTIONS AND NEED TO F/U SCHEDULED AND NEEDED. DISMISSED AMB FROM WS INSTABLE CONDITION.
--- NOTE | 2020-07-31 08:49 | Physician Query-Final Dx ---
TASHIA MCFARLAND 07/31/20 0849: Clinic Account Progress/Dx Physician Query: Please give diagnosis Please include # weeks gestation Date of Service Jul 30, 2020 at 13:38 LEISA GARCIA DO 08/01/20 0816: Clinic Account Progress/Dx DIAGNOSIS: Diagnosis 37 week IUP Limited care Hx of Ilicit drug use Irregular uterine contractions Dehydration Previous TASHIA MCFARLAND Jul 31, 2020 08:49 LEISA GARCIA DO Aug 01, 2020 08:16
== END 2020-07-30 15:37 | disposition home or self-care (01) ==
LOC: WSo 13:38 → LDRP 13:39 → WSo 15:37
PROVIDERS: ATTEND Obstetrics & Gynecology
DX: O26.893 Other specified pregnancy related conditions, third trimester (principal); M79.18 Myalgia, other site; Z3A.38 38 weeks gestation of pregnancy
CPT/HCPCS: 80306; 81000; 87088; 99213

== ENCOUNTER 2020-08-02 05:48 | Outpatient (RCR) | payer MEDICAID ==
[~2020-08-02 05:48] MED LIST changes: -CLIN300C11 PO; +CLIN300C12 PO
[2020-08-02] MEDS ORDERED: MICONAZOLE NITRATE 2% TP (15:10)
[2020-08-02] MEDS ORDERED: MUPI22OI2 TOP (15:10)
[2020-08-02] MEDS ORDERED: IBUP-844 PO (15:10)
[2020-08-02] MEDS ORDERED: OXC5T PO (15:10)
[2020-08-02] MEDS ORDERED: DCS100C PO (15:10)
== END 2020-10-31 | disposition home or self-care (01) ==
LOC: PREOP 05:48
PROVIDERS: ATTEND Obstetrics & Gynecology
DX: Z01.818 Encounter for other preprocedural examination (principal)

== ENCOUNTER 2020-08-02 11:00 | Inpatient (IN) | payer MEDICAID ==
[~2020-08-02] VITALS: Ht 162.6 cm; Wt 100.1 kg
[~2020-08-02 11:00] MED LIST changes: +CLIN300C11 PO; -CLIN300C12 PO
--- NOTE | 2020-08-02 11:00 | NUR ---
MIKE NUNEZ presented to unit via ambulation from ED, accompanied by friend, for REPEAT C SECTION. MIKE NUNEZ weighed, gowned, voided, and to bed. EFHM and TOCO applied, VS taken. MIKE NUNEZ oriented to bed controls, call light, TV, heat, and A/C controls.
[2020-08-02] MEDS ORDERED: METOCLOPRAMIDE INJ 10 MG/2 ML (REGLAN) IV ONE (11:30)
[2020-08-02] MEDS ORDERED: CITRIC ACID/SOB CIT (BICITRA) 30 ML UDC PO ONE (11:30)
[2020-08-02] MEDS ORDERED: FAMOTIDINE 20MG/2ML IV (PEPCID) IV ONE (11:30)
[2020-08-02] MEDS ORDERED: CATHETER FLUSH 10 ML SYR IV PRN (11:30)
[2020-08-02 11:36] LABS: BASOPHILS # (AUTO) 0.1 10^3/uL (0.0-0.1); BASOPHILS % (AUTO) 0 % (0-10); EOSINOPHILS # (AUTO) 0.2 10^3/uL (0.0-0.3); EOSINOPHILS % (AUTO) 1 % (0-10); HEMATOCRIT 36 % (35-52); LYMPHOCYTES # (AUTO) 3.2 10^3/uL (1.0-4.0); LYMPHOCYTES % (AUTO) 19 % (12-44); MEAN CORPUSCULAR HEMOGLOBIN 26 pg (25-34); MEAN CORPUSCULAR HGB CONC 31 g/dL (32-36); MEAN CORPUSCULAR VOLUME 85 fL (80-99); MEAN PLATELET VOLUME 10.3 fL (9.0-12.2); MONOCYTES # (AUTO) 1.1 10^3/uL (0.0-1.0); MONOCYTES % (AUTO) 6 % (0-12); NEUTROPHILS # (AUTO) 12.4 10^3/uL (1.8-7.8); NEUTROPHILS % (AUTO) 72 % (42-75); PLATELET COUNT 402 10^3/uL (130-400); WHITE BLOOD COUNT 17.2 10^3/uL (4.3-11.0)
[2020-08-02] MEDS ORDERED: ceFAZolin INJECTION 1,000 MG in WATER (STERILE) FOR INJECTION 10 ML IV ONE (11:45)
[2020-08-02] MEDS ORDERED: metroNIDAZOLE 500MG/100ML IVPB 100 ML IV ONE (11:45)
[2020-08-02] MEDS: LACTATED RINGERS 1,000 ML IV PRN ×3 (12:02→13:47)
[2020-08-02 12:13] LABS: AMPHETAMINE SCREEN, URINE NEGATIVE (NEGATIVE); BARBITURATE SCREEN URINE NEGATIVE (NEGATIVE); BENZODIAZEPINES SCREEN URINE NEGATIVE (NEGATIVE); CANNABINOID SCREEN, URINE POSITIVE (NEGATIVE); COCAINE SCREEN URINE NEGATIVE (NEGATIVE); METHADONE STAT NEGATIVE (NEGATIVE); METHAMPHETAMINE SCREEN URINE S NEGATIVE (NEGATIVE); OPIATE SCREEN URINE NEGATIVE (NEGATIVE); OXYCODONE STAT NEGATIVE (NEGATIVE); PROPOXYPHENE STAT NEGATIVE (NEGATIVE); TRICYCLIC ANTIDEPRESSANTS SCRE NEGATIVE (NEGATIVE)
[2020-08-02 12:13] LABS: BAND NEUTROPHILS 2 %; BASOPHILS % (MANUAL) 1 %; EOSINOPHILS % (MANUAL) 2 %; LYMPHOCYTES % (MANUAL) 23 %; MONOCYTES % (MANUAL) 5 %; NEUTROPHILS % (MANUAL) 67 %; RBC MORPH NORMAL
[2020-08-02 12:16] LABS: ALANINE AMINOTRANSFERASE 295 U/L (0-55); ALBUMIN 3.3 GM/DL (3.2-4.5); ALKALINE PHOSPHATASE 217 U/L (40-136); BILIRUBIN,TOTAL 0.2 MG/DL (0.1-1.0); BUN/CREATININE RATIO 10; CALCIUM 8.7 MG/DL (8.5-10.1); CARBON DIOXIDE 18 MMOL/L (21-32); CHLORIDE 104 MMOL/L (98-107); GFR ESTIMATED > 60; GLUCOSE 109 MG/DL (70-105); POTASSIUM 4.1 MMOL/L (3.6-5.0); SODIUM 133 MMOL/L (135-145); TOTAL PROTEIN 6.9 GM/DL (6.4-8.2)
[2020-08-02] MEDS ORDERED: fentaNYL INJECTION 100 MCG/2 ML AMP ONE (12:18)
[2020-08-02] MEDS ORDERED: ROPIVACAINE 5MG/ML 30ML VIAL ONE (12:44)
[2020-08-02] MEDS ORDERED: OXYTOCIN PRE-MIX DRIP 1,000 ML IV ONE (12:44)
[2020-08-02] MEDS ORDERED: FLU QUADRIvalent (3YOA+) 60 mcg/0.5 ml 2020-21 (AFLURIA) IM ONE (13:15)
[2020-08-02 13:23] LABS: BILIRUBIN,URINE NEGATIVE (NEGATIVE); CLARITY,URINE SL CLOUDY; COLOR,URINE YELLOW; GLUCOSE, URINE (UA) NEGATIVE (NEGATIVE); KETONES,URINE NEGATIVE (NEGATIVE); LEUKOCYTE ESTERASE ,URINE 1+ (NEGATIVE); NITRITE,URINE NEGATIVE (NEGATIVE); PROTEIN,URINE 1+ (NEGATIVE)
[2020-08-02 13:31] LABS: BACTERIA,URINE MODERATE /HPF
[2020-08-02 13:32] LABS: CALCIUM OXALATE CRYSTALS,UR FEW /LPF; SQUAMOUS EPITHELIAL CELL,UR 25-50 /HPF
[2020-08-02] MEDS ORDERED: PHENYLEPHRINE 100 MCG/ML 10 ML (ANESTHESIA) SYR ONE (13:49)
[2020-08-02] MEDS ORDERED: CATHETER FLUSH 10 ML SYR IV SCH ×2 (14:00→22:00)
[2020-08-02] MEDS ORDERED: ONDANSETRON 4 MG/2 ML (SDV) Z0FRAN ONE ×2 (14:11→14:14)
--- NOTE | 2020-08-02 14:36 | Progress Note-Pre Operative ---
Pre-Operative Progress Note H&P Reviewed The H&P was reviewed, patient examined and no changes noted. Date Seen by Provider: Aug 02, 2020 Time Seen by Provider: 13:00 Date H&P Reviewed: Aug 02, 2020 Time H&P Reviewed: 13:00 Pre-Operative Diagnosis: Previous section, 38 3/7 weeks, proteinuria, elevated LFTs. PRAMOD LAWSON DO Aug 02, 2020 14:36
--- NOTE | 2020-08-02 14:38 | Operative Report ---
Operative Report Date of Procedure/Surgery Aug 02, 2020 Surgeon (s) PRAMOD LAWSON DO Statuary Painter (s): NA Post-Operative Diagnosis Previous section, 38 3/7 weeks, limited care, proteinuria, elevated LFTs Procedure Performed Repeat LTCS Description of Procedure Anesthesia Type: Spinal Estimated blood loss (mL): 600 Specimen(s) collected/removed placenta Description of the Procedure see CS reports Findings of the Procedure Viable female, 8/9 Apgars 6# 15 ounces polyhydramnios rash on abdomen consistent with possible betty folliculitis omental adhesions Allergies and Home Medications Allergies Coded Allergies: No Known Drug Allergies (Verified , 12/20/17) Patient Home Medication List Home Medication List Reviewed: Yes PRAMOD LAWSON DO Aug 02, 2020 14:38
[2020-08-02 14:40] VITALS: BP 99/55
--- NOTE | 2020-08-02 14:45 | Cesarean Section Operative ---
Procedure Procedure Note Pre-operative Diagnosis: Vicki Delaney is a 30 /Para 04/4216 at 38 3/7 weeks with limited care, elevated LFTs, 3+ proteiuria, increased P/C ratio Post-operative Diagnosis: same, polyhydramnios Procedure: Repeat low transverse section Physician: PRAMOD LAWSON Estimated blood loss: 600 mL Disposition: stable Findings: Viable female infant, Apgars 8/9, weight 6#15 ounces, intact placenta, 3vc, normal appearing uterus, ovaries, left tube appears to be occluded by omental adhesion Indications:Vicki Delaney is a 30 /Para 04/4216 at 38 3/7 weeks with limited care, elevated LFTs, 3+ proteiuria, increased P/C ratio Vicki presented for late care at approximately [address] Timmons. I had previously delivered the last two babies. In 2016 she presented at "full term" with polyhydramnios, elevated LFTs, but normal blood pressures. She then had PNCin 2017 and had elevated LFTs at time of delivery. CS due to OP presentation and FTD. Also had proteinuria and normal blood pressures. She did not follow up post to recheck her LFTs. LFTs were not done at her ob intake appointment, but she did not have proteinuria. She was to move to [place] but she did not and did not have any additional care. She came to labor and delivery on Wednesday for "not feeling right" and after a reactive NST was sent home by Dr. Timmons. she had 3+ proteinuria. Also had + UDS for THC, meth/amphetamines. She saw me in the office yesterday for first PNV at 38 + weeks. BP was wnl. Labs done yesterday resulted today showed elevated LFTs, 3+ proteinuria, P/C ration of 0.4. It was determined that she be delivered today as the cause of these labs are unknown. Blood pressure remains normal. no headache, no visual changes. Procedure Details: The patient was seen in pre-op and the procedure was discussed with the patient in full, including the risks, benefits, and alternatives. All questions were answered. The patient was taken to the operating room and a time out was performed, verifying patient and procedure. After spinal anesthesia was placed by our anesthesia colleagues, the patient was placed in the dorsal supine with leftward tilt for uterine displacement.~ Her abdomen was then prepped and draped in the typical sterile fashion. It was noted that she has a red, raised rash on the lower abdomen and in the inguinal reg ions, possibly consistent with yeast. It did have a yeasty odor as well. She had a 1 cm nodule in the stretch bossman on the left lower abdomen that was firm, raised, red and had yellow purulence. She states this has been present about a week. A Pfannenstiel skin incision was made using a scalpel, through the previous incision (avoiding the rash), and carried down through the underlying fascia. The fascia was incised in the midline and tented up using Kj clamps. On both the inferior and superior fascia side the rectus muscle was dissected off bluntly and sharply using Carrasco scissors. The peritoneum was identified and entered bluntly in the midline. This was then stretched laterally using manual strength. After entering the abdominal cavity and confirming lack of intraperitoneal adhesions, an extra large Andrey retractor was placed and the lower uterine segment was visualized. the bladder was advanced over the lower uterine segment. A bladder flap was created with the use of Metzenbaum scissors and blunt dissection.~ A scalpel was utilized to make a low transverse uterine incision. Amniotomy was performed with an Allis clamp with return of clear fluid. There was copious fluid consistent with polyhydramnios. The infant's head was grasped and brought to the level of the incision. Fundal pressure was applied and infant was delivered without difficulty. Mouth and nares were suctioned with bulb suction. After the umbilical cord was clamped and cut, the infant was handed off to the pediatric staff. A sample of cord blood was then obtained. The placenta was delivered intact via uterine massage. The uterus was cleared of all clots and debris. The uterine incision was closed using 0 Vicryl in a running locked fashion. A second imbricated layer was placed using 0 Vicryl in a running fashion as well. The uterus was flexed forward and the posterior rectouterine space was inspected and cleared of all clots and debris. Again the hysterotomy site was examined and hemostasis was observed. The left tube had an omental adhesion. This was likely the site of the previous ectopic. The right tube and ovaries appeared normal. The abdominal gutters were cleared of all clots and debris. A final check of the uterine incision showed it to be hemostatic. The peritoneum was closed using 3-0 Vicryl in a running fashion. The fascia was closed with 0 Vicryl in a running fashion. The subcutaneous space was hemostatic, and irrigated. The subcutaneous space was closed with 3-0 Vicryl in several single interrupted stitches. The skin was then closed using 4-0 Monocryl in a running subcuticular fashion. The skin edges were reapproximated together and were hemostatic. A pressure dressing was applied. All sponge, lap and needle counts were correct at the end of the procedure per nursing. Vitals - Labs Labs Laboratory Tests 08/02/20 11:20: White Blood Count 17.2H, Red Blood Count 4.21, Hemoglobin 11.0L, Hematocrit 36, Mean Corpuscular Volume 85, Mean Corpuscular Hemoglobin 26, Mean Corpuscular Hemoglobin Concent 31L, Red Cell Distribution Width 14.6H, Platelet Count 402H, Mean Platelet Volume 10.3, Immature Granulocyte % (Auto) 1, Neutrophils (%) (Auto) 72, Lymphocytes (%) (Auto) 19, Monocytes (%) (Auto) 6, Eosinophils (%) (Auto) 1, Basophils (%) (Auto) 0, Neutrophils # (Auto) 12.4H, Lymphocytes # (Auto) 3.2, Monocytes # (Auto) 1.1H, Eosinophils # (Auto) 0.2, Basophils # (Auto) 0.1, Immature Granulocyte # (Auto) 0.2H, Neutrophils % (Manual) 67, Lymphocytes % (Manual) 23, Monocytes % (Manual) 5, Eosinophils % (Manual) 2, Basophils % (Manual) 1, Band Neutrophils 2, Blood Morphology Comment NORMAL, Sodium Level 133L, Potassium Level 4.1, Chloride Level 104, Carbon Dioxide Level 18L, Anion Gap 11, Blood Urea Nitrogen 6L, Creatinine 0.60, Estimat Glomerular Filtration Rate > 60, BUN/Creatinine Ratio 10, Glucose Level 109H, Calcium Level 8.7, Corrected Calcium 9.3, Total Bilirubin 0.2, Aspartate Amino Transf (AST/SGOT) 189H, Alanine Aminotransferase (ALT/SGPT) 295H, Alkaline Phosphatase 217H, Total Protein 6.9, Albumin 3.3 08/02/20 11:30: Urine Color YELLOW, Urine Clarity SL CLOUDY, Urine pH 7.0, Urine Specific [place] 1.020, Urine Protein 1+H, Urine Glucose (UA) NEGATIVE, Urine Ketones NEGATIVE, Urine Nitrite NEGATIVE, Urine Bilirubin NEGATIVE, Urine Urobilinogen 1.0, Urine Leukocyte Esterase 1+H, Urine RBC (Auto) NEGATIVE, Urine RBC NONE, Urine WBC 5-10H, Urine Squamous Epithelial Cells 25-50H, Urine Crystals PRESENTH , Urine Calcium Oxalate Crystals FEWH, Urine Bacteria MODERATEH, Urine Casts NONE, Urine Mucus NEGATIVE, Urine Culture Indicated YES, Urine Opiates Screen NEGATIVE, Urine Oxycodone Screen NEGATIVE, Urine Methadone Screen NEGATIVE, Urine Propoxyphene Screen NEGATIVE, Urine Barbiturates Screen NEGATIVE, Ur Tricyclic Antidepressants Screen NEGATIVE, Urine Phencyclidine Screen NEGATIVE, Urine Amphetamines Screen NEGATIVE, Urine Methamphetamines Screen NEGATIVE, Urine Benzodiazepines Screen NEGATIVE, Urine Cocaine Screen NEGATIVE, Urine Cannabinoids Screen POSITIVE 08/02/20 13:34: PRAMOD LAWSON DO Aug 02, 2020 14:45
[2020-08-02 14:55] VITALS: BP 112/71
[2020-08-02] MEDS ORDERED: HYDROmorphone 2 MG/ML VIAL (DILAUDID) IV ONE (15:00)
[2020-08-02] MEDS ORDERED: ONDANSETRON 4 MG/2 ML (SDV) Z0FRAN IVP PRN (15:00)
[2020-08-02] MEDS ORDERED: OXYTOCIN PRE-MIX DRIP 500 ML IV SCH (15:04)
[2020-08-02 15:10] VITALS: BP 110/54
[2020-08-02] MEDS ORDERED: MUPI22OI2 TOP (15:10)
[2020-08-02] MEDS ORDERED: IBUP-844 PO (15:10)
[2020-08-02] MEDS ORDERED: MICONAZOLE NITRATE 2% TP (15:10)
[2020-08-02] MEDS ORDERED: OXC5T PO (15:10)
[2020-08-02] MEDS ORDERED: DCS100C PO (15:10)
--- NOTE | 2020-08-02 15:11 | Discharge Inst-Women's Service ---
Discharge Inst-Women's Serv Depart Medication/Instructions New, Converted or Re-Newed RX: Transmitted to Pharmacy Consults/Follow Up Additional Follow Up: Yes (1 week for labs and incision check/Leisa; 6 week pp exam) Activity Activity: Activity as Tolerated Driving Instructions: No Driving for 1 Week NO SMOKING: NO SMOKING Nothing Inside Vagina: No Douching, No Mastic, No Tampons Diet Discharge Diet: No Restrictions Symptoms to Report to : Swelling Increased, Bleeding Excessive, Pain Increased, Fever Over 101 Degrees F, Vaginal Bleeding Increase, Cramps in Feet or Legs, Vaginal Discharge Foul For Any Problems or Questions: Contact Your Physician Skin/Wound Care Infection Signs and Symptoms: Increased Redness, Foul Odor of Wound, Increased Drainage, Skin Itchy or Has a Rash, Increased Swelling, Temperature Above 101 F Stitches/Santo/Dermabond: Dermabond Bathing Instructions: PRAMOD Shane DO Aug 02, 2020 15:11
[2020-08-02] MEDS ORDERED: TETANUS,DIPTH,PERTUSS P/F (BOOSTRIX) 0.5 ML VIAL IM SCH (15:15)
[2020-08-02] MEDS ORDERED: MEASLES,MUMPS,RUBELLA 1 EA INJ SC SCH (15:15)
[2020-08-02 15:25] VITALS: BP 92/48
[2020-08-02 15:39] VITALS: BP 112/70
[2020-08-02] MEDS: KETOROLAC 30 MG/ML VIAL IV SCH ×2 (15:56→22:08)
--- NOTE | 2020-08-02 16:26 | NUR ---
report given to doc patel at this time
--- NOTE | 2020-08-02 17:16 | NUR ---
CM/SS made a DCF report per request of Nurse and Physician. Report ID: [id number] CM/SS received a call from the patient's nurse stating it was requested that a DCF report be made. The report was submitted, this sw is unsure at this time if it screened in as 24 hour. CM/SS put the Hospital number for the main contact if it is screened in after hours. Per the RN, the baby will be admitted for approximately 5 to 7 days. CM/SS will continue to follow.
[2020-08-02 20:10] VITALS: BP 115/70
[2020-08-02] MEDS: MUPIROCIN 2% OINT 22 GM (BACTROBAN) TUBE TOP SCH (20:12)
[2020-08-02] MEDS: MICONAZOLE NITRATE 2% CRM 30 GM TP SCH (20:12)
--- NOTE | 2020-08-02 20:37 | NUR ---
RN to room for assessment. VSS. Dressing dry and intact. Pt reports minimal bleeding and no clots expressed. Pt denies any needs or concerns at this time.
[2020-08-02] MEDS: DOCUSATE SODIUM 100 MG (COLACE) CAP PO SCH (20:58)
[2020-08-03] VITALS: BP 120/70
--- NOTE | 2020-08-03 | NUR ---
Pt mother reports she is leaving, and pt is upset and crying. RN to room to given scheduled pain med, and obtain VS. VSS. Pt verbalizes she doesn't want to be alone, and doesn't want to take the pain medicine because it makes her sleepy and she is scared she won't wake up if the infant is crying. Pt rates pain 10/10. RN assured pt that we would be checking on her and infant frequently. Pt verbalizes understanding and anxiety is eased. to [facility] with Jennifer East RN for daily weight. Pt denies any needs or concerns and is encouraged to call if she needs anything.
[2020-08-03 03:58] VITALS: BP 133/65
[2020-08-03] MEDS: KETOROLAC 30 MG/ML VIAL IV SCH (03:59)
[2020-08-03 06:12] LABS: BASOPHILS # (AUTO) 0.1 10^3/uL (0.0-0.1); BASOPHILS % (AUTO) 0 % (0-10); EOSINOPHILS # (AUTO) 0.2 10^3/uL (0.0-0.3); EOSINOPHILS % (AUTO) 1 % (0-10); HEMATOCRIT 33 % (35-52); HEMOGLOBIN 10.2 g/dL (11.5-16.0); LYMPHOCYTES # (AUTO) 2.6 10^3/uL (1.0-4.0); LYMPHOCYTES % (AUTO) 15 % (12-44); MEAN CORPUSCULAR HEMOGLOBIN 27 pg (25-34); MEAN CORPUSCULAR HGB CONC 31 g/dL (32-36); MEAN CORPUSCULAR VOLUME 85 fL (80-99); MEAN PLATELET VOLUME 10.8 fL (9.0-12.2); MONOCYTES # (AUTO) 1.2 10^3/uL (0.0-1.0); MONOCYTES % (AUTO) 7 % (0-12); NEUTROPHILS % (AUTO) 76 % (42-75); PLATELET COUNT 335 10^3/uL (130-400); WHITE BLOOD COUNT 17.1 10^3/uL (4.3-11.0)
[2020-08-03 06:24] LABS: ALBUMIN 2.9 GM/DL (3.2-4.5)
[2020-08-03 06:25] LABS: CHLORIDE 103 MMOL/L (98-107); POTASSIUM 4.3 MMOL/L (3.6-5.0); SODIUM 133 MMOL/L (135-145)
[2020-08-03 06:26] LABS: CALCIUM 8.6 MG/DL (8.5-10.1)
[2020-08-03 06:27] LABS: GLUCOSE 84 MG/DL (70-105); TOTAL PROTEIN 6.1 GM/DL (6.4-8.2)
[2020-08-03 06:28] LABS: CARBON DIOXIDE 20 MMOL/L (21-32)
[2020-08-03 06:29] LABS: BILIRUBIN,TOTAL 0.3 MG/DL (0.1-1.0)
[2020-08-03 06:30] LABS: ALKALINE PHOSPHATASE 172 U/L (40-136)
[2020-08-03 06:31] LABS: CREATININE SERUM 0.62 MG/DL (0.60-1.30); GFR ESTIMATED > 60
[2020-08-03 06:32] LABS: BUN/CREATININE RATIO 8
[2020-08-03 06:34] LABS: ALANINE AMINOTRANSFERASE 266 U/L (0-55)
--- NOTE | 2020-08-03 07:54 | Postpartum Progress Note ---
Note Note Day # 1 Subjective: Patient is without complaints. Ambulating, voiding. Tolerating a regular diet without nausea or vomiting. Normal lochia. Pain is well controlled with oral pain medications. Objective: Physical Exam: General - Alert and oriented, no apparent distress Abdomen - Soft, appropriately tender to palpation, non-distended, fundus firm at umbilicus Extremities - no edema, negative Palomo's bilaterally Incision- c/d/i Assessment: POD 1 RLTCS Acute blood loss anemia Plan: Routine care. Encourage breast feeding. Encourage ambulation. Ferrous sulfate supplementation. Plan for discharge tomorrow Vitals - Labs Vital Signs - I&O Vital Signs Date Time Temp Pulse Resp B/P (MAP) Pulse Ox O2 Delivery O2 Flow Rate FiO2 08/03/20 03:58 36.6 85 18 133/65 (87) 97 Room Air 08/03/20 00:00 36.3 99 18 120/70 (87) 97 Room Air 08/02/20 20:10 97 Room Air 08/02/20 20:10 37.0 92 18 115/70 (85) 97 Room Air 08/02/20 19:30 98 Room Air 08/02/20 15:39 Room Air 08/02/20 15:39 35.9 20 112/70 (84) 98 08/02/20 15:25 Room Air 08/02/20 15:25 35.8 16 92/48 (63) 98 08/02/20 15:10 Room Air 08/02/20 15:10 36 20 110/54 (72) 99 08/02/20 14:55 Room Air 08/02/20 14:55 36 15 112/71 (85) 98 08/02/20 14:40 36 18 99/55 (70) 99 08/02/20 14:40 Room Air I & O 08/03/20 07:00 Intake Total 2170 ml Output Total 1610 ml Balance 560 ml Labs Laboratory Tests 08/02/20 11:20: White Blood Count 17.2H, Red Blood Count 4.21, Hemoglobin 11.0L, Hematocrit 36, Mean Corpuscular Volume 85, Mean Corpuscular Hemoglobin 26, Mean Corpuscular Hemoglobin Concent 31L, Red Cell Distribution Width 14.6H, Platelet Count 402H, Mean Platelet Volume 10.3, Immature Granulocyte % (Auto) 1, Neutrophils (%) (Auto) 72, Lymphocytes (%) (Auto) 19, Monocytes (%) (Auto) 6, Eosinophils (%) (Auto) 1, Basophils (%) (Auto) 0, Neutrophils # (Auto) 12.4H, Lymphocytes # (Auto) 3.2, Monocytes # (Auto) 1.1H, Eosinophils # (Auto) 0.2, Basophils # (Auto) 0.1, Immature Granulocyte # (Auto) 0.2H, Neutrophils % (Manual) 67, Lymphocytes % (Manual) 23, Monocytes % (Manual) 5, Eosinophils % (Manual) 2, Basophils % (Manual) 1, Band Neutrophils 2, Blood Morphology Comment NORMAL, Sodium Level 133L, Potassium Level 4.1, Chloride Level 104, Carbon Dioxide Level 18L, Anion Gap 11, Blood Urea Nitrogen 6L, Creatinine 0.60, Estimat Glomerular Filtration Rate > 60, BUN/Creatinine Ratio 10, Glucose Level 109H, Mean Blood Glucose 108, Hemoglobin A1c 5.4, Calcium Level 8.7, Corrected Calcium 9.3, Total Bilirubin 0.2, Aspartate Amino Transf (AST/SGOT) 189H, Alanine Aminotransferase (ALT/SGPT) 295H, Alkaline Phosphatase 217H, Total Protein 6.9, Albumin 3.3 08/02/20 11:30: Urine Color YELLOW, Urine Clarity SL CLOUDY, Urine pH 7.0, Urine Specific [place] 1.020, Urine Protein 1+H, Urine Glucose (UA) NEGATIVE, Urine Ketones NEGATIVE, Urine Nitrite NEGATIVE, Urine Bilirubin NEGATIVE, Urine Urobilinogen 1.0, Urine Leukocyte Esterase 1+H, Urine RBC (Auto) NEGATIVE, Urine RBC NONE, Urine WBC 5-10H, Urine Squamous Epithelial Cells 25-50H, Urine Crystals PRESENTH , Urine Calcium Oxalate Crystals FEWH, Urine Bacteria MODERATEH, Urine Casts NONE, Urine Mucus NEGATIVE, Urine Culture Indicated YES, Urine Opiates Screen NEGATIVE, Urine Oxycodone Screen NEGATIVE, Urine Methadone Screen NEGATIVE, Urine Propoxyphene Screen NEGATIVE, Urine Barbiturates Screen NEGATIVE, Ur Tricyclic Antidepressants Screen NEGATIVE, Urine Phencyclidine Screen NEGATIVE, Urine Amphetamines Screen NEGATIVE, Urine Methamphetamines Screen NEGATIVE, Urine Benzodiazepines Screen NEGATIVE, Urine Cocaine Screen NEGATIVE, Urine Cannabinoids Screen POSITIVEH 08/02/20 13:34: Coronavirus (COVID-19)(PCR) Negative 08/03/20 05:42: White Blood Count 17.1H, Red Blood Count 3.85, Hemoglobin 10.2L, Hematocrit 33L, Mean Corpuscular Volume 85, Mean Corpuscular Hemoglobin 27, Mean Corpuscular Hemoglobin Concent 31L, Red Cell Distribution Width 14.5, Platelet Count 335, Mean Platelet Volume 10.8, Immature Granulocyte % (Auto) 1, Neutrophils (%) (Auto) 76H, Lymphocytes (%) (Auto) 15, Monocytes (%) (Auto) 7, Eosinophils (%) (Auto) 1, Basophils (%) (Auto) 0, Neutrophils # (Auto) 13.0H, Lymphocytes # (Auto) 2.6, Monocytes # (Auto) 1.2H, Eosinophils # (Auto) 0.2, Basophils # (Auto) 0.1, Immature Granulocyte # (Auto) 0.1, Sodium Level 133L, Potassium Level 4.3, Chloride Level 103, Carbon Dioxide Level 20L, Anion Gap 10, Blood Urea Nitrogen 5L, Creatinine 0.62, Estimat Glomerular Filtration Rate > 60, BUN/Creatinine Ratio 8, Glucose Level 84, Calcium Level 8.6, Corrected Calcium 9.5, Total Bilirubin 0.3, Aspartate Amino Transf (AST/SGOT) 175H, Alanine Aminotransferase (ALT/SGPT) 266H, Alkaline Phosphatase 172H, Total Protein 6.1L, Albumin 2.9L LEISA GARCIA DO Aug 03, 2020 07:54
[2020-08-03] MEDS ORDERED: SIMETHICONE 80 MG (MYLICON) CHEW PO ONE (09:00)
[2020-08-03] MEDS: DOCUSATE SODIUM 100 MG (COLACE) CAP PO SCH ×2 (09:46→20:17)
[2020-08-03] MEDS: FERROUS SULF 325 MG (IRON) TAB PO SCH (09:46)
[2020-08-03 10:55] VITALS: BP 140/71
--- NOTE | 2020-08-03 12:33 | Anesthesia-Regional Post-Op ---
Regional Patient Condition Mental Status: Alert, Oriented x3 Circulation: Same as Pre-Op Headache: Absent Sensation: Full Recovery Motor Block: Absent Post Op Complications Complications None Follow Up Care/Instructions Patient Instructions None needed. Anesthesia/Patient Condition Patient is doing well, no complaints, stable vital signs, no apparent adverse anesthesia problems. No complications reported per nursing. MIKE NOBLE CRNA Aug 03, 2020 12:33
[2020-08-03] MEDS: IBUPROFEN 600 MG (MOTRIN) TAB PO SCH ×2 (13:43→20:17)
[2020-08-03] MEDS: MICONAZOLE NITRATE 2% CRM 30 GM TP SCH ×2 (20:17→21:40)
[2020-08-03] MEDS: MUPIROCIN 2% OINT 22 GM (BACTROBAN) TUBE TOP SCH (20:17)
[2020-08-03 20:20] VITALS: BP 115/64
[2020-08-04 02:10] VITALS: BP 107/63
[2020-08-04] MEDS: IBUPROFEN 600 MG (MOTRIN) TAB PO SCH ×4 (02:12→22:26)
[2020-08-04 08:42] VITALS: BP 112/64
[2020-08-04] MEDS: FERROUS SULF 325 MG (IRON) TAB PO SCH (08:43)
[2020-08-04] MEDS ORDERED: guaiFENesin/DM (ROBITUSSIN DM) 10 ML UDC PO PRN (09:00)
[2020-08-04] MEDS ORDERED: RT-ALBUTEROL SULF 2.5 MG/3 ML PRE-MIX VIAL INH ONE (09:00)
[2020-08-04] MEDS ORDERED: RT-ALBUTEROL SULF 2.5 MG/3 ML PRE-MIX VIAL ONE (11:17)
[2020-08-04 16:15] VITALS: BP 130/69
[2020-08-04] MEDS ORDERED: RX-IBUPROFEN 600 MG (MOTRIN) TAB PPK#4 PO ONE (17:37)
[2020-08-04 22:25] VITALS: BP 93/56
[2020-08-04] MEDS: DOCUSATE SODIUM 100 MG (COLACE) CAP PO SCH (22:26)
[2020-08-05 04:22] VITALS: BP 105/61
[2020-08-05] MEDS: IBUPROFEN 600 MG (MOTRIN) TAB PO SCH ×2 (04:23→09:51)
--- NOTE | 2020-08-05 07:45 | NUR ---
RN to room for assessment. Pt reports minimal bleeding and no clots. [place]. Pt refused TDAP and Flu vaccines.
[2020-08-05] MEDS: FERROUS SULF 325 MG (IRON) TAB PO SCH (07:49)
[2020-08-05] MEDS: MICONAZOLE NITRATE 2% CRM 30 GM TP SCH (07:50)
[2020-08-05] MEDS: MUPIROCIN 2% OINT 22 GM (BACTROBAN) TUBE TOP SCH (07:50)
[2020-08-05] MEDS: DOCUSATE SODIUM 100 MG (COLACE) CAP PO SCH (07:50)
--- NOTE | 2020-08-05 10:00 | NUR ---
RN to room to explain discharge instructions with copy provided. Pt verbalizes understanding and signs to verify. Pt denies any needs or concerns at this time.
--- NOTE | 2020-08-05 17:35 | NUR ---
CM/SS follow up. CM/SS attempted to contact the [facility] DCF multiple times, no answer. CM/SS did finally reach the nutrition and dietetics instructor. She instant messaged the Meal Attendant Marie to contact this sw. CM/SS attempted to contact Marie on work cell. No answer; message left. Still no call back. CM/SS attempted to contact Mayda Beck. No answer; no voicemail. CM/SS contacted Jacquelyn Skelton. She contacted people in the office and connected this sw with Nick from [facility]. Nick ([phone]) contacted this sw and stated he just received the report today that screened in for 24 hours. Nick stated he will come straight to the hospital and contact this sw after he is done. CM/SS will continue to follow.
--- NOTE | 2020-08-06 09:07 | NUR ---
YASMINE/DEVON follow up. CM/SS contacted Nick with DCF this a.m. to follow up on his visit with patient (mother of baby). He reports that they have decided to do what is called a Team Decision Meeting (TDM) at 11:00 a.m. on 08/07/20. From that meeting they will decide if baby will be able to leave with Mother of baby or if they will need to take custody. Nick reports he will contact this sw once decision is made. YASMINE/DEVON will continue to follow.
--- NOTE | 2020-08-06 14:44 | Short Stay Summary ---
Discharge Summary Hospital Course Was the Problem List Reviewed?: Yes Hospital Course Date of Admission: Aug 02, 2020 at 11:00 Admission Diagnosis : Family Physician/Provider: [place] Date of Discharge: 08/04/20 Discharge Diagnosis: Previous section proteinuria elevated liver function tests no/limited care positive UDC Hospital Course: [ ] Labs and Pending Lab Test: Microbiology 08/02/20 Urine Culture - Final, Complete Gram Pos Mixed Bacterial Elizabeth Home Meds Active [Miconazole Nitrate 2% Crm] 28.4 GM Cream..g. 0 Gm TP BID Mupirocin 22 Gm Oint...g. 0 Gm TOP BID Dok (Docusate Sodium) 100 Mg Capsule 100 Mg PO BID Oxyir Tablet (Oxycodone HCl) 5 Mg Tab 5 Mg PO Q4HR Ibu (Ibuprofen) 600 Mg Tablet 600 Mg PO Q6HR Reported Multi Tablet (Pnv No.122/Iron/Folic Acid) 1 Each Tablet Unknown Dose PO Discharge Instructions Discharge Diet: No Restrictions Discharge Physical Examination Allergies: Coded Allergies: No Known Drug Allergies (Verified , 12/20/17) Discharge Summary Date of Admission Aug 02, 2020 at 11:00 Date of Discharge Aug 05, 2020 at 10:00 Discharge Date: Aug 04, 2020 Clinical Quality Measures DVT/VTE Risk/Contraindication: Risk Factor Score Per Nursin RFS Level Per Nursing on Admit: 3=High PRAMOD LAWSON DO Aug 06, 2020 14:44
--- NOTE | 2020-08-07 14:55 | NUR ---
CM/SS follow up. CM/SS received a call from nick with [facility]. He reported they had their Team Decision Meeting and concluded the baby will be allowed to return home with the patient at time of discharge. Nick reports they will be discharged with [facility] on a [facility]. The services would start immediately. Nick stated that [facility] is the most strict and will have "a lot" of services in place. CM/SS will alert Nick when the baby discharges from the hospital. CM/SS will continue to follow.
== END 2020-08-05 10:00 | disposition home or self-care (01) | DRG 787 ==
LOC: LDRP 11:00 → WS 12:19 → LDRP 12:19
PROVIDERS: ADMIT Obstetrics & Gynecology; ATTEND Obstetrics & Gynecology
PROC: 10D00Z1 Extraction of Products of Conception, Low, Open Approach (ICD-10-PCS; principal; 2020-08-02 13:25)
DX: O34.211 Maternal care for low transverse scar from previous cesarean delivery (principal); D62 Acute posthemorrhagic anemia; Z3A.38 38 weeks gestation of pregnancy; Z37.0 Single live birth; O40.3XX0 Polyhydramnios, third trimester, not applicable or unspecified; O12.14 Gestational proteinuria, complicating childbirth; O90.81 Anemia of the puerperium; R79.89 Other specified abnormal findings of blood chemistry
CPT/HCPCS: 36415; 80053; 80306; 81000; 83036; 85007; 85025; 85027; 86850; 86900; 86901; 87088; 87635; 94640; 94664; 94760

== ENCOUNTER → 2020-08-08 | Outpatient (CLI) | payer MEDICAID ==
[~2020-08-08] MED LIST changes: +DCS100C PO; +MICONAZOLE NITRATE 2% TP; +MUPI22OI2 TOP; +OXC5T PO
== END ==
LOC: LABNPT 16:47
PROVIDERS: ATTEND Emergency Medicine
DX: Z20.828 Contact with and (suspected) exposure to other viral communicable diseases (principal)
CPT/HCPCS: 87635

== ENCOUNTER 2021-03-05 01:24 | Emergency (ER) | payer MEDICAID ==
[~2021-03-05] VITALS: Ht 162 cm; Wt 74.0 kg
[~2021-03-05 01:24] MED LIST changes: -CLIN300C11 PO; +CLIN300C12 PO
[2021-03-05] MEDS ORDERED: LIDOCAINE 1% INJ 20 ML 20 ML VIAL INJ ONE (01:30)
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
[2021-03-05] MEDS ORDERED: KETOROLAC 30 MG/ML VIAL ONE (01:48)
[2021-03-05] MEDS ORDERED: KETOROLAC 30 MG/ML VIAL IVP ONE (02:00)
[2021-03-05] MEDS ORDERED: CEPH500T PO (02:08)
[2021-03-05 02:12] VITALS: BP 138/93
== END 2021-03-05 02:12 | disposition home or self-care (01) ==
LOC: EDUNIT# 01:24 → ER 01:26
DX: S81.811A Laceration without foreign body, right lower leg, initial encounter (principal); Z87.891 Personal history of nicotine dependence; V27.0XXA Motorcycle driver injured in collision with fixed or stationary object in nontraffic accident, initial encounter
CPT/HCPCS: 99283

== ENCOUNTER 2021-10-19 05:18 | Emergency (ER) | payer MEDICAID ==
[~2021-10-19] VITALS: Ht 160 cm; Wt 75.0 kg
[~2021-10-19 05:18] MED LIST changes: +CEPH500T PO; +CLIN-144 PO; -CLIN300C12 PO; -DCS100C PO; +DOCU-239 PO; -SULF1TAB35 PO
[2021-10-19] MEDS ORDERED: SULF1TAB38 PO (05:37)
--- NOTE | 2021-10-19 05:37 | ED Integumentary General ---
General Stated Complaint: L WRIST POSS SPIDER BITE Source: patient Exam Limitations: no limitations History of Present Illness Date Seen by Provider: Oct 19, 2021 Time Seen by Provider: 05:20 Initial Comments Patient presents ER by private conveyance with his significant other chief complaint that 3 days ago she had a wound fester up on her left wrist just proximal to her thumb. She did not see a spider or insect bite her but suspects that is what happened. She has been cleaning it with hydrogen peroxide every day. She has not seen the Jenna Skelton. She has an appointment with her doctor this morning however she decided she could not wait and came to the ER. She is not on any antibiotics. She is on her period presently. Allergies and Home Medications Allergies Coded Allergies: No Known Drug Allergies (Verified , 12/20/17) Patient Home Medication List Home Medication List Reviewed: Yes Cephalexin (Cephalexin) 500 Mg Tablet, 500 MG PO TID Prescribed by: ROBER NOLAN on 03/05/21 0208 Docusate Sodium (Dok) 100 Mg Capsule, 100 MG PO BID Prescribed by: PRAMOD LAWSON on 08/02/20 151 Ibuprofen (Ibu) 600 Mg Tablet, 600 MG PO Q6HR Prescribed by: PRAMOD LAWSON on 08/02/20 151 Mupirocin (Mupirocin) 22 Gm Oint...g., 0 GM TOP BID Prescribed by: PRAMOD LAWSON on 08/02/201509 Oxycodone Hcl (Oxyir Tablet) 5 Mg Tab, 5 MG PO Q4HR Prescribed by: PRAMOD LAWSON on 08/02/20 151 Pnv No.122/Iron/Folic Acid ( Multi Tablet) 1 Each Tablet, Unknown Dose PO, (Reported) Entered as Reported by: AURORA DOMINGUEZ on 09/15/17 1840 [Miconazole Nitrate 2% Crm] 28.4 GM CREAM..G., 0 GM TP BID Prescribed by: PRAMOD LAWSON on 08/02/20 151 Review of Systems Review of Systems Constitutional: No chills, No diaphoresis EENTM: No ear discharge, No hearing loss Respiratory: No cough, No short of breath Cardiovascular: No edema, No palpitations Gastrointestinal: No abdominal pain, No constipation, No diarrhea Genitourinary: No discharge, No dysuria Musculoskeletal: No back pain, No joint pain All Other Systems Reviewed Negative Unless Noted: Yes Past Spmealg-Ptxdqq-Xkzvlu Hx Patient Social History Tobacco Use?: No Use of E-Cig and/or Vaping dev: No Substance use?: No Immunizations Up To Date Tetanus Booster (TDap): Less than 5yrs PED Vaccines UTD: No Seasonal Allergies Seasonal Allergies: No Past Medical History Surgeries: Yes (ALL TEETH REMOVED) Gallbladder Respiratory: No Cardiac: No Neurological: No Reproductive Disorders: No Female Reproductive Disorders: Denies Genitourinary: No Gastrointestinal: Yes (S/P [place]) Gall Bladder Disease Musculoskeletal: No Endocrine: No HEENT: No Cancer: No Psychosocial: Yes Sleep Difficulties, Anxiety Integumentary: No Blood Disorders: No Adverse Reaction/Blood Tranf: No Family Medical History FH: spina bifida G8 BROTHER Cancer Physical Exam Vital Signs Capillary Refill : General Appearance: WD/WN, no apparent distress HEENT: PERRL/EOMI, pharynx normal Neck: full range of motion, normal inspection Cardiovascular: normal peripheral pulses, regular rate, rhythm Respiratory: no respiratory distress, no accessory muscle use Skin: other (Raised ulcer without induration approximately 7 mm across on the wrist radial side. Serous drainage, scant.) Procedures/Interventions Suture Size: 4-0 Progress/Results/Core Measures Progress Progress Note : Time: 05:34 Progress Note Bactrim and conservative counseling on management. Return precautions discussed. Departure Impression Primary Impression: Wound abscess Disposition: 01 HOME, SELF-CARE Condition: Stable Departure-Patient Inst. Decision time for Depature: 05:34 Referrals: [facility] (PCP/Family) Primary Care Physician Patient Instructions: ABSCESS Add. Discharge Instructions: Drink plenty fluids. Keep the wound clean with regular soap and water. Treat with triple antibiotic ointment or Vaseline and cover it with a Band-Aid or clean dry gauze. Bactrim twice a day for the next week to keep bacterial infection out. Take it with food. Tylenol 1000 mg every 8 hours necessary for pain. Ibuprofen 800 mg or 8 hours necessary for pain. Warm moist heat applied to the site as necessary for pain and swelling. Do not use hydrogen peroxide, alcohol, iodine or chlorhexidine as this will prevent wound healing. Scripts Sulfamethoxazole/Trimethoprim (Bactrim Ds Tablet) 1 Each Tablet 1 EACH PO BID for 7 Days, #14 TAB 0 Refills Prov: ROBER NOLAN 10/19/21 ROBER NOLAN Oct 19, 2021 05:37
[2021-10-19 06:13] VITALS: BP 127/80
== END 2021-10-19 06:13 | disposition home or self-care (01) ==
LOC: EDUNIT# 05:18 → ER 05:21
DX: L02.414 Cutaneous abscess of left upper limb (principal)
CPT/HCPCS: 99281

== ENCOUNTER 2022-04-21 08:32 | Emergency (ER) | payer MEDICAID ==
[~2022-04-21] VITALS: Ht 162.5 cm; Wt 68.0 kg
[2022-04-21 08:32] VITALS: BP 134/85
[2022-04-21] MEDS ORDERED: WATER (STERILE) FOR INJECTION 10 ML ONE (08:41)
[2022-04-21] MEDS ORDERED: ZIPRASIDONE 20 MG INJ (GEODON) VIAL IM ONE ×2 (08:41→08:45)
--- NOTE | 2022-04-21 08:43 | ED Psychosocial ---
General Chief Complaint: Substance Abuse Stated Complaint: POSS OVERDOSE Source: family (sister) Exam Limitations: intoxication History of Present Illness Date Seen by Provider: Apr 21, 2022 Time Seen by Provider: 08:30 Initial Comments 32-year-old female brought to the emergency department by family chief complaint suspected methamphetamine intoxication. Erratic and dsh-zz-bmzotvk behavior. Patient is screaming in the emergency department. Very difficult to distract and calm. She is not able to participate in the HPI, review of systems, past medical family or social history secondary to her degree of intoxication. She is screaming that she has a headache and requesting ibuprofen. Very belligerent with nursing staff, at times striking out at staff. Multiple attempts at peripheral IV access unsuccessful. I was able to have the nurses discontinue attempts and plan to give the patient Nadeem and her ibuprofen prior to further IV access/laboratory evaluation Timing/Duration: other (Unknown time of onset) Severity: severe Allergies and Home Medications Allergies Coded Allergies: No Known Drug Allergies (Verified , 12/20/17) Patient Home Medication List Home Medication List Reviewed: Yes Cephalexin (Cephalexin) 500 Mg Tablet, 500 MG PO TID Prescribed by: ROBER NOLAN on 03/05/21 0208 Docusate Sodium (Dok) 100 Mg Capsule, 100 MG PO BID Prescribed by: PRAMOD LAWSON on 08/02/20 151 Ibuprofen (Ibu) 600 Mg Tablet, 600 MG PO Q6HR Prescribed by: PRAMOD LAWSON on 08/02/20 151 Mupirocin (Mupirocin) 22 Gm Oint...g., 0 GM TOP BID Prescribed by: PRAMOD LAWSON on 08/02/20 151 Oxycodone Hcl (Oxyir Tablet) 5 Mg Tab, 5 MG PO Q4HR Prescribed by: PRAMOD LAWSON on 08/02/20 1510 Pnv No.122/Iron/Folic Acid ( Multi Tablet) 1 Each Tablet, Unknown Dose PO, (Reported) Entered as Reported by: AURORA DOMINGUEZ on 09/15/17 1840 Sulfamethoxazole/Trimethoprim (Bactrim Ds Tablet) 1 Each Tablet, 1 EACH PO BID Prescribed by: ROBER NOLAN on 10/19/21 0537 [Miconazole Nitrate 2% Crm] 28.4 GM CREAM..G., 0 GM TP BID Prescribed by: PRAMOD LAWSON on 08/02/20 1510 Review of Systems Constitutional: see HPI Unable to assess review of systems secondary to the patient's intoxication Past Vlkhsbw-Ywbttd-Npwasn Hx Patient Social History Tobacco Use?: No Substance use?: Yes Substance type: Methamphetamine Alcohol Use?: Unable to obtain Pt feels they are or have been: Unable to obtain Immunizations Up To Date Tetanus Booster (TDap): Less than 5yrs PED Vaccines UTD: No Influenza Vaccine Up-to-Date: No; Not Current Seasonal Allergies Seasonal Allergies: No Past Medical History Surgeries: Yes (ALL TEETH REMOVED) Gallbladder Respiratory: No Cardiac: No Neurological: No Reproductive Disorders: No Female Reproductive Disorders: Denies Genitourinary: No Gastrointestinal: Yes (S/P [place]) Gall Bladder Disease Musculoskeletal: No Endocrine: No HEENT: No Cancer: No Psychosocial: Yes Sleep Difficulties, Anxiety Integumentary: No Blood Disorders: No Adverse Reaction/Blood Tranf: No Family Medical History FH: spina bifida G8 BROTHER Cancer Physical Exam Vital Signs - First Documented 04/21/22 08:32 Temp 36.2 Pulse 147 Resp 27 B/P (MAP) 134/85 (101) Pulse Ox 98 O2 Delivery Room Air Capillary Refill : Height, Weight, BMI Height: 5'3.00" Weight: 185lbs. 8.0oz. 84.560166ly; 29.00 BMI Method:Stated General Appearance: severe distress, other (Erratic behavior) HEENT: PERRL/EOMI, other (Spitting at staff) Neck: normal inspection Respiratory: no respiratory distress, no accessory muscle use Cardiovascular: tachycardia (140), other (Distal radial pulses 2+ bilaterally) Gastrointestinal: soft, other (Nondistended) Extremities: normal range of motion, normal inspection Neurologic/Psychiatric: other (Agitated, erratic, responding to internal stimuli; inconsolable) Appearance/Memory: other (Naked) Behavior/Eye Contact: increased rate of speech, belligerent, uncooperative Thoughts/Hallucinations: incoherent, paranoid Skin: normal color, warm/dry Suicide Risk Suicide Risk Suicide Risk Level / RN Screen: Moderate Low Suicide Risk Level []Suicidal Ideation WITHOUT method, intent, plan or behavior more than a month ago []]Modifiable risk factors and strong protective factors []No reported history of suicidal ideation or behavior []Patient reports/exhibits symptoms consistent with psychosis []Patient reports a plan that would be unrealistic/impossible to complete and intent []Suicide attempt prior to arrival (Indicates at LEAST Low Suicide Risk, consider other risk factors) Moderate Suicide Risk Level: []Suicidal ideation with method, WITHOUT plan, intent or behavior in the past month []Multiple risk factors and few protective factors []Patient reports intent to follow through on plan to end life if allowed to leave hospital, and has attempted to elope from the hospital High Suicide Risk Level: [] Suicidal ideation with intent or intent with a plan in the past month [] Patient has harmed self or attempted suicide while in the hospital [] Patient has hx of or current Command Auditory hallucinations to harm self or others that they follow without hesitation [] Patient refuses to disclose plan, and indicates intent to complete [] Patient reports plan that is possible to accomplish and/or has means to complete Risk factors supporting recommendation: [] Non-compliance with treatment (acute or chronic) [] Patient has access to or owns firearms and/or stockpiled medications [] Hx Impulsive behavior [] Pending incarceration or homelessness [] Sexual abuse [] Family history and/or exposure to suicide [] Adverse childhood experiences [] Exposure to violence or negative socio-political cultural, and economic fo rces [] Current or hx of substance use/abuse [] Chronic physical pain or other acute medical problem (AIDS, COPD, Cancer, etc) [] Perceived burden on family or others [] Patient has attempted to elope [] Unable to answer and/or unable to identify [] Refuses to agree to a safety plan Protective Factors supporting recommendation: [] Identifies reasons for living [] Future plans/goals [] Engaged in work or School [] Good family support network [] Good social support network [] Responsibility to family [] Belief that suicide is immoral, against their pentecostalism beliefs [] High spirituality and involvement in islam community [] Fear of or dying due to pain and suffering [] Established outpt psychiatric services [] Unable to answer and/or unable to identify Risk Assessment Tool Score: Moderate Procedures/Interventions Suture Size: 4-0 Progress/Results/Core Measures Results/Orders My Orders Medications Given in ED Vital Signs/I&O Progress Progress Note : Time: 08:50 Progress Note while I was assessing another patient, the patient took her ibuprofen and then promptly got up off the bed and ran out of the department in a gown, screaming. Her sister was made aware. The patient had not been given her geodon. Departure Impression Primary Impression: Methamphetamine intoxication Disposition: AGAINST MEDICAL ADVICE Condition: Against Medical Advice Departure-Patient Inst. Referrals: [facility] (PCP/Family) Primary Care Physician Patient Instructions: ALCOHOL AND SUBSTANCE ABUSE ARIS HAMPTON MD Apr 21, 2022 08:42
[2022-04-21] MEDS ORDERED: IBUPROFEN 600 MG (MOTRIN) TAB PO ONE (08:45)
[2022-04-21] MEDS ORDERED: WATER (STERILE) FOR INJ 10 ML BTL INJ SCH (08:45)
== END 2022-04-21 08:50 | disposition left against medical advice (07) ==
LOC: EDUNIT# 08:32 → ER 08:33
DX: F15.129 Other stimulant abuse with intoxication, unspecified (principal)

== ENCOUNTER 2023-03-03 18:54 | Emergency (ER) | payer MEDICAID ==
[~2023-03-03] VITALS: Ht 160 cm; Wt 83.0 kg
[~2023-03-03 18:54] MED LIST changes: +LIDO15SO3 MM; -LIDO20SO23 MM
--- NOTE | 2023-03-03 19:14 | ED Abdominal Pain ---
General Stated Complaint: VOMITING|CRAMPING Source of Information: Patient Exam Limitations: No Limitations History of Present Illness Date Seen by Provider: Mar 03, 2023 Time Seen by Provider: 18:57 Initial Comments 32-year-old female presents to the ER with complaints of abdominal cramping, vomiting, and diarrhea for the last 2 days. She reports lower abdominal cramping, approximately 4 episodes of vomiting over the last 2 days, and 4-5 episodes of diarrhea over the last 2 days. She has been taking Tylenol for the pain. She states that she is concerned that she is possibly . Last week she scheduled an appointment with Dr. Timmons to be evaluated for this. She states she has been having a period every month, but last week starting on Wednesday she had a very short period which was abnormal for her. She states her last normal menstrual cycle was about 5 weeks ago. She is . She denies fevers, current vaginal discharge or bleeding. She also reports dysuria. Allergies and Home Medications Allergies Coded Allergies: No Known Drug Allergies (Verified , 12/20/17) Patient Home Medication List Home Medication List Reviewed: Yes Cephalexin (Cephalexin) 500 Mg Tablet, 500 MG PO TID Prescribed by: ROBER NOLAN on 03/05/21 0208 Clindamycin Phos (Cleocin) 2 % Cr, 5 GM VG DAILY Prescribed by: Marie Goldberg on 03/03/232043 Docusate Sodium (Dok) 100 Mg Capsule, 100 MG PO BID Prescribed by: PRAMOD LAWSON on 08/02/20 151 Ibuprofen (Ibu) 600 Mg Tablet, 600 MG PO Q6HR Prescribed by: PRAMOD LAWSNO on 08/02/20 151 Mupirocin (Mupirocin) 22 Gm Oint...g., 0 GM TOP BID Prescribed by: PRAMOD LAWSON on 08/02/20 151 Oxycodone Hcl (Oxyir Tablet) 5 Mg Tab, 5 MG PO Q4HR Prescribed by: PRAMOD LAWSON on 08/02/20 151 Pnv No.122/Iron/Folic Acid ( Multi Tablet) 1 Each Tablet, Unknown Dose PO, (Reported) Entered as Reported by: AURORA DOMINGUEZ on 09/15/17 1840 Sulfamethoxazole/Trimethoprim (Bactrim Ds Tablet) 1 Each Tablet, 1 EACH PO BID Prescribed by: ROBER NOLAN on 10/19/21 0537 [Miconazole Nitrate 2% Crm] 28.4 GM CREAM..G., 0 GM TP BID Prescribed by: PRAMOD LAWSON on 08/02/20 1510 Review of Systems Review of Systems Constitutional: see HPI Past Fjxzcxf-Esgzzn-Bstmak Hx Immunizations Up To Date Tetanus Booster (TDap): Less than 5yrs PED Vaccines UTD: No Seasonal Allergies Seasonal Allergies: No Past Medical History Surgeries: Yes (ALL TEETH REMOVED) Gallbladder Respiratory: No Cardiac: No Neurological: No Reproductive Disorders: No Female Reproductive Disorders: Denies Genitourinary: No Gastrointestinal: Yes (S/P [place]) Gall Bladder Disease Musculoskeletal: No Endocrine: No HEENT: No Cancer: No Psychosocial: Yes Sleep Difficulties, Anxiety Integumentary: No Blood Disorders: No Adverse Reaction/Blood Tranf: No Family Medical History FH: spina bifida G8 BROTHER Cancer Physical Exam Vital Signs Vital Signs - First Documented 03/03/23 19:03 Temp 37.2 Pulse 109 Resp 18 B/P (MAP) 120/86 (97) Pulse Ox 100 O2 Delivery Room Air Capillary Refill : Height/Weight/BMI Height: 5'3.00" Weight: 185lbs. 8.0oz. 84.655370jq; 25.00 BMI Method:Stated General Appearance: WD/WN, no apparent distress Neck: supple, normal inspection Respiratory: lungs clear, normal breath sounds, no respiratory distress, no accessory muscle use Cardiovascular: regular rate, rhythm Gastrointestinal: normal bowel sounds, soft, tenderness (Mild tenderness just below umbilicus) Extremities: normal range of motion, normal inspection Neurologic/Psychiatric: alert, normal mood/affect Skin: normal color, warm/dry Procedures/Interventions Suture Size: 4-0 Progress/Results/Core Measures Results/Orders Lab Results Laboratory Tests Test 03/03/23 19:15 03/03/23 19:19 03/03/23 19:29 03/03/23 20:20 Range/Units White Blood Count 14.1 H 4.3-11.0 10^3/uL Red Blood Count 3.73 L 3.80-5.11 10^6/uL Hemoglobin 11.1 L 11.5-16.0 g/dL Hematocrit 33 L 35-52 % Mean Corpuscular Volume 90 80-99 fL Mean Corpuscular Hemoglobin 30 25-34 pg Mean Corpuscular Hemoglobin Concent 33 32-36 g/dL Red Cell Distribution Width 12.8 10.0-14.5 % Platelet Count 293 130-400 10^3/uL Mean Platelet Volume 10.7 9.0-12.2 fL Immature Granulocyte % (Auto) 1 % Neutrophils (%) (Auto) 72 42-75 % Lymphocytes (%) (Auto) 19 12-44 % Monocytes (%) (Auto) 6 0-12 % Eosinophils (%) (Auto) 1 0-10 % Basophils (%) (Auto) 0 0-10 % Neutrophils # (Auto) 10.2 H 1.8-7.8 10^3/uL Lymphocytes # (Auto) 2.7 1.0-4.0 10^3/uL Monocytes # (Auto) 0.8 0.0-1.0 10^3/uL Eosinophils # (Auto) 0.2 0.0-0.3 10^3/uL Basophils # (Auto) 0.1 0.0-0.1 10^3/uL Immature Granulocyte # (Auto) 0.1 0.0-0.1 10^3/uL Neutrophils % (Manual) 71 % Lymphocytes % (Manual) 21 % Monocytes % (Manual) 4 % Eosinophils % (Manual) 3 % Band Neutrophils 1 % Platelet Estimate NORMAL Blood Morphology Comment NORMAL Sodium Level 135 135-145 MMOL/L Potassium Level 4.2 3.6-5.0 MMOL/L Chloride Level 106 98-107 MMOL/L Carbon Dioxide Level 19 L 21-32 MMOL/L Anion Gap 10 5-14 MMOL/L Blood Urea Nitrogen 7 7-18 MG/DL Creatinine 0.60 0.60-1.30 MG/DL Estimat Glomerular Filtration Rate 123 BUN/Creatinine Ratio 12 Glucose Level 84 70-105 MG/DL Calcium Level 8.7 8.5-10.1 MG/DL Corrected Calcium 9.4 8.5-10.1 MG/DL Total Bilirubin 0.1 0.1-1.0 MG/DL Aspartate Amino Transf (AST/SGOT) 16 5-34 U/L Alanine Aminotransferase (ALT/SGPT) 7 0-55 U/L Alkaline Phosphatase 55 40-136 U/L C-Reactive Protein High Sensitivity 0.30 0.00-0.50 MG/DL Total Protein 6.6 6.4-8.2 GM/DL Albumin 3.1 L 3.2-4.5 GM/DL Urine Color YELLOW Urine Clarity CLEAR Urine pH 5.5 5-9 Urine Specific [place] 1.010 L 1.016-1.022 Urine Protein NEGATIVE NEGATIVE Urine Glucose (UA) NEGATIVE NEGATIVE Urine Ketones NEGATIVE NEGATIVE Urine Nitrite NEGATIVE NEGATIVE Urine Bilirubin NEGATIVE NEGATIVE Urine Urobilinogen 0.2 < = 1.0 MG/DL Urine Leukocyte Esterase NEGATIVE NEGATIVE Urine RBC (Auto) NEGATIVE NEGATIVE Urine RBC NONE /HPF Urine WBC NONE /HPF Urine Squamous Epithelial Cells 0-2 /HPF Urine Crystals PRESENT H /LPF Urine Amorphous Sediment RARE ABEL URATES H /LPF Urine Bacteria TRACE /HPF Urine Casts NONE /LPF Urine Mucus NEGATIVE /LPF Urine Culture Indicated NO Human Chorionic Gonadotropin, Quant 60301 H <5 MIU/ML Micro Results Microbiology 03/03/23 Wet Prep - Final, Complete My Orders Orders - MARIE GOLDBERG APRN Ua Culture If Indicated (03/03/23 18:57) Urine Bedside (03/03/23 18:57) Hs C Reactive Protein (03/03/23 19:20) Comprehensive Metabolic Panel (03/03/23 19:20) Ed Iv/Invasive Line Start (03/03/23 19:20) Cbc With Automated Diff (03/03/23 19:20) Ondansetron Oral Dissolve Tab (Zofran (03/03/23 19:30) Hcg,Quantitative (03/03/23 19:25) Manual Differential (03/03/23 19:15) Wet Prep (03/03/23 20:23) Neisseria Gonorrhea Swab (03/03/23 20:23) Chlamydia Trachomatis Swab (03/03/23 20:23) Medications Given in ED Vital Signs/I&O 03/03/23 03/03/23 19:03 20:55 Temp 37.2 Pulse 109 87 Resp 18 20 B/P (MAP) 120/86 (97) 119/71 Pulse Ox 100 97 O2 Delivery Room Air Room Air Progress Progress Note : Progress Note Patient seen and evaluated, resting comfortably in bed, no acute distress. Based on exam and symptoms, work-up initiated including CBC, CMP, CRP, UA, urine . Nursing staff unable to get in line, will give ODT Zofran. Urine positive. hCG quant added on. Patient did not want a pelvic exam performed, she self swabbed for the wet prep and gonorrhea chlamydia swabs. 2035 Labs reviewed. CBC shows slightly elevated WBC 14.1, neutrophil # elevated 10.2, neutrophil percentage normal. Elevated white count may be related to vomiting and diarrhea. CMP shows slightly decreased CO2 19, decreased albumin 3.1. hCG quant is 14,944. Urinalysis negative for nitrates, leukocytes, WBCs. Shows 0-2 squamous epithelial cells and trace bacteria. I am not concerned for infection in the urine at this time. Wet prep shows WBCs and clue cells. Will treat for bacterial vaginosis with vaginal clindamycin. Abdominal cramping possibly related to bacterial vaginosis. I am not concerned for ectopic at this time since pain is minimal and located in the center of her abdomen below umbilicus. I will have her do an outpatient ultrasound in the morning and follow-up with Dr. Timmons on schedule. Results discussed with patient. She was able to drink water after Zofran without vomiting. Patient agreeable to discharge plan. Discharge instructions and return precautions provided. Departure Impression Primary Impression: Bacterial vaginosis Additional Impression: Qualified Codes: Z3A.01 - Less than 8 weeks gestation of Disposition: HOME, SELF-CARE Condition: Stable Departure-Patient Inst. Decision time for Depature: 20:36 Referrals: NO,LOCAL PHYSICIAN (PCP/Family) Primary Care Physician Patient Instructions: Bacterial vaginosis Add. Discharge Instructions: Use vaginal clindamycin each night for the next 7 nights. Complete full course of antibiotic. Return tomorrow at 8:15 AM for your outpatient ultrasound. You will check in with outpatient. You need a full bladder for this exam. Follow-up with Shanelle, this Wednesday, as scheduled. Return for severe pain especially if it moves to one side, vaginal bleeding, or any other new, concerning, or worsening symptoms. Scripts Clindamycin Phos (Cleocin) 2 % Cr 5 GM VG DAILY for 7 Days, #35 GM 0 Refills Prov: MARIE GOLDBERG APRN 03/03/23 MARIE GOLDBERG APRN Mar 03, 2023 19:14
[2023-03-03 19:25] LABS: BILIRUBIN,URINE NEGATIVE (NEGATIVE); CLARITY,URINE CLEAR; COLOR,URINE YELLOW; GLUCOSE, URINE (UA) NEGATIVE (NEGATIVE); KETONES,URINE NEGATIVE (NEGATIVE); LEUKOCYTE ESTERASE ,URINE NEGATIVE (NEGATIVE); NITRITE,URINE NEGATIVE (NEGATIVE); PH,URINE 5.5 (5-9); PROTEIN,URINE NEGATIVE (NEGATIVE)
[2023-03-03 19:27] LABS: BASOPHILS # (AUTO) 0.1 10^3/uL (0.0-0.1); BASOPHILS % (AUTO) 0 % (0-10); EOSINOPHILS # (AUTO) 0.2 10^3/uL (0.0-0.3); EOSINOPHILS % (AUTO) 1 % (0-10); HEMATOCRIT 33 % (35-52); HEMOGLOBIN 11.1 g/dL (11.5-16.0); LYMPHOCYTES # (AUTO) 2.7 10^3/uL (1.0-4.0); LYMPHOCYTES % (AUTO) 19 % (12-44); MEAN CORPUSCULAR HEMOGLOBIN 30 pg (25-34); MEAN CORPUSCULAR HGB CONC 33 g/dL (32-36); MEAN CORPUSCULAR VOLUME 90 fL (80-99); MEAN PLATELET VOLUME 10.7 fL (9.0-12.2); MONOCYTES # (AUTO) 0.8 10^3/uL (0.0-1.0); MONOCYTES % (AUTO) 6 % (0-12); NEUTROPHILS # (AUTO) 10.2 10^3/uL (1.8-7.8); NEUTROPHILS % (AUTO) 72 % (42-75); PLATELET COUNT 293 10^3/uL (130-400); WHITE BLOOD COUNT 14.1 10^3/uL (4.3-11.0)
[2023-03-03] MEDS ORDERED: ONDANSETRON 4 MG (ZOFRAN) ORAL DISSOLVE TAB PO ONE (19:30)
[2023-03-03 19:33] LABS: BACTERIA,URINE TRACE /HPF; SQUAMOUS EPITHELIAL CELL,UR 0-2 /HPF
[2023-03-03 19:34] LABS: AMORPHOUS SEDIMENT,UR RARE AMOR URATES /LPF
[2023-03-03 19:35] LABS: ALBUMIN 3.1 GM/DL (3.2-4.5)
[2023-03-03 19:36] LABS: CALCIUM 8.7 MG/DL (8.5-10.1)
[2023-03-03 19:38] LABS: POTASSIUM 4.2 MMOL/L (3.6-5.0); TOTAL PROTEIN 6.6 GM/DL (6.4-8.2)
[2023-03-03 19:39] LABS: BILIRUBIN,TOTAL 0.1 MG/DL (0.1-1.0)
[2023-03-03 19:42] LABS: CREATININE SERUM 0.6 MG/DL (0.60-1.30)
[2023-03-03 19:56] LABS: BAND NEUTROPHILS 1 %; EOSINOPHILS % (MANUAL) 3 %; LYMPHOCYTES % (MANUAL) 21 %; MONOCYTES % (MANUAL) 4 %; NEUTROPHILS % (MANUAL) 71 %; PLATELET ESTIMATE NORMAL; RBC MORPH NORMAL
[2023-03-03] MEDS ORDERED: CLN2C40 VG (20:44)
[2023-03-03 20:55] VITALS: BP 119/71
== END 2023-03-03 20:55 | disposition home or self-care (01) ==
LOC: EDUNIT# 18:54 → ER 18:56
DX: O23.591 Infection of other part of genital tract in pregnancy, first trimester (principal); B96.89 Other specified bacterial agents as the cause of diseases classified elsewhere; Z3A.01 Less than 8 weeks gestation of pregnancy; Z28.310 Unvaccinated for COVID-19
CPT/HCPCS: 36415; 80053; 81000; 84702; 84703; 85007; 85027; 86141; 87210; 87491; 87591

== ENCOUNTER 2023-06-23 19:43 | Inpatient (IN) | payer MEDICAID ==
[~2023-06-23] VITALS: Ht 162.6 cm; Wt 90.9 kg
[2023-06-23] VITALS (10 sets, daily range): BP systolic 116–161; BP diastolic 64–111
[~2023-06-23 19:43] MED LIST changes: +CLN2C40 VG
[2023-06-23] MEDS ORDERED: D5 LR 1,000 ML IV SOLN 1,000 ML IV ONE (19:57)
[2023-06-23] MEDS ORDERED: AMPICILLIN 2,000 MG/14.8 ML (IV USE) ONE (19:57)
[2023-06-23] MEDS ORDERED: WATER (STERILE) FOR INJECTION 20 ML ONE (19:57)
[2023-06-23] MEDS ORDERED: NS (IVPB) 100 ML 100 ML ONE ×2 (19:58→21:21)
[2023-06-23] MEDS ORDERED: AMPICILLIN (IV) 2,000 MG in NS (IVPB) 50 ML 50 ML IV ONE (20:03)
[2023-06-23] MEDS ORDERED: NS IV 1000 ML 1,000 ML ONE (20:10)
[2023-06-23] MEDS ORDERED: NS IV 1000 ML 1,000 ML IV ONE (20:15)
[2023-06-23] MEDS ORDERED: D5 LR 1,000 ML IV SOLN 1,000 ML IV SCH (20:15)
--- NOTE | 2023-06-23 20:32 | History & Physical-OB ---
OB - Chief Complaint & HPI Date/Time Date of Admission: Date of Admission: 06/23/2023 Date seen by a Provider: Jun 23, 2023 Time Seen by a Provider: 20:20 Chief Complaint/History Hx : 8 Hx Para: 6 Expected Date of Delivery: Jul 16, 2023 Gestational Age in Weeks: 36 Gestational Age in Days: 6 Other reason for admission: Contacted by RN patient with no local care brought in obviously under the influence of a substance. Patient upon arrival admits to methamphetamine use,but nothing else. She reports she is hungry and would like to eat, and that she has had some care in [place], [place]. Reports she has had pre- ecclampsia twice in her prior 6 live births. 3 by and 3 vaginal births. She has had one miscarriage. Admission Nurse Assessment Rev: Yes History of Labs pending Allergies and Home Medications Allergies Coded Allergies: No Known Drug Allergies (Verified , 12/20/17) Patient Home Medication List Home Medication List Reviewed: Yes Cephalexin (Cephalexin) 500 Mg Tablet, 500 MG PO TID Prescribed by: ROBER NOLAN on 03/05/21 0208 Clindamycin Phos (Cleocin) 2 % Cr, 5 GM VG DAILY Prescribed by: Marie Gomes on 03/03/232043 Docusate Sodium (Dok) 100 Mg Capsule, 100 MG PO BID Prescribed by: PRAMOD LAWSON on 08/02/20 151 Ibuprofen (Ibu) 600 Mg Tablet, 600 MG PO Q6HR Prescribed by: PRAMOD LAWSON on 08/02/20 151 Mupirocin (Mupirocin) 22 Gm Oint...g., 0 GM TOP BID Prescribed by: PRAMOD LAWSON on 08/02/20 151 Oxycodone Hcl (Oxyir Tablet) 5 Mg Tab, 5 MG PO Q4HR Prescribed by: PRAMOD LAWSON on 08/02/20 151 Pnv No.122/Iron/Folic Acid ( Multi Tablet) 1 Each Tablet, Unknown Dose PO, (Reported) Entered as Reported by: AURORA DOMINGUEZ on 09/15/17 1840 Sulfamethoxazole/Trimethoprim (Bactrim Ds Tablet) 1 Each Tablet, 1 EACH PO BID Prescribed by: ROBER NOLAN on 10/19/21 0537 [Miconazole Nitrate 2% Crm] 28.4 GM CREAM..G., 0 GM TP BID Prescribed by: PRAMOD LAWSON on 08/02/20 1510 OB - History Hx of Present Care: No (questionable) Ultrasounds: No ultrasounds Obstetrical Complications: Other (limited care, admitted ilicit drug use) Medical Complications: None (none per the patient) Obstetrical History Hx Complication: Yes (preeclampsia per patient report) Delivery History Hx Blood Disorders: No Adverse Rxn to Tranfusion: No Patient Past Medical History Denies past medical history PSurgHx: cholecystectomy and Social History/Family History 2nd Hand Smoke Exposure: No Immunizations Hepatitis A: No Hepatitis B: No Tetanus Booster (TDap): Less than 5yrs OB - Admission Exam Physical Exam HEENT: NCAT Heart: Rhythm Normal Abdomen: Gravid Cervical Dilatation: 4cm Effacement: 50% Station: Ballotable Membranes: Intact Heart Rate: 140's Accelerations: Accelerations Present Decelerations: No Decelerations Short Term Variability: Present Digital Marketing Intern Variability: Average (6-25) Contractions on Admission: 6-10 Minutes Apart Intensity: Mild Labs Laboratory Tests Test 06/23/23 20:05 Range/Units OB - Assessment/Plan/Diagnosis Assessment Admission Dx Diagnosis 33 yo @ 36.6 weeks per patient's EDC(unconfirmed) Previous x 3 Altered mental status w/ recent self admitted methamphetamine use Irregular contractions Plan: Admit for observation for now and will evaluate if active labor is occurring. Patient not sure if she has had SROM- Rom+ pending, but no active leaking of flu id on the bed 2gm Ampicillin ordered for GBS prophylaxis due to labor and unknown GBS Social work consultation when available Will consider urgent delivery if maternal/ status changes or if active labor-cervical change noted/SROM confirmed. OB US in the AM for BPP/EFW IVF fluid hydration overnight, may consider dc tomorrow after social/psych evaluation if not active labor and no reason to deliver. Admission Status: Observation Plan Plan: LEISA Sanchez DO Jun 23, 2023 20:32
[2023-06-23 20:42] LABS: AMPHETAMINE SCREEN, URINE POSITIVE (NEGATIVE); BARBITURATE SCREEN URINE NEGATIVE (NEGATIVE); BASOPHILS # (AUTO) 0.1 10^3/uL (0.0-0.1); BASOPHILS % (AUTO) 1 % (0-10); CANNABINOID SCREEN, URINE POSITIVE (NEGATIVE); COCAINE SCREEN URINE NEGATIVE (NEGATIVE); EOSINOPHILS # (AUTO) 0.1 10^3/uL (0.0-0.3); EOSINOPHILS % (AUTO) 1 % (0-10); HEMATOCRIT 32 % (35-52); HEMOGLOBIN 10.1 g/dL (11.5-16.0); LYMPHOCYTES # (AUTO) 3.5 10^3/uL (1.0-4.0); LYMPHOCYTES % (AUTO) 22 % (12-44); MEAN CORPUSCULAR HEMOGLOBIN 26 pg (25-34); MEAN CORPUSCULAR HGB CONC 31 g/dL (32-36); MEAN CORPUSCULAR VOLUME 83 fL (80-99); MEAN PLATELET VOLUME 10.9 fL (9.0-12.2); METHADONE STAT NEGATIVE (NEGATIVE); MONOCYTES # (AUTO) 1.2 10^3/uL (0.0-1.0); MONOCYTES % (AUTO) 8 % (0-12); NEUTROPHILS # (AUTO) 10.6 10^3/uL (1.8-7.8); NEUTROPHILS % (AUTO) 68 % (42-75); OPIATE SCREEN URINE NEGATIVE (NEGATIVE); OXYCODONE STAT NEGATIVE (NEGATIVE); PLATELET COUNT 430 10^3/uL (130-400); PROPOXYPHENE STAT NEGATIVE (NEGATIVE); TRICYCLIC ANTIDEPRESSANTS SCRE NEGATIVE (NEGATIVE); WHITE BLOOD COUNT 15.7 10^3/uL (4.3-11.0)
[2023-06-23 20:49] LABS: POTASSIUM 3.5 MMOL/L (3.6-5.0)
[2023-06-23 20:50] LABS: CALCIUM 8.7 MG/DL (8.5-10.1)
[2023-06-23 20:51] LABS: TOTAL PROTEIN 6.7 GM/DL (6.4-8.2)
[2023-06-23 20:53] LABS: BILIRUBIN,TOTAL 2.3 MG/DL (0.1-1.0)
[2023-06-23 20:55] LABS: CREATININE SERUM 0.65 MG/DL (0.60-1.30)
[2023-06-23 20:58] LABS: URIC ACID 3.7 MG/DL (2.6-7.2)
[2023-06-23] MEDS ORDERED: FAMOTIDINE INJ 20MG/2ML VIAL IV ONE (21:00)
[2023-06-23] MEDS ORDERED: CATHETER FLUSH 10 ML SYR IV PRN (21:00)
[2023-06-23] MEDS ORDERED: LACTATED RINGERS 1,000 ML 1,000 ML IV PRN (21:00)
[2023-06-23] MEDS ORDERED: METOCLOPRAMIDE INJ 10 MG/2 ML IV ONE (21:00)
[2023-06-23] MEDS ORDERED: ceFAZolin INJECTION 2,000 MG in NS (IVPB) 50 ML 50 ML IV ONE (21:00)
[2023-06-23] MEDS ORDERED: CITRIC ACID/SODIUM CITRATE ORAL SOLN 30 ML PO ONE (21:00)
[2023-06-23 21:13] LABS: ANISOCYTOSIS MODERATE; BAND NEUTROPHILS 1 %; EOSINOPHILS % (MANUAL) 1 %; HYPOCHROMASIA SLIGHT; LYMPHOCYTES % (MANUAL) 26 %; MONOCYTES % (MANUAL) 3 %; NEUTROPHILS % (MANUAL) 69 %; NUCLEATED RED BLOOD CELLS 1
[2023-06-23] MEDS ORDERED: ACETAMINOPHEN 500 MG TABLET PO SCH (21:15)
[2023-06-23] MEDS ORDERED: ONDANSETRON INJECTION 4 MG/2 ML (SDV) IVP PRN ×2 (21:15→22:30)
[2023-06-23] MEDS ORDERED: Tetanus/Diphtheria/Pertussis (Acell) ADULT Vaccine 0.5 ML IM SCH (21:15)
[2023-06-23] MEDS ORDERED: NALOXONE 0.4 MG/ML 1 ML VIAL IV PRN (21:15)
[2023-06-23] MEDS ORDERED: MEASLES, MUMPS, RUBELLA VACCINE (MMR) SC SCH (21:15)
[2023-06-23] MEDS ORDERED: ENOXAPARIN 30 MG/0.3 ML SYRINGE SC SCH (21:15)
[2023-06-23 21:17] LABS: CLARITY,URINE CLOUDY; COLOR,URINE YELLOW; GLUCOSE, URINE (UA) NEGATIVE (NEGATIVE); KETONES,URINE NEGATIVE (NEGATIVE); NITRITE,URINE NEGATIVE (NEGATIVE); PROTEIN,URINE 1+ (NEGATIVE)
[2023-06-23 21:18] LABS: BACTERIA,URINE MODERATE /HPF; BILIRUBIN,URINE 1+ (NEGATIVE); GRANULAR CASTS,URINE 0-2 /LPF; LEUKOCYTE ESTERASE ,URINE NEGATIVE (NEGATIVE); RBC,URINE 0-2 /HPF
[2023-06-23] MEDS ORDERED: ceFAZolin INJECTION 2,000 MG ONE (21:21)
[2023-06-23] MEDS ORDERED: CITRIC ACID/SODIUM CITRATE ORAL SOLN 30 ML ONE (21:21)
[2023-06-23] MEDS ORDERED: FAMOTIDINE INJ 20MG/2ML VIAL ONE (21:21)
[2023-06-23] MEDS ORDERED: METOCLOPRAMIDE INJ 10 MG/2 ML ONE (21:21)
[2023-06-23] MEDS ORDERED: fentaNYL INJECTION 100 MCG/2 ML VIAL ONE ×2 (21:26→21:56)
[2023-06-23] MEDS ORDERED: SUCCINYLCHOLINE INJ 20 MG/1 ML 10 ML VIAL ONE (21:26)
[2023-06-23] MEDS ORDERED: OXYTOCIN DRIP PRE-MIX 1,000 ML IV ONE (21:26)
[2023-06-23] MEDS ORDERED: dexAMETHasone INJ 10 MG/ML 1 ML VIAL ONE (21:26)
[2023-06-23] MEDS ORDERED: proPOfol INJECTION 200 MG/20 ML VIAL IV ONE (21:26)
[2023-06-23] MEDS ORDERED: ONDANSETRON INJECTION 4 MG/2 ML (SDV) ONE ×2 (21:26→22:16)
[2023-06-23] MEDS: KETOROLAC INJ 30 MG/ML VIAL IV SCH (22:04)
[2023-06-23] MEDS ORDERED: KETOROLAC INJ 30 MG/ML VIAL ONE (22:07)
[2023-06-23] MEDS ORDERED: SEVOFLURANE (ULTANE) 15 ML INHAL SOLN ONE (22:07)
[2023-06-23] MEDS ORDERED: HYDROmorphone INJECTION 2 MG/ML VIAL ONE (22:18)
[2023-06-23] MEDS ORDERED: HYDROmorphone INJECTION 2 MG/ML VIAL IV ONE (22:30)
[2023-06-23] MEDS: OXYTOCIN DRIP PRE-MIX 500 ML IV SCH ×2 (23:16→23:50)
[2023-06-24] VITALS (7 sets, daily range): BP systolic 103–155; BP diastolic 57–79
[2023-06-24] MEDS ORDERED: AMPICILLIN (IV) 1,000 MG in NS (IVPB) 50 ML 50 ML IV SCH (00:15)
[2023-06-24] MEDS: CATHETER FLUSH 10 ML SYR IV SCH ×2 (02:06→22:00)
[2023-06-24] MEDS: KETOROLAC INJ 30 MG/ML VIAL IV SCH ×3 (03:43→18:06)
[2023-06-24] MEDS ORDERED: LACTATED RINGERS 1,000 ML 1,000 ML IV ONE (03:50)
[2023-06-24] MEDS: LACTATED RINGERS 1,000 ML 1,000 ML IV SCH ×2 (03:55→11:31)
--- NOTE | 2023-06-24 04:09 | OPERATIVE REPORT ---
PREOPERATIVE DIAGNOSES: 1. A 33-year-old at 36 weeks and 6 days' gestation. 2. Previous section x3. 3. labor with premature rupture of membranes. 4. Limited care. 5. Altered mental status with methamphetamine, amphetamine and cannabinoid positive drug screen. POSTOPERATIVE DIAGNOSES: 1. A 33-year-old at 36 weeks and 6 days' gestation. 2. Previous section x3. 3. labor with premature rupture of membranes. 4. Limited care. 5. Altered mental status with methamphetamine, amphetamine and cannabinoid positive drug screen. PROCEDURE: Repeat low transverse section. SURGEON: Ross Garcia DO ANESTHESIA: General endotracheal. ESTIMATED BLOOD LOSS: 600 mL. URINE OUTPUT: 250 mL clear at the end of procedure. FLUIDS: 1500 mL lactated Ringer's solution. FINDINGS: A live female infant weighing 6 pounds 8 ounces, Apgars of 8 and 9. Grossly normal appearing uterus, bilateral fallopian tubes and ovaries. SPECIMEN SENT: Placenta. INDICATIONS FOR PROCEDURE: This 33-year-old female patient was brought in via EMS with limited local care and altered mental status. She was brought in and nursing contacted me with concerns on being able to control her as she was quite belligerent and unable to be reason with. When I approached the patient, she had calmed down. She was found to be 4 cm dilated, had obvious altered mental status, unable to appreciate her condition and orientation where she was. Urine drug screen revealed positive methamphetamines, amphetamines, and cannabinoids in her system and rupture of membrane was noted with a positive ROM plus test. Due to rupture of membranes at 36 weeks' gestation estimated based upon the patient's given due date, I recommended proceeding with urgent delivery. Risks of the procedure were discussed with the patient in detail. Although her mental status was altered, I did discuss it with her family members including her mother. They are agreeable to proceed. Consent was obtained. The patient was taken to the operating room. OPERATIVE REPORT IN DETAIL: Once in the operating room, general anesthesia was administered and found to be adequate. This was done after she receives her Castle catheter and she was prepped and draped. Once anesthesia obtains an airway after anesthesia was administered, I proceed with the by making a Pfannenstiel skin incision through previous existing scar using knife and carried down to fascia using the knife. The fascial incision extended laterally using blunt traction. The rectus muscles are in the midline using blunt traction, which exposed the peritoneum, which I entered bluntly and extended using blunt traction, identified lower uterine segment was found to be thinned out. I placed an Andrey ring retractor and peritoneal incision, which offers excellent lateral sidewall retraction. I then made a low transverse incision to the vesicouterine peritoneum and bluntly dissected this off the lower uterine segment, creating a bladder flap. I proceeded with my myotomy until membranes were visualized, at which point I thinned uterine incision laterally and superiorly using bandage scissors. Amniotomy was then performed using Allis clamp. Thick meconium-stained fluid was noted. The was found in vertex presentation. With gentle fundal pressure, the infant's head elevated up to the incision, which delivered through the incision, the nares and oropharynx were bulb suctioned. Infant was then brought to the operative field where cords were clamped and cut and infant was handed off to waiting nurses in attendance. Cord blood was collected. Three-vessel cord with intact placenta was delivered spontaneously thereafter. Cord gases were attempted; however, unable to obtain a satisfactory amount of blood from the umbilical arteries. The uterus was then exteriorized and cleared of all endometrial clots and debris. I then proceeded with closing the uterine incision using 0 Vicryl suture in a running locked fashion. IV Pitocin was initiated to facilitate uterine contraction. Uterine fundus confirmed by bimanual massage. A second layer of imbricating 0 Monocryl was placed. Excellent hemostasis was noted after doing this. I then placed the uterus back and copiously irrigated the pelvis using normal saline. Once again, there was no active bleeding noted from any of my dissection planes. I placed Interceed antiadhesive over my low transverse incision. I removed the Andrey ring retractor and then proceeded with closing the rectus muscles using 3-0 Vicryl suture in interrupted fashion. The fascia was reapproximated using 0 Vicryl suture in a running fashion. The skin reapproximated using jillian. Pressure dressing was adhesed with white tape. The patient tolerated the procedure well and was taken to recovery in stable condition. Lap and sponge counts were correct at the end of the procedure. Instrument counts correct as well. Two grams of Ancef were given preoperatively for infection prophylaxis. Job ID: [id number] DocumentID: [id number] Dictated Date: 06/23/2023 22:15:30 Microbiology Professor Date: 06/24/2023 04:06:00 Dictated By: ROSS GARCIA DO
[2023-06-24 06:43] LABS: BASOPHILS % (AUTO) 0 % (0-10); EOSINOPHILS % (AUTO) 0 % (0-10); HEMATOCRIT 26 % (35-52); HEMOGLOBIN 8.2 g/dL (11.5-16.0); LYMPHOCYTES # (AUTO) 1.6 10^3/uL (1.0-4.0); LYMPHOCYTES % (AUTO) 11 % (12-44); MEAN CORPUSCULAR HEMOGLOBIN 26 pg (25-34); MEAN CORPUSCULAR HGB CONC 31 g/dL (32-36); MEAN CORPUSCULAR VOLUME 83 fL (80-99); MEAN PLATELET VOLUME 10.9 fL (9.0-12.2); MONOCYTES # (AUTO) 0.4 10^3/uL (0.0-1.0); MONOCYTES % (AUTO) 2 % (0-12); NEUTROPHILS # (AUTO) 13.3 10^3/uL (1.8-7.8); NEUTROPHILS % (AUTO) 86 % (42-75); PLATELET COUNT 372 10^3/uL (130-400); WHITE BLOOD COUNT 15.5 10^3/uL (4.3-11.0)
[2023-06-24 06:46] LABS: ALBUMIN 2.4 GM/DL (3.2-4.5)
[2023-06-24 06:47] LABS: POTASSIUM 3.9 MMOL/L (3.6-5.0)
[2023-06-24 06:48] LABS: CALCIUM 8.1 MG/DL (8.5-10.1)
[2023-06-24 06:49] LABS: TOTAL PROTEIN 5.4 GM/DL (6.4-8.2)
[2023-06-24 06:51] LABS: BILIRUBIN,TOTAL 1.9 MG/DL (0.1-1.0)
[2023-06-24 06:53] LABS: CREATININE SERUM 0.64 MG/DL (0.60-1.30)
--- NOTE | 2023-06-24 07:28 | Postpartum Progress Note ---
Note Note Day # 1 Subjective: Patient is without complaints. Ambulating, voiding. Tolerating a regular diet without nausea or vomiting. Normal lochia. Pain is well controlled with oral pain medications. Objective: Physical Exam: General - Alert and oriented, no apparent distress Abdomen - Soft, appropriately tender to palpation, non-distended, fundus firm at umbilicus Extremities - no edema, negative Palomo's bilaterally incision- c/d/i Assessment: POD 1 RLTCS Elevated Liver enzymes, slightly elevated from admission Urine output borderline Mental status and awareness improved this AM Acute blood loss anemia Plan: Routine care. RT and PT consults Awaiting social work consult Will hold tylenol until liver enzymes come down Encourage ambulation. Ferrous sulfate supplementation. Vitals - Labs Vital Signs - I&O Vital Signs Date Time Temp Pulse Resp B/P (MAP) Pulse Ox O2 Delivery O2 Flow Rate FiO2 06/24/23 03:53 36.2 77 18 128/78 (95) 98 Room Air 06/24/23 03:32 97 Room Air 0.00 06/23/23 23:51 100 22 116/84 (95) 99 Room Air 06/23/23 23:20 36.2 90 21 161/81 (107) 98 Room Air 06/23/23 23:06 36.2 21 142/74 (96) 99 OxyMask 3.00 06/23/23 23:05 OxyMask 3.00 06/23/23 22:58 36.2 25 125/64 (84) 94 OxyMask 3.00 06/23/23 22:54 OxyMask 8.00 06/23/23 22:50 25 126/111 (116) 98 OxyMask 8.00 06/23/23 22:45 OxyMask 8.00 06/23/23 22:40 20 136/93 (107) 94 OxyMask 8.00 06/23/23 22:30 21 126/87 (100) 93 OxyMask 8.00 06/23/23 22:30 OxyMask 8.00 06/23/23 22:14 36.1 20 135/87 (103) 100 OxyMask 8.00 06/23/23 22:14 OxyMask 8.00 06/23/23 20:40 Room Air 06/23/23 19:34 36.1 100 20 130/83 (99) 99 Room Air 06/23/23 19:32 36.1 93 20 99 Room Air I & O 06/24/23 07:00 Intake Total 1045 ml Output Total 150 ml Balance 895 ml Labs Laboratory Tests 06/23/23 20:05: White Blood Count 15.7H, Red Blood Count 3.89, Hemoglobin 10.1L, Hematocrit 32L, Mean Corpuscular Volume 83, Mean Corpuscular Hemoglobin 26, Mean Corpuscular Hemoglobin Concent 31L, Red Cell Distribution Width 15.8H, Platelet Count 430H, Mean Platelet Volume 10.9, Immature Granulocyte % (Auto) 1, Neutrophils (%) (Auto) 68, Lymphocytes (%) (Auto) 22, Monocytes (%) (Auto) 8, Eosinophils (%) (Auto) 1, Basophils (%) (Auto) 1, Neutrophils # (Auto) 10.6H, Lymphocytes # (Auto) 3.5, Monocytes # (Auto) 1.2H, Eosinophils # (Auto) 0.1, Basophils # (Auto) 0.1, Immature Granulocyte # (Auto) 0.2H, Neutrophils % (Manual) 69, Lymphocytes % (Manual) 26, Monocytes % (Manual) 3, Eosinophils % (Manual) 1, Band Neutrophils 1, Nucleated Red Blood Cells 1, Hypochromasia SLIGHT, Anisocytosis MODERATE, Urine Color YELLOW, Urine Clarity CLOUDY, Urine pH 6.0, Urine Specific [place] 1.025H, Urine Protein 1+H, Urine Glucose (UA) NEGATIVE, Urine Ketones NEGATIVE, Urine Nitrite NEGATIVE, Urine Bilirubin 1+H, Urine Urobilinogen 4.0, Urine Leukocyte Esterase NEGATIVE, Urine RBC (Auto) 1+H, Urine RBC 0-2, Urine WBC 5-10H, Urine Squamous Epithelial Cells 5-10, Urine Crystals NONE, Urine Bacteria MODERATEH, Urine Casts PRESENT, Urine Granular Casts 0-2H, Urine Mucus NEGATIVE, Urine Culture Indicated CULTURE PENDING, Urine Creatinine 78, Urine Protein/Creatinine Ratio 0.47, Membranes Rupture POSITIVE, Sodium Level 135, Potassium Level 3.5L, Chloride Level 107, Carbon Dioxide Level 17L, Anion Gap 11, Blood Urea Nitrogen 6L, Creatinine 0.65, Estimat Glomerular Filtration Rate 120, BUN/Creatinine Ratio 9, Glucose Level 65L, Uric Acid 3.7, Calcium Level 8.7, Corrected Calcium 9.5, Total Bilirubin 2.3H, Aspartate Amino Transf (AST/SGOT) 203H, Alanine Aminotransferase (ALT/SGPT) 184H, Alkaline Phosphatase 329H, Total Protein 6.7, Albumin 3.0L, Thyroid Stimulating Hormone (TSH) 1.63, Urine Opiates Screen NEGATIVE, Urine Oxycodone Screen NEGATIVE, Urine Methadone Screen NEGATIVE, Urine Propoxyphene Screen NEGATIVE, Urine Barbiturates Screen NEGATIVE, Ur Tricyclic Antidepressants Screen NEGATIVE, Urine Phencyclidine Screen NEGATIVE, Urine Amphetamines Screen POSITIVEH, Urine Methamphetamines Screen POSITIVEH, Urine Benzodiazepines Screen NEGATIVE, Urine Cocaine Screen NEGATIVE, Urine Cannabinoids Screen POSITIVEH, Syphilis Total Antibody Negative 06/23/23 20:50: 06/24/23 06:18: White Blood Count 15.5H, Red Blood Count 3.14L, Hemoglobin 8.2L, Hematocrit 26L, Mean Corpuscular Volume 83, Mean Corpuscular Hemoglobin 26, Mean Corpuscular Hemoglobin Concent 31L, Red Cell Distribution Width 15.9H, Platelet Count 372, Mean Platelet Volume 10.9, Immature Granulocyte % (Auto) 1, Neutrophils (%) (Auto) 86H, Lymphocytes (%) (Auto) 11L, Monocytes (%) (Auto) 2, Eosinophils (%) (Auto) 0, Basophils (%) (Auto) 0, Neutrophils # (Auto) 13.3H, Lymphocytes # (Auto) 1.6, Monocytes # (Auto) 0.4, Eosinophils # (Auto) 0.0, Basophils # (Auto) 0.0, Immature Granulocyte # (Auto) 0.2H, Sodium Level 136, Potassium Level 3.9, Chloride Level 111H, Carbon Dioxide Level 16L, Anion Gap 9, Blood Urea Nitrogen 6L, Creatinine 0.64, Estimat Glomerular Filtration Rate 120, BUN/Creatinine Ratio 9, Glucose Level 98, Calcium Level 8.1L, Corrected Calcium 9.4, Total Bilirubin 1.9H, Aspartate Amino Transf (AST/SGOT) 222H, Alanine Aminotransferase (ALT/SGPT) 167H, Alkaline Phosphatase 250H, Total Protein 5.4L, Albumin 2.4L LEISA GARCIA DO Jun 24, 2023 07:28
[2023-06-24] MEDS: oxyCODONE IMMEDIATE RELEASE 5 MG TABLET PO PRN ×2 (08:20→14:55)
[2023-06-24] MEDS: DOCUSATE SODIUM 100 MG CAPSULE PO SCH ×2 (08:20→21:28)
[2023-06-24] MEDS ORDERED: ACETAMINOPHEN 500 MG TABLET PO SCH (09:00)
--- NOTE | 2023-06-24 09:04 | Physical Therapy Evaluation ---
PT Evaluation-General Medical Diagnosis Admission Date Jun 23, 2023 at 20:48 Medical Diagnosis: Post , Methamphetamine Abuse, unstable gait Onset Date: Jun 23, 2023 Therapy Diagnosis Therapy Diagnosis: Gait deficit, strength deficit Height/Weight Height (Feet): 5 Height (Inches): 3.00 Weight (Pounds): 185 Weight (Ounces): 8.0 Precautions Precautions/Isolations: Fall Prevention, Suicide Weight Bear Status Right Lower Extremity: Right Full Weight Bearing Left Lower Extremity: Left Full Weight Bearing Referral Physician: Dr. Timmons Reason for Referral: Evaluation/Treatment Medical History Reviewed History: Yes Social History Home: [facility] Current Living Status: Entry Into Home: Ramp Patient reports she lives with her mother in a 2 story home but does not have to go up any stairs. Patient reports there is a ramp to enter the home. Mother in room to confirm. Prior Prior Level of Function SCALE: Activities may be completed with or without assistive devices. 9-[id number]-[id number] completes the activity by him/herself with no assistance from a helper. 5-Set-up or Clean-up Assistance-helper sets up or cleans up; patient completes activity. [place] assists only prior to or following the activity. 4-Supervision or Touching Assistance-helper provides verbal cues and/or touching/steadying and/or contact guard assistance as patient completes activity. Assistance may be provided throughout the activity or intermittently. 3-Partial/Moderate Assistance-helper does LESS THAN HALF the effort. [place] lifts, holds or supports trunk or limbs, but provides less than half the effort. 2-Substantial/Maximal Assistance-helper does MORE THAN HALF the effort. [place] lifts or holds trunk or limbs and provides more than half the effort. 7-Vaktlnnng-bctuit does ALL the effort. Patient does none of the effort to complete the activity. Or, the assistance of 2 or more helpers is required for the patient to complete the activity. If activity was not attempted, code reason: 7-Patient Refused. 9-Not Applicable-not attempted and the patient did not perform the activity before the current illness, exacerbation or injury. 10-Not Attempted due to Environmental Limitations-(lack of equipment, weather restraints, etc.). 88-Not Attempted due to Medical Conditions or Safety Concerns. Bed Mobility: 6 Transfers (B,C,W/C): 6 Gait: 6 Stairs: 6 Indoor Mobility (Ambulation): Independent Stairs: Independent Prior Devices Use: None PT Evaluation-Current Subjective Patient sitting upright in bed holding baby upon PT arrival, agreeable to treatment. Sitter in the room, and patients mother in the room. Patient rates pain at 0/10 in her abdomen and reports she just got pain medicine. Upon mobilizing however she reports severe 10/10 pain in the back of her left calf/knee and reports this pain only began after the . Objective Patient Orientation: Person, Place Attachments: Castle Catheter, IV ROM/Strength ROM Lower Extremities WFLs BLEs all planes Strength Lower Extremities Right LE 5/5 all planes; Left LE knee flexion 3+/5 painful, Knee extension 4/5, all left hip motions 5/5 Sensory Vision: Functional Hearing: Functional Sensation Right Lower Extremit: Intact Sensation Left Lower Extremity: Intact Transfers Roll Left to Right (QC): 3 Sit to Lying (QC): 3 Lying to Sitting/Side of Bed(Q: 3 Sit to Stand (QC): 3 Gait Does the Patient Walk?: Yes Mode of Locomotion: Walk Anticipated Mode of Locomotion: Walk Walk 10 feet (QC): 3 Walk 50 ft with 2 Turns(QC): 3 Distance: 100' Gait Assistive Device: FWW Comments/Gait Description See Assessment. Balance Sitting Static: Poor Sitting Dynamic: Poor Standing Static: Poor Standing Dynamic: Poor Assessment/Needs Patient demonstrates continuous head and arm movement throughout the evaluation. She tends to open her mouth frequently as if to say something, however doesn't always. Patient requires min A for all bed mobility and transfers due to con stant core and extremity movement. Patient demonstrates moderate truncal ataxia in sitting and requires SBA/CGA at rest. Patient impulsive with some movements however with verbal cues is able to slow down and perform more controlled, however still unsafe. Patient ambulates 100 feet with FWW, with Min a, sitter pushing IV pole and verbal cues for safety, posture, gait velocity, and distance to the FWW. Patient is unable to safely control her trunk in standing and requires frequent verbal cues for posture. Patient also frequently lets go of the FWW at which time her balance declines minimally and she requires min A to avoid falling. Upon returning to bed patient reports severe increase in left calf pain. In sitting, Homans sign positive with gastrocnemius squeeze. Homans test repeated in supine and pain again elicited with Gastrocnemius squeeze. Patient requires min A to return to bed safely. Patient in bed post treatment with all needs met, nursing notified, call light in hand, mother in the room and sitter as well. Nurse notified of left calf pain and recommended to order US/Doppler to rule out DVT, however based upon ER report and patients difficulty ambulating last evening it is more likely that she severely strained her Gastrocnemius/Soleus complex rather having a blood clot. Patient advised to stay in bed until DVT ruled out. At this time patient is unsafe to return home alone and sans FWW due to increased fall risk from Methamphetamine associated gait and truncal Ataxia. Furthermore, the patient is at a higher risk of falling of causing unintentional harm to the due to her current medical state and poor balance, LE strength deficit, and fall risk. Rehab Potential: Poor Equipment Needs FWW PT Design Maker Goals Design Maker Goals PT Design Maker Goals Time Frame: Jul 17, 2023 Roll Left & Right (QC): 6 Sit to Lying (QC): 6 Lying-Sitting on Side/Bed(QC): 6 Sit to Stand (QC): 6 Chair/Lvk-ax-Hbblp Xfer(QC): 6 Does the Patient Walk: Yes Walk 10 feet (QC): 6 Walk 50ft with 2 Turns (QC): 6 Walk 150 ft (QC): 6 PT Plan Problem List Problem List: Activity Tolerance, Functional Strength, Safety, Balance, Gait, Transfer, Bed Mobility, ROM Treatment/Plan Treatment Plan: Continue Plan of Care Treatment Plan: Bed Mobility, Education, Functional Activity Be, Functional Strength, Group Therapy, Gait, Safety, Therapeutic Exercise, Transfers Treatment Duration: Aug 14, 2023 Frequency: 5 times per week Estimated Hrs Per Day: .25 hour per day Patient and/or Family Agrees t: Yes Safety Risks/Education Patient Education: Gait Training, Transfer Techniques Teaching Recipient: Patient, Family Teaching Methods: Demonstration, Discussion Response to Teaching: Reinforcement Needed Time Time In: 830 Time Out: 910 DATE: Jun 24, 2023 Total Billed Treatment Time: 40 Total Billed Treatment Visit, RICARDO VILLELA JOHN A PT Jun 24, 2023 09:04
[2023-06-24] MEDS: ENOXAPARIN 30 MG/0.3 ML SYRINGE SC SCH (10:45)
--- NOTE | 2023-06-24 12:20 | Diagnostic Imaging Report ---
Procedure: US left lower extremity venous. Technique: Multiple real-time grayscale images were obtained over the left lower extremity in various projections. Additional duplex Doppler and color Doppler images were also obtained. Date: June 24, 2023. Indication: 33-year-old female, left lower extremity pain. Comparison: None. Findings: The left common femoral vein, left superficial femoral vein, and left popliteal vein are all compressible with normal blood flow and response to augmentation. The visualized portions of the left greater saphenous vein and deep femoral vein are patent. The left posterior tibial vein and peroneal vein are patent. Impression: 1. Negative for left lower extremity deep venous thrombosis. Dictated by: Dictated on workstation # [id number]
--- NOTE | 2023-06-24 14:17 | Anesthesia-General Post-Op ---
General Patient Condition Mental Status/LOC: Same as Preop Cardiovascular: Satisfactory Nausea/Vomiting: Absent Respiratory: Satisfactory Pain: Controlled Complications: Absent Post Op Complications Complications None Follow Up Care/Instructions Patient Instructions None needed. Anesthesia/Patient Condition Patient Condition Patient is awake and doing well, she does C/O some right shoulder pain which isn't uncommon, stable vital signs, no apparent adverse anesthesia problems. No complications reported per nursing. MITCH ERNANDEZ DO Jun 24, 2023 14:17
[2023-06-24 14:23] LABS: ALBUMIN 2.4 GM/DL (3.2-4.5); BILIRUBIN,TOTAL 1.3 MG/DL (0.1-1.0); CALCIUM 7.9 MG/DL (8.5-10.1); CREATININE SERUM 0.68 MG/DL (0.60-1.30); POTASSIUM 3.7 MMOL/L (3.6-5.0); TOTAL PROTEIN 5.4 GM/DL (6.4-8.2)
[2023-06-24] MEDS ORDERED: RT-ALBUTEROL SULF 2.5 MG/3 ML PRE-MIX VIAL INH PRN (17:15)
[2023-06-24] MEDS ORDERED: SIMETHICONE 80 MG CHEWABLE TABLET PO ONE (19:45)
[2023-06-24] MEDS ORDERED: NICOTINE 21 MG PATCH TD SCH (21:00)
[2023-06-24] MEDS ORDERED: IBUPROFEN 600 MG TABLET PO SCH (21:15)
[2023-06-24] MEDS: RT-ALBUTEROL SULF 2.5 MG/3 ML PRE-MIX VIAL INH SCH (21:40)
[2023-06-24 22:23] LABS: HEPATITIS C ANTIBODY C Reactive (Non-Reactive)
[2023-06-25] MEDS: IBUPROFEN 600 MG TABLET PO SCH ×4 (00:15→22:53)
[2023-06-25] MEDS: LACTATED RINGERS 1,000 ML 1,000 ML IV SCH ×2 (02:50→04:27)
[2023-06-25] MEDS: oxyCODONE IMMEDIATE RELEASE 5 MG TABLET PO PRN ×4 (03:28→22:54)
[2023-06-25 03:30] VITALS: BP 125/86
--- NOTE | 2023-06-25 06:26 | Postpartum Progress Note ---
Note Note Day #2 Subjective: Patient is without complaints. Patient has been up to shower once yesterday. Patient had received 1 mg of Ativan last night to help calm her down. Formula feeding. Her pain is well controlled. No some concern about her incision site having some oozing per RN. Laboratory reveals positive hepatitis C. Liver enzymes trending downward Objective: VSS AF Physical Exam: General - Alert and oriented, no apparent distress Heart regular rate and rhythm Lungs clear to auscultation with decreased breath sounds in the right lower lobe Abdomen - Soft, appropriately tender to palpation, non-distended, fundus firm at umbilicus Incision clean has small amount of oozing at the incision site no fluid collections no tenderness Pressure dressing reapplied Lochia minimal Clear yellow urine in Castle catheter Extremities - no edema, negative Palomo's bilaterally Assessment: [] post- day # 2, status post Low transverse section anemia Hepatitis C positive Substance abuse Recovering well, hemodynamically stable Plan: Encourage ambulation Hepatitis C RNA ordered CBC chemistry today Remove Castle today Ferrous sulfate supplementation. Plan for discharge [] Vitals - Labs Vital Signs - I&O Vital Signs Date Time Temp Pulse Resp B/P (MAP) Pulse Ox O2 Delivery O2 Flow Rate FiO2 06/25/23 03:30 36.3 82 18 125/86 (99) 99 06/24/23 22:00 36.9 78 20 137/78 (97) 98 Room Air 06/24/23 20:38 36.7 78 18 117/74 (88) 97 Room Air 06/24/23 20:03 Room Air 06/24/23 16:59 36.8 83 98 06/24/23 16:00 36.5 80 20 107/61 (76) 98 Room Air 06/24/23 12:00 36.8 83 20 103/57 (72) 98 Room Air 06/24/23 10:53 98 Room Air 06/24/23 08:21 36.3 90 22 155/79 (104) 98 Room Air 06/24/23 08:15 98 Room Air I & O 06/25/23 07:00 Intake Total 950 ml Output Total 800 ml Balance 150 ml Labs Laboratory Tests 06/24/23 13:50: Sodium Level 135, Potassium Level 3.7, Chloride Level 108H, Carbon Dioxide Level 18L, Anion Gap 9, Blood Urea Nitrogen 6L, Creatinine 0.68, Estimat Glomerular Filtration Rate 119, BUN/Creatinine Ratio 9, Glucose Level 109H, Calcium Level 7.9L, Corrected Calcium 9.2, Total Bilirubin 1.3H, Aspartate Amino Transf (AST/SGOT) 190H, Alanine Aminotransferase (ALT/SGPT) 154H, Alkaline Phosphatase 223H, Total Protein 5.4L, Albumin 2.4L Microbiology 06/23/23 Urine Culture - Preliminary, Resulted Gram Pos Mixed Bacterial Elizabeth RICHARD NAIR DO Jun 25, 2023 06:26
[2023-06-25 07:13] LABS: BASOPHILS # (AUTO) 0.1 10^3/uL (0.0-0.1); BASOPHILS % (AUTO) 0 % (0-10); EOSINOPHILS # (AUTO) 0.1 10^3/uL (0.0-0.3); EOSINOPHILS % (AUTO) 1 % (0-10); HEMATOCRIT 25 % (35-52); HEMOGLOBIN 7.7 g/dL (11.5-16.0); LYMPHOCYTES # (AUTO) 4.1 10^3/uL (1.0-4.0); LYMPHOCYTES % (AUTO) 25 % (12-44); MEAN CORPUSCULAR HEMOGLOBIN 26 pg (25-34); MEAN CORPUSCULAR HGB CONC 31 g/dL (32-36); MEAN CORPUSCULAR VOLUME 85 fL (80-99); MEAN PLATELET VOLUME 10.6 fL (9.0-12.2); MONOCYTES # (AUTO) 0.9 10^3/uL (0.0-1.0); MONOCYTES % (AUTO) 5 % (0-12); NEUTROPHILS # (AUTO) 11.1 10^3/uL (1.8-7.8); NEUTROPHILS % (AUTO) 67 % (42-75); PLATELET COUNT 371 10^3/uL (130-400); WHITE BLOOD COUNT 16.5 10^3/uL (4.3-11.0)
[2023-06-25 07:29] LABS: ALBUMIN 2.5 GM/DL (3.2-4.5); BILIRUBIN,TOTAL 1.1 MG/DL (0.1-1.0); CALCIUM 7.9 MG/DL (8.5-10.1); CREATININE SERUM 0.56 MG/DL (0.60-1.30); POTASSIUM 3.8 MMOL/L (3.6-5.0); TOTAL PROTEIN 5.5 GM/DL (6.4-8.2)
[2023-06-25] MEDS: RT-ALBUTEROL SULF 2.5 MG/3 ML PRE-MIX VIAL INH SCH (07:42)
[2023-06-25 07:45] VITALS: BP 111/72
--- NOTE | 2023-06-25 08:10 | Physical Therapy Progress Note ---
Therapy Progress Note Patient up with nursing without difficulty. PT to dismiss patient from services at this time. SAYDA FREITAS PT Jun 25, 2023 08:10
[2023-06-25] MEDS: ENOXAPARIN 30 MG/0.3 ML SYRINGE SC SCH (08:12)
[2023-06-25] MEDS: DOCUSATE SODIUM 100 MG CAPSULE PO SCH ×2 (08:12→22:53)
[2023-06-25] MEDS ORDERED: ACETAMINOPHEN 500 MG TABLET PO SCH (09:00)
--- NOTE | 2023-06-25 09:23 | Diagnostic Imaging Report ---
INDICATION: shortness of breath. PA and lateral chest Heart and mediastinum are normal. Lungs are clear. There are no effusions or pneumothoraces. IMPRESSION: Negative chest Dictated by: Dictated on workstation # [id number]
[2023-06-25 09:25] VITALS: BP 110/65
[2023-06-25] MEDS: AZITHROMYCIN 250 MG TABLET PO SCH (12:33)
[2023-06-25 14:00] VITALS: BP 120/75
[2023-06-25] MEDS: FERROUS SULFATE 325 MG (IRON) TABLET PO SCH (18:42)
[2023-06-25] MEDS ORDERED: NICOTINE PATCH REMOVAL TP SCH (20:59)
[2023-06-25 23:00] VITALS: BP 113/68
[2023-06-26 05:37] VITALS: BP 97/63
[2023-06-26] MEDS: IBUPROFEN 600 MG TABLET PO SCH ×2 (05:47→08:23)
[2023-06-26 08:00] VITALS: BP 112/57
[2023-06-26] MEDS: DOCUSATE SODIUM 100 MG CAPSULE PO SCH (08:23)
[2023-06-26] MEDS: FERROUS SULFATE 325 MG (IRON) TABLET PO SCH (08:23)
[2023-06-26] MEDS: ENOXAPARIN 30 MG/0.3 ML SYRINGE SC SCH (08:23)
[2023-06-26] MEDS ORDERED: AZITHROMYCIN 250 MG TABLET PO SCH (09:00)
[2023-06-26] MEDS: AZITHROMYCIN 250 MG TABLET PO SCH (11:58)
[2023-06-26 12:00] VITALS: BP 116/70
--- NOTE | 2023-06-26 12:44 | Short Stay Summary ---
Discharge Summary Hospital Course Was the Problem List Reviewed?: Yes Final Diagnosis: 36 6/7 weeks, SROM, Polysubstance abuse Hospital Course Date of Admission: Jun 23, 2023 at 20:48 Admission Diagnosis : 36 6/7 weeks, SROM, polysubstance abuse Family Physician/Provider: Lola,Local Physician Date of Discharge: 06/26/23 Discharge Diagnosis: 36 6/7 weeks, SROM, Polysubstance abuse, state, Hepatitis C Hospital Course: Patient is with 3 prior vaginal deliveries and 3 prior C-Sections with limited outside care presents under influence of several drugs on UDS (methamphetamine, amphetamine, THC) and +SROM test and irregular uterine contractions admitted for . Patient with elevated LFTs and +Hepatitis C this admission as a new diagnosis. Patient underwent on 06/23/23 an uncomplicated under general endotracheal anesthesia productive of viable 6 lbs. 8 onz female with 8/9. LFTs treanding downward since delivery and HCT at 25% yesterday 06/25/23. Patient far more responsive and coherent and conversational over her course, met all criteria for discharge from hospital. She is tolerating diet, voiding, ambulating. I started patient on Saunders Regimen for Bronchitis yesterday (Zithromax 500 mg daily x 3 days) due to chronic productive cough (CXR negative for pneumonia). Lungs clearer today since started on Zithromax, patient states breathing much better, and continues to have normal 02 saturations. managed services sales consultant has visited with patient and patient's mother has legal custody of baby. Patient also seen by Behavioral Health and patient not considered a threat to self at this time. Patient's mother is taking patient with her to patient's mother's home in [place]. Patient had to have jillian at surgery due to oozing that has now stopped. Patient's mother will schedule an appointment with her family physician, Dr. Yost for staple removal on POD 7-9 (Wed-Wed this coming week). Patient and her mother both informed about diagnosis and clinical course and available therapy for Hepatitis C and I have instructed patient's mother to ask Dr. Yost this c ing week to arrange for initiation of therapy for hepatitis C for patient. Both patient and mother understand and have agreed to do this. Both understand risks of untreated Hepatitis C. Due to patient risk of polypharmacy abuse patient is not getting (and does not want) Rx for narcotics for post-op pain after discharge. She will go home with hand written Rx for the following: Zithromax 500 mg p.o. one time tomorrow to complete 3 day course for bronchitis Ferrous Sulfate 325 mg #30: one dayily for anemia Motrin 600 mg #60: one p.o. q6h WF prn post-op pain. Routine written post-op instructions also given. Patient and her mother without questions or concerns voiced. RN in room during encounter. Labs and Pending Lab Test: Microbiology 06/23/23 Urine Culture - Final, Complete 3 or more isolates Home Meds Active Cleocin (Clindamycin Phos) 2 % Cr 5 Gm VG DAILY 7 Days Bactrim Ds Tablet (Sulfamethoxazole/Trimethoprim) 1 Each Tablet 1 Each PO BID 7 Days Cephalexin 500 Mg Tablet 500 Mg PO TID 7 Days [Miconazole Nitrate 2% Crm] 28.4 GM Cream..g. 0 Gm TP BID Mupirocin 22 Gm Oint...g. 0 Gm TOP BID Dok (Docusate Sodium) 100 Mg Capsule 100 Mg PO BID Oxyir Tablet (Oxycodone HCl) 5 Mg Tab 5 Mg PO Q4HR Ibu (Ibuprofen) 600 Mg Tablet 600 Mg PO Q6HR Reported Multi Tablet (Pnv No.122/Iron/Folic Acid) 1 Each Tablet Unknown Dose PO Assessment/Pt Instructions # Post-op day after doing well # 36 6/7 weeks # SROM # Polysubstance Abuse # Hepatitis C Follow up next week with Dr. Yost in [place] for removal of jillian and coordinate initiation of therapy for hepatitis C Discharge Instructions Discharge Diet: No Restrictions Activity as Tolerated: Yes Discharge Physical Examination General Appearance: Alert, Oriented X3, Cooperative HEENT: Mucous Memb Moist/[place] Respiratory: Clear to Auscultation Abdominal: No Tenderness, Other (Incision clean and dry, jillian intact, no erythema) Extremities: No Tenderness/Swelling Skin: No Rashes Neuro: Normal Gait Psych/Mental Status: Mental Status NL Allergies: Coded Allergies: No Known Drug Allergies (Verified , 12/20/17) Discharge Summary Date of Admission Jun 23, 2023 at 20:48 Date of Discharge 06/26/23 Discharge Date: Jun 26, 2023 Discharge Time: 12:45 Admission Diagnosis # 36 6/7 weeks # SROM # Polysubstance Abuse # Hepatitis C Consults/Procedures Procedures General Anesthesia Section Discharge Diagnosis 36 6/7 weeks SROM Polysubstance Abuse Hepatitis C GORDO SCHMIDT DO Jun 26, 2023 12:41
[2023-06-26] MEDS: oxyCODONE IMMEDIATE RELEASE 5 MG TABLET PO PRN (13:15)
[2023-06-26 13:19] VITALS: BP 119/78
== END 2023-06-26 13:30 | disposition home or self-care (01) | DRG 787 ==
LOC: WSo 19:43 → LDRP 19:43 → WSo 20:50 → LDRP 06-24 13:36
PROVIDERS: ADMIT Obstetrics & Gynecology; ATTEND Obstetrics & Gynecology
PROC: 10D00Z1 Extraction of Products of Conception, Low, Open Approach (ICD-10-PCS; principal; 2023-06-23 21:31)
DX: O34.211 Maternal care for low transverse scar from previous cesarean delivery (principal); D62 Acute posthemorrhagic anemia; O60.10X0 Preterm labor with preterm delivery, unspecified trimester, not applicable or unspecified; O99.324 Drug use complicating childbirth; O98.42 Viral hepatitis complicating childbirth; Z3A.36 36 weeks gestation of pregnancy; Z37.0 Single live birth; F15.10 Other stimulant abuse, uncomplicated; F12.10 Cannabis abuse, uncomplicated; O90.81 Anemia of the puerperium; B19.20 Unspecified viral hepatitis C without hepatic coma
CPT/HCPCS: 36415; 71046; 80053; 80306; 81000; 82570; 84112; 84156; 84443; 84550; 85007; 85025; 85027; 86762; 86765; 86780; 86803; 86850; 86900; 86901; 87088; 87340; 87389; 87522; 94640; 94664